=== PATIENT | female | born 1950 | race Caucasian/White ===

== ENCOUNTER → 2017-08-13 11:31 | Outpatient (CLI) | payer OTHER, SELFPAY ==
--- NOTE | 2017-08-13 11:31 | DT_ITS ---
This patient was seen during an EMR downtime August 06, 2017 - August 13, 2017. This patient may have a combination of paper and electronic documentation or all paper documentation. All documentation is viewable within the e-chart portion of [facility] for each patient visit.
[2017-08-13 14:02] LABS: Absolute Lymphocyte Count 1.55 X10^3/ul (0.83-4.51); Absolute Neutrophil Count 3.4 X10^3/uL (2.0-7.7); Basophil# 0.03 X10^3/uL; Basophil% 0.6 % (0-1); Eosinophil# 0.08 X10^3/uL; Eosinophils% 1.5 % (0-5); Hematocrit 36.9 % (37-47); Hemoglobin 11.7 g/dl (12.0-15.0); Lymphocyte # 1.55 X10^3/ul (4.0); Lymphocyte % 28.8 % (19-41); Mean Corp Hgb Conc 31.7 g/gl (32-36); Mean Corpuscular Hgb 28.8 pg (27.0-32.0); Mean Corpuscular Volume 90.9 fL (81-99); Mean Platelet Vol. 9.8 fl (6.2-12.0); Monocyte# 0.36 X10^3/uL; Monocyte% 6.7 % (0-10); Neutrophil # 3.37 X10^3/uL (2.7-7.7); Neutrophil % 62.4 % (47-70); Platelet Count 180 K/mm3 (150-450); RBC Distribution Width CV 14.1 % (11.6-14.6); RBC Distribution Width SD 46.6 fl (35.1-43.9); Red Blood Count 4.06 M/mm3 (4.2-5.4); White Blood Count 5.4 K/mm3 (4.4-11.0)
[2017-08-13 14:04] LABS: ALB/GLOB Ratio 1.2 RATIO (0.9-2.4); AST(SGOT) 18 U/L (15-37); Alanine Aminotransfer ALT/SGPT 28 U/L (13-56); Albumin, Serum 3.9 g/dL (3.2-5.0); Alkaline Phosphatase 100 U/L (45-117); Anion Gap 7 (5-15); BUN 17 mg/dL (7-18); BUN/Creat Ratio 22.7 RATIO (10-20); Calcium,Total 8.7 mg/dL (8.5-10.1); Chloride 107 mmol/L (98-107); Cholesterol 168 mg/dL (200); Creatinine, Serum 0.75 mg/dL (0.55-1.02); EST Glomerular Filtration Rate 83 mL/min (>60); Est Glom Filt Rate - Afr Amer 100 mL/min (>60); Globulin 3.2 g/dL (2.2-4.2); Glucose 83 mg/dL (74-106); Hemoglobin A1c 5.5 % (4.2-6.3); High Density Lipoprotein 57 mg/dL; Protein, Total 7.1 g/dL (6.4-8.2); Sodium Level 141 mmol/L (136-145); Thyroid Stim Hormone (TSH) 0.91 uIU/mL (0.358-3.74); Triglycerides 117 mg/dL; Very Low Density Lipoprotein 23 mg/dL (5-40)
[2017-08-13 14:05] LABS: POSITIVE COUNT NO; POSITIVE DIFFERENTIAL NO; POSITIVE MORPHOLOGY NO
== END ==
PROVIDERS: Visit Provider Family Medicine
DX: E16.2 Hypoglycemia, unspecified (principal); Z13.220 Encounter for screening for lipoid disorders; R11.0 Nausea
CPT/HCPCS: 36415; 80053; 80061; 83036; 84443; 85025

== ENCOUNTER → 2018-09-03 | Outpatient (CLI) | payer OTHER, SELFPAY ==
--- NOTE | 2018-09-03 11:57 | RAD_ITS ---
STUDY: X-RAY LEFT FOOT, THIRD TOE REASON FOR EXAM: Female, 67 years old. Injury. Pain. TECHNIQUE: 3 view(s) of the toe were obtained. COMPARISON: None. FINDINGS: No acute fracture, dislocation or osseous destruction. 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 Mild joint space narrowing at the distal interphalangeal joints. Soft tissue swelling predominating at the third digit. RAD/Toe(s) Min 2 Views IMPRESSION: Left foot/third toe intact Soft tissue swelling Mild degenerative changes Electronically Signed: Kapil Alfonso DO at 13:08 EDT Tel , Service support ,
== END | disposition home or self-care (01) ==
LOC: MTRAD 11:56
PROVIDERS: Family Provider Family Medicine; PCP Family Medicine; Referring Provider Family Medicine; Visit Provider Family Medicine
DX: S90.122A Contusion of left lesser toe(s) without damage to nail, initial encounter (principal)
CPT/HCPCS: 73660

== ENCOUNTER → 2019-09-19 12:06 | Outpatient (CLI) | payer MEDICARE, SELFPAY ==
--- NOTE | 2019-09-19 12:08 | BI_ITS ---
MAMMOGRAPHY - BILATERAL SCREENING REASON FOR EXAM: Female, 68 years old. Routine annual screening examination. PERTINENT HISTORY: Non-contributory. TECHNIQUE: Digital bilateral breast annita (3D mammographic acquisition) in the CC and MLO projections. 2-D mediolateral oblique (MLO) and craniocaudad (CC) views of both breasts were obtained. CAD: Full Field Digital Mammography with Computer Added Detection was performed. COMPARISON: Comparison is made with prior examination dated September 23, 2008. FINDINGS: Breast Composition: There are scattered areas of fibroglandular density. There are no dominant masses or suspicious calcifications. Small benign appearing left axillary lymph nodes. No other significant abnormalities are identified. There has been no significant change since the prior study. BI/SCREEN MAMM (CAD) W/ANNITA BILAT IMPRESSION: Stable bilateral screening mammogram. Yearly follow-up mammogram recommended. (A) ASSESSMENT CATEGORY: BIRADS Category 2: Benign. A letter regarding these results will be sent to the patient by the facility within 30 days. Approximately 10% of breast cancers are not detected by mammography. A normal mammogram should not delay biopsy of a clinically suspicious abnormality. [id number] Electronically Signed: Teofilo Glies, at 15:10 EDT , Service support ,
== END ==
PROVIDERS: PCP Family Medicine; Referring Provider Family Medicine; Visit Provider Family Medicine
DX: Z12.31 Encounter for screening mammogram for malignant neoplasm of breast (principal)
CPT/HCPCS: 77063; 77067

== ENCOUNTER → 2019-09-29 09:39 | Outpatient (CLI) | payer MEDICARE, SELFPAY ==
[2019-09-29 12:50] LABS: Anion Gap 4 (5-15); BUN 16 mg/dL (7-18); BUN/Creat Ratio 19.2 RATIO (10-20); Calcium,Total 8.8 mg/dL (8.5-10.1); Chloride 110 mmol/L (98-107); Cholesterol 184 mg/dL (200); Creatinine, Serum 0.83 mg/dL (0.55-1.02); EST Glomerular Filtration Rate 73 mL/min (>60); Est Glom Filt Rate - Afr Amer 88 mL/min (>60); Glucose 87 mg/dL (74-106); High Density Lipoprotein 63 mg/dL; Potassium 4.1 mmol/L (3.5-5.1); Sodium Level 142 mmol/L (136-145); Triglycerides 84 mg/dL; Very Low Density Lipoprotein 17 mg/dL (5-40)
== END ==
PROVIDERS: PCP Family Medicine; Referring Provider Family Medicine; Visit Provider Family Medicine
DX: Z13.1 Encounter for screening for diabetes mellitus (principal); Z13.220 Encounter for screening for lipoid disorders
CPT/HCPCS: 36415; 80048; 80061

== ENCOUNTER → 2019-12-29 16:53 | Outpatient (CLI) | payer MEDICARE, SELFPAY | PROVIDERS: PCP Family Medicine; Visit Provider Family Medicine | DX: Z20.828 Contact with and (suspected) exposure to other viral communicable diseases (principal) | CPT/HCPCS: 87635; U0003 ==

== ENCOUNTER → 2020-05-25 11:33 | Outpatient (CLI) | payer MEDICARE, SELFPAY ==
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
== END ==
PROVIDERS: PCP Family Medicine; Referring Provider Family Medicine; Visit Provider Family Medicine
DX: M25.462 Effusion, left knee (principal)
CPT/HCPCS: 73564

== ENCOUNTER 2020-06-25 13:30 | Outpatient (RCR) | payer MEDICARE, SELFPAY ==
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
--- NOTE | 2020-08-12 17:32 | HP.PTDCSUM ---
It has been my pleasure to treat PAUL VILLA referred by Dr. Broderick Wolfe MD, with the diagnosis of L knee pain for a total of 5 visit(s). Discharge Date: Please see the following information for a summary of their discharge status. Subjective: I am doing well today, last session I was little sore/achy but I am good today. Feeling as though she can do her exercises at home independently at this time. L knee Pain Intensity (Out of 10): 0 % Improvement: 100 Objective/Function: Progressed intensity and volume of abover ex's, pt is showing increase in strength of L hip and quad. Pt plans to complete her exercises independently and feels confident in her ability to do so. Goal 1:: Full aROM and quad contraction L knee without pain Goal 2:: walk and steps in community without pain Goal 3:: Ready to resume bike riding incommmunity Goal 4:: Pt feel 90% back to normal L knee Plan: Discharge to independent program per pt request. If there are questions or concerns regarding this patient's physical therapy, please feel free to call me at [phone]. Thank you for the referral of this patient. Sincerely, Kapil Leong, DPT, OCS, CSCS
== END 2020-06-25 19:00 | disposition home or self-care (01) ==
LOC: PT 13:30
PROVIDERS: PCP Family Medicine; Referring Provider Family Medicine; Visit Provider Family Medicine
DX: S89.92XD Unspecified injury of left lower leg, subsequent encounter (principal); X50.1XXD Overexertion from prolonged static or awkward postures, subsequent encounter; M70.52 Other bursitis of knee, left knee
CPT/HCPCS: 97110; 97161

== ENCOUNTER → 2020-09-14 08:22 | Outpatient (CLI) | payer MEDICARE, SELFPAY ==
[2020-09-14 11:03] LABS: ALB/GLOB Ratio 1.2 RATIO (0.9-2.4); AST(SGOT) 23 U/L (15-37); Alanine Aminotransfer ALT/SGPT 36 U/L (13-56); Alkaline Phosphatase 103 U/L (45-117); Anion Gap 5 (5-15); BUN 13 mg/dL (7-18); BUN/Creat Ratio 15.6 RATIO (10-20); Calcium,Total 9.5 mg/dL (8.5-10.1); Chloride 107 mmol/L (98-107); Cholesterol 195 mg/dL (200); Creatinine, Serum 0.83 mg/dL (0.55-1.02); EST Glomerular Filtration Rate 73 mL/min (>60); Est Glom Filt Rate - Afr Amer 88 mL/min (>60); Globulin 3.4 g/dL (2.2-4.2); Glucose 87 mg/dL (74-106); High Density Lipoprotein 63 mg/dL; Potassium 3.7 mmol/L (3.5-5.1); Protein, Total 7.4 g/dL (6.4-8.2); Sodium Level 139 mmol/L (136-145); Triglycerides 124 mg/dL; Very Low Density Lipoprotein 25 mg/dL (5-40)
== END ==
PROVIDERS: PCP Family Medicine; Referring Provider Family Medicine; Visit Provider Family Medicine
DX: I10 Essential (primary) hypertension (principal)
CPT/HCPCS: 36415; 80053; 80061

== ENCOUNTER → 2020-10-14 13:02 | Outpatient (CLI) | payer MEDICARE, SELFPAY ==
--- NOTE | 2020-10-14 13:23 | BI_ITS ---
MAMMOGRAPHY - BILATERAL SCREENING REASON FOR EXAM: Female, 69 years old. Routine annual screening examination. PERTINENT HISTORY: Non-contributory. TECHNIQUE: Digital bilateral breast annita (3D mammographic acquisition) in the CC and MLO projections. 2-D mediolateral oblique (MLO) and craniocaudad (CC) views of both breasts were obtained. CAD: Full Field Digital Mammography with Computer Added Detection was performed. COMPARISON: Comparison is made with prior study dated 09/19/2019. FINDINGS: Breast Composition: There are scattered areas of fibroglandular density. There are no dominant masses or suspicious calcifications. Stable benign-appearing bilateral axillary lymph nodes. No other significant abnormalities are identified. There has been no significant change since the prior study. BI/SCRN MAMM (CAD)W/ANNITA BILAT IMPRESSION: Stable bilateral screening mammogram. Yearly follow-up mammogram recommended. (A) ASSESSMENT CATEGORY: BIRADS Category 2: Benign. A letter regarding these results will be sent to the patient by the facility within 30 days. Approximately 10% of breast cancers are not detected by mammography. A normal mammogram should not delay biopsy of a clinically suspicious abnormality. [id number] Electronically Signed: Teofilo Giles MD at 8:48 EDT , Service support ,
--- NOTE | 2020-10-14 13:28 | BD_ITS ---
STUDY: DUAL ENERGY X-RAY ABSORPTIOMETRY / DXA REASON FOR EXAM: Female, 69 years old. 627.8Menopausal postmenopausalBONE DENSITY REASON FOR EXAM TECHNIQUE: Bone Mineral Density (BMD) measurements of lumbar spine and bilateral hips were obtained. COMPARISON: None. FINDINGS: Lumbar Spine (L1-L4): g/cm2 (0.644) / T-score (-3.7) / Z-score (-1.7) Findings are suggestive of osteoporosis with a high fracture risk. Left Femur Total: g/cm2 (0.739) / T-score (-1.7) / Z-score (-0.3) Left Femoral Neck: g/cm2 (0.592) / T-score (-2.3) / Z-score (-0.6) Right Femur Total: g/cm2 (0.732) / T-score (-1.7) / Z-score (-0.3) Right Femoral Neck: g/cm2 (0.604) / T-score (-2.2) / Z-score (-0.5) BD/Dexa Bone Density Study IMPRESSION: The patient is considered osteoporotic as outlined below according to World [employer] Organization (WHO) criteria with a high fracture risk. Reference Information: The T-score is the number of standard deviations above or below the standard which is normal for young adults at their peak bone mineral density. The World Health Organization (WHO) interprets the T-scores as follows: Above -1 Normal bone density Between -1 and -2.5 Osteopenia Equal to / or below -2.5 Osteoporosis As a practical clinical guideline, osteopenia may be graded as follows: Mild -1 through -1.5 Moderate -1.6 through -2.0 Severe -2.1 through -2.4 The Z-score is the number of standard deviations above or below age-matched controls. A Z-score of less than -1.5 would be considered abnormal. References: 1. NIH Osteoporosis and Related Bone Diseases www osteo.org 2. International Society for Clinical Densitometry www iscd.org 3. National Osteoporosis Foundation www nof.org Electronically Signed: Teofilo Giles MD at 20:17 EDT , Service support ,
== END ==
PROVIDERS: PCP Family Medicine; Referring Provider Family Medicine; Visit Provider Family Medicine
DX: Z12.31 Encounter for screening mammogram for malignant neoplasm of breast (principal); Z78.0 Asymptomatic menopausal state
CPT/HCPCS: 77063; 77067; 77080

== ENCOUNTER 2021-06-02 07:52 | Outpatient (CLI) | payer MEDICARE, SELFPAY ==
--- NOTE | 2021-06-02 08:02 | CT_ITS ---
STUDY: CT ABDOMEN WITH CONTRAST REASON FOR EXAM: Female, 70 years old. Hepatic abnormality visualized on prior MRI examination. RADIATION DOSAGE (If Supplied By Facility): CTDIvol = ( 14.10 ) mGy, DLP = ( 862.96 ) mGycm TECHNIQUE: Transaxial images were obtained post I.V. administration of IV 100mL Isovue-300, and oral contrast. Sagittal and coronal images were reconstructed. Individualized dose optimization techniques were used for this CT. COMPARISON: None. FINDINGS: The visualized lung bases are unremarkable. The visualized portions of the heart are within normal limits. There is decreased attenuation of the liver consistent with steatosis. Multiple heterogeneous enhancing nodules are seen in the liver. The largest measures 4.3 cm x 4.9 cm and is in the dome of the right lobe of the liver. There is a cotton-wool type of enhancement within these nodules. The findings are suggestive of multiple hepatic hemangiomas. Correlation with ultrasound is recommended for further evaluation. The gallbladder is contracted. Normal spleen. Normal pancreas. Normal bilateral adrenal glands. Normal right kidney. Normal left kidney. Normal visualized stomach. Normal small intestine. Normal colon. The appendix is visualized and appears normal. Normal abdominal aorta. Normal inferior vena cava. Normal retroperitoneum. Normal abdominal wall. Normal osseous structures. CT/Abdomen WITH IV Contrast IMPRESSION: There are multiple heterogeneous enhancing nodules with a cotton wool type of enhancement throughout the liver as described. This most likely corresponds to multiple hepatic hemangiomas. Correlation with ultrasound is recommended for further evaluation. Diffuse fatty infiltration of the liver. Electronically Signed: Teofilo Giles MD at 9:14 EDT ,
[2021-06-02 08:06] LABS: CREATININE FINGERSTICK 0.8 mg/dL (0.55-1.02); EGFR FINGERSTICK > 60.0000 mL/min (>60)
== END 2021-06-02 23:59 | disposition home or self-care (01) ==
LOC: CT 07:54
PROVIDERS: PCP Family Medicine; Referring Provider Family Medicine; Visit Provider Family Medicine
DX: K76.9 Liver disease, unspecified (principal)
CPT/HCPCS: 74160; Q9967

== ENCOUNTER 2021-06-09 09:45 | Outpatient (CLI) | payer MEDICARE, SELFPAY ==
--- NOTE | 2021-06-09 09:54 | US_ITS ---
STUDY: ABDOMINAL ULTRASOUND - RIGHT UPPER QUADRANT REASON FOR VISIT: Female, 70 years old HEPATOLEGALY -- ABNL CT TECHNIQUE: Ultrasound evaluation of the right upper quadrant was performed with real-time and static finney-scale imaging. TECHNICAL QUALITY: Adequate. COMPARISON: CT abdomen pelvis 06/02/2021. FINDINGS: LIVER: Length 15.7 cm. Heterogeneous predominantly increased echogenicity. There are 3 hypoechoic lesions in the right lobe corresponding to the CT lesions. These measure 4.6 x 4.4 x 4.5 cm, 4.3 x 2.3 x 2.6 cm, and 2.6 x 1 x 1.7 cm. Calcification in the left lobe 1.5 cm. GALLBLADDER: Surgically absent. EXTRAHEPATIC BILE DUCTS: Common bile duct 4 mm not dilated. PANCREAS: Visualized portions unremarkable. The tail was not visualized. Obscured by bowel gas. RIGHT KIDNEY: Length 19.7 cm. No hydronephrosis. ASCITES: None. US/Abdomen Limited IMPRESSION: Hepatic lesions x3 hypoechoic indeterminate by ultrasound. Correlation with MRI may be helpful. Fatty infiltration. Cholecystectomy. No biliary dilatation. Electronically Signed: Lexi Bojorquez MD at 5:36 EDT ,
== END 2021-06-09 23:59 | disposition home or self-care (01) ==
PROVIDERS: PCP Family Medicine; Visit Provider Family Medicine
DX: R16.0 Hepatomegaly, not elsewhere classified (principal)
CPT/HCPCS: 76705

== ENCOUNTER → 2021-09-12 | Outpatient (CLI) | payer MEDICARE, SELFPAY ==
[2021-09-12 09:29] LABS: Bacteria 0 SEEN /hpf (None Seen); Mucous, Urine 0 SEEN /hpf (<or=2+); Red Blood Cells-Urine 0 SEEN /hpf (0-5)
[2021-09-12 12:10] LABS: Color, Urine Yellow (Yellow); Glucose, Dipstick Normal (Normal); Ketone-Dipstick 5 mg/dl (Negative); Leukocyte Esterase-Dipstick 25 /ul (Negative); Nitrite-Dipstick Negative (Negative); Occult Blood-Urine Negative /ul (Negative); Protein-Dipstick Negative (Negative); Specific Gravity, Urine 1.015 (1.002-1.030); Urine Bilirubin Dipstick Negative (Negative); Urine Clarity Sl. Cloudy (Clear); Urine Urobilinogen Normal (Normal)
[2021-09-12 12:13] LABS: Absolute Lymphocyte Count 1.42 X10^3/uL (0.83-4.51); Basophil# 0.04 X10^3/uL; Basophil% 0.8 % (0-1); Eosinophil# 0.13 X10^3/uL; Eosinophils% 2.6 % (0-5); Hematocrit 39.2 % (37-47); Hemoglobin 12.3 g/dL (12.0-15.0); Lymphocyte # 1.42 X10^3/ul (0.83-4.51); Lymphocyte % 27.9 % (19-41); Mean Corp Hgb Conc 31.4 g/dL (32-36); Mean Corpuscular Hgb 28.7 pg (27.0-32.0); Mean Corpuscular Volume 91.4 fL (81-99); Mean Platelet Vol. 10.2 fl (6.2-12.0); Monocyte# 0.52 X10^3/uL; Monocyte% 10.2 % (0-10); NRBC Flagged by Analyzer 0 % (0-5); Neutrophil # 2.96 X10^3/uL (2.7-7.7); Neutrophil % 58.1 % (47-70); Platelet Count 180 K/mm3 (150-450); RBC Distribution Width CV 14.1 % (11.6-14.6); RBC Distribution Width SD 47.7 fl (35.1-43.9); Red Blood Count 4.29 M/mm3 (4.2-5.4); White Blood Count 5.1 K/mm3 (4.4-11.0)
[2021-09-12 12:18] LABS: Squamous Epithelial Cells - UA 0-5 SEEN /hpf (5-10); White Blood Cells 0-5 SEEN /hpf (0-5)
[2021-09-12 12:28] LABS: Vitamin B12 570 pg/mL (211-911)
[2021-09-12 12:48] LABS: ALB/GLOB Ratio 1.1 RATIO (0.9-2.4); AST(SGOT) 31 U/L (15-37); Alanine Aminotransfer ALT/SGPT 56 U/L (13-56); Albumin, Serum 3.8 g/dL (3.2-5.0); Alkaline Phosphatase 101 U/L (45-117); Anion Gap 9 (5-15); BUN 15 mg/dL (7-18); BUN/Creat Ratio 17.3 RATIO (10-20); CPK Total, Creatine Kinase 66 U/L (26-192); Chloride 107 mmol/L (98-107); Cholesterol 178 mg/dL (200); Creatinine, Serum 0.87 mg/dL (0.55-1.02); EST Glomerular Filtration Rate 69 mL/min (>60); Est Glom Filt Rate - Afr Amer 83 mL/min (>60); Ferritin 21 ng/mL (8-252); Globulin 3.4 g/dL (2.2-4.2); Glucose 92 mg/dL (74-106); High Density Lipoprotein 54 mg/dL; Magnesium 2.5 mg/dL (1.6-2.6); Protein, Total 7.2 g/dL (6.4-8.2); Sodium Level 142 mmol/L (136-145); Thyroid Stim Hormone (TSH) 2.16 uIU/mL (0.358-3.74); Triglycerides 116 mg/dL; Very Low Density Lipoprotein 23 mg/dL (5-40)
== END | disposition home or self-care (01) ==
LOC: MFPLAB 09:28
PROVIDERS: PCP Family Medicine; Visit Provider Family Medicine
DX: I10 Essential (primary) hypertension (principal); R25.2 Cramp and spasm; E53.8 Deficiency of other specified B group vitamins
CPT/HCPCS: 36415; 80053; 80061; 81001; 82550; 82607; 82728; 83735; 84443; 85025

== ENCOUNTER → 2022-03-24 | Outpatient (CLI) | payer MEDICARE, SELFPAY ==
[2022-03-24 10:13] LABS: Red Blood Cells-Urine 0 SEEN /hpf (0-5)
[2022-03-24 12:12] LABS: Color, Urine Yellow (Yellow); Glucose, Dipstick Normal (Normal); Ketone-Dipstick 15 mg/dl (Negative); Leukocyte Esterase-Dipstick 25 /ul (Negative); Nitrite-Dipstick Negative (Negative); Occult Blood-Urine 10 /ul (Negative); Protein-Dipstick 15 mg/dl (Negative); Urine Bilirubin Dipstick Negative (Negative); Urine Clarity Clear (Clear); Urine Urobilinogen 1 mg/dl (Normal)
[2022-03-24 12:20] LABS: Bacteria RARE /hpf (None Seen); Mucous, Urine RARE /hpf (<or=2+); Squamous Epithelial Cells - UA 0-5 SEEN /hpf (5-10); White Blood Cells 0-5 SEEN /hpf (0-5)
[2022-03-24 12:33] LABS: Vitamin B12 1571 pg/mL (211-911)
[2022-03-24 12:47] LABS: AST(SGOT) 18 U/L (15-37); Alanine Aminotransfer ALT/SGPT 37 U/L (13-56); Albumin, Serum 3.7 g/dL (3.2-5.0); Alkaline Phosphatase 107 U/L (45-117); Anion Gap 6 (5-15); BUN 18 mg/dL (7-18); Calcium,Total 8.9 mg/dL (8.5-10.1); Chloride 108 mmol/L (98-107); Cholesterol 172 mg/dL (200); EST Glomerular Filtration Rate 58 mL/min (>60); Est Glom Filt Rate - Afr Amer 71 mL/min (>60); Globulin 3.6 g/dL (2.2-4.2); Glucose 93 mg/dL (74-106); High Density Lipoprotein 86 mg/dL; Potassium 4.4 mmol/L (3.5-5.1); Protein, Total 7.3 g/dL (6.4-8.2); Sodium Level 141 mmol/L (136-145); Thyroid Stim Hormone (TSH) 1.47 uIU/mL (0.358-3.74); Triglycerides 100 mg/dL; Very Low Density Lipoprotein 20 mg/dL (5-40)
[2022-03-24 15:30] LABS: Absolute Lymphocyte Count 1.15 X10^3/uL (0.83-4.51); Basophil# 0.04 X10^3/uL; Basophil% 0.8 % (0-1); Eosinophil# 0.11 X10^3/uL; Eosinophils% 2.2 % (0-5); Hematocrit 37.8 % (37-47); Hemoglobin 11.7 g/dL (12.0-15.0); Lymphocyte # 1.15 X10^3/ul (0.83-4.51); Lymphocyte % 23.5 % (19-41); Mean Corpuscular Hgb 28.1 pg (27.0-32.0); Mean Corpuscular Volume 90.9 fL (81-99); Mean Platelet Vol. 10.5 fl (6.2-12.0); Monocyte# 0.52 X10^3/uL; Monocyte% 10.6 % (0-10); NRBC Flagged by Analyzer 0.4 % (0-5); Neutrophil # 3.04 X10^3/uL (2.7-7.7); Neutrophil % 62.3 % (47-70); Platelet Count 203 K/mm3 (150-450); RBC Distribution Width CV 14.7 % (11.6-14.6); RBC Distribution Width SD 49.1 fl (35.1-43.9); Red Blood Count 4.16 M/mm3 (4.2-5.4); White Blood Count 4.9 K/mm3 (4.4-11.0)
[2022-03-27 14:30] LABS: Ferritin 25 ng/mL (8-252); Iron 45 ug/dL (50-170); Iron Binding Capacity,Total 360 ug/dL (250-450); PERCENT IRON SATURATION 12.5 % (15.0-55.0)
== END | disposition home or self-care (01) ==
LOC: MTLAB 10:06
PROVIDERS: PCP Family Medicine; Referring Provider Family Medicine; Visit Provider Family Medicine
DX: I10 Essential (primary) hypertension (principal); E53.8 Deficiency of other specified B group vitamins; D64.9 Anemia, unspecified
CPT/HCPCS: 80053; 80061; 81001; 82607; 82728; 82746; 83540; 83550; 84443; 85025

== ENCOUNTER → 2022-05-09 | Outpatient (CLI) | payer MEDICARE, SELFPAY ==
[2022-05-09 15:20] LABS: Absolute Lymphocyte Count 1.54 X10^3/uL (0.83-4.51); Absolute Neutrophil Count 4.2 X10^3/uL (2.0-7.7); Basophil# 0.06 X10^3/uL; Basophil% 0.9 % (0-1); Eosinophil# 0.09 X10^3/uL; Eosinophils% 1.4 % (0-5); Hematocrit 38.5 % (37-47); Hemoglobin 12.3 g/dL (12.0-15.0); Lymphocyte # 1.54 X10^3/ul (0.83-4.51); Lymphocyte % 23.7 % (19-41); Mean Corp Hgb Conc 31.9 g/dL (32-36); Mean Corpuscular Hgb 28.9 pg (27.0-32.0); Mean Corpuscular Volume 90.4 fL (81-99); Mean Platelet Vol. 9.7 fl (6.2-12.0); Monocyte% 9.2 % (0-10); NRBC Flagged by Analyzer 0 % (0-5); Neutrophil # 4.19 X10^3/uL (2.7-7.7); Neutrophil % 64.3 % (47-70); Platelet Count 269 K/mm3 (150-450); RBC Distribution Width CV 14.6 % (11.6-14.6); RBC Distribution Width SD 48.5 fl (35.1-43.9); Red Blood Count 4.26 M/mm3 (4.2-5.4); White Blood Count 6.5 K/mm3 (4.4-11.0)
[2022-05-09 15:38] LABS: Vitamin D,25 Hydroxy 50.9 ng/mL
[2022-05-09 16:23] LABS: AST(SGOT) 25 U/L (15-37); Alanine Aminotransfer ALT/SGPT 39 U/L (13-56); Albumin, Serum 3.8 g/dL (3.2-5.0); Alkaline Phosphatase 108 U/L (45-117); Anion Gap 7 (5-15); BUN 14 mg/dL (7-18); BUN/Creat Ratio 16.1 RATIO (10-20); Calcium,Total 9.3 mg/dL (8.5-10.1); Chloride 107 mmol/L (98-107); Creatinine, Serum 0.87 mg/dL (0.55-1.02); EST Glomerular Filtration Rate 69 mL/min (>60); Est Glom Filt Rate - Afr Amer 83 mL/min (>60); Ferritin 26 ng/mL (8-252); Globulin 3.8 g/dL (2.2-4.2); Glucose 84 mg/dL (74-106); Iron 63 ug/dL (50-170); Iron Binding Capacity,Total 384 ug/dL (250-450); Potassium 4.1 mmol/L (3.5-5.1); Protein, Total 7.6 g/dL (6.4-8.2); Sodium Level 140 mmol/L (136-145); T4 Free Direct 0.98 ng/dL (0.76-1.46); Thyroid Stim Hormone (TSH) 1.66 uIU/mL (0.358-3.74)
== END | disposition home or self-care (01) ==
LOC: MTLAB 11:33
PROVIDERS: PCP Family Medicine; Referring Provider Family Medicine; Visit Provider Family Medicine
DX: D64.9 Anemia, unspecified (principal); R53.83 Other fatigue
CPT/HCPCS: 36415; 80053; 82306; 82728; 82746; 83540; 83550; 84439; 84443; 85025

== ENCOUNTER → 2022-10-17 | Outpatient (CLI) | payer MEDICARE, SELFPAY ==
--- NOTE | 2022-10-17 10:18 | BI_ITS ---
MAMMOGRAPHY - BILATERAL SCREENING REASON FOR EXAM: Female, 71 years old. Routine annual screening examination. PERTINENT HISTORY: Non-contributory. TECHNIQUE: Digital bilateral breast annita (3D mammographic acquisition) in the CC and MLO projections. 2-D mediolateral oblique (MLO) and craniocaudad (CC) views of both breasts were obtained. CAD: Full Field Digital Mammography with Computer Added Detection was performed. COMPARISON: Comparison is made with prior study October 14, 2020 and September 19, 2019. FINDINGS: Breast Composition: There are scattered areas of fibroglandular density. There are no dominant masses or suspicious calcifications. Stable small benign-appearing bilateral axillary lymph nodes. No other significant abnormalities are identified. There has been no significant change since the prior study. BI/SCRN MAMM (CAD)W/ANNITA BILAT IMPRESSION: Stable bilateral screening mammogram. Yearly follow-up mammogram recommended. (A) ASSESSMENT CATEGORY: BIRADS Category 2: Benign. A letter regarding these results will be sent to the patient by the facility within 30 days. Approximately 10% of breast cancers are not detected by mammography. A normal mammogram should not delay biopsy of a clinically suspicious abnormality. [id number] Electronically Signed: Teofilo Giles MD at 13:26 EDT ,
--- NOTE | 2022-10-17 10:24 | BD_ITS ---
STUDY: DUAL ENERGY X-RAY ABSORPTIOMETRY / DXA REASON FOR EXAM: Female, 71 years old. [id number] TECHNIQUE: Bone Mineral Density (BMD) measurements of lumbar spine and bilateral hips were obtained. COMPARISON: Comparison is made with prior study October 14, 2020. FINDINGS: Lumbar Spine (L1-L4): g/cm2 (0.670) / T-score (-3.4) / Z-score (-1.3) Findings are suggestive of osteoporosis with a high fracture risk. Left Femur Total: g/cm2 (0.758) / T-score (-1.5) / Z-score (0.0) Left Femoral Neck: g/cm2 (0.577) / T-score (-2.5) / Z-score (-0.7) Right Femur Total: g/cm2 (0.709) / T-score (-1.9) / Z-score (-0.4) Right Femoral Neck: g/cm2 (0.574) / T-score (-2.5) / Z-score (-0.7) The T-Scores on the most recent prior examination were: Lumbar Spine (L1-L4): There has been worsening of bone density since the previous examination. Left Femur Total: which represents an improvement of 2.5%. Right Femur Total: which represents a worsening of 3.2%. BD/Dexa Bone Density Study IMPRESSION: The patient is considered osteoporotic as outlined below according to [employer] [place] Organization (WHO) criteria with a high fracture risk. There has been worsening of bone density since the previous examination. Reference Information: The T-score is the number of standard deviations above or below the standard which is normal for young adults at their peak bone mineral density. The World Health Organization (WHO) interprets the T-scores as follows: Above -1 Normal bone density Between -1 and -2.5 Osteopenia Equal to / or below -2.5 Osteoporosis As a practical clinical guideline, osteopenia may be graded as follows: Mild -1 through -1.5 Moderate -1.6 through -2.0 Severe -2.1 through -2.4 The Z-score is the number of standard deviations above or below age-matched controls. A Z-score of less than -1.5 would be considered abnormal. References: 1. NIH Osteoporosis and Related Bone Diseases www osteo.org 2. International Society for Clinical Densitometry www iscd.org 3. National Osteoporosis Foundation www nof.org Electronically Signed: Teofilo Giles MD at 10:46 EDT ,
== END | disposition home or self-care (01) ==
LOC: OPBD 10:17
PROVIDERS: PCP Family Medicine; Referring Provider Family Medicine; Visit Provider Family Medicine
DX: Z12.31 Encounter for screening mammogram for malignant neoplasm of breast (principal); Z78.0 Asymptomatic menopausal state
CPT/HCPCS: 77063; 77067; 77080

== ENCOUNTER → 2023-02-06 | Outpatient (CLI) | payer MEDICARE, SELFPAY ==
[2023-02-06 12:22] LABS: Absolute Lymphocyte Count 0.43 X10^3/uL (0.83-4.51); Absolute Neutrophil Count 7.2 X10^3/uL (2.0-7.7); Basophil# 0.05 X10^3/uL; Basophil% 0.6 % (0-1); Eosinophil# 0.04 X10^3/uL; Eosinophils% 0.5 % (0-5); Hematocrit 38.3 % (37-47); Hemoglobin 11.9 g/dL (12.0-15.0); Lymphocyte # 0.43 X10^3/ul (0.83-4.51); Lymphocyte % 5.1 % (19-41); Mean Corp Hgb Conc 31.1 g/dL (32-36); Mean Corpuscular Hgb 27.8 pg (27.0-32.0); Mean Corpuscular Volume 89.5 fL (81-99); Mean Platelet Vol. 9.5 fl (6.2-12.0); Monocyte# 0.54 X10^3/uL; Monocyte% 6.5 % (0-10); NRBC Flagged by Analyzer 0 % (0-5); Neutrophil # 7.24 X10^3/uL (2.7-7.7); Neutrophil % 86.7 % (47-70); POSITIVE DIFFERENTIAL YES; Platelet Count 236 K/mm3 (150-450); RBC Distribution Width CV 15.6 % (11.6-14.6); RBC Distribution Width SD 50.4 fl (35.1-43.9); Red Blood Count 4.28 M/mm3 (4.2-5.4); White Blood Count 8.4 K/mm3 (4.4-11.0)
[2023-02-06 12:27] LABS: Differential Indicated SCAN CRITERIA MET
[2023-02-06 12:53] LABS: Vitamin B12 736 pg/mL (211-911); Vitamin D,25 Hydroxy 55.4 ng/mL
[2023-02-06 13:32] LABS: ALB/GLOB Ratio 0.9 RATIO (0.9-2.4); AST(SGOT) 22 U/L (15-37); Alanine Aminotransfer ALT/SGPT 41 U/L (13-56); Albumin, Serum 3.6 g/dL (3.2-5.0); Alkaline Phosphatase 98 U/L (45-117); Anion Gap 5 (5-15); BUN 12 mg/dL (7-18); BUN/Creat Ratio 12.6 RATIO (10-20); Calcium,Total 9.1 mg/dL (8.5-10.1); Chloride 107 mmol/L (98-107); Cholesterol 136 mg/dL (200); Creatinine, Serum 0.96 mg/dL (0.55-1.02); EST Glomerular Filtration Rate 61 mL/min (>60); Est Glom Filt Rate - Afr Amer 74 mL/min (>60); Ferritin 55 ng/mL (8-252); Globulin 4.2 g/dL (2.2-4.2); Glucose 140 mg/dL (74-106); High Density Lipoprotein 44 mg/dL; Iron 20 ug/dL (50-170); Iron Binding Capacity,Total 352 ug/dL (250-450); Magnesium 2.2 mg/dL (1.6-2.6); Potassium 4.1 mmol/L (3.5-5.1); Protein, Total 7.8 g/dL (6.4-8.2); Sodium Level 137 mmol/L (136-145); Thyroid Stim Hormone (TSH) 1.03 uIU/mL (0.358-3.74); Triglycerides 117 mg/dL; Very Low Density Lipoprotein 23 mg/dL (5-40)
== END | disposition home or self-care (01) ==
LOC: MTLAB 09:58
PROVIDERS: PCP Family Medicine; Referring Provider Family Medicine; Visit Provider Family Medicine
DX: I10 Essential (primary) hypertension (principal); D64.9 Anemia, unspecified; M81.0 Age-related osteoporosis without current pathological fracture; E53.8 Deficiency of other specified B group vitamins; R25.2 Cramp and spasm
CPT/HCPCS: 36415; 80053; 80061; 82306; 82607; 82728; 82746; 83540; 83550; 83735; 84443; 85025

== ENCOUNTER → 2023-12-05 | Outpatient (CLI) | payer MEDICARE, SELFPAY ==
[2023-12-05 15:42] LABS: ALB/GLOB Ratio 0.9 RATIO (0.9-2.4); AST(SGOT) 26 U/L (15-37); Alanine Aminotransfer ALT/SGPT 39 U/L (13-56); Albumin, Serum 3.8 g/dL (3.2-5.0); Alkaline Phosphatase 105 U/L (45-117); Anion Gap 6 (5-15); BUN 15 mg/dL (7-18); CPK Total, Creatine Kinase 65 U/L (26-192); Calcium,Total 9.2 mg/dL (8.5-10.1); Chloride 108 mmol/L (98-107); Creatinine, Serum 0.94 mg/dL (0.55-1.02); EST Glomerular Filtration Rate 63 mL/min (>60); Est Glom Filt Rate - Afr Amer 76 mL/min (>60); Ferritin 21 ng/mL (8-252); Globulin 4.4 g/dL (2.2-4.2); Glucose 130 mg/dL (74-106); Magnesium 2.2 mg/dL (1.6-2.6); Protein, Total 8.2 g/dL (6.4-8.2); Sodium Level 140 mmol/L (136-145)
== END | disposition home or self-care (01) ==
LOC: MTLAB 12:35
PROVIDERS: PCP Family Medicine; Referring Provider Family Medicine; Visit Provider Family Medicine
DX: R25.2 Cramp and spasm (principal)
CPT/HCPCS: 36415; 80053; 82550; 82728; 83735; 84443

== ENCOUNTER → 2024-01-04 | Outpatient (CLI) | payer MEDICARE, SELFPAY ==
--- NOTE | 2024-01-04 14:36 | BI_ITS ---
MAMMOGRAPHY - BILATERAL SCREENING REASON FOR EXAM: Female, 73 years old. Routine annual screening examination. PERTINENT HISTORY: Non-contributory. TECHNIQUE: Digital bilateral breast annita (3D mammographic acquisition) in the CC and MLO projections. 2-D mediolateral oblique (MLO) and craniocaudad (CC) views of both breasts were obtained. CAD: Full Field Digital Mammography with Computer Added Detection was performed. COMPARISON: Comparison is made with prior study dated October 17, 2022 and October 14, 2020. FINDINGS: Breast Composition: There are scattered areas of fibroglandular density. There are no dominant masses or suspicious calcifications. No other significant abnormalities are identified. There has been no significant change since the prior study. BI/SCRN MAMM (CAD)W/ANNITA BILAT IMPRESSION: Stable bilateral screening mammogram. Yearly follow-up mammogram recommended. (A) ASSESSMENT CATEGORY: BIRADS Category 1: Negative. A letter regarding these results will be sent to the patient by the facility within 30 days. Approximately 10% of breast cancers are not detected by mammography. A normal mammogram should not delay biopsy of a clinically suspicious abnormality. [id number] Electronically Signed: Teofilo Giles MD at 15:24 EDT ,
== END | disposition home or self-care (01) ==
LOC: OPBI 14:34
PROVIDERS: PCP Family Medicine; Referring Provider Family Medicine; Visit Provider Family Medicine
DX: Z12.31 Encounter for screening mammogram for malignant neoplasm of breast (principal)
CPT/HCPCS: 77063; 77067

== ENCOUNTER → 2024-10-31 | Outpatient (CLI) | payer MEDICARE, SELFPAY ==
[2024-10-31 12:53] LABS: Hematocrit 36.0 % (37-47); Hemoglobin 11.6 g/dL (12.0-15.0); Immature Granulocytes Count 0.010 X10^3/uL (0.0-0.0); Mean Corp Hgb Conc 32.2 g/dL (32-36); Mean Corpuscular Volume 88.2 fL (81-99); Mean Platelet Vol. 10.4 fl (6.2-12.0); NRBC Flagged by Analyzer 0 % (0-5); Platelet Count 206 K/mm3 (150-450); RBC Distribution Width CV 14.9 % (11.6-14.6); RBC Distribution Width SD 47.8 fl (35.1-43.9); Red Blood Count 4.08 M/mm3 (4.2-5.4); White Blood Count 5.6 K/mm3 (4.4-11.0)
[2024-10-31 13:53] LABS: AST(SGOT) 25 U/L (<=31); Alanine Aminotransfer ALT/SGPT 27 U/L (<=34); Albumin, Serum 4.3 g/dL (3.4-4.8); Alkaline Phosphatase 103 U/L (35-104); Anion Gap 10 (5-15); BUN 21 mg/dL (4-19); BUN/Creat Ratio 22.5 RATIO (10-20); Calcium,Total 9.5 mg/dL (7.6-11.0); Carbon Dioxide 24.2 mmol/L (21.0-32.0); Chloride 106 mmol/L (98-108); Cholesterol 176 mg/dL (<=200); Ferritin 26 ng/mL (22-378); Globulin 3.6 g/dL (2.2-4.2); Glucose 80 mg/dL (70-99); Low Density Lipoprotein Calc. 95 mg/dL; Magnesium 2.3 mg/dL (1.5-2.2); Potassium 4.4 mmol/L (3.3-5.1); Triglycerides 117 mg/dL; Very Low Density Lipoprotein 23 mg/dL (5-40); cholesterol:hdl ratio screen 3.07
== END | disposition home or self-care (01) ==
LOC: MTLAB 10:35
PROVIDERS: PCP Family Medicine; Referring Provider Family Medicine; Visit Provider Family Medicine
DX: I10 Essential (primary) hypertension (principal); G25.81 Restless legs syndrome
CPT/HCPCS: 36415; 80053; 80061; 82728; 83735; 85025

== ENCOUNTER → 2024-11-06 | Outpatient (CLI) | payer MEDICARE, SELFPAY ==
[2024-11-06 18:46] LABS: Iron 24 ug/dL (50-170); Iron Binding Capacity,Total 318 ug/dL (250-450); Iron Binding Capacity,Unsat 294 ug/dL (228-428); Vitamin B12 1236 pg/mL (180-914); Vitamin D,25 Hydroxy 51.8 ng/mL (30-100)
== END | disposition home or self-care (01) ==
LOC: MTLAB 13:44
PROVIDERS: PCP Family Medicine
DX: D64.9 Anemia, unspecified (principal); R53.83 Other fatigue
CPT/HCPCS: 36415; 82306; 82607; 83540; 83550; 84443

== ENCOUNTER → 2025-01-16 | Outpatient (CLI) | payer MEDICARE, SELFPAY ==
--- NOTE | 2025-01-16 15:07 | RAD_ITS ---
PROCEDURE: KNEE 4 OR MORE VIEWS 01/16/2025 REASON FOR EXAM: INJURY TECHNIQUE: Procedure Code: RADKN Modality: DX Procedure: KNEE 4 OR MORE VIEWS Laterality: Right COMPARISON: None FINDINGS: Bones: There are no fractures or dislocations. Joints: Joint spaces are well preserved. Effusion: There does appear to be a small suprapatellar bursa effusion. Soft tissues: Soft tissue swelling of the knee is noted RAD/Knee 4 or More Views IMPRESSION: There does appear to be a small suprapatellar bursa effusion and soft tissue sw elling of the knee. Osseous structures appear grossly unremarkable. Reading Location: [id number]
--- NOTE | 2025-01-16 15:07 | RAD_ITS ---
PROCEDURE: HAND MIN 3 VIEWS 01/16/2025 REASON FOR EXAM: INJURY TECHNIQUE: Procedure Code: EMMA Modality: DX Procedure: HAND MIN 3 VIEWS Laterality: Right COMPARISON: None FINDINGS: Oblique fracture through the midshaft of the 4th metacarpal, displaced. Nondisplaced fracture through the 5th metacarpal. No additional fracture seen throughout the remainder of the hand. Narrowing of the distal interphalangeal joints of the 2nd through 5th digits are present. Soft tissue edema present. RAD/Hand Min 3 Views IMPRESSION: Acute displaced oblique fracture through the midshaft of the 4th metacarpal. Nondisplaced fracture through the 5th metacarpal. Reading Location: [id number]
--- OUTSIDE RECORDS SUMMARY | 2025-01-16 17:29 | XMS RPT_ITS | CCD ---
Author Organization [facility] CliniSywv Care Team Providers Care Style Advisor Name Role Phone Cullen Reina Primary Care Provider CULLEN REINA Primary Care UnavailSri Chan Referring Unavailable TRUDY SIMON Attending Unavailable IVETH ERAZO Referring Unavailable Sri Redding Attending Unavailable CULLEN REINA Primary Care UnavailCULLEN Obrien DO Primary Care Physician [phone] Cullen Reina MD Primary Care Provider CULLEN REINA MD Primary Care Physician CASSI UNGER MD Attending Unavailable CULLEN REINA MD Primary Care Unavailable AVIS GARCIA MD Attending Unavailable CURT CHRISTIANSON, CULLEN Primary Care Unavailable CULLEN ELIAS DO Primary Care Unavailable CASSI UNGER MD Attending Unavailable Dr. Cullen Reina MD Primary Care Provider Dr. Israel Ruvalcaba MD Attending Provider [phone] AVIS GARCIA MD Attending Freddy REINA MD, CULLEN Primary Care Unavailable PRERNA VARGAS MD Attending Unavailable CULLEN REINA MD Primary Care Unavailable ARACELI JAY, CULLEN Primary Care Unavailable PRERNA VARGAS MD Attending Unavailable Cullen Reina Referring Unavailable Cullen Reina Primary Care Unavailable Cullen Reina Attending Unavailable Cullen Reina Primary Care Unavailable Rubensorrow CANT HOOKERTimothy Attending Unavailable Rubensorrow CANT HOOKERTimothy Referring Unavailable Cullen Reina Primary Care Unavailable Cullen Reina Attending Unavailable Cullen Reina Referring Unavailable Cullen Reina Primary Care Unavailable Israel Ruvalcaba Attending Unavailable Cullen Reina Primary Care Unavailable Cullen Reina Attending Unavailable Cullen Reina Referring Unavailable Araceli JAY Dr. Cullen E Primary Care Physician Dr. Israel Ruvalcaba MD Attending Physician Dr. Cullen Reina MD Attending Physician [phone] Dr. Cullen Reina MD Referring Provider [phone] [place] CANT HOOKER-CTimothy Attending Physician [place] CANT HOOKER-CTimothy Referring Provider Allergies Allergy Classification Reported Allergen(s) Allergy Type Date of Onset Reaction(s) Facility (4 sources) Betamethasone; Translations: [BETAMETHASONE DIPROPIONATE] Drug Allergy 01-15-[address] [facility] (4 sources) Diclofenac; Translations: [DICLOFENAC] Drug Allergy 04-04-2022 Other: See Comments [facility] (4 sources) Etodolac; Translations: [ETODOLAC] Drug Allergy 04-04-[address] [facility] (4 sources) Methylphenidate; Translations: [METHYLPHENIDATE ] Drug Allergy 04-04-[address] [facility] (4 sources) venlafaxine; Translations: [VENLAFAXINE] Drug Allergy 04-04-2022 Other: See Comments [facility] (2 sources) amLODIPine Drug Allergy 05-02-2022 Contraindicatio n-Medical Surgical [facility] Medications Current Medications Medication Drug Class(es) Dates Sig (Normalized) Sig (Original) acetaminophen 325 mg / HYDROcodone bitartrate 5 mg oral tablet (2 sources) Opioid Agonist Start: 12-24-2022 End: 12-29-2022 take 1 tablet by mouth every six hours as needed for pain [place] 325- 5 mg oral tablet Dose = 1 tab(s), Oral, q6h, PRN for pain, X 5 day(s), # 12 tab(s), 0 Refill(s), Acute back pain less than 4 weeks duration, 59.1 Start Date: 12/24/22 Stop Date: 12/29/22 Status: Ordered cyclobenzaprine hydrochloride 7.5 mg oral tablet (5 sources) Muscle Relaxant Start: 12-24-2022 End: 12-29-2022 cyclobenzaprine 7.5 mg oral tablet Dose : 7.5 mg = 1 tab(s), Oral, TID, PRN for muscle spasm, X 5 day(s), # 15 tab(s), 0 Refill(s), 12/29/22 5:22:00 PM EDT Start Date: 12/24/22 Stop Date: 12/29/22 Status: Ordered take 1 tablet by franky th every eight hours as needed cyclobenzaprine 5 mg ORAL tablet Take 5 mg by mouth three times daily as needed. 0 Active Comment on above: Take 5 mg by mouth t hree times daily as needed. diazePAM 5 mg oral tablet (6 sources) Benzodiazepine Start: 04-29-2019 Valium 5 mg oral tablet Dose : 5 mg = 1 tab(s), Oral, TID, PRN as needed for pain, 58 Start Date: 04/29/19 Status: Ordered Repeat number: 1 lidocaine 0.05 mg/mg medicated patch (1 source) Antiarrhythmic, Amide Local Anesthetic Start: 04-22-2023 End: 05-02-2023 Lidoderm 5% topical film Apply 1 patch(es), Topical, qDay, Apply to area of back pain/spasm remove patches after 12 hours, # 30 patch(es), 0 Refill(s), 56.8 Start Date: 04/22/23 Stop Date: 05/02/23 Status: Ordered metoprolol tartrate 25 mg oral tablet (10 sources) beta-Adrenergic Hernandez Start: 06-02-2016 End: 04-04-2022 metoprolol tartrate 25 mg oral tablet Dose : 25 mg = 1 tab(s), Oral, BIDM, 0 Refill(s) Start Date: 06/02/16 Status: Ordered Repeat number: 1 Start: 05-09-2005 take 1 tablet by franky th every twenty-four hours TOPROL XL 25 MG 24 HR TAB Take by mouth. 0 05/09/2005 Active Start: 05-09-2005 TOPROL XL 25 M G 24 HR TAB twice daily 0 05/09/2005 Active Comment on above: twice daily Take 25 mg by mouth twice daily. Take by mouth. naproxen 375 mg oral tablet (1 source) Nonsteroidal Anti-inflammatory Drug Start: 04-22-2023 End: 05-02-2023 naproxen 375 mg oral tablet Dose : 375 mg = 1 tab(s), Oral, BID, PRN as needed for pain, As needed pain with food, # 20 tab(s), 0 Refill(s), 05/02/23 2:13:00 PM EST Start Date: 04/22/23 Stop Date: 05/02/23 Status: Ordered 12 hr orphenadrine citrate 100 mg extended release oral tablet (2 sources) Muscle Relaxant Start: 08-17-2024 End: 08-24-2024 orphenadrine 100 mg oral tablet, extended release Dose : 100 mg = 1 tab(s), Oral, BID, X 7 day(s), # 14 tab(s), 0 Refill(s), 08/24/24 2:13:00 PM EDT Start Date: 08/17/24 Stop Date: 08/24/24 Status: Ordered Quantity: 14.0 Unit: tab(s) Repeat number: 1 polyethylene glycol 3350 546550 mg / potassium chloride 2970 mg / sodium bicarbonate 6740 mg / sodium chloride 5860 mg / sodium sulfate 95118 mg powder for oral solution (1 source) Osmotic Laxative Start: 04-04-2022 End: 04-04-2022 peg 3350-Electrolytes (GOLYTELY) 236-22.74-6.74 -5.86 gram suspension Take 4,000 mL by mouth one time only for 1 dose. 1 Each 0 04/04/2022 04/04/2022 Active Comment on above: Take 4,000 mL by franky th one time only for 1 dose. Completed/Discontinued Medications Medication Drug Class(es) Dates Sig (Normalized) Sig (Original) acetaminophen 325 mg oral tablet (3 sources) Start: 05-09-2005 TYLENOL 325 MG TAB takes 650 mg bid 0 05/09/2005 Active Comment on above: takes 650 mg bid amLODIPine 5 mg oral tablet (3 sources) Dihydropyridine Calcium Channel Hernandez Start: 03-24-2022 take 1 tablet by mouth once daily amLODIPine (NORVASC) 5 mg tablet Take 5 mg by mouth once daily. 0 03/24/2022 Active Comment on above: Take 5 mg by mouth o nce daily. CALCIUM CARB/MAGNESIUM CMB #10 (FREEMAN-MAG ORAL) (3 sources) take 2000 mg by mouth twice daily CALCIUM CARB/MAGNESIUM CMB #10 (FREEMAN-MAG ORAL) Take 2,000 mg by mouth twice daily. 0 Active Comment on above: Take 2,000 mg by franky th twice daily. fluticasone propionate 0.05 mg/actuat metered dose nasal spray (3 sources) Corticosteroid Start: 02-15-2022 fluticasone (FLONASE) 50 mcg/actuation nasal spray 2 Sprays once daily. 0 02/15/2022 Active Comment on above: 2 Sprays once daily. gabapentin 100 mg oral capsule (3 sources) Anti-epileptic Agent Start: 03-10-2022 take 1 capsule by mouth three times daily gabapentin (NEURONTIN) 100 mg capsule Take 100 mg by mouth three times daily. 0 03/10/2022 Active Comment on above: Take 100 mg by mouth three times daily. multivitamin ORAL Tab (3 sources) Start: 12-24-2006 take 1 tablet by mouth once daily multivitamin ORAL Tab Take one(1) tablet daily. 0 0 12/24/2006 Active Comment on above: Take one(1) tablet d aily. rOPINIRole 0.25 mg oral tablet (3 sources) Nonergot Dopamine Agonist Start: 10-18-2020 rOPINIRole (REQUIP) 0.25 mg tablet take 1/2 tablet by mouth with dinner and 3 and 1/2 tablets at bedtime 0 10/18/2020 Active Comment on above: take 1/2 tablet by m outh with dinner and 3 and 1/2 tablets at bedtime sulfamethoxazole 800 mg / trimethoprim 160 mg oral tablet (3 sources) Dihydrofolate Reductase Inhibitor Antibacterial, Sulfonamide Antimicrobial Start: 04-03-2022 take 1 tablet by mouth twice daily sulfamethoxazole-t rimethoprim (BACTRIM DS,SEPTRA DS) 800-160 mg per tablet Take 1 tablet by mouth twice daily. 0 04/03/2022 Active Comment on above: Take 1 tablet by franky twice daily. traZODone hydrochloride 50 mg oral tablet (3 sources) Serotonin Reuptake Inhibitor Start: 02-08-2022 take 1 tablet by mouth once daily at bedtime traZODone (DESYREL) 50 mg tablet Take 50 mg by mouth daily at bedtime. 0 02/08/2022 Active Comment on above: Take 50 mg by mouth daily at bedtime. vitamin b12 0.5 mg oral tablet (3 sources) Vitamin B12 cyanocobalamin (VITAMIN B-12) 500 mcg tablet Take by mouth once daily. 0 Active Comment on above: Take by mouth once d aily. zolpidem tartrate 12.5 mg extended release oral tablet (3 sources) gamma-Aminobutyric Acid-ergic Agonist Start: 09-10-2008 zolpidem tartrate(AMBIEN CR 12.5 MG TAB) 1/2 at bedtime as needed for sleep 0 09/10/2008 Active Comment on above: 12 at bedtime as ne eded for sleep Problems Active Problems Problem Classification Problem Date Documented Da te Episodic/Chronic Deficiency and other anemia (1 source) Anemia, unspecified; Translations: [Anemia, unspecified] Onset: 11-21-2024 Episodic Essential hypertension (3 sources) Essential hypertension; Translations: [Essential (primary) hypertension] Onset: 12-24-2022 Chronic Other connective tissue disease (1 source) Spasm; Translations: [Cramp and spasm] Onset: 12-24-2022 Episodic Residual codes; unclassified (6 sources) Family history of cancer of colon; Translations: [Family history of malignant neoplasm of digestive organs] Onset: 05-13-2016 Episodic Residual codes; unclassified (2 sources) Family history of malignant neoplasm of digestive organs; Translations: [Family history of colon cancer requiring screening colonoscopy] Onset: 05-13-2016 Episodic Spondylosis; intervertebral disc disorders; other back problems (6 sources) Backache; Translations: [Dorsalgia, unspecified] Onset: 12-24-2022 Episodic Past or Other Problems Problem Classification Problem Date Documented Da te Episodic/Chronic Other connective tissue disease (1 source) Cramp and spasm; Translations: [Cramp and spasm] Onset: 12-27-2023 Episodic Other screening for suspected conditions (not mental disorders or infectious disease) (4 sources) Patient encounter status; Translations: [Encounter for screening for malignant neoplasm of colon] Onset: 05-02-2022 Episodic Results Test Name Value Interpretation Reference Range Facility Iron measurement (mass/mass) Ordered By: Timothy Clifton on 11-06-2024 Iron (Unsp spec) [Mass/Mass] 24 ug/dL Low 50-170 [facility] Iron+Iron Binding Capacityon 11-06-2024 Iron [Mass/Vol] 24 ug/dL Low 50-170 [facility] Comment on above: Order Comment: Order Date: 10/30/24 Order Info: [id number] - CMP Order Info: [id number] - LIPID Order Info: [id number] - MG Order Info: [id number] - HUY Performed By: #### L 100.0100, L501.5200, L500.4050, L500.4100 #### [facility] [address] [place], [place], [address] IRON SATURATION 8.0 Low 13-59 [facility] Comment on above: Order Comment: Order Date: 10/30/24 Order Info: [id number] - CMP Order Info: [id number] - LIPID Order Info: [id number] - MG Order Info: [id number] - HUY Performed By: #### L 100.0100, L501.5200, L500.4050, L500.4100 #### [facility] [address] [place], [place], [id number] TIBC 318 ug/dL Normal 250-450 [facility] Comment on above: Order Comment: Order Date: 10/30/24 Order Info: [id number] - CMP Order Info: [id number] - LIPID Order Info: [id number] - MG Order Info: [id number] - HUY Performed By: #### L 100.0100, L501.5200, L500.4050, L500.4100 #### [facility] [address] [place], [address] UIBC 294 ug/dL Normal 228-428 [facility] Comment on above: Order Comment: Order Date: 10/30/24 Order Info: [id number] - CMP Order Info: [id number] - LIPID Order Info: [id number] - MG Order Info: [id number] - HUY Performed By: #### L 100.0100, L501.5200, L500.4050, L500.4100 #### [facility] [address] [place], [address] No Panel InformationOrdered By: Timothy Clifton on 11-06-2024 Unsaturated Iron Binding Capacity 294 ug/dL 228-428 [facility] Serum or plasma iron saturat ion measurement (mass fraction)Ordered By: Timothy Clifton on 11-06-2024 Iron saturation [Mass fraction] 8.0 % Low 13-59 [facility] TSH DL <= 0.005 mIU/L QnOrde red By: Timothy Clifton on 11-06-2024 TSH Qn 1.590 uIU/mL 0.300-4.200 [facility] Thyroid Stim Hormone (TSH)on 11-06-2024 TSH 1.590 uIU/mL Normal 0.300-4.200 [facility] Comment on above: Order Comment: Order Date: 10/30/24 Order Info: [id number] - CMP Order Info: [id number] - LIPID Order Info: [id number] - MG Order Info: [id number] - HUY Performed By: #### L 100.0100, L501.5200, L500.4050, L500.4100 #### [facility] [address] [place], [address] Vitamin B12on 11-06-2024 Cobalamin (Vitamin B12) [Mass/Vol] 1236 pg/mL High 180-914 [facility] Comment on above: Order Comment: CRISTI Campbell ADD IBC AND B12 TO LABS DRAWN TODAY 11/06/24 PER ARACELI Performed By: #### L 503.6030, L506.1001, L503.0106 #### [facility] [address] [place], [address] Vitamin B12 ser/plasOrdered By: Timothy Traviskike on 11-06-2024 Cobalamin (Vitamin B12) [Mass/Vol] 1236 pg/mL High 180-914 [facility] Vitamin D,25 Hydroxyon 11-06 Vitamin D 25-OH 51.8 ng/mL Normal 30-100 [facility] Comment on above: Order Comment: Order Date: 10/30/24 Order Info: [id number] - CMP Order Info: [id number] - LIPID Order Info: [id number] - MG Order Info: [id number] - HUY Result Comment: Suzan min D Status Deficiency: <20 ng/mL (50nmol/L) Insufficiency: 20-30 ng/mL (50-75 nmol/L) Sufficiency: 30-100 ng/mL (75-250 nmol/L) Toxicity: >100 ng/mL (>250 nmol/L) Performed By: #### L 100.0100, L501.5200, L500.4050, L500.4100 #### [facility] [place], [address] Absolute lymphocyte countOrd ered By: Cullen Reina on 10-31-2024 Lymphocytes Auto (Unsp spec) [#/Vol] 1.31 10*3/uL 0.83-4.51 [facility] Absolute neutrophil countOrd ered By: Cullen Reina on 10-31-2024 Neutrophils (Bld) [#/Vol] 3.6 10*3/uL 2.0-7.7 [facility] Anion gap in Serum or Plasma Ordered By: Cullen Reina on 10-31-2024 Anion gap [Moles/Vol] 10 mmol/L 5-15 [facility] Automated lymphocyte count a s percentage of total leukocytesOrdered By: Cullen Reina on 10-31-2024 Lymphocytes/100 WBC Auto (Unsp spec) 23.6 % 19-41 [facility] BUN/creatinine ratioOrdered By: Cullen Reina on 10-31-2024 Urea nitrogen/Creatinine [Mass ratio] 22.5 mg/mg High 10-20 [facility] Basophil percentageOrdered B y: Cullen Reina on 10-31-2024 Basophils/100 WBC (Bld) 0.9 % 0-1 [facility] Bilirubin, totalOrdered By: Cullen Reina on 10-31-2024 Bilirubin [Mass/Vol] 0.49 mg/dL 0.00-1.30 [facility] CBC W/Diff, Automatedon 10-04 Absolute Lymph 1.31 X10 3/uL Normal 0.83-4.51 [facility] Comment on above: Order Comment: Order Date: 10/30/24 Order Info: [id number] - CBCD Performed By: #### L 100.0100, L501.5200, L500.4050, L500.4100 #### [facility] [address] [place], [address] Absolute Neut 3.6 X10 3/uL Normal 2.0-7.7 [facility] Comment on above: Order Comment: Order Date: 10/30/24 Order Info: 018- - CBCD Performed By: #### L 100.0100, L501.5200, L500.4050, L500.4100 #### [facility] [address] [place], [address] Basophils/100 WBC (Bld) 0.9 % Normal 0-1 [facility] Comment on above: Order Comment: Order Date: 10/30/24 Order Info: [id number]- - CBCD Performed By: #### L 100.0100, L501.5200, L500.4050, L500.4100 #### [facility] [address] [place], [address] Eosinophils/100 WBC (Bld) 2.0 % Normal 0-5 [facility] Comment on above: Order Comment: Order Date: 10/30/24 Order Info: 018- - CBCD Performed By: #### L 100.0100, L501.5200, L500.4050, L500.4100 #### [facility] [address] [place], [address] Erythrocyte distribution width (RBC) [Ratio] 14.9 % High 11.6-14.6 [facility] Comment on above: Order Comment: Order Date: 10/30/24 Order Info: 018- - CBCD Performed By: #### L 100.0100, L501.5200, L500.4050, L500.4100 #### [facility] [address] [place], [address] Hematocrit (Bld) [Volume fraction] 36.0 % Low 37-47 [facility] Comment on above: Order Comment: Order Date: 10/30/24 Order Info: [id number]- - CBCD Performed By: #### L 100.0100, L501.5200, L500.4050, L500.4100 #### [facility] [address] [place], [address] Hemoglobin (Bld) [Mass/Vol] 11.6 g/dL Low 12.0-15.0 [facility] Comment on above: Order Comment: Order Date: 10/30/24 Order Info: [id number] - CBCD Performed By: #### L 100.0100, L501.5200, L500.4050, L500.4100 #### [facility] [address] [place], [address] IG% 0.200 Normal 0.0-0.9 [facility] Comment on above: Order Comment: Order Date: 10/30/24 Order Info: [id number] - CBCD Result Comment: IG% - Immature Granulocytes (promyelocytes, myelocytes and metamyelocytes) > 1% indicates that a LEFT SHIFT is Present. Performed By: #### L 100.0100, L501.5200, L500.4050, L500.4100 #### [facility] [address] [place], [address] Lymphocytes/100 WBC (Bld) 23.6 % Normal 19-41 [facility] Comment on above: Order Comment: Order Date: 10/30/24 Order Info: [id number]- - CBCD Performed By: #### L 100.0100, L501.5200, L500.4050, L500.4100 #### [facility] [address] [place], [address] MCH (RBC) [Entitic mass] 28.4 pg Normal 27.0-32.0 [facility] Comment on above: Order Comment: Order Date: 10/30/24 Order Info: [id number]- - CBCD Performed By: #### L 100.0100, L501.5200, L500.4050, L500.4100 #### [facility] [address] [place], [address] MCHC (RBC) [Mass/Vol] 32.2 g/dL Normal 32-36 [facility] Comment on above: Order Comment: Order Date: 10/30/24 Order Info: [id number] - CBCD Performed By: #### L 100.0100, L501.5200, L500.4050, L500.4100 #### [facility] [address] [place], [address] MCV (RBC) [Entitic vol] 88.2 fL Normal 81-99 [facility] Comment on above: Order Comment: Order Date: 10/30/24 Order Info: [id number]- - CBCD Performed By: #### L 100.0100, L501.5200, L500.4050, L500.4100 #### [facility] [address] [place], [address] Monocytes/100 WBC (Bld) 9.2 % Normal 0-10 [facility] Comment on above: Order Comment: Order Date: 10/30/24 Order Info: [id number]- - CBCD Performed By: #### L 100.0100, L501.5200, L500.4050, L500.4100 #### [facility] [address] [place], [address] Neutrophils/100 WBC (Bld) 64.1 % Normal 47-70 [facility] Comment on above: Order Comment: Order Date: 10/30/24 Order Info: [id number] - CBCD Performed By: #### L 100.0100, L501.5200, L500.4050, L500.4100 #### [facility] [address] [place], [address] Nucleated RBC (Bld) [#/Vol] 0 10*3/uL Normal 0-5 [facility] Comment on above: Order Comment: Order Date: 10/30/24 Order Info: [id number] - CBCD Performed By: #### L 100.0100, L501.5200, L500.4050, L500.4100 #### [facility] [address] [place], [address] Platelet mean volume (Bld) [Entitic vol] 10.4 fL Normal 6.2-12.0 [facility] Comment on above: Order Comment: Order Date: 10/30/24 Order Info: 018- - CBCD Performed By: #### L 100.0100, L501.5200, L500.4050, L500.4100 #### [facility] [address] [place], [address] Platelets (Bld) [#/Vol] 206 10*3/uL Normal 150-450 [facility] Comment on above: Order Comment: Order Date: 10/30/24 Order Info: [id number]- - CBCD Performed By: #### L 100.0100, L501.5200, L500.4050, L500.4100 #### [facility] [address] [place], [address] RBC (Bld) [#/Vol] 4.08 10*6/uL Low 4.2-5.4 [facility] Comment on above: Order Comment: Order Date: 10/30/24 Order Info: [id number]- - CBCD Performed By: #### L 100.0100, L501.5200, L500.4050, L500.4100 #### [facility] [address] [place], [address] RDW SD 47.8 fl High 35.1-43.9 [facility] Comment on above: Order Comment: Order Date: 10/30/24 Order Info: [id number] - CBCD Performed By: #### L 100.0100, L501.5200, L500.4050, L500.4100 #### [facility] [address] [place], [address] WBC (Bld) [#/Vol] 5.6 10*3/uL Normal 4.4-11.0 [facility] Comment on above: Order Comment: Order Date: 10/30/24 Order Info: [id number] - CBCD Performed By: #### L 100.0100, L501.5200, L500.4050, L500.4100 #### [facility] [address] [place], [place], [address] Calculated very low density lipoprotein (VLDL) cholesterol measurementOrdered By: Cullen Reina on 10-31-2024 Calculated very low density lipoprotein (VLDL) cholesterol measurement 23 mg/dL 5-40 [facility] Carbon dioxide, total [Moles /volume] in Central venous bloodOrdered By: Cullen Reina on 10-31-2024 CO2 [Moles/Vol] 24.2 mmol/L 21.0-32.0 [facility] Chloride assayOrdered By: Analisa Reina on 10-31-2024 Chloride [Moles/Vol] 106 mmol/L 98-108 [facility] Comprehensive Metabolic Prof ilon 10-31-2024 Albumin [Mass/Vol] 4.3 g/dL Normal 3.4-4.8 [facility] Comment on above: Order Comment: Order Date: 10/30/24 Order Info: [id number] - CMP Order Info: [id number] - LIPID Order Info: [id number] - MG Order Info: [id number] - HUY Performed By: #### L 100.0100, L501.5200, L500.4050, L500.4100 #### [facility] [address] [place], [address] Albumin/Globulin [Mass ratio] 1.2 {ratio} Normal 0.9-2.4 [facility] Comment on above: Order Comment: Order Date: 10/30/24 Order Info: [id number] - CMP Order Info: - LIPID Order Info: [id number] - MG Order Info: [id number] - HUY Performed By: #### L 100.0100, L501.5200, L500.4050, L500.4100 #### [facility] [address] [place], [address] ALK PHOS 103 U/L Normal 35-104 [facility] Comment on above: Order Comment: Order Date: 10/30/24 Order Info: [id number]- - CMP Order Info: - LIPID Order Info: [id number] - MG Order Info: [id number] - HUY Performed By: #### L 100.0100, L501.5200, L500.4050, L500.4100 #### [facility] [address] [place], [address] ALT [Catalytic activity/Vol] 27 U/L Normal <=34 [facility] Comment on above: Order Comment: Order Date: 10/30/24 Order Info: [id number] - CMP Order Info: - LIPID Order Info: [id number] - MG Order Info: [id number] - HUY Performed By: #### L 100.0100, L501.5200, L500.4050, L500.4100 #### [facility] [address] [place], [address] AST [Catalytic activity/Vol] 25 U/L Normal <=31 [facility] Comment on above: Order Comment: Order Date: 10/30/24 Order Info: [id number] - CMP Order Info: - LIPID Order Info: [id number] - MG Order Info: [id number] - HUY Performed By: #### L 100.0100, L501.5200, L500.4050, L500.4100 #### [facility] [address] [place], [address] Bilirubin [Mass/Vol] 0.49 mg/dL Normal 0.00-1.30 [facility] Comment on above: Order Comment: Order Date: 10/30/24 Order Info: [id number]- - CMP Order Info: - LIPID Order Info: [id number] - MG Order Info: 4 - HUY Performed By: #### L 100.0100, L501.5200, L500.4050, L500.4100 #### [facility] [address] [place], [address] BUN/CRE 22.5 RATIO High 10-20 [facility] Comment on above: Order Comment: Order Date: 10/30/24 Order Info: 07- - CMP Order Info: - LIPID Order Info: [id number] - MG Order Info: [id number] - HUY Performed By: #### L 100.0100, L501.5200, L500.4050, L500.4100 #### [facility] [address] [place], [place], [address] Calcium [Mass/Vol] 9.5 mg/dL Normal 7.6-11.0 [facility] Comment on above: Order Comment: Order Date: 10/30/24 Order Info: 785-03 - CMP Order Info: - LIPID Order Info: [id number] - MG Order Info: 2275-06 - HUY Performed By: #### L 100.0100, L501.5200, L500.4050, L500.4100 #### [facility] [address] [place], [address] Chloride [Moles/Vol] 106 mmol/L Normal 98-108 [facility] Comment on above: Order Comment: Order Date: 10/30/24 Order Info: 0786-1 - CMP Order Info: [id number] - LIPID Order Info: [id number] - MG Order Info: 2275-4 - HUY Performed By: #### L 100.0100, L501.5200, L500.4050, L500.4100 #### [facility] [address] [place], [address] CO2 [Moles/Vol] 24.2 mmol/L Normal 21.0-32.0 [facility] Comment on above: Order Comment: Order Date: 10/30/24 Order Info: 785-1 - CMP Order Info: [id number] - LIPID Order Info: [id number] - MG Order Info: 6-4 - HUY Performed By: #### L 100.0100, L501.5200, L500.4050, L500.4100 #### [facility] [address] [place], [place], [address] Creatinine [Mass/Vol] 0.94 mg/dL Normal 0.70-1.20 [facility] Comment on above: Order Comment: Order Date: 10/30/24 Order Info: 785-03 - CMP Order Info: [id number] - LIPID Order Info: [id number] - MG Order Info: 2275-4 - HUY Performed By: #### L 100.0100, L501.5200, L500.4050, L500.4100 #### [facility] [address] [place], [place], [address] GAP 10 Normal 5-15 [facility] Comment on above: Order Comment: Order Date: 10/30/24 Order Info: 785-03 - CMP Order Info: [id number] - LIPID Order Info: [id number] - MG Order Info: 2275-4 - HUY Performed By: #### L 100.0100, L501.5200, L500.4050, L500.4100 #### [facility] [address] [place], [place], [address] GFR/1.73 sq M.predicted among non-blacks MDRD (S/P/Bld) [Vol rate/Area] 65 mL/min/{1.73_m2} Normal >60 [facility] Comment on above: Order Comment: Order Date: 10/30/24 Order Info: 07-1 - CMP Order Info: [id number] - LIPID Order Info: [id number] - MG Order Info: 2276-4 - HUY Result Comment: mL/m in/1.73m2 CKD-EPI Creatinine Equation (2020) Performed By: #### L 100.0100, L501.5200, L500.4050, L500.4100 #### [facility] [address] [place], [address] Globulin (S) [Mass/Vol] 3.6 g/dL Normal 2.2-4.2 [facility] Comment on above: Order Comment: Order Date: 10/30/24 Order Info: 0786-1 - CMP Order Info: [id number] - LIPID Order Info: [id number] - MG Order Info: 2275-06 - HUY Performed By: #### L 100.0100, L501.5200, L500.4050, L500.4100 #### [facility] [address] [place], [address] Glucose [Mass/Vol] 80 mg/dL Normal 70-99 [facility] Comment on above: Order Comment: Order Date: 10/30/24 Order Info: 785-1 - CMP Order Info: [id number] - LIPID Order Info: [id number] - MG Order Info: 2275-06 - HUY Performed By: #### L 100.0100, L501.5200, L500.4050, L500.4100 #### [facility] [address] [place], [address] Potassium [Moles/Vol] 4.4 mmol/L Normal 3.3-5.1 [facility] Comment on above: Order Comment: Order Date: 10/30/24 Order Info: 0786-1 - CMP Order Info: [id number] - LIPID Order Info: [id number] - MG Order Info: 2275-06 - HUY Performed By: #### L 100.0100, L501.5200, L500.4050, L500.4100 #### [facility] [address] [place], [address] Sodium [Moles/Vol] 140 mmol/L Normal 133-145 [facility] Comment on above: Order Comment: Order Date: 10/30/24 Order Info: 0786-1 - CMP Order Info: [id number] - LIPID Order Info: [id number] - MG Order Info: 2275-06 - HUY Performed By: #### L 100.0100, L501.5200, L500.4050, L500.4100 #### [facility] [address] [place], [place], [address] T PROT 7.8 g/dL Normal 5.9-8.4 [facility] Comment on above: Order Comment: Order Date: 10/30/24 Order Info: 785- - CMP Order Info: [id number] - LIPID Order Info: [id number] - MG Order Info: 2275-06 - HUY Performed By: #### L 100.0100, L501.5200, L500.4050, L500.4100 #### [facility] [address] [place], [place], [address] Urea nitrogen [Mass/Vol] 21 mg/dL High 4-19 [facility] Comment on above: Order Comment: Order Date: 10/30/24 Order Info: 0786 - CMP Order Info: [id number] - LIPID Order Info: [id number] - MG Order Info: 2275-06 - HUY Performed By: #### L 100.0100, L501.5200, L500.4050, L500.4100 #### [facility] [address] [place], [place], [address] Eosinophil percentageOrdered By: Cullen Reina on 10-31-2024 Eosinophils/100 WBC (Bld) 2.0 % 0-5 [facility] Erythrocyte distribution wid th ratioOrdered By: Cullen Reina on 10-31-2024 Erythrocyte distribution width (RBC) [Ratio] 14.9 % High 11.6-14.6 [facility] Erythrocyte distribution wid th standard deviationOrdered By: Cullen Reina on 10-31-2024 Erythrocyte distribution width (RBC) [Ratio] 47.8 fl High 35.1-43.9 [facility] Ferritinon 10-31-2024 Ferritin [Mass/Vol] 26 ng/mL Normal 22-378 [facility] Comment on above: Order Comment: Order Date: 10/30/24 Order Info: 0786-1 - CMP Order Info: [id number] - LIPID Order Info: [id number] - MG Order Info: 2276-4 - HUY Performed By: #### L 100.0100, L501.5200, L500.4050, L500.4100 #### [facility] [address] [place], [address] Glomerular filtration rate ( GFR) estimation/1.73 sq m using serum, plasma, or whole bOrdered By: Cullen Reina on 10-31-2024 GFR/1.73 sq M.predicted among non-blacks MDRD (S/P/Bld) [Vol rate/Area] 65 mL/min/{1.73_m2} >60 [facility] Comment on above: mL/min/1.73m2 CKD-EP I Creatinine Equation (2020) Hematocrit Auto (Bld) [Volum e fraction]Ordered By: Cullen Reina on 10-31-2024 Hematocrit (Bld) [Volume fraction] 36.0 % Low 37-47 [facility] Hemoglobin measurementOrdere d By: Cullen Reina on 10-31-2024 Hemoglobin (Bld) [Mass/Vol] 11.6 g/dL Low 12.0-15.0 [facility] Immature granulocytes/100 WB C Auto (Bld)Ordered By: Cullen Reina on 10-31-2024 Immature granulocytes/100 WBC (Bld) 0.200 % 0.0-0.9 [facility] Comment on above: IG% - Immature Granu locytes (promyelocytes, myelocytes and metamyelocytes) > 1% indicates that a LEFT SHIFT is Present. LDL calc ser/plasOrdered By: Cullen Reina on 10-31-2024 Cholesterol in LDL [Mass/Vol] 95 mg/dL [facility] Comment on above: Ztmicqomoi=571-077 m g/dL & Higher Mabh=529 mg/dL or greaterFriedwald Equation for LDL-C Laboratory - Chemistry and C hemistry - challengeOrdered By: Cullen Reina on 10-31-2024 AST [Catalytic activity/Vol] 25 U/L <32 [facility] Lipid Profileon 10-31-2024 CHOL:HDL 3.07 Normal [facility] Comment on above: Order Comment: Order Date: 10/30/24 Order Info: 0786-1 - CMP Order Info: [id number] - LIPID Order Info: [id number] - MG Order Info: 2275-06 - HUY Performed By: #### L 100.0100, L501.5200, L500.4050, L500.4100 #### [facility] [address] [place], [place], [phone] (814) Cholesterol [Mass/Vol] 176 mg/dL Normal <=200 [facility] Comment on above: Order Comment: Order Date: 10/30/24 Order Info: 0786-1 - CMP Order Info: - LIPID Order Info: [id number] - MG Order Info: 2275-06 - HUY Result Comment: Chol esterol level, Desirable <200 mg/dL Borderline high cholesterol 200-239 mg/dL High cholesterol >=240 mg/dL Recommendations of the NCEP Adult Treatment Panel for the following risk-cutoff thresholds for the [place] Citizen population. Performed By: #### L 100.0100, L501.5200, L500.4050, L500.4100 #### [facility] [address] [place], [place], [address] Cholesterol in HDL [Mass/Vol] 57 mg/dL Normal [facility] Comment on above: Order Comment: Order Date: 10/30/24 Order Info: 0786-1 - CMP Order Info: [id number] - LIPID Order Info: [id number] - MG Order Info: 2275-06 - HUY Result Comment: Domi onal Cholesterol Education Program (NCEP) guidelines: <40 mg/dL: Low HDL-cholesterol (major risk factor for CHD) >= 60 mg/dL: High HDL-cholesterol (negative risk factor for CHD) HDL-cholesterol is affected by a number of factors, e.g. smoking, exercise, hormones, sex and age. Performed By: #### L 100.0100, L501.5200, L500.4050, L500.4100 #### [facility] [address] [place], [address] Cholesterol in LDL [Mass/Vol] 95 mg/dL Normal [facility] Comment on above: Order Comment: Order Date: 10/30/24 Order Info: 0786-1 - CMP Order Info: [id number] - LIPID Order Info: [id number] - MG Order Info: 2275- - HUY Result Comment: Bord uiunql=817-902 mg/dL Higher Oxmw=035 mg/dL or greater Friedwald Equation for LDL-C Performed By: #### L 100.0100, L501.5200, L500.4050, L500.4100 #### [facility] [address] [place], [address] Cholesterol in VLDL [Mass/Vol] 23 mg/dL Normal 5-40 [facility] Comment on above: Order Comment: Order Date: 10/30/24 Order Info: 0786-1 - CMP Order Info: [id number] - LIPID Order Info: [id number] - MG Order Info: 2275-06 - HUY Performed By: #### L 100.0100, L501.5200, L500.4050, L500.4100 #### [facility] [address] [place], [address] Triglyceride [Mass/Vol] 117 mg/dL Normal [facility] Comment on above: Order Comment: Order Date: 10/30/24 Order Info: 0786-1 - CMP Order Info: [id number] - LIPID Order Info: [id number] - MG Order Info: 2275-06 - HUY Result Comment: The drugs N-Acetylcysteine and Metamizole may falsely depress this assay. Normal range: <150 mg/dL Borderline High: 150-199 mg/dL High: 200-499 mg/dL Very High: >500 mg/dL Performed By: #### L 100.0100, L501.5200, L500.4050, L500.4100 #### [facility] [address] [place], [place], [address] MCV (mean corpuscular volume ) determinationOrdered By: Cullen Reina on 10-31-2024 MCV (RBC) [Entitic vol] 88.2 fL 81-99 [facility] Magnesiumon 10-31-2024 Magnesium [Mass/Vol] 2.3 mg/dL High 1.5-2.2 [facility] Comment on above: Order Comment: Order Date: 10/30/24 Order Info: 0786-1 - CMP Order Info: [id number] - LIPID Order Info: [id number] - MG Order Info: 2276-4 - HUY Performed By: #### L 100.0100, L501.5200, L500.4050, L500.4100 #### [facility] [address] [place], [place], [address] Magnesium measurement (mass/ volume)Ordered By: Cullen Reina on 10-31-2024 Magnesium (Unsp spec) [Mass/Vol] 2.3 mg/dL High 1.5-2.2 [facility] Mean corpuscular hemoglobin (MCH) determinationOrdered By: Cullen Reina on 10-31-2024 MCH (RBC) [Entitic mass] 28.4 pg 27.0-32.0 [facility] Mean corpuscular hemoglobin concentration (MCHC) determinationOrdered By: Cullen Reina on 10-31-2024 MCHC (RBC) [Mass/Vol] 32.2 g/dL 32-36 [facility] Mean platelet volume determi nationOrdered By: Cullen Reina on 10-31-2024 Platelet mean volume (Bld) [Entitic vol] 10.4 fL 6.2-12.0 [facility] Monocyte percentageOrdered B y: Cullen Reina on 10-31-2024 Monocytes/100 WBC (Bld) 9.2 % 0-10 [facility] Neutrophil percentageOrdered By: Cullen Reina on 10-31-2024 Neutrophils/100 WBC (Bld) 64.1 % 47-70 [facility] Nucleated red blood cell per centageOrdered By: Cullen Reina on 10-31-2024 Nucleated RBC/100 WBC (Bld) [Ratio] 0 % 0-5 [facility] Platelet countOrdered By: Analisa Reina on 10-31-2024 Platelets (Bld) [#/Vol] 206 10*3/uL 150-450 [facility] Potassium measurement (mass/ volume)Ordered By: Cullen Reina on 10-31-2024 Potassium (Unsp spec) [Mass/Vol] 4.4 mmol/L 3.3-5.1 [facility] RBC Auto (Bld) [#/Vol]Ordere d By: Cullen Reina on 10-31-2024 RBC (Bld) [#/Vol] 4.08 10*6/uL Low 4.2-5.4 [facility] Screening total cholesterol/ high density lipoprotein (HDL) cholesterol ratioOrdered By: Cullen Reina on 10-31-2024 Cholesterol.total/Rosy sterol in HDL [Mass ratio] 3.07 {ratio} [facility] Serum creatinine measurement (mass/volume)Ordered By: Cullen Reina on 10-31-2024 Creatinine [Mass/Vol] 0.94 mg/dL 0.70-1.20 [facility] Serum globulin measurementOr dered By: Cullen Reina on 10-31-2024 Globulin (S) [Mass/Vol] 3.6 g/dL 2.2-4.2 [facility] Serum glucose measurement (m ass/volume)Ordered By: Cullen Reina on 10-31-2024 Glucose [Mass/Vol] 80 mg/dL 70-99 [facility] Serum or plasma alanine cobb otransferase (ALT) measurementOrdered By: Cullen Reina on 10-31-2024 ALT [Catalytic activity/Vol] 27 U/L <35 [facility] Serum or plasma albumin odette urement (mass/volume)Ordered By: Cullen Reina on 10-31-2024 Albumin [Mass/Vol] 4.3 g/dL 3.4-4.8 [facility] Serum or plasma albumin/glob ulin mass ratioOrdered By: Cullen Reina on 10-31-2024 Albumin/Globulin [Mass ratio] 1.2 {ratio} 0.9-2.4 [facility] Serum or plasma alkaline lesly sphatase measurementOrdered By: Cullen Reina on 10-31-2024 ALP [Catalytic activity/Vol] 103 U/L 35-104 [facility] Serum or plasma calcium odette urement (mass/volume)Ordered By: Cullen Reina on 10-31-2024 Calcium [Mass/Vol] 9.5 mg/dL 7.6-11.0 [facility] Serum or plasma cholesterol in HDL measurement (mass/volume)Ordered By: Cullen Reina on 10-31-2024 Cholesterol in HDL [Mass/Vol] 57 mg/dL >40 [facility] Comment on above: National Cholesterol Education Program (NCEP) guidelines:<40 mg/dL: Low HDL-cholesterol (major risk factor for CHD)>= 60 mg/dL: High HDL-cholesterol (negative risk factor for CHD)HDL-cholesterol is affected by a number of factors, e.g. smoking, exercise, hormones, sex and age. Serum or plasma cholesterol measurement (mass/volume)Ordered By: Cullen Reina on 10-31-2024 Cholesterol [Mass/Vol] 176 mg/dL <201 [facility] Comment on above: Cholesterol level, D esirable <200 mg/dLBorderline high cholesterol 200-239 mg/dLHigh cholesterol >=240 mg/dLRecommendations of the NCEP Adult Treatment Panel for the following risk-cutoff thresholds for the [place] Citizen population. Serum or plasma ferritin bebe surement (mass/volume)Ordered By: Cullen Reina on 10-31-2024 Ferritin [Mass/Vol] 26 ng/mL 22-378 [facility] Serum or plasma urea nitroge n measurement (mass/volume)Ordered By: Cullen Reina on 10-31-2024 Urea nitrogen [Mass/Vol] 21 mg/dL High 4-19 [facility] Sodium levelOrdered By: Cullen Reina on 10-31-2024 Sodium [Moles/Vol] 140 mmol/L 133-145 [facility] Total proteinOrdered By: Jonas Reina on 10-31-2024 Protein [Mass/Vol] 7.8 g/dL 5.9-8.4 [facility] Triglycerides measurementOrd ered By: Cullen Reina on 10-31-2024 Triglyceride [Mass/Vol] 117 mg/dL <199 [facility] Comment on above: The drugs N-Acetylcy steine and Metamizole may falsely depress this assay. Normal range: <150 mg/dLBorderline High: 150-199 mg/dLHigh: 200-499 mg/dLVery High: >500 mg/dL White blood cell (WBC) count Ordered By: Cullen Reina on 10-31-2024 WBC (Bld) [#/Vol] 5.6 10*3/uL 4.4-11.0 [facility] L/S Spine Comp/w Bending Vie wson 08-28-2024 L/S Spine Comp/w Bending Views [facility] [address] [place], [place] [address] L/S Spine Comp/w Bending Views MR#: [id number] Acct: [id number] Name: TANYA VILLA Rep #: [id number] : 1950 F 73 From: Joey Cabrera MD PCP: Dr. Cullen Reina MD Status: DEP AMB Study: L/S Spine Comp/w Bending Views Date of Exam: 0 08/28/24 Exam# [id number] Ordering Dr: Mp Keating MD EXAM: XR Lumbosacral Spine Flexion/Extension Only, 2 or 3 Views CLINICAL INDICATION: CHRONIC BACK PAIN TECHNIQUE: Lateral flexion/extension views of the lumbar spine and sacrum. COMPARISON: No relevant prior studies available. FINDINGS: VERTEBRAE: Mild endplate degenerative changes and disc disease of L3-S1. Moderate facet arthropathy of L4-S1. Grade 1 anterior spondylolisthesis of L4 over L5 without significant change during flexion or extension. No acute fracture. SACRUM/COCCYX: Unremarkable as visualized. No acute fracture. DISC SPACES: No acute findings. No significant narrowing. SOFT TISSUES: Unremarkable. RAD/L/S Spine Comp/w Bending Views IMPRESSION: 1. Degenerative changes as above. 2. Grade 1 anterior spondylolisthesis of L4 over L5 without significant change during flexion or extension. Reading Location: [facility] CC: Dr. Mp Keating MD; Dr. Cullen Reina MD Tow Truck Dispatcher: Signed Normal [facility] Thoracic Spine Min 4 Viewson 08-28-2024 Thoracic Spine Min 4 Views [facility] [address] [place], [place] [phone] ([phone] Thoracic Spine Min 4 Views MR#: [id number] Acct: [id number] Name: TANYA VILLA Rep #: [id number] : 1950 73 From: Joey Cabrera MD PCP: Dr. Cullen Reina MD Status: DEP AMB Study: Thoracic Spine Min 4 Views Date of Exam: 08/28 Exam# [id number] Ordering Dr: Mp Keating MD EXAM: XR Thoracic Spine, 3 Views CLINICAL INDICATION: CHRONIC BACK PAIN TECHNIQUE: Frontal, lateral and swimmer's views of the thoracic spine. COMPARISON: No relevant prior studies available. FINDINGS: VERTEBRAE: Degenerative disc disease and facet arthropathy throughout the thoracic spine. Normal alignment. No acute fracture. DISC SPACES: See above. SOFT TISSUES: Unremarkable. RAD/Thoracic Spine Min 4 Views IMPRESSION: 1. No acute fracture. 2. Degenerative changes thoracic spine as described. 3. If symptoms persist, further evaluation with MRI is recommended. Reading Location: [facility] CC: Dr. Mp Keating MD; Dr. Cullen Reina MD Tow Truck Dispatcher: Signed Normal [facility] SCRN MAMM (CAD)W/ANNITA BILATo n 01-04-2024 SCRN MAMM (CAD)W/ANNITA BILAT [facility] [address], [place] [id number] SCRN MAMM (CAD)W/ANNITA BILAT MR#: [id number] Acct: [id number] Name: TANYA VILLA Rep #: [id number] : 1950 F 73 From: Teofilo rios MD PCP: Dr. Cullen Reina MD Status: REG CLI Study: SCRN MAMM (CAD)W/ANNITA BILAT Date of Exam: 03/28 Exam# [id number] Ordering Dr: Cullen Reina MD [id number] MAMMOGRAPHY - BILATERAL SCREENING REASON FOR EXAM: Female, 73 years old. Routine annual screening examination. PERTINENT HISTORY: Non-contributory. TECHNIQUE: Digital bilateral breast annita (3D mammographic acquisition) in the CC and MLO projections. 2-D mediolateral oblique (MLO) and craniocaudad (CC) views of both breasts were obtained. CAD: Full Field Digital Mammography with Computer Added Detection was performed. COMPARISON: Comparison is made with prior study dated October 17, 2022 and October 14, 2020. FINDINGS: Breast Composition: There are scattered areas of fibroglandular density. There are no dominant masses or suspicious calcifications. No other significant abnormalities are identified. There has been no significant change since the prior study. BI/SCRN MAMM (CAD)W/ANNITA BILAT IMPRESSION: Stable bilateral screening mammogram. Yearly follow-up mammogram recommended. (A) ASSESSMENT CATEGORY: BIRADS Category 1: Negative. A letter regarding these results will be sent to the patient by the facility within 30 days. Approximately 10% of breast cancers are not detected by mammography. A normal mammogram should not delay biopsy of a clinically suspicious abnormality. [id number] Electronically Signed: Teofilo Giles MD at 15:24 EDT , CC: Dr. Cullen Reina MD Tow Truck Dispatcher: Signed Normal [facility] CPK Total, Creatine Kinaseon 12-05-2023 CPK TOTAL 65 U/L Normal 26-192 [facility] Comment on above: Order Comment: Order Date: 12/05/23 Order Info: 0786-1 - CMP Order Info: 2157-6 - CPK Order Info: [id number] - MG Order Info: 3016-3 - TSH Order Info: 2275-4 - HUY Performed By: #### L 500.4050, L501.3620, L501.5200, L503.6550, L501.9520 #### [facility] [address] [place], [address] Comprehensive Metabolic Prof ilon 12-05-2023 Albumin [Mass/Vol] 3.8 g/dL Normal 3.2-5.0 [facility] Comment on above: Order Comment: Order Date: 12/05/23 Order Info: 785-1 - CMP Order Info: 2157-6 - CPK Order Info: [id number] - MG Order Info: 3016-3 - TSH Order Info: 4 - HUY Performed By: #### L 500.4050, L501.3620, L501.5200, L503.6550, L501.9520 #### [facility] [address] [place], [address] Albumin/Globulin [Mass ratio] 0.9 {ratio} Normal 0.9-2.4 [facility] Comment on above: Order Comment: Order Date: 12/05/23 Order Info: 0786-1 - CMP Order Info: 2157-6 - CPK Order Info: [id number] - MG Order Info: 3016-3 - TSH Order Info: 2276-4 - HUY Performed By: #### L 500.4050, L501.3620, L501.5200, L503.6550, L501.9520 #### [facility] [address] [place], [address] ALK P 105 U/L Normal 45-117 [facility] Comment on above: Order Comment: Order Date: 12/05/23 Order Info: 86-1 - CMP Order Info: 2157-6 - CPK Order Info: [id number] - MG Order Info: 3 - TSH Order Info: 4 - HUY Performed By: #### L 500.4050, L501.3620, L501.5200, L503.6550, L501.9520 #### [facility] [address] [place], [address] ALT [Catalytic activity/Vol] 39 U/L Normal 13-56 [facility] Comment on above: Order Comment: Order Date: 12/05/23 Order Info: 86-1 - CMP Order Info: 2157-6 - CPK Order Info: 82577-0 - MG Order Info: 3 - TSH Order Info: 4 - HUY Performed By: #### L 500.4050, L501.3620, L501.5200, L503.6550, L501.9520 #### [facility] [address] [place], [address] AST [Catalytic activity/Vol] 26 U/L Normal 15-37 [facility] Comment on above: Order Comment: Order Date: 12/05/23 Order Info: 86-1 - CMP Order Info: 2157-6 - CPK Order Info: [id number] - MG Order Info: 3 - TSH Order Info: 2275-06 - HUY Performed By: #### L 500.4050, L501.3620, L501.5200, L503.6550, L501.9520 #### [facility] [address] [place], [address] Bilirubin [Mass/Vol] 0.30 mg/dL Normal 0.20-1.00 [facility] Comment on above: Order Comment: Order Date: 12/05/23 Order Info: 86-1 - CMP Order Info: 2157-6 - CPK Order Info: [id number] - MG Order Info: 3 - TSH Order Info: 4 - HUY Result Comment: For patients on eltrombopag therapy, use of Dimension [place] TBIL is not recommended. Performed By: #### L 500.4050, L501.3620, L501.5200, L503.6550, L501.9520 #### [facility] [address] [place], [address] BUN/CRE 16.0 RATIO Normal 10-20 [facility] Comment on above: Order Comment: Order Date: 12/05/23 Order Info: 0786-1 - CMP Order Info: 2157-6 - CPK Order Info: [id number] - MG Order Info: 3016-3 - TSH Order Info: 227-4 - HUY Performed By: #### L 500.4050, L501.3620, L501.5200, L503.6550, L501.9520 #### [facility] [address] [place], [place], [id number] CA,Total 9.2 mg/dL Normal 8.5-10.1 [facility] Comment on above: Order Comment: Order Date: 12/05/23 Order Info: 86-1 - CMP Order Info: 2157-6 - CPK Order Info: 17265-9 - MG Order Info: 3016-3 - TSH Order Info: 2275-4 - HUY Performed By: #### L 500.4050, L501.3620, L501.5200, L503.6550, L501.9520 #### [facility] [address] [place], [address] Chloride [Moles/Vol] 108 mmol/L High 98-107 [facility] Comment on above: Order Comment: Order Date: 12/05/23 Order Info: 0786-1 - CMP Order Info: 2157-6 - CPK Order Info: 72809-2 - MG Order Info: 3016-3 - TSH Order Info: 2276-4 - HUY Performed By: #### L 500.4050, L501.3620, L501.5200, L503.6550, L501.9520 #### [facility] [address] [place], [address] CO2 [Moles/Vol] 26.0 mmol/L Normal 21.0-32.0 [facility] Comment on above: Order Comment: Order Date: 12/05/23 Order Info: 86-1 - CMP Order Info: 2157-6 - CPK Order Info: 96887-8 - MG Order Info: 3016-3 - TSH Order Info: 2275-06 - HUY Performed By: #### L 500.4050, L501.3620, L501.5200, L503.6550, L501.9520 #### [facility] [address] [place], [address] Creatinine [Mass/Vol] 0.94 mg/dL Normal 0.55-1.02 [facility] Comment on above: Order Comment: Order Date: 12/05/23 Order Info: 785-03 - CMP Order Info: 2157-6 - CPK Order Info: 38826-2 - MG Order Info: 3 - TSH Order Info: 2275-06 - HUY Result Comment: The validity of the calculated GFR GFRAA in patients over 70 years has not been determined. Clinical correlation is essential. Performed By: #### L 500.4050, L501.3620, L501.5200, L503.6550, L501.9520 #### [facility] [address] [place], [address] EST GFR - AA 76 mL/min Normal >60 [facility] Comment on above: Order Comment: Order Date: 12/05/23 Order Info: 785-1 - CMP Order Info: 2157-6 - CPK Order Info: [id number] - MG Order Info: 3 - TSH Order Info: 4 - HUY Result Comment: Afri can [place] Citizen GFR Calc Performed By: #### L 500.4050, L501.3620, L501.5200, L503.6550, L501.9520 #### [facility] [address] [place], [address] GAP 6 Normal 5-15 [facility] Comment on above: Order Comment: Order Date: 12/05/23 Order Info: 86-1 - CMP Order Info: 2157-6 - CPK Order Info: [id number] - MG Order Info: 301-3 - TSH Order Info: 2275-4 - HUY Performed By: #### L 500.4050, L501.3620, L501.5200, L503.6550, L501.9520 #### [facility] [address] [place], [address] GFR/1.73 sq M.predicted among non-blacks MDRD (S/P/Bld) [Vol rate/Area] 63 mL/min/{1.73_m2} Normal >60 [facility] Comment on above: Order Comment: Order Date: 12/05/23 Order Info: 785-1 - CMP Order Info: 2157-6 - CPK Order Info: [id number] - MG Order Info: 3 - TSH Order Info: 2275-4 - HUY Result Comment: Non- GFR Calc Performed By: #### L 500.4050, L501.3620, L501.5200, L503.6550, L501.9520 #### [facility] [address] [place], [address] Globulin (S) [Mass/Vol] 4.4 g/dL High 2.2-4.2 [facility] Comment on above: Order Comment: Order Date: 12/05/23 Order Info: 785-1 - CMP Order Info: 2157-6 - CPK Order Info: [id number] - MG Order Info: 3016-3 - TSH Order Info: 227-4 - HUY Performed By: #### L 500.4050, L501.3620, L501.5200, L503.6550, L501.9520 #### [facility] [address] [place], [address] Glucose [Mass/Vol] 130 mg/dL High 74-106 [facility] Comment on above: Order Comment: Order Date: 12/05/23 Order Info: 785-1 - CMP Order Info: 7-6 - CPK Order Info: [id number] - MG Order Info: 3015-3 - TSH Order Info: 4 - HUY Result Comment: Fast ing Glucose result greater than or equal to 126 mg/dL suggests DIABETES MELLITUS per A.D.A. criteria. Performed By: #### L 500.4050, L501.3620, L501.5200, L503.6550, L501.9520 #### [facility] [address] [place], [address] Potassium [Moles/Vol] 4.0 mmol/L Normal 3.5-5.1 [facility] Comment on above: Order Comment: Order Date: 12/05/23 Order Info: 785-03 - CMP Order Info: 7-6 - CPK Order Info: [id number] - MG Order Info: 3 - TSH Order Info: 2275-06 - HUY Performed By: #### L 500.4050, L501.3620, L501.5200, L503.6550, L501.9520 #### [facility] [address] [place], [address] Sodium [Moles/Vol] 140 mmol/L Normal 136-145 [facility] Comment on above: Order Comment: Order Date: 12/05/23 Order Info: 07-1 - CMP Order Info: 7-6 - CPK Order Info: [id number] - MG Order Info: 3 - TSH Order Info: 4 - HUY Performed By: #### L 500.4050, L501.3620, L501.5200, L503.6550, L501.9520 #### [facility] [address] [place], [address] T PROT 8.2 g/dL Normal 6.4-8.2 [facility] Comment on above: Order Comment: Order Date: 12/05/23 Order Info: 785-1 - CMP Order Info: 7-6 - CPK Order Info: [id number] - MG Order Info: 3015-05 - TSH Order Info: 2275-06 - HUY Performed By: #### L 500.4050, L501.3620, L501.5200, L503.6550, L501.9520 #### [facility] [address] [place], [address] Urea nitrogen [Mass/Vol] 15 mg/dL Normal 7-18 [facility] Comment on above: Order Comment: Order Date: 12/05/23 Order Info: 785-1 - CMP Order Info: 7-6 - CPK Order Info: [id number] - MG Order Info: 3015-05 - TSH Order Info: 2275-06 - HUY Performed By: #### L 500.4050, L501.3620, L501.5200, L503.6550, L501.9520 #### [facility] [address] [place], [address] Ferritinon 12-05-2023 Ferritin [Mass/Vol] 21 ng/mL Normal 8-252 [facility] Comment on above: Order Comment: Order Date: 12/05/23 Order Info: 785-1 - CMP Order Info: 7-6 - CPK Order Info: [id number] - MG Order Info: 3015-05 - TSH Order Info: 2275-06 - HUY Performed By: #### L 500.4050, L501.3620, L501.5200, L503.6550, L501.9520 #### [facility] [address] [place], [address] Magnesiumon 12-05-2023 Magnesium [Mass/Vol] 2.2 mg/dL Normal 1.6-2.6 [facility] Comment on above: Order Comment: Order Date: 12/05/23 Order Info: 785-1 - CMP Order Info: 2157-6 - CPK Order Info: [id number] - MG Order Info: 3016-3 - TSH Order Info: 2275-06 - HUY Performed By: #### L 500.4050, L501.3620, L501.5200, L503.6550, L501.9520 #### [facility] [address] [place], [place], [address] Thyroid Stim Hormone (TSH)on 12-05-2023 TSH 1.990 uIU/mL Normal 0.358-3.740 [facility] Comment on above: Order Comment: Order Date: 12/05/23 Order Info: 0786-1 - CMP Order Info: 2157-6 - CPK Order Info: [id number] - MG Order Info: 3016-3 - TSH Order Info: 2275-06 - HUY Performed By: #### L 500.4050, L501.3620, L501.5200, L503.6550, L501.9520 #### [facility] [address] [facility] [place], [place], [address] Absolute lymphocyte countOrd ered By: Cullen Reina on 02-06-2023 Lymphocytes Auto (Unsp spec) [#/Vol] 0.43 10*3/uL 0.83-4.51 [facility] Basophil percentageOrdered B y: Cullen Reina on 02-06-2023 Basophils/100 WBC (Bld) 0.6 % 0-1 [facility] Bilirubin [Mass/Vol] 0.50 mg/dL 0.20-1.00 [facility] Comment on above: For patients on eltr ombopag therapy, use of Dimension [place] TBIL is not recommended. Chloride [Moles/Vol] 107 mmol/L 98-107 [facility] Cholesterol [Mass/Vol] 136 mg/dL <200 [facility] Comment on above: <200 mg/dL Desirable 200-240 mg/dL Borderline >240 mg/dL High Risk Eosinophils/100 WBC (Bld) 0.5 % 0-5 [facility] Glucose [Mass/Vol] 140 mg/dL 74-106 [facility] Comment on above: Fasting Glucose resu lt greater than or equal to 126 mg/dL suggests DIABETES MELLITUS per A.D.A. criteria. Neutrophils (Bld) [#/Vol] 7.2 10*3/uL 2.0-7.7 [facility] Neutrophils/100 WBC (Bld) 86.7 % 47-70 [facility] Potassium [Moles/Vol] 4.1 mmol/L 3.5-5.1 [facility] Protein [Mass/Vol] 7.8 g/dL 6.4-8.2 [facility] Sodium [Moles/Vol] 137 mmol/L 136-145 [facility] Triglyceride [Mass/Vol] 117 mg/dL <199 [facility] Comment on above: The drugs N-Acetylcy steine and Metamizole may falsely depress this assay.Serum Triglycerides Reference Interval Normal <150 mg/dL Borderline high 150 - 199 mg/dL High 200 - 499 mg/dL Very High > or = 500 mg/dL WBC (Bld) [#/Vol] 8.4 10*3/uL 4.4-11.0 [facility] Blood erythrocytes count (nu mber/volume)Ordered By: Cullen Reina on 02-06-2023 RBC (Bld) [#/Vol] 4.28 10*6/uL 4.2-5.4 [facility] Blood hemoglobin measurement (mass/volume)Ordered By: Cullen Reina on 02-06-2023 Hemoglobin (Bld) [Mass/Vol] 11.9 g/dL 12.0-15.0 [facility] Blood lymphocytes/100 leukoc ytesOrdered By: Cullen Reina on 02-06-2023 Lymphocytes/100 WBC (Bld) 5.1 % 19-41 [facility] Blood monocytes/100 leukocyt esOrdered By: Cullen Reina on 02-06-2023 Monocytes/100 WBC (Bld) 6.5 % 0-10 [facility] Blood platelet mean volumeOr dered By: Cullen Reina on 02-06-2023 Platelet mean volume (Bld) [Entitic vol] 9.5 fL 6.2-12.0 [facility] Determination of erythrocyte mean corpuscular volume (MCV)Ordered By: Cullen Reina on 02-06-2023 MCV (RBC) [Entitic vol] 89.5 fL 81-99 [facility] Hematocrit Auto (Bld) [Volum e fraction]Ordered By: Cullen Reina on 02-06-2023 Hematocrit (Bld) [Volume fraction] 38.3 % 37-47 [facility] Iron measurement (mass/mass) Ordered By: Cullen Reina on 02-06-2023 Iron (Unsp spec) [Mass/Mass] 20 ug/dL 50-170 [facility] - Chemistry and C hemistry - challengeOrdered By: Cullen Reina on 02-06-2023 ALP [Catalytic activity/Vol] 98 U/L 45-117 [facility] ALT [Catalytic activity/Vol] 41 U/L 13-56 [facility] CO2 [Moles/Vol] 25.0 mmol/L 21.0-32.0 [facility] Cobalamin (Vitamin B12) [Mass/Vol] 736 pg/mL 211-911 [facility] Globulin (S) [Mass/Vol] 4.2 g/dL 2.2-4.2 [facility] Magnesium [Mass/Vol] 2.2 mg/dL 1.6-2.6 [facility] Urea nitrogen/Creatinine [Mass ratio] 12.6 mg/mg 10-20 [facility] - Hematology and Cell countsOrdered By: Cullen Reina on 02-06-2023 Erythrocyte distribution width (RBC) [Entitic vol] 50.4 fL 35.1-43.9 [facility] Erythrocyte distribution width (RBC) [Ratio] 15.6 % 11.6-14.6 [facility] Immature granulocytes/100 WBC (Bld) 0.600 % 0.0-0.9 [facility] Comment on above: IG% - Immature Granu locytes (promyelocytes, myelocytes and metamyelocytes) > 1% indicates that a LEFT SHIFT is Present. MCH (RBC) [Entitic mass] 27.8 pg 27.0-32.0 [facility] Nucleated RBC/100 WBC (Bld) [Ratio] 0 % 0-5 [facility] MCHC Auto (RBC) [Mass/Vol]Or dered By: Cullen Reina on 02-06-2023 MCHC (RBC) [Mass/Vol] 31.1 g/dL 32-36 [facility] No Panel InformationOrdered By: Cullen Reina on 02-06-2023 Estimated GFR (MDRD) Amer 74 mL/min >60 [facility] Comment on above: GFR Calc Estimated GFR (MDRD) Non-Af Amer 61 mL/min >60 [facility] Comment on above: Non- GFR Calc Thyroid Stimulating Hormone (TSH) 1.03 uIU/mL 0.358-3.74 [facility] Total Iron Binding Capacity 352 ug/dL 250-450 [facility] Vitamin D 25-Hydroxy 55.4 ng/mL [facility] Comment on above: Vitamin D 25(OH) Sta tus Range Deficiency <20 ng/mL (50nmol/L) Insufficiency 20 - 30 ng/mL (50 - 75 nmol/L) Sufficiency 30 - 100 ng/mL (75 - 250 nmol/L) Toxicity >100 ng/mL (>250 nmol/L) Platelets bldOrdered By: Jonas Reina on 02-06-2023 Platelets (Bld) [#/Vol] 236 10*3/uL 150-450 [facility] Serum or plasma albumin odette urement (mass/volume)Ordered By: Cullen Reina on 02-06-2023 Albumin [Mass/Vol] 3.6 g/dL 3.2-5.0 [facility] Serum or plasma albumin/glob ulin mass ratioOrdered By: Cullen Reina on 02-06-2023 Albumin/Globulin [Mass ratio] 0.9 {ratio} 0.9-2.4 [facility] Serum or plasma calcium odette urement (mass/volume)Ordered By: Cullen Reina on 02-06-2023 Calcium [Mass/Vol] 9.1 mg/dL 8.5-10.1 [facility] Serum or plasma cholesterol in HDL measurement (mass/volume)Ordered By: Cullen Reina on 02-06-2023 Cholesterol in HDL [Mass/Vol] 44 mg/dL >40 [facility] Comment on above: The drugs N-Acetylcy steine and Metamizole may falsely depress this assay. Reference Range HDL <40 mg/dL Low HDL Cholesterol HDL >or= 60 mg/dL High HDL Cholesterol Serum or plasma cholesterol in VLDL measurement (mass/volume)Ordered By: Cullen Reina on 02-06-2023 Cholesterol in VLDL [Mass/Vol] 23 mg/dL 5-40 [facility] Serum or plasma creatinine m easurement (mass/volume)Ordered By: Cullen Reina on 02-06-2023 Creatinine [Mass/Vol] 0.96 mg/dL 0.55-1.02 [facility] Comment on above: The validity of the calculated GFR & GFRAA in patients over 70 years has not been determined. Clinical correlation is essential. Serum or plasma ferritin bebe surement (mass/volume)Ordered By: Cullen Reina on 02-06-2023 Ferritin [Mass/Vol] 55 ng/mL 8-252 [facility] Serum or plasma folate measu rement (mass/volume)Ordered By: Cullen Reina on 02-06-2023 Folate [Mass/Vol] 17.50 ng/mL 3.1-55.4 [facility] Comment on above: Slight Hemolysis, Re sult may be falsely increased. Serum or plasma low density lipoprotein (LDL) cholesterol measurement (mass/volume)Ordered By: Cullen Reina on 02-06-2023 Cholesterol in LDL [Mass/Vol] 69 mg/dL 0-130 [facility] Serum or plasma urea nitroge n measurement (mass/volume)Ordered By: Cullen Reina on 02-06-2023 Urea nitrogen [Mass/Vol] 12 mg/dL 7-18 [facility] Thin prep Papanicolaou smear with manual screeningOrdered By: Cullen Reina on 02-06-2023 Thin prep Papanicolaou smear with manual screening 22 U/L 15-37 [facility] Thin prep Papanicolaou smear with manual screening 5 5-15 [facility] .Auto Diffon 12-24-2022 Basophil, Absolute 0.0 10 3/mcL Normal 0.0-0.2 [facility] ([place]) Comment on above: Performed By: #### T JENNIFER BLEVINS, CBC, GFR, ANEU, ADIFF, BMP #### [address] [place], [place] [address] Basophils/100 WBC (Bld) 0.8 % Normal 0.0-2.5 A [facility] ([place]) Comment on above: Performed By: #### T JENNIFER BLEVINS, CBC, GFR, ANEU, ADIFF, BMP #### [address] [address] Eosinophil, Absolute 0.1 10 3/mcL Normal 0.0-0.4 [facility] ([place]) Comment on above: Performed By: #### T JENNIFER BLEVINS, CBC, GFR, ANEU, ADIFF, BMP #### [address] [address] Eosinophils/100 WBC (Bld) 2.2 % Normal 0.0-7.0 [facility] ([place]) Comment on above: Performed By: #### T JENNIFER BLEVINS, CBC, GFR, ANEU, ADIFF, BMP #### [address] [address] Lymphocyte, Absolute 1.3 10 3/mcL Normal 0.8-3.9 [facility] ([place]) Comment on above: Performed By: #### JENNIFER MONACO, CBC, GFR, ANEU, ADIFF, BMP #### [address] [address] Lymphocytes/100 WBC (Bld) 27.4 % Normal 10.0-50.0 [facility] ([place]) Comment on above: Performed By: #### JENNIFER MONACO, CBC, GFR, ANEU, ADIFF, BMP #### [address] [address] Monocyte, Absolute 0.4 10 3/mcL Normal 0.2-1.0 [facility] ([place]) Comment on above: Performed By: #### JENNIFER MONACO, CBC, GFR, ANEU, ADIFF, BMP #### [address] [address] Monocytes/100 WBC (Bld) 9.4 % Normal 1.7-13.0 [facility] ([place]) Comment on above: Performed By: #### JENNIFER MONACO, CBC, GFR, ANEU, ADIFF, BMP #### [address] [address] Neutrophils/100 WBC (Bld) 60.2 % Normal 37.0-80.0 [facility] ([place]) Comment on above: Performed By: #### T JENNIFER BLEVINS, CBC, GFR, ANEU, ADIFF, BMP #### L[address] [address] .GFRon 12-24-2022 GFR Non- 57 ml/min/1.73sqm Normal [facility] ([place]) Comment on above: Result Comment: GFR Population mean for , Non- Americans Ages 20-29 = 116 mL/min/1.73 sq.m. Ages 30-39 = 107 mL/min/1.73 sq.m. Ages 40-49 = 99 mL/min/1.73 sq.m. Ages 50-59 = 93 mL/min/1.73 sq.m. Ages 60-69 = 85 mL/min/1.73 sq.m. Ages 70+ = 75 mL/min/1.73 sq.m. Chronic Kidney Disease: Less than 60 mL/min/1.73 square meters End Stage Renal Disease: Less than 15 mL/min/1.73 square meters Performed By: #### T JENNIFER BLEVINS, LIDYA, GFR, ANEU, ADIFF, BMP #### [address] [address] GFR 69 ml/min/1.73sqm Normal [facility] ([place]) Comment on above: Result Comment: GFR Population mean for , Non- Americans Ages 20-29 = 116 mL/min/1.73 sq.m. Ages 30-39 = 107 mL/min/1.73 sq.m. Ages 40-49 = 99 mL/min/1.73 sq.m. Ages 50-59 = 93 mL/min/1.73 sq.m. Ages 60-69 = 85 mL/min/1.73 sq.m. Ages 70+ = 75 mL/min/1.73 sq.m. Chronic Kidney Disease: Less than 60 mL/min/1.73 square meters End Stage Renal Disease: Less than 15 mL/min/1.73 square meters Performed By: #### T JENNIFER BLEVINS, CBC, GFR, ANEU, ADIFF, BMP #### [address] [address] .MDWon 12-24-2022 Monocyte Distribution Width 18.04 Normal 0.00-20.00 [facility] ([place]) Comment on above: Result Comment: For ED adult patients suspected of sepsis, MDW<=20.0 does not rule out sepsis or risk of sepsis Performed By: #### T JENNIFER BLEVINS, CBC, GFR, ANEU, ADIFF, BMP #### [address] [place], [place] [address] .NEUABSon 12-24-2022 Neutrophil, Absolute 2.9 10 3/mcL Normal 2.9-6.2 [facility] ([place]) Comment on above: Performed By: #### T JENNIFER BLEVINS, CBC, GFR, ANEU, ADIFF, BMP #### [address] [place], [place] [address] .Urinalysis Microscopic (AO) on 12-24-2022 UA RBC 0-5 Abnormal None Seen [facility] ([place]) Comment on above: Performed By: #### Sergio AMICAO, UA ####[id number] [place], [place] [address] UA Squam Epithelial 0-5 Abnormal None Seen [facility] ([place]) Comment on above: Performed By: #### U AMICAO, UA ####[id number] [place], [place] [address] UA WBC 0-5 Abnormal None Seen [facility] ([place]) Comment on above: Performed By: #### U AMICAO, UA ####[id number] [place], [place] [address] BMPon 12-24-2022 BUN/Creatinine Ratio 18 ratio Normal 7-27 [facility] ([place]) Comment on above: Performed By: #### T JENNIFER BLEVINS, CBC, GFR, ANEU, ADIFF, BMP #### [address] [place], [place] [address] Calcium [Mass/Vol] 8.8 mg/dL Normal 8.4-10.2 [facility] ([place]) Comment on above: Performed By: #### T JENNIFER BLEVINS, CBC, GFR, ANEU, ADIFF, BMP #### [address] [address] Chloride [Moles/Vol] 106 mmol/L Normal 98-107 [facility] ([place]) Comment on above: Performed By: #### T JENNIFER BLEVINS, CBC, GFR, ANEU, ADIFF, BMP #### [address] [address] CO2 [Moles/Vol] 26 mmol/L Normal 23-31 [facility] ([place]) Comment on above: Performed By: #### T JENNIFER BLEVINS, CBC, GFR, ANEU, ADIFF, BMP #### [address] [address] Creatinine [Mass/Vol] 0.97 mg/dL Normal 0.55-1.02 [facility] ([place]) Comment on above: Performed By: #### JENNIFER MONACO, CBC, GFR, ANEU, ADIFF, BMP #### [address] [address] Electrolyte Balance 10.0 mEq/L Normal 4.0-15.0 [facility] ([place]) Comment on above: Performed By: #### JENNIFER MONACO, CBC, GFR, ANEU, ADIFF, BMP #### [address] [address] Glucose [Mass/Vol] 117 mg/dL High 83-110 [facility] ([place]) Comment on above: Performed By: #### JENNIFER MONACO, CBC, GFR, ANEU, ADIFF, BMP #### [address] [address] Potassium [Moles/Vol] 4.0 mmol/L Normal 3.5-5.1 [facility] ([place]) Comment on above: Performed By: #### JENNIFER MONACO, CBC, GFR, ANEU, ADIFF, BMP #### [address] [address] Sodium [Moles/Vol] 142 mmol/L Normal 136-145 [facility] ([place]) Comment on above: Performed By: #### T JENNIFER BLEVINS, CBC, GFR, ANEU, ADIFF, BMP #### [place] [address] Urea nitrogen [Mass/Vol] 17 mg/dL Normal 7-18 [facility] ([place]) Comment on above: Performed By: #### T JENNIFER BLEVINS, CBC, GFR, ANEU, ADIFF, BMP #### [place] [address] CBCon 12-24-2022 Erythrocyte distribution width (RBC) [Ratio] 14.9 % High 11.5-14.5 [facility] ([place]) Comment on above: Performed By: #### T JENNIFER BLEVINS, CBC, GFR, ANEU, ADIFF, BMP #### [place] [address] Hematocrit (Bld) [Volume fraction] 35.6 % Low 37.0-47.0 [facility] ([place]) Comment on above: Performed By: #### JENNIFER MONACO, CBC, GFR, ANEU, ADIFF, BMP #### [place] [address] Hgb 11.8 G/dL Low 12.0-16.0 [facility] ([place]) Comment on above: Performed By: #### JENNIFER MONACO, CBC, GFR, ANEU, ADIFF, BMP #### [place] [address] MCH (RBC) [Entitic mass] 28.4 pg Normal 27.0-31.2 [facility] ([place]) Comment on above: Performed By: #### JENNIFER MONACO, CBC, GFR, ANEU, ADIFF, BMP #### [place] [id number] MCHC 33.2 G/dL Normal 33.0-37.0 [facility] ([place]) Comment on above: Performed By: #### T JENNIFER BLEVINS, CBC, GFR, ANEU, ADIFF, BMP #### [address] [address] MCV (RBC) [Entitic vol] 85.5 fL Normal 80.0-94.0 A [facility] ([place]) Comment on above: Performed By: #### T JENNIFER BLEVINS, CBC, GFR, ANEU, ADIFF, BMP #### [address] [address] Platelet 196 10 3/mcL Normal 130-400 [facility] ([place]) Comment on above: Performed By: #### T JENNIFER BLEVINS, CBC, GFR, ANEU, ADIFF, BMP #### [address] [address] Platelet mean volume (Bld) [Entitic vol] 7.7 fL Normal 7.4-10.4 [facility] ([place] Comment on above: Performed By: #### T JENNIFER BLEVINS, CBC, GFR, ANEU, ADIFF, BMP #### [address] [address] RBC 4.16 10 6/mcL Low 4.20-5.40 [facility] ([place]) Comment on above: Performed By: #### T JENNIFER BLEVINS, CBC, GFR, ANEU, ADIFF, BMP #### [address] [address] WBC 4.8 10 3/mcL Normal 4.6-10.8 [facility] ([place]) Comment on above: Performed By: #### T JENNIFER BLEVINS, CBC, GFR, ANEU, ADIFF, BMP #### [address] [address] LABORATORYOrdered By: Avis Whitley on 12-24-2022 Appearance (U) Clear (12/24/22 4:11 PM) Invalid Interpretation Code Clear AO Auto Urine SS Bilirubin Ql (U) Negative (12/24/22 4:11 PM) Invalid Interpretation Code Negative AO Auto Urine SS Color (U) Yellow (12/24/22 4:11 PM) Invalid Interpretation Code AO Auto Urine SS Glucose Test strip (U) [Mass/Vol] Negative Invalid Interpretation Code Negative AO Auto Urine SS Hemoglobin Auto test strip (U) [Mass/Vol] Trace *ABN* (12/24/22 4:11 PM) Invalid Interpretation Code Negative AO Auto Urine SS Ketones Ql (U) Negative Invalid Interpretation Code Negative AO Auto Urine SS UA Leuk Est Trace *ABN* (12/24/22 4:11 PM) Invalid Interpretation Code Negative AO Auto Urine SS UA Nitrite Negative (12/24/22 4:11 PM) Invalid Interpretation Code Negative AO Auto Urine SS UA pH 6.0 (12/24/22 4:11 PM) Invalid Interpretation Code 5.0 - 8.0 AO Auto Urine SS UA Protein Negative Invalid Interpretation Code Negative AO Auto Urine SS UA RBC 0-5 /HPF Invalid Interpretation Code None Seen AO Auto Urine SS UA Spec Grav 1.025 (12/24/22 4:11 PM) Invalid Interpretation Code 1.015-1.025 AO Auto Urine SS UA Specimen Type Clean Catch (12/24/22 4:11 PM) Invalid Interpretation Code AO Auto Urine SS UA Squam Epithelial 0-5 /HPF Invalid Interpretation Code None Seen AO Auto Urine SS UA Urobilinogen 0.2 E.U./dL Invalid Interpretation Code 0.2-1.0 AO Auto Urine SS WBC LM.HPF (Urine sed) [#/Area] 0-5 /HPF Invalid Interpretation Code None Seen AO Auto Urine SS LABORATORYOrdered By: SYSTEM SYSTEM on 12-24-2022 Basophil, Absolute 0.0 103/mcL Invalid Interpretation Code 0.0 - 0.2 10^3/mcL AO Workflow SS Basophils/100 WBC (Bld) 0.8 % Invalid Interpretation Code 0.0 - 2.5 % AO Workflow SS Calcium [Mass/Vol] 8.8 mg/dL Invalid Interpretation Code 8.4 - 10.2 mg/dL AO ADM SS Chloride [Moles/Vol] 106 mmol/L Invalid Interpretation Code 98 - 107 mmol/L AO ADM SS CO2 [Moles/Vol] 26 mmol/L Invalid Interpretation Code 23 - 31 mmol/L AO ADM SS Creatinine [Mass/Vol] 0.97 mg/dL Invalid Interpretation Code 0.55 - 1.02 mg/dL AO ADM SS Electrolyte Balance 10.0 mEq/L Invalid Interpretation Code 4.0 - 15.0 mEq/L AO ADM SS Eosinophil, Absolute 0.1 103/mcL Invalid Interpretation Code 0.0 - 0.4 10^3/mcL AO Workflow SS Eosinophils/100 WBC (Bld) 2.2 % Invalid Interpretation Code 0.0 - 7.0 % AO Workflow SS Erythrocyte distribution width (RBC) [Ratio] 14.9 % Invalid Interpretation Code 11.5 - 14.5 % AO Workflow SS GFR/1.73 sq M.predicted among blacks MDRD (S/P/Bld) [Vol rate/Area] 69 ml/min/1.73sqm Invalid Interpretation Code AO Chemistry S Comment on above: Interpretive Data: GFR Population mean for , Non- Americans Ages 20-29 = 116 mL/min/1.73 sq.m. Ages 30-39 = 107 mL/min/1.73 sq.m. Ages 40-49 = 99 mL/min/1.73 sq.m. Ages 50-59 = 93 mL/min/1.73 sq.m. Ages 60-69 = 85 mL/min/1.73 sq.m. Ages 70+ = 75 mL/min/1.73 sq.m. Chronic Kidney Disease: Less than 60 mL/min/1.73 square meters End Stage Renal Disease: Less than 15 mL/min/1.73 square meters GFR/1.73 sq M.predicted among non-blacks MDRD (S/P/Bld) [Vol rate/Area] 57 ml/min/1.73sqm Invalid Interpretation Code AO Chemistry S Comment on above: Interpretive Data: GFR Population mean for , Non- Americans Ages 20-29 = 116 mL/min/1.73 sq.m. Ages 30-39 = 107 mL/min/1.73 sq.m. Ages 40-49 = 99 mL/min/1.73 sq.m. Ages 50-59 = 93 mL/min/1.73 sq.m. Ages 60-69 = 85 mL/min/1.73 sq.m. Ages 70+ = 75 mL/min/1.73 sq.m. Chronic Kidney Disease: Less than 60 mL/min/1.73 square meters End Stage Renal Disease: Less than 15 mL/min/1.73 square meters Glucose [Mass/Vol] 117 mg/dL Invalid Interpretation Code 83 - 110 mg/dL AO ADM SS Hematocrit (Bld) [Volume fraction] 35.6 % Invalid Interpretation Code 37.0 - 47.0 % AO Workflow SS Hemoglobin (Bld) [Mass/Vol] 11.8 G/dL Invalid Interpretation Code 12.0 - 16.0 G/dL AO Workflow SS Lymphocyte, Absolute 1.3 103/mcL Invalid Interpretation Code 0.8 - 3.9 10^3/mcL AO Workflow SS Lymphocytes/100 WBC (Bld) 27.4 % Invalid Interpretation Code 10.0 - 50.0 % AO Workflow SS MCH (RBC) [Entitic mass] 28.4 pg Invalid Interpretation Code 27.0 - 31.2 pg AO Workflow SS MCHC 33.2 G/dL Invalid Interpretation Code 33.0 - 37.0 G/dL AO Workflow SS MCV (RBC) [Entitic vol] 85.5 fL Invalid Interpretation Code 80.0 - 94.0 fL AO Workflow SS Monocyte distribution width Auto (Bld) [Entitic vol] 18.04 1 Invalid Interpretation Code 0.00 - 20.00 AO Workflow SS Comment on above: Result Comment: For ED adult patients suspected of sepsis, MDW<=20.0 does not rule out sepsis or risk of sepsis Monocyte, Absolute 0.4 103/mcL Invalid Interpretation Code 0.2 - 1.0 10^3/mcL AO Workflow SS Monocytes/100 WBC (Bld) 9.4 % Invalid Interpretation Code 1.7 - 13.0 % AO Workflow SS Neutrophil, Absolute 2.9 103/mcL Invalid Interpretation Code 2.9 - 6.2 10^3/mcL AO Workflow SS Neutrophils/100 WBC (Bld) 60.2 % Invalid Interpretation Code 37.0 - 80.0 % AO Workflow SS Platelet mean volume (Bld) [Entitic vol] 7.7 fL Invalid Interpretation Code 7.4 - 10.4 fL AO Workflow SS Platelets (Bld) [#/Vol] 196 103/mcL Invalid Interpretation Code 130 - 400 10^3/mcL AO Workflow SS Potassium [Moles/Vol] 4.0 mmol/L Invalid Interpretation Code 3.5 - 5.1 mmol/L AO ADM SS RBC (Bld) [#/Vol] 4.16 106/mcL Invalid Interpretation Code 4.20 - 5.40 10^6/mcL AO Workflow SS Sodium [Moles/Vol] 142 mmol/L Invalid Interpretation Code 136 - 145 mmol/L AO ADM SS Troponin I.cardiac DL <= 0.01 ng/mL [Mass/Vol] 4.7 ng/L Invalid Interpretation Code 0.0 - 51.4 ng/L AO ADM SS Urea nitrogen [Mass/Vol] 17 mg/dL Invalid Interpretation Code 7 - 18 mg/dL AO ADM SS Urea nitrogen/Creatinine [Mass ratio] 18 ratio Invalid Interpretation Code 7 - 27 ratio AO ADM SS WBC (Bld) [#/Vol] 4.8 103/mcL Invalid Interpretation Code 4.6 - 10.8 10^3/mcL AO Workflow SS TROPHSon 12-24-2022 Troponin I High Sensitivity 4.7 ng/L Normal 0.0-51.4 [facility] ([place]) Comment on above: Performed By: #### T JENNIFER BLEVINS, CBC, GFR, ANEU, ADIFF, BMP #### [address] [address] UAon 12-24-2022 Color (U) Yellow Normal [facility] ([place] Comment on above: Performed By: #### U AMICAO, UA #### [address] [address] Glucose (U) [Mass/Vol] Negative Normal Negative [facility] ([place]) Comment on above: Performed By: #### U AMICAO, UA #### [address] [address] Ketones Ql (U) Negative Normal Negative [facility] ([place] Comment on above: Performed By: #### U AMICAO, UA #### [address] [address] UA Appear Clear Normal Clear [facility] ([place] Comment on above: Performed By: #### U AMICAO, UA #### [address] [address] UA Blood Trace Abnormal Negative [facility] ([place] Comment on above: Performed By: #### U AMICAO, UA #### [address] [address] UA Leuk Est Trace Abnormal Negative [facility] ([place] Comment on above: Performed By: #### U AMICAO, UA #### [address] [address] UA Nitrite Negative Normal Negative [facility] [place] Comment on above: Performed By: #### U AMICAO, UA #### [address] [address] UA pH 6.0 Normal 5.0 - 8.0 [facility] ([place] Comment on above: Performed By: #### U AMICAO, UA #### [address] [address] UA Protein Negative Normal Negative [facility] ([place] Comment on above: Performed By: #### U AMICAO, UA #### [place] [id number] UA Spec Grav 1.025 Normal 1.015-1.025 [facility] ([place] Comment on above: Performed By: #### U AMICAO, UA #### [place] [id number] UA Specimen Type Clean Catch Normal [facility] ([place] Comment on above: Performed By: #### U AMICAO, UA #### [address] [address] UA Urobilinogen 0.2 E.U./dL Normal 0.2-1.0 [facility] ([place] Comment on above: Performed By: #### U AMICAO, UA #### [place] [id number] Urobilinogen (U) [Mass/Vol] Negative Normal Negative [facility] ([place] Comment on above: Performed By: #### U AMICAO, UA #### [address] [address] XR CHEST 1 VIEWon 12-24-2022 XR CHEST 1 VIEW ORIGINAL EXAMINATION: ONE XRAY VIEW OF THE CHEST 12/24/2022 4:18 pm COMPARISON: None. HISTORY: ORDERING SYSTEM PROVIDED HISTORY: Reason for Exam: chest pain FINDINGS: Cardiomediastinal silhouette is probably normal in size for portable technique and patient body habitus. Costophrenic angles are sharp. No radiographic pneumothorax. No focal consolidation. Degenerative changes of the spine. Please see radiograph of the thoracic spine performed same day. Cholecystectomy clips. IMPRESSION: No acute radiographic findings. Interpreted by: Kaveh Mayfield Preliminary Report By: Kaveh Mayfield Electronically signed By Kaveh Mayfield Dictated Date: 12/24/2022 4:34:49 PM Prelim Date: 12/24/2022 4:35:29 PM Sign Date: 12/24/2022 4:35:29 PM Ordering Provider: FABI MARIN [facility]) XR SPINE THORACIC 2 VIEWSon 12-24-2022 XR SPINE THORACIC 2 VIEWS ORIGINAL EXAMINATION: TWO XRAY VIEWS OF THE THORACIC SPINE 12/24/2022 4:18 pm COMPARISON: Chest radiograph earlier in the day HISTORY: ORDERING SYSTEM PROVIDED HISTORY: Reason for Exam: pain FINDINGS: Vertebral body heights and alignment is maintained. Multilevel degenerative changes. Cholecystectomy clips in right upper abdominal quadrant. IMPRESSION: No acute osseous abnormality by radiograph. I have personally reviewed the images of this examination and agree with the resident's findings and interpretation. Interpreted by: Kaveh Mayfield Preliminary Report By: Komal Carlos Electronically signed By Kaveh Mayfield Dictated Date: 12/24/2022 4:36:56 PM Prelim Date: 12/24/2022 4:39:52 PM Sign Date: 12/24/2022 4:52:47 PM Ordering Provider: FABI MARIN [facility] ([place]) Nicole 05-09-2022 [facility] Telephone ([facility] TANYA VILLA ([id number]) 1950 F Date Time Provider Department 05/09/22 TRUDY SIMON During your visit today, we recorded the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 Estimated GFR (MDRD) Non-Af Amer 58 mL/min >60 [facility] Comment on above: Non- GFR Calc Thyroid Stimulating Hormone (TSH) 1.47 uIU/mL 0.358-3.74 [facility] Total Iron Binding Capacity 360 ug/dL 250-450 [facility] Platelets bldOrdered By: Dr. Reina on 03-24-2022 Platelets (Bld) [#/Vol] 203 10*3/uL 150-450 [facility] Protein Test strip Ql (U)Ord ered By: Dr. Reina on 03-24-2022 Protein Ql (U) 15 mg/dl Negative [facility] Serum or plasma albumin odette urement (mass/volume)Ordered By: Dr. Reina on 03-24-2022 Albumin [Mass/Vol] 3.7 g/dL 3.2-5.0 [facility] Serum or plasma albumin/glob ulin mass ratioOrdered By: Dr. Reina on 03-24-2022 Albumin/Globulin [Mass ratio] 1.0 {ratio} 0.9-2.4 [facility] Serum or plasma calcium odette urement (mass/volume)Ordered By: Dr. Reina on 03-24-2022 Calcium [Mass/Vol] 8.9 mg/dL 8.5-10.1 [facility] Serum or plasma cholesterol in HDL measurement (mass/volume)Ordered By: Dr. Reina on 03-24-2022 Cholesterol in HDL [Mass/Vol] 86 mg/dL >40 [facility] Comment on above: The drugs N-Acetylcy steine and Metamizole may falsely depress this assay. Reference Range HDL <40 mg/dL Low HDL Cholesterol HDL >or= 60 mg/dL High HDL Cholesterol Serum or plasma cholesterol in VLDL measurement (mass/volume)Ordered By: Dr. Reina on 03-24-2022 Cholesterol in VLDL [Mass/Vol] 20 mg/dL 5-40 [facility] Serum or plasma creatinine m easurement (mass/volume)Ordered By: Dr. Reina on 03-24-2022 Creatinine [Mass/Vol] 1.00 mg/dL 0.55-1.02 [facility] Comment on above: The validity of the calculated GFR & GFRAA in patients over 70 years has not been determined. Clinical correlation is essential. Serum or plasma ferritin bebe surement (mass/volume)Ordered By: Dr. Reina on 03-24-2022 Ferritin [Mass/Vol] 25 ng/mL 8-252 [facility] Serum or plasma folate measu rement (mass/volume)Ordered By: Dr. Reina on 03-24-2022 Folate [Mass/Vol] 19.90 ng/mL 3.1-55.4 [facility] Serum or plasma iron saturat ion measurement (mass fraction)Ordered By: Dr. Reina on 03-24-2022 Iron saturation [Mass fraction] 12.5 % 15.0-55.0 [facility] Serum or plasma low density lipoprotein (LDL) cholesterol measurement (mass/volume)Ordered By: Dr. Reina on 03-24-2022 Cholesterol in LDL [Mass/Vol] 66 mg/dL 0-130 [facility] Serum or plasma urea nitroge n measurement (mass/volume)Ordered By: Dr. Reina on 03-24-2022 Urea nitrogen [Mass/Vol] 18 mg/dL 7-18 [facility] Squamous epithelial cells de tection in urine sediment by light microscopyOrdered By: Dr. Reina on 03-24-2022 Epithelial cells.squamous LM Ql (Urine sed) 0-5 SEEN /hpf 5-10 [facility] Thin prep Papanicolaou smear with manual screeningOrdered By: Dr. Reina on 03-24-2022 Thin prep Papanicolaou smear with manual screening 18 U/L 15-37 [facility] Thin prep Papanicolaou smear with manual screening 6 5-15 [facility] Urine blood detectionOrdered By: Dr. Reina on 03-24-2022 RBC Ql (U) 10 /ul Negative [facility] RBC Ql (U) 0 SEEN /hpf 0-5 [facility] Urine clarityOrdered By: Dr. Reina on 03-24-2022 Clarity (U) Clear Clear [facility] Urine color determinationOrd ered By: Dr. Reina on 03-24-2022 Color (U) Yellow Yellow [facility] Urine glucose detectionOrder ed By: Dr. Reina on 03-24-2022 Glucose Ql (U) Normal mg/dl Normal [facility] Urine leukocyte esterase det ection by dipstickOrdered By: Dr. Reina on 03-24-2022 Leukocyte esterase Test strip Ql (U) 25 /ul Negative [facility] Urine pHOrdered By: Dr. Ilda perez on 03-24-2022 pH (U) 7.0 [pH] 5.0 - 8.0 [facility] Urine sediment bacteria coun t by microscopy (number/high power field)Ordered By: Dr. Reina on 03-24-2022 Bacteria LM.HPF (Urine sed) [#/Area] RARE /hpf None Seen [facility] Urine specific gravity measu rementOrdered By: Dr. Reina on 03-24-2022 Specific gravity (U) [Rel density] 1.010 1.002-1.030 [facility] Urobilinogen Auto test strip Ql (U)Ordered By: Dr. Reina on 03-24-2022 Urobilinogen Ql (U) 1 mg/dl Normal [facility] Absolute lymphocyte counton 09-12-2021 Lymphocytes Auto (Unsp spec) [#/Vol] 1.42 10*3/uL 0.83-4.51 [facility] Work Phone: [phone] Basophil percentageon 2021 Basophil percentage 0-5 SEEN /hpf 0-5 [facility] Work Phone: [phone] Basophils/100 WBC (Bld) 0.8 % 0-1 [facility] Work Phone: [phone] Bilirubin [Mass/Vol] 0.40 mg/dL 0.20-1.00 [facility] Work Phone: [phone] Comment on above: For patients on eltr ombopag therapy, use of Dimension [place] TBIL is not recommended. Chloride [Moles/Vol] 107 mmol/L 98-107 [facility] Work Phone: Cholesterol [Mass/Vol] 178 mg/dL <200 [facility] Work Phone: [phone] Comment on above: <200 mg/dL Desirable 200-240 mg/dL Borderline >240 mg/dL High Risk Eosinophils/100 WBC (Bld) 2.6 % 0-5 [facility] Work Phone: Glucose [Mass/Vol] 92 mg/dL 74-106 [facility] Work Phone: Neutrophils (Bld) [#/Vol] 3.0 10*3/uL 2.0-7.7 [facility] Work Phone: Neutrophils/100 WBC (Bld) 58.1 % 47-70 [facility] Work Phone: [phone] Potassium [Moles/Vol] 4.0 mmol/L 3.5-5.1 [facility] Work Phone: [phone] Protein [Mass/Vol] 7.2 g/dL 6.4-8.2 [facility] Work Phone: Sodium [Moles/Vol] 142 mmol/L 136-145 [facility] Work Phone: Triglyceride [Mass/Vol] 116 mg/dL <199 [facility] Work Phone: Comment on above: The drugs N-Acetylcy steine and Metamizole may falsely depress this assay.Serum Triglycerides Reference Interval Normal <150 mg/dL Borderline high 150 - 199 mg/dL High 200 - 499 mg/dL Very High > or = 500 mg/dL WBC (Bld) [#/Vol] 5.1 10*3/uL 4.4-11.0 [facility] Work Phone: Bilirubin Test strip Ql (U)o n 09-12-2021 Bilirubin Ql (U) Negative Negative [facility] Work Phone: Blood erythrocytes count (nu mber/volume)on 09-12-2021 RBC (Bld) [#/Vol] 4.29 10*6/uL 4.2-5.4 [facility] Work Phone: Blood hemoglobin measurement (mass/volume)on 09-12-2021 Hemoglobin (Bld) [Mass/Vol] 12.3 g/dL 12.0-15.0 [facility] Work Phone: Blood lymphocytes/100 leukoc yteson 09-12-2021 Lymphocytes/100 WBC (Bld) 27.9 % 19-41 [facility] Work Phone: Blood monocytes/100 leukocyt eson 09-12-2021 Monocytes/100 WBC (Bld) 10.2 % 0-10 [facility] Work Phone: Blood platelet mean volumeon 09-12-2021 Platelet mean volume (Bld) [Entitic vol] 10.2 fL 6.2-12.0 [facility] Work Phone: Determination of erythrocyte mean corpuscular volume (MCV)on 09-12-2021 MCV (RBC) [Entitic vol] 91.4 fL 81-99 [facility] Work Phone: Hematocrit Auto (Bld) [Volum e fraction]on 09-12-2021 Hematocrit (Bld) [Volume fraction] 39.2 % 37-47 [facility] Work Phone: Ketones Test strip Ql (U)on 09-12-2021 Ketones Ql (U) 5 mg/dl Negative [facility] Work Phone: Laboratory - Chemistry and C hemistry - challengeon 09-12-2021 ALP [Catalytic activity/Vol] 101 U/L 45-117 [facility] Work Phone: ALT [Catalytic activity/Vol] 56 U/L 13-56 [facility] Work Phone: [phone] CK [Catalytic activity/Vol] 66 U/L 26-192 [facility] Work Phone: [phone] CO2 [Moles/Vol] 26.0 mmol/L 21.0-32.0 [facility] Work Phone: [phone] Cobalamin (Vitamin B12) [Mass/Vol] 570 pg/mL 211-911 [facility] Work Phone: [phone] Globulin (S) [Mass/Vol] 3.4 g/dL 2.2-4.2 [facility] Work Phone: [phone] Magnesium [Mass/Vol] 2.5 mg/dL 1.6-2.6 [facility] Work Phone: Urea nitrogen/Creatinine [Mass ratio] 17.3 mg/mg 10-20 [facility] Work Phone: [phone] Laboratory - Hematology and Cell countson 09-12-2021 Erythrocyte distribution width (RBC) [Entitic vol] 47.7 fL 35.1-43.9 [facility] Work Phone: [phone] Erythrocyte distribution width (RBC) [Ratio] 14.1 % 11.6-14.6 [facility] Work Phone: [phone] Immature granulocytes/100 WBC (Bld) 0.400 % 0.0-0.9 [facility] Work Phone: [phone] Comment on above: IG% - Immature Granu locytes (promyelocytes, myelocytes and metamyelocytes) > 1% indicates that a LEFT SHIFT is Present. MCH (RBC) [Entitic mass] 28.7 pg 27.0-32.0 [facility] Work Phone: Nucleated RBC/100 WBC (Bld) [Ratio] 0 % 0-5 [facility] Work Phone: MCHC Auto (RBC) [Mass/Vol]on 09-12-2021 MCHC (RBC) [Mass/Vol] 31.4 g/dL 32-36 [facility] Work Phone: Mucus LM Ql (Urine sed)on Mucus Ql (Urine sed) 0 SEEN /hpf [facility] Work Phone: Nitrite Test strip Ql (U)on 09-12-2021 Nitrite Ql (U) Negative Negative [facility] Work Phone: No Panel Informationon 09-12 Estimated GFR (MDRD) Amer 83 mL/min >60 [facility] Work Phone: Comment on above: GFR Calc Estimated GFR (MDRD) Non-Af Amer 69 mL/min >60 [facility] Work Phone: Comment on above: Non- GFR Calc Thyroid Stimulating Hormone (TSH) 2.16 uIU/mL 0.358-3.74 [facility] Work Phone: Platelets bldon 09-12-2021 Platelets (Bld) [#/Vol] 180 10*3/uL 150-450 [facility] Work Phone: Protein Test strip Ql (U)on 09-12-2021 Protein Ql (U) Negative Negative [facility] Work Phone: Serum or plasma albumin odette urement (mass/volume)on 09-12-2021 Albumin [Mass/Vol] 3.8 g/dL 3.2-5.0 [facility] Work Phone: Serum or plasma albumin/glob ulin mass ratioon 09-12-2021 Albumin/Globulin [Mass ratio] 1.1 {ratio} 0.9-2.4 [facility] Work Phone: Serum or plasma calcium odette urement (mass/volume)on 09-12-2021 Calcium [Mass/Vol] 9.0 mg/dL 8.5-10.1 [facility] Work Phone: Serum or plasma cholesterol in HDL measurement (mass/volume)on 09-12-2021 Cholesterol in HDL [Mass/Vol] 54 mg/dL >40 [facility] Work Phone: Comment on above: The drugs N-Acetylcy steine and Metamizole may falsely depress this assay. Reference Range HDL <40 mg/dL Low HDL Cholesterol HDL >or= 60 mg/dL High HDL Cholesterol Serum or plasma cholesterol in VLDL measurement (mass/volume)on 09-12-2021 Cholesterol in VLDL [Mass/Vol] 23 mg/dL 5-40 [facility] Work Phone: Serum or plasma creatinine m easurement (mass/volume)on 09-12-2021 Creatinine [Mass/Vol] 0.87 mg/dL 0.55-1.02 [facility] Work Phone: Comment on above: The validity of the calculated GFR & GFRAA in patients over 70 years has not been determined. Clinical correlation is essential. Serum or plasma ferritin bebe surement (mass/volume)on 09-12-2021 Ferritin [Mass/Vol] 21 ng/mL 8-252 [facility] Work Phone: Serum or plasma low density lipoprotein (LDL) cholesterol measurement (mass/volume)on 09-12-2021 Cholesterol in LDL [Mass/Vol] 101 mg/dL 0-130 [facility] Work Phone: Serum or plasma urea nitroge n measurement (mass/volume)on 09-12-2021 Urea nitrogen [Mass/Vol] 15 mg/dL 7-18 [facility] Work Phone: Squamous epithelial cells de tection in urine sediment by light microscopyon 09-12-2021 Epithelial cells.squamous LM Ql (Urine sed) 0-5 SEEN /hpf 5-10 [facility] Work Phone: Thin prep Papanicolaou smear with manual screeningon 09-12-2021 Thin prep Papanicolaou smear with manual screening 31 U/L 15-37 [facility] Work Phone: Thin prep Papanicolaou smear with manual screening 9 5-15 [facility] Work Phone: Urine blood detectionon 09-02 RBC Ql (U) Negative Negative [facility] Work Phone: RBC Ql (U) 0 SEEN /hpf 0-5 [facility] Work Phone: Urine clarityon 09-12-2021 Clarity (U) Sl. Cloudy Clear [facility] Work Phone: Urine color determinationon 09-12-2021 Color (U) Yellow Yellow [facility] Work Phone: Urine glucose detectionon Glucose Ql (U) Normal mg/dl Normal [facility] Work Phone: Urine leukocyte esterase det ection by dipstickon 09-12-2021 Leukocyte esterase Test strip Ql (U) 25 /ul Negative [facility] Work Phone: Urine pHon 09-12-2021 pH (U) 8.0 [pH] 5.0 - 8.0 [facility] Work Phone: Urine sediment bacteria coun t by microscopy (number/high power field)on 09-12-2021 Bacteria LM.HPF (Urine sed) [#/Area] 0 /[HPF] None Seen [facility] Work Phone: Urine specific gravity measu rementon 09-12-2021 Specific gravity (U) [Rel density] 1.015 1.002-1.030 [facility] Work Phone: Urobilinogen Auto test strip Ql (U)on 09-12-2021 Urobilinogen Ql (U) Normal mg/dl Normal [facility] Work Phone: Basophil percentageon 2021 Creatinine [Mass/Vol] 0.8 mg/dL 0.55-1.02 [facility] Work Phone: No Panel Informationon 06-02 Bedside Estimated GFR (eGFR) > 60.0000 mL/min >60 [facility] Work Phone: Vital Signs Date Time Vital Sign Value Performing Clinician Facility 02-07-2024 04:44-0500 Diastolic Blood Pressure Non-Invasive 71 mm[Hg] PRERNA VARGAS MD [facility] 02-07-2024 04:44-0500 Heart rate 71 /min PRERNA VARGAS MD [facility] 02-07-2024 04:44-0500 Systolic Blood Pressure Non-Invasive 134 mm[Hg] PRERNA VARGAS MD [facility] 02-07-2024 03:13-0500 Body height 155 cm PRERNA VARGAS MD [facility] 02-07-2024 03:13-0500 Body temperature 97.7 [degF] PRERNA VARGAS MD [facility] 02-07-2024 03:13-0500 Body weight 59.1 kg PRERNA VARGAS MD [facility] 02-07-2024 03:13-0500 Diastolic Blood Pressure Non-Invasive 79 mm[Hg] PRERNA VARGAS MD [facility] 02-07-2024 03:13-0500 Heart rate 77 /min PRERNA VARGAS MD [facility] 02-07-2024 03:13-0500 Reason For Taking VItal Signs PRERNA VARGAS MD [facility] 02-07-2024 03:13-0500 Respiratory rate 22 /min PRERNA VARGAS MD [facility] 02-07-2024 03:13-0500 Systolic Blood Pressure Non-Invasive 131 mm[Hg] PRERNA VARGAS MD [facility] 04-22-2023 15:19-0500 Diastolic blood pressure 77 mm[Hg] CASSI UNGER MD [facility] 04-22-2023 15:19-0500 Heart rate 68 /min CASSI UNGER MD [facility] 04-22-2023 15:19-0500 Respiratory rate 16 /min CASSI UNGER MD [facility] 04-22-2023 15:19-0500 Systolic blood pressure 124 mm[Hg] CASSI UNGER MD [facility] 04-22-2023 13:31-0500 Body height 155 cm CASSI UNGER MD [facility] 04-22-2023 13:31-0500 Body temperature 96.26 [degF] CASSI UNGER MD [facility] 04-22-2023 13:31-0500 Body weight 56.8 kg CASSI UNGER MD [facility] 04-22-2023 13:31-0500 Diastolic Blood Pressure Non-Invasive 87 mm[Hg] CASSI UNGER MD [facility] 04-22-2023 13:31-0500 Heart rate 78 /min CASSI UNGER MD [facility] 04-22-2023 13:31-0500 Respiratory rate 16 /min CASSI UNGER MD [facility] 04-22-2023 13:31-0500 Systolic Blood Pressure Non-Invasive 145 mm[Hg] CASSI UNGER MD [facility] 12-24-2022 17:28-0400 Diastolic Blood Pressure Non-Invasive 82 1 AVIS GARCIA MD [facility] 12-24-2022 17:28-0400 Heart rate 67 /min AVIS GARCIA MD [facility] 12-24-2022 17:28-0400 Reason For Taking VItal Signs AVIS GARCIA MD [facility] 12-24-2022 17:28-0400 Respiratory rate 16 /min AVIS GARCIA MD [facility] 12-24-2022 17:28-0400 Systolic Blood Pressure Non-Invasive 161 1 AVIS GARCIA MD [facility] 12-24-2022 14:56-0400 Blood Pressure Cuff Size AVIS GARCIA MD [facility] 12-24-2022 14:56-0400 Blood Pressure Location AVIS GARCIA MD [facility] 12-24-2022 14:56-0400 Blood Pressure Method AVIS GARCIA MD [facility] 12-24-2022 14:56-0400 Body temperature 98.24 [degF] AVIS GARCIA MD [facility] 12-24-2022 14:56-0400 Diastolic Blood Pressure Non-Invasive 80 1 AVIS GARCIA MD [facility] 12-24-2022 14:56-0400 Heart rate 77 /min AVIS GARCIA MD [facility] 12-24-2022 14:56-0400 Respiratory rate 18 /min AVIS GRACIA MD [facility] 12-24-2022 14:56-0400 Systolic Blood Pressure Non-Invasive 137 1 AVIS GARCIA MD [facility] 12-24-2022 06:13-0400 Blood Pressure Cuff Size CASSI UNGER MD [facility] 12-24-2022 06:13-0400 Blood Pressure Location CASSI UNGER MD [facility] 12-24-2022 06:13-0400 Blood Pressure Method CASSI UNGER MD [facility] 12-24-2022 06:13-0400 Body height 155 cm CASSI UNGER MD [facility] 12-24-2022 06:13-0400 Body temperature 97.16 [degF] CASSI UNGER MD [facility] 12-24-2022 06:13-0400 Body weight 59.1 kg CASSI UNGER MD [facility] 12-24-2022 06:13-0400 Diastolic Blood Pressure Non-Invasive 88 1 CASSI UNGER MD [facility] 12-24-2022 06:13-0400 Heart rate 84 /min CASSI UNGER MD [facility] 12-24-2022 06:13-0400 Reason For Taking VItal Signs CASSI UNGER MD [facility] 12-24-2022 06:13-0400 Respiratory rate 18 /min CASSI UNGER MD [facility] 12-24-2022 06:13-0400 Systolic Blood Pressure Non-Invasive 170 1 CASSI UNGER MD [facility] 05-02-2022 12:05-0500 Heart rate 64 /min Trudy Simon MD Work Phone: [facility] 05-02-2022 12:05-0500 SaO2% (BldA) [Mass fraction] 99 % Trudy Simon MD Work Phone: [facility] 05-02-2022 11:55-0500 Diastolic blood pressure 72 mm[Hg] Trudy Simon MD Work Phone: [facility] 05-02-2022 11:55-0500 Respiratory rate 16 /min Trudy Simon MD Work Phone: [facility] 05-02-2022 11:55-0500 Systolic blood pressure 134 mm[Hg] Trudy Simon MD Work Phone: [facility] 05-02-2022 09:33-0500 Body temperature 97.39 [degF] Trudy Simon MD Work Phone: [facility] 04-04-2022 09:27-0500 Body height 154.9 cm Sri Tuscola PA-C Work Phone: [facility] 04-04-2022 09:27-0500 Body temperature 97.11 [degF] Sri Tuscola PA-C Work Phone: [facility] 04-04-2022 09:27-0500 Body weight 58.97 kg Sri Tuscola PA-C Work Phone: [facility] 04-04-2022 09:27-0500 Diastolic blood pressure 92 mm[Hg] Sri Vahid PA-C Work Phone: [facility] 04-04-2022 09:27-0500 Heart rate 144 /min Sri Vahid PA-C Work Phone: [facility] 04-04-2022 09:27-0500 SaO2% (BldA) [Mass fraction] 95 % Sri Redding PA-C Work Phone: [facility] 04-04-2022 09:27-0500 Systolic blood pressure 138 mm[Hg] Sri Redding PA-C Work Phone: [facility] Encounters Encounter Date Encounter Type Care Provider Facility Start: 11-06-2024 End: 11-06-[address] Cullen Reina MD Work Phone: [facility] Start: 11-06-2024 End: 11-06-2024 Patient encounter procedure Timothy Clifton CANT HOOKER-C -[facility] Work Phone: Start: 11-06-2024 End: 11-06-2024 ambulatory Cullen Reina Facility:[facility] Start: 10-31-2024 End: 10-31-[address] Cullen Reina MD Work Phone: -[facility] Start: 10-31-2024 End: 10-31-[address] Cullen Reina MD -[facility] Work Phone: Start: 10-31-2024 End: 10-31-2024 ambulatory Cullen Reina Facility:[facility] Start: 08-28-2024 End: 08-28-[address] Israel Ruvalcaba MD -[facility] Start: 08-28-2024 End: 08-28-[address] Cullen Reina MD Work Phone: [facility] Work Phone: Start: 08-22-2024 End: 08-22-2024 Emergency department patient visit VAIS GARCIA MD [facility] Start: 08-17-2024 End: 08-17-2024 Emergency department patient visit PRERNA VARGAS MD [facility] Start: 02-07-2024 End: 02-07-2024 Emergency department patient visit PRERNA VARGAS MD [facility] Start: 01-04-2024 End: 01-04-2024 [facility] Start: 12-05-2023 End: 12-05-2023 [facility] Start: 04-22-2023 End: 04-22-2023 Emergency department patient visit CASSI UNGER MD Facility:[facility] Start: 04-22-2023 End: 04-22-2023 Emergency department patient visit CASSI UNGER MD [facility] Start: 02-06-2023 End: 02-06-2023 ambulatory [facility] Work Phone: Start: 02-06-2023 End: 02-06-2023 Patient encounter procedure [facility] Work Phone: Start: 12-24-2022 End: 12-24-2022 Emergency department patient visit AVIS GARCIA MD Facility:[facility] Start: 12-24-2022 End: 12-24-2022 Emergency department patient visit AVIS GARCIA MD [facility] Start: 12-24-2022 End: 12-24-2022 Emergency department patient visit CULLEN ELIAS DO Facility:[facility] Start: 12-24-2022 End: 12-24-2022 Emergency department patient visit CASSI UNGER MD [facility] Start: 10-17-2022 End: 10-17-2022 ambulatory [facility] Work Phone: Start: 10-17-2022 End: 10-17-2022 Patient encounter procedure [facility]patient [facility]ensit[facility] Work Phone: Start: 05-09-2022 Telephone encounter Trudy Simon MD Work Phone: General Surgery Comment on above: Results (colonoscopy ) Start: 05-02-2022 End: 05-02-2022 ambulatory CULLEN REINA Facility:[facility] Start: 05-02-2022 End: 05-02-2022 Subsequent hospital visit by physician Trudy Simon MD Work Phone: Ambulatory Surgery Comment on above: Family history of co aspen cancer [Z80.0] Start: 04-04-2022 End: 04-04-2022 ambulatory IVETH ERAZO Facility:[facility] Start: 04-04-2022 End: 04-04-2022 Patient encounter procedure Sri Graf GRAY Work Phone: General Surgery Comment on above: Encounter for screen ing for malignant neoplasm of colon (Primary Dx); Family history of colon cancer Start: 03-24-2022 End: 03-24-2022 ambulatory [facility] Work Phone: Start: 03-24-2022 End: 03-24-2022 Patient encounter procedure [facility] Start: 09-12-2021 End: 09-12-2021 Patient encounter procedure [facility] Start: 06-09-2021 End: 06-09-2021 Patient encounter procedure [facility]ound, [facility] Start: 06-02-2021 End: 06-02-2021 Patient encounter procedure [facility]-Cat Scan, [facility] Procedures Date Procedure Procedure Detail Performing Clinician Start: 11-06-2024 Total iron binding c apacity measurement Dr. Cullen Reina MD Work Phone: Start: 11-06-2024 Vitamin D, 25-hydrox y measurement Dr. Cullen Reina MD Work Phone: Comment on above: Vitamin D StatusDefi ciency: <20 ng/mL (50nmol/L)Insufficiency: 20-30 ng/mL (50-75 nmol/L)Sufficiency: 30-100 ng/mL (75-250 nmol/L)Toxicity: >100 ng/mL (>250 nmol/L) Start: 08-28-2024 End: 08-28-2024 Radex spine lumbscrl compl w/bending views min 6 Dr. Cullen Reina MD Work Phone: Start: 10-17-2022 Dual energy X-ray absorptiometry Start: 10-17-2022 Screening mammography Start: 05-02-2022 Level iv surg pathol ogy gross&microscopic exam Trudy Simon MD Work Phone: Start: 05-02-2022 Colonoscopy flx dx w /collj spec when pfrmd Srigarima Redding PA-C Work Phone: Start: 05-02-2022 Colonoscopy Trudy whittaker MD Work Phone: Start: 06-09-2021 Ultrasonography of abdomen Start: 06-02-2021 CT of abdomen with contrast Start: 10-14-2020 Mammography Srigarima abdullahi PA-C Work Phone: Start: 05-23-2016 Colonoscopy Sri Gra f PA-C Work Phone: Start: 09-02-2005 Lipid 1996 panel - S felecia or Plasma Trudy Simon MD Work Phone: Plan of Treatment Date Care Activity Detail Author Start: 05-02-[address] [facility] Start: 05-02-2027 COLORECTAL CANCER SCREENING COLORECTAL CANCER SCREENING [facility] Start: 08-28-2024 X-ray of thoracic spine, four or more views Thoracic Spine Min 4 Views [facility] Start: 08-28-2024 Complete x-ray series of lumbosacral spine including bending views L/S Spine Comp/w Bending Views [facility] Start: 11-03-2022 Covid-19 Vaccine () Covid-19 Vaccine () [facility] Start: 11-03-2022 Influenza vaccination Influenza Vaccine (#1) [facility] Start: 03-05-2022 ADVANCE DIRECTIVE DISCUSSION ADVANCE DIRECTIVE DISCUSSION [facility] Start: 03-05-2022 DEPRESSION ASSESSMENT DEPRESSION ASSESSMENT [facility] Start: 11-03-2021 Influenza vaccination INFLUENZA (#1) [facility] Start: 10-14-[address] [facility] Start: 05-23-[address] [facility] Start: 05-23-2021 COLORECTAL CANCER SCREENING COLORECTAL CANCER SCREENING [facility] Start: 03-15-2021 COVID-19 VACCINE (4 - Booster for Moderna series) COVID-19 VACCINE (4 - Booster for Moderna series) [facility] Start: 2017 BONE DENSITY BONE DENSITY [facility] Start: 2017 Bone Density Screening Bone Density Screening [facility] Start: 2017 Pneumococcal Vaccine: 65+ (1 - PCV) Pneumococcal Vaccine: 65+ (1 - PCV) [facility] Start: 2017 PNEUMOCOCCAL: 65+ (1 - PCV) PNEUMOCOCCAL: 65+ (1 - PCV) [facility] Start: 2012 RSV Vaccine (1 - 1-dose 60+ series) RSV Vaccine (1 - 1-dose 60+ series) [facility] Start: 09-02-2010 Lipid 1996 panel - Serum or Plasma Lipid Screening [facility] Start: 09-02-2010 LIPID SCREEN LIPID SCREEN [facility] Start: 09-02-2008 DIABETES SCREEN DIABETES SCREEN [facility] Start: 09-02-2008 Diabetes Screening Diabetes Screening [facility] Start: 2002 SHINGRIX VACCINE (1 of 2) SHINGRIX VACCINE (1 of 2) [facility] Start: 1997 COLOGUARD (FIT-DNA) COLOGUARD (FIT-DNA) [facility] Start: [address]APHY [facility] Start: 1997 FECAL OCCULT BLOOD FECAL OCCULT BLOOD [facility] Start: [address] [facility] Start: 12-23-[address] [facility] Start: 1970 HEPATITIS C SCREENING HEPATITIS C SCREENING [facility] Immunizations Immunization Date Immunization Notes Care Provider Lazaro rader 06-01-2020 COVID-19 original vaccine, full dose, monovalent (MODERNA) Sri Redding PA-C Work Phone: [facility] Work Phone: 05-04-2020 COVID-19 original vaccine, full dose, monovalent (MODERNA) Sri Redding PA-C Work Phone: [facility] Work Phone: 12-11-2019 influenza virus vaccine, unspecified formulation Trudy Simon MD Work Phone: [facility] Payers Date Payer Category Payer Self-pay [id number] 2020 Private Health Insurance [id number] 2020 Unknown [id number] 2020 Unknown PRIMETIME [employer]IM[employer]INCENT HMO POS [id number] 2020-Present [phone] [address] [place] [address] HMO [id number] 1952 Unknown [id number] 27 1952 Unknown [id number] 27 1952 Unknown [id number] 27 1952 Unknown [id number] 27 1952 Unknown [id number] 27 1952 Unknown [id number] 27 Unknown [id number] Unknown [id number] 62 Unknown [id number] 62 Unknown [id number] 62 Unknown [id number] 62 Unknown [id number] 62 Social History Date Type Detail Facility Tobacco smoking status NHIS Unknown if ever smoked [facility] Work Phone: Start: 1950 Sex Assigned At Female W [facility] Start: 03-28-2011 End: 08-17-2024 Tobacco smoking status NHIS Never smoked tobacco [facility] Work Phone: Start: 03-28-2011 Tobacco use and exposure Smokeless tobacco non-user 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 Start: 1950 Sex Assigned At Not on file C [facility] Start: 05-02-2022 End: 05-09-2022 Alcohol intake Current drinker of alcohol (finding) [facility] Start: 05-02-2022 Alcohol Comment rarely [facility] Sex Assigned At [facility] Start: 04-04-2022 End: 05-02-2022 History of [address] function [facility] Start: 04-04-2022 End: 05-02-2022 Tobacco use panel [facility] National Score (1-100), lower number is lower risk 66 [facility] Start: 06-02-2016 Sex Female (finding) [facility] Tobacco smoking status NHIS Unknown if ever smoked [facility] Work Phone: Functional Status Date Assessment Result Facility 02-07-2024 Functional Status Assistive Device Wheelc hair [facility] 02-07-2024 Functional Status Repositions self [facility] 04-22-2023 Functional Status Independent [facility] 02-18-2024 Functional Status Standard Safet y ID band on, Call device within reach, Bed in low position, Wheels locked, Visitor at bedside [facility] 12-24-2022 Functional Status Visitor at bedside [facility] 12-24-2022 Functional Status Ambulation in Tello [facility] 12-24-2022 Functional Status Awake, Resting [facility] Mental Status Date Assessment Result Facility 02-07-2024 Mental Status Orientation Oriented x 4 [facility] 02-07-2024 Mental Status [facility] 04-22-2023 Mental Status Orientation Oriented x 4 [facility] 04-22-2023 Mental Status [facility] 12-24-2022 Mental Status Orientation Oriented x 4 [facility] 12-24-2022 Mental Status [facility] 12-24-2022 Mental Status Oriented x 4 [facility] Clinical Notes 04-04-2022 to 08-22-2024 Telephone Encounter - Lissett Orellana LPN - 05/15/2022 1:35 PM EDTTelephone Encounter - Sri Redding PA-C - 05/15/2022 10:47 AM EDTTelephone Encounter - Erma Gonzalez LPN - 05/09/2022 4:28 PM EST Note Date & Type Note Facility 08-22-2024 Hospital Discharg e instructions Patient Education 08/22/2024 19:47:47 Back Spasm, No Trauma Back Spasm (No Trauma) Spasm of the back muscles can occur after a sudden forceful twisting or bending such as in a car accident. A spasm can also happen after a simple awkward movement, or after lifting something heavy with poor body positioning. In any case, muscle spasm adds to the pain. Sleeping in an awkward position or on a poor quality mattress can also cause this. Some people respond to emotional stress by tensing the muscles of their back. Pain that continues may need further assessment or other types of treatment such as physical therapy. You don't always need X-rays for the first assessment of back pain, unless you had a physical injury such as from a car accident or fall. If your pain continues and doesn't respond to medical treatment, X-rays and other tests may then be done. Home care As soon as possible, start sitting or walking again. This will help prevent problems from a long bed rest. These problems include muscle weakness, worsening back stiffness and pain, and blood clots in the legs. When in bed, try to find a position of comfort. A firm mattress is best. Try lying flat on your back with pillows under your knees. You can also try lying on your side with your knees bent up toward your chest and a pillow between your knees. Don't sit for long periods. Also limit car rides and travel. This puts more stress on the lower back than standing or walking. During the first 24 to 72 hours after an injury or flare-up, put an ice pack on the painful area for 20 minutes, then remove it for 20 minutes. Do this over a period of 60 to 90 minutes, or several times a day. This will reduce swelling and pain. Always wrap ice packs in a thin towel. You can start with ice, then switch to heat. Heat from a hot shower, hot bath, or heating pad reduces pain and works well for muscle spasms. Put heat on the painful area for 20 minutes, then remove it for 20 minutes. Do this over a period of 60 to 90 minutes, or several times a day. Don't sleep on a heating pad. It can burn or damage skin. Alternate using ice and heat. Be aware of safe lifting methods. don't lift anything over 15 pounds until all the pain is gone. Gentle stretching will help your back heal faster. Do this simple routine 2 to 3 times a day until your back is feeling better. Lie on your back with your knees bent and both feet on the ground. Slowly raise your left knee to your chest as you flatten your lower back against the floor. Hold for 20 to 30 seconds. Relax and repeat the exercise with your right knee. Do 2 to 3 of these exercises for each leg. Repeat, hugging both knees to your chest at the same time. Don't bounce, but use a gentle pull. Medicines Talk with your doctor before using medicine, especially if you have other medical problems or are taking other medicines. You may use ivnr-tqd-nwpspkg medicines such as acetaminophen, ibuprofen, or naprosyn to control pain, unless your healthcare provider prescribed another pain medicine. Talk with your healthcare provider if you have a chronic condition such as diabetes, liver or kidney disease, stomach ulcer, or digestive bleeding, or are taking blood thinners. Be careful if you are given prescription pain medicine, opioids, or medicine for muscle spasm. They can cause drowsiness, and affect your coordination, reflexes, and judgment. Don't drive or operate heavy machinery when taking these medicines. Take pain medicine only as prescribed by your healthcare provider. Follow-up care Follow up with your doctor, or as advised. You may need physical therapy or more tests. If X-rays were taken, they may be reviewed by a radiologist. You will be told of any new findings that may affect your care. Call Call if any of these occur: Trouble breathing Confusion Drowsiness or trouble awakening Fainting or loss of consciousness Rapid or very slow heart rate Loss of bowel or bladder control When to seek medical advice Call your healthcare provider right away if any of these occur: Pain becomes worse or spreads to your legs Weakness or numbness in one or both legs Numbness in the groin or genital area Fever of 100.4 F (38 C) or higher , or as directed by your healthcare provider Chills Burning or pain when passing urine [id number] [employer]. [address] [place] [address]. All rights reserved. This information is not intended as a substitute for professional medical care. Always follow your healthcare professional's instructions. Follow Up Care 08/22/2024 18:28:58 With:CULLEN REINA Address: [address] [address] [phone] [facility] (1) When:2-4 days Comments:Schedule appointment for close follow-up if symptoms are not improving.Position of comfort, limit activity as tolerated.Use warm, moist heat to the painful area.Use Tylenol or Advil for pain as needed.Continue muscle relaxer as previously prescribed as needed.Start prednisone as prescribed by your doctor tomorrow.Return to the ED if symptoms worsen. [facility] 08-22-2024 Emergency department Discharge summary Discharge Instructions Thank you for allowing [facility] to assist you with your healthcare needs. The following is important discharge information regarding your hospital visit. Diagnosis from Today's Visit Spasm of thoracic back muscle What to Do Next Instructions from Your Care Team No qualifying data available. Post Acute Orders No qualifying data available. You Need to Schedule the Following Appointments Follow Up with CULLEN REINA When:Within 2-4 days Where:[address] [facility] [address] [place] [phone] [facility] (1) Additional Information: Schedule appointment for close follow-up if symptoms are not improving. Position of comfort, limit activity as tolerated. Use warm, moist heat to the painful area. Use Tylenol or Advil for pain as needed. Continue muscle relaxer as previously prescribed as needed. Start prednisone as prescribed by your doctor tomorrow. Return to the ED if symptoms worsen. Allergies NKA Medications Please ask your primary doctor or pharmacist before taking any other medication not listed, including over the counter drugs, herbal medications, vitamins and or supplements as they may interact with your home medications. What How Much When Instructions Last Dose Unchanged diazePAM (Valium 5 mg oral tablet) 1 tab(s) by mouth Three (3) times a day as needed for as needed for pain Unchanged metoprolol (metoprolol tartrate 25 mg oral tablet) 1 tab(s) by mouth Twice daily with meals Unchanged orphenadrine (orphenadrine 100 mg oral tablet, extended release) 1 tab(s) by mouth Two (2) times a day Duration: 7 Days Please take this list to your next doctor s visit. Bring all medications you take, including over the counter medications, herbals and other supplements with you to your doctor s visit. Patients and families are reminded to discard old lists and to update any records with all medication providers or retail pharmacies. Education Materials Back Spasm (No Trauma) Spasm of the back muscles can occur after a sudden forceful twisting or bending such as in a car accident. A spasm can also happen after a simple awkward movement, or after lifting something heavy with poor body positioning. In any case, muscle spasm adds to the pain. Sleeping in an awkward position or on a poor quality mattress can also cause this. Some people respond to emotional stress by tensing the muscles of their back. Pain that continues may need further assessment or other types of treatment such as physical therapy. You don't always need X-rays for the first assessment of back pain, unless you had a physical injury such as from a car accident or fall. If your pain continues and doesn't respond to medical treatment, X-rays and other tests may then be done. Home care As soon as possible, start sitting or walking again. This will help prevent problems from a long bed rest. These problems include muscle weakness, worsening back stiffness and pain, and blood clots in the legs. When in bed, try to find a position of comfort. A firm mattress is best. Try lying flat on your back with pillows under your knees. You can also try lying on your side with your knees bent up toward your chest and a pillow between your knees. Don't sit for long periods. Also limit car rides and travel. This puts more stress on the lower back than standing or walking. During the first 24 to 72 hours after an injury or flare-up, put an ice pack on the painful area for 20 minutes, then remove it for 20 minutes. Do this over a period of 60 to 90 minutes, or several times a day. This will reduce swelling and pain. Always wrap ice packs in a thin towel. You can start with ice, then switch to heat. Heat from a hot shower, hot bath, or heating pad reduces pain and works well for muscle spasms. Put heat on the painful area for 20 minutes, then remove it for 20 minutes. Do this over a period of 60 to 90 minutes, or several times a day. Don't sleep on a heating pad. It can burn or damage skin. Alternate using ice and heat. Be aware of safe lifting methods. don't lift anything over 15 pounds until all the pain is gone. Gentle stretching will help your back heal faster. Do this simple routine 2 to 3 times a day until your back is feeling better. Lie on your back with your knees bent and both feet on the ground. Slowly raise your left knee to your chest as you flatten your lower back against the floor. Hold for 20 to 30 seconds. Relax and repeat the exercise with your right knee. Do 2 to 3 of these exercises for each leg. Repeat, hugging both knees to your chest at the same time. Don't bounce, but use a gentle pull. Medicines Talk with your doctor before using medicine, especially if you have other medical problems or are taking other medicines. You may use vyac-bmx-derrvqm medicines such as acetaminophen, ibuprofen, or naprosyn to control pain, unless your healthcare provider prescribed another pain medicine. Talk with your healthcare provider if you have a chronic condition such as diabetes, liver or kidney disease, stomach ulcer, or digestive bleeding, or are taking blood thinners. Be careful if you are given prescription pain medicine, opioids, or medicine for muscle spasm. They can cause drowsiness, and affect your coordination, reflexes, and judgment. Don't drive or operate heavy machinery when taking these medicines. Take pain medicine only as prescribed by your healthcare provider. Follow-up care Follow up with your doctor, or as advised. You may need physical therapy or more tests. If X-rays were taken, they may be reviewed by a radiologist. You will be told of any new findings that may affect your care. Call Call if any of these occur: Trouble breathing Confusion Drowsiness or trouble awakening Fainting or loss of consciousness Rapid or very slow heart rate Loss of bowel or bladder control When to seek medical advice Call your healthcare provider right away if any of these occur: Pain becomes worse or spreads to your legs Weakness or numbness in one or both legs Numbness in the groin or genital area Fever of 100.4 F (38 C) or higher , or as directed by your healthcare provider Chills Burning or pain when passing urine 7696-2541 [employer]. [address] [place] [address]. All rights reserved. This information is not intended as a substitute for professional medical care. Always follow your healthcare professional's instructions. Additional Information VACCINATE! IT SAVES LIVES! Members of the community who have not yet received the COVID-19 vaccine and would like to receive it can visit one of [facility] vaccine clinics. There are many vaccine clinic locations within the [facility]. For locations and available times, please visit [email or web address] It is important to note that some COVID mobile vaccine clinics are held outdoors and may be canceled in rainy or stormy conditions. To learn more about pediatric vaccinations (ages 5-11), we invite you to visit the [facility] webpage. https://www.[email or web address].org/p ages/[email or web address]-Inkik-Cngvjjljxit-Freq fjeteh-Hbhfq-Rrukqiyro.html To learn more about the COVID-19 vaccine, we invite you to visit the CDC website for a list of frequently asked questions. https://www.cdc.gov/coronavirus/ 2019-ncov/vaccines/faq.html [facility] Patient Portal Access Instructions: Stay connected with your healthcare team and access your personal medical information anytime with the [facility] Patient Portal. If you would like a full copy of your medical records please contact the [facility] Medical Records Department Sunday through Sunday between 8a.m. and 4:30p.m. Please follow the directions below to access the portal: 1.Access the email account you provided upon registration to the [facility].2.Look for an invitation email from [facility].3.Open the email and access the invitation link: [facility].Fill in the required alonzo to create your account. Sign into [email or web address] with your username and password that you created in the above steps to stay up to date. You can then view a summary of results, a summary of your visits, and the ability to download your summaries to your computer or send the information securely to a physician. Remember that your healthcare information is confidential, so carefully consider who you will allow to register on the [facility] Patient Portal for access to your information. You can also access the [facility] Patient Portal on the Qonf. Simply click on Health Records under Health Data and then click on the [employer] logo. HOW TO SAFELY DISPOSE OF PRESCRIPTION MEDICATIONS Please use one of the following methods to safely dispose of your unused medications. 1.Use a drug disposal kit: the drug disposal pouch allows you to safely discard your old and unused drugs. Ask your nurse to give you one when you are discharged.2.Visit a local take-back location: Many local pharmacies and police departments have programs that collect old and unwanted prescription drugs. Call your local pharmacy or go to http://bit.ly/8V2Lj4w to find one close to you.3.Make use of household items: Use cat litter or old coffee grounds to dispose medications if other options are not available. Mix your drugs with these household products, seal them in an airtight container and throw it into the garbage. Call [facility]: [phone] to be sure your drugs can be disposed of in this way. Some medicines may require a different approach.4.Never flush your medications down the toilet. IF YOU HAVE BEEN PRESCRIBED AN OPIOIDS FOR PAIN If you have been prescribed an opioid (such as hydrocodone, oxycodone or morphine), it is critical to understand the possible side effects and risks of opioid pain medications. Even when taken as directed, opioids can have several side effects including: Tolerance, meaning you might need to take more of a medication for the same pain relief. Nausea, vomiting and/or constipation. Sleepiness, dizziness, dry mouth, confusion, depression or itching. Physical dependence, meaning you have withdrawal symptoms when a medication is stopped ? this can develop within a few days. KNOW YOUR RESPONSIBILITIES It is important to know exactly how much and how often to take the opioid pain medications you are prescribed. Never take opioids in higher amounts or more often than prescribed. Do not combine opioids with alcohol or other drugs that cause drowsiness, such as benzodiazepines, also known as benzos, including diazepam and alprazolam, muscle relaxants or sleep aids. Never sell or share prescription opioids. This is illegal. Store opioids in a secure place and out of reach of others (including children, family, friends and visitors). The last page(s) of this document has been signed and retained as a CHART COPY Signatures Patient Education Materials Back Spasm, No Trauma Medication Leaflets My discharge plan and instructions have been reviewed and explained to me and IALLEN JENNIFER H understand my current condition and have read and understand these discharge instructions. I have received a written copy of the plan/instructions. If I have questions, I am aware that I should contact my doctor. Patient/Tar Leveler Signature: Date/Time: Relationship to Patient: Witness Name/Signature: Date/Time: [facility] 08-17-2024 Hospital Discharg e instructions Patient Education 08/17/2024 14:13:34 Caring for Your Back Throughout the Day Caring for Your Back Throughout the Day Take care of your back throughout the day. You will likely have fewer back problems if you do. Try to warm up before you move. Shift positions often. Also do your best to form healthy habits. Warm up for the day Do a few slow, catlike stretches before starting your day. This simple warmup can soften your disks, stretch your back muscles, and help prevent injuries. Shift positions often At work and at home, change positions often. This helps keep your body from getting stiff. Stand up or lean back while you sit. If you can, get up and move every 1/2 hour. Form healthy habits Here are some suggestions: Keep a healthy weight. When you weigh too much, your back is under excess strain. But losing just a few extra pounds can help a lot. Try not to overeat. Learn about serving sizes. The size of a serving depends on the food and the food group. Many foods list serving sizes on the labels. Handle minor aches with cold and heat. Apply cold the first 24 to 48 hours. Use heat after that. Always place a thin cloth between your skin and the source of cold or heat. Take medicines as directed. This helps keep pain under control. Always read labels, and call your healthcare provider or pharmacist if you have any questions. Walk each day A daily walk keeps your back and thigh muscles stretched and strong. This gives your back better support. Be sure to walk with your spine s three curves aligned, by keeping your head, hips, and toes connected by a vertical line. 6054-4864 [employer]). [address] [place] [address]. All rights reserved. This information is not intended as a substitute for professional medical care. Always follow your healthcare professional's instructions. Follow Up Care 08/17/2024 13:09:37 With:CULLEN REINA MD Address: [address] [address] [phone] When:2-4 days [facility] 08-17-2024 Note Discharge Instructions Thank you for allowing [facility] to assist you with your healthcare needs. The following is important discharge information regarding your hospital visit. Diagnosis from Today's Visit Back spasm What to Do Next Instructions from Your Care Team No qualifying data available. Post Acute Orders No qualifying data available. You Need to Schedule the Following Appointments Follow Up with CULLEN REINA MD When:Within 2-4 days Where:[address] [place] [address] [phone] Allergies NKA Medications Please ask your primary doctor or pharmacist before taking any other medication not listed, including over the counter drugs, herbal medications, vitamins and or supplements as they may interact with your home medications. What How Much When Instructions Last Dose New orphenadrine (orphenadrine 100 mg oral tablet, extended release) 1 tab(s) by mouth Two (2) times a day Duration: 7 Days Printed Prescription Unchanged diazePAM (Valium 5 mg oral tablet) 1 tab(s) by mouth Three (3) times a day as needed for as needed for pain Unchanged metoprolol (metoprolol tartrate 25 mg oral tablet) 1 tab(s) by mouth Twice daily with meals Please take this list to your next doctor s visit. Bring all medications you take, including over the counter medications, herbals and other supplements with you to your doctor s visit. Patients and families are reminded to discard old lists and to update any records with all medication providers or retail pharmacies. Education Materials Caring for Your Back Throughout the Day Take care of your back throughout the day. You will likely have fewer back problems if you do. Try to warm up before you move. Shift positions often. Also do your best to form healthy habits. Warm up for the day Do a few slow, catlike stretches before starting your day. This simple warmup can soften your disks, stretch your back muscles, and help prevent injuries. Shift positions often At work and at home, change positions often. This helps keep your body from getting stiff. Stand up or lean back while you sit. If you can, get up and move every 1/2 hour. Form healthy habits Here are some suggestions: Keep a healthy weight. When you weigh too much, your back is under excess strain. But losing just a few extra pounds can help a lot. Try not to overeat. Learn about serving sizes. The size of a serving depends on the food and the food group. Many foods list serving sizes on the labels. Handle minor aches with cold and heat. Apply cold the first 24 to 48 hours. Use heat after that. Always place a thin cloth between your skin and the source of cold or heat. Take medicines as directed. This helps keep pain under control. Always read labels, and call your healthcare provider or pharmacist if you have any questions. Walk each day A daily walk keeps your back and thigh muscles stretched and strong. This gives your back better support. Be sure to walk with your spine s three curves aligned, by keeping your head, hips, and toes connected by a vertical line. 4718-4642 [employer]. [address] [place] [address], [place] [address]. All rights reserved. This information is not intended as a substitute for professional medical care. Always follow your healthcare professional's instructions. Additional Information VACCINATE! IT SAVES LIVES! Members of the community who have not yet received the COVID-19 vaccine and would like to receive it can visit one of [facility] vaccine clinics. There are many vaccine clinic locations within the [facility]. For locations and available times, please visit [email or web address] [email or web address] It is important to note that some COVID mobile vaccine clinics are held outdoors and may be canceled in rainy or stormy conditions. To learn more about pediatric vaccinations (ages 5-11), we invite you to visit the [facility] webpage. https://www.[email or web address].org/p ages/1033-Epfyf-Ikqqljqcxha-Freq vdjyxn-Huutb-Lnctlitcn.html To learn more about the COVID-19 vaccine, we invite you to visit the CDC website for a list of frequently asked questions. https://www.cdc.gov/coronavirus/ 2019-ncov/vaccines/faq.html [facility] Patient [facility] Access Instructions: Stay connected with your healthcare team and access your personal medical information anytime with the [facility] Patient Portal. If you would like a full copy of your medical records please contact the [facility] Medical Records Department Sunday through Sunday between 8a.m. and 4:30p.m. Please follow the directions below to access the portal: 1.Access the email account you provided upon registration to the [facility].2.Look for an invitation email from [facility].3.Open the email and access the invitation link: Accept [facility]itation to [facility]4.Fill in the required alonzo to create your account. Sign into [email or web address] with your username and password that you created in the above steps to stay up to date. You can then view a summary of results, a summary of your visits, and the ability to download your summaries to your computer or send the information securely to a physician. Remember that your healthcare information is confidential, so carefully consider who you will allow to register on the [facility] Patient Portal for access to your information. You can also access the [facility] Patient Portal on the Qonf. Simply click on Health Records under Health Data and then click on the [facility] logo. HOW TO SAFELY DISPOSE OF PRESCRIPTION MEDICATIONS Please use one of the following methods to safely dispose of your unused medications. 1.Use a drug disposal kit: the drug disposal pouch allows you to safely discard your old and unused drugs. Ask your nurse to give you one when you are discharged.2.Visit a local take-back location: Many local pharmacies and police departments have programs that collect old and unwanted prescription drugs. Call your local pharmacy or go to http://Ingeny.Tissuetech/6Z6Kk6q to find one close to you.3.Make use of household items: Use cat litter or old coffee grounds to dispose medications if other options are not available. Mix your drugs with these household products, seal them in an airtight container and throw it into the garbage. Call [facility]: [phone] to be sure your drugs can be disposed of in this way. Some medicines may require a different approach.4.Never flush your medications down the toilet. IF YOU HAVE BEEN PRESCRIBED AN OPIOIDS FOR PAIN If you have been prescribed an opioid (such as hydrocodone, oxycodone or morphine), it is critical to understand the possible side effects and risks of opioid pain medications. Even when taken as directed, opioids can have several side effects including: Tolerance, meaning you might need to take more of a medication for the same pain relief. Nausea, vomiting and/or constipation. Sleepiness, dizziness, dry mouth, confusion, depression or itching. Physical dependence, meaning you have withdrawal symptoms when a medication is stopped ? this can develop within a few days. KNOW YOUR RESPONSIBILITIES It is important to know exactly how much and how often to take the opioid pain medications you are prescribed. Never take opioids in higher amounts or more often than prescribed. Do not combine opioids with alcohol or other drugs that cause drowsiness, such as benzodiazepines, also known as benzos, including diazepam and alprazolam, muscle relaxants or sleep aids. Never sell or share prescription opioids. This is illegal. Store opioids in a secure place and out of reach of others (including children, family, friends and visitors). The last page(s) of this document has been signed and retained as a CHART COPY Signatures Patient Education Materials Caring for Your Back Throughout the Day Medication Leaflets My discharge plan and instructions have been reviewed and explained to me and I,TANYA VILLA understand my current condition and have read and understand these discharge instructions. I have received a written copy of the plan/instructions. If I have questions, I am aware that I should contact my doctor. Patient/Tar Leveler Signature: Date/Time: Relationship to Patient: Witness Name/Signature: Date/Time: [facility] 02-07-2024 Hospital Discharg e instructions Patient Education 02/07/2024 03:39:41 Back Spasm, No Trauma Back Spasm (No Trauma) Spasm of the back muscles can occur after a sudden forceful twisting or bending such as in a car accident. A spasm can also happen after a simple awkward movement, or after lifting something heavy with poor body positioning. In any case, muscle spasm adds to the pain. Sleeping in an awkward position or on a poor quality mattress can also cause this. Some people respond to emotional stress by tensing the muscles of their back. Pain that continues may need further assessment or other types of treatment such as physical therapy. You don't always need X-rays for the first assessment of back pain, unless you had a physical injury such as from a car accident or fall. If your pain continues and doesn't respond to medical treatment, X-rays and other tests may then be done. Home care As soon as possible, start sitting or walking again. This will help prevent problems from a long bed rest. These problems include muscle weakness, worsening back stiffness and pain, and blood clots in the legs. When in bed, try to find a position of comfort. A firm mattress is best. Try lying flat on your back with pillows under your knees. You can also try lying on your side with your knees bent up toward your chest and a pillow between your knees. Don't sit for long periods. Also limit car rides and travel. This puts more stress on the lower back than standing or walking. During the first 24 to 72 hours after an injury or flare-up, put an ice pack on the painful area for 20 minutes, then remove it for 20 minutes. Do this over a period of 60 to 90 minutes, or several times a day. This will reduce swelling and pain. Always wrap ice packs in a thin towel. You can start with ice, then switch to heat. Heat from a hot shower, hot bath, or heating pad reduces pain and works well for muscle spasms. Put heat on the painful area for 20 minutes, then remove it for 20 minutes. Do this over a period of 60 to 90 minutes, or several times a day. Don't sleep on a heating pad. It can burn or damage skin. Alternate using ice and heat. Be aware of safe lifting methods. don't lift anything over 15 pounds until all the pain is gone. Gentle stretching will help your back heal faster. Do this simple routine 2 to 3 times a day until your back is feeling better. Lie on your back with your knees bent and both feet on the ground. Slowly raise your left knee to your chest as you flatten your lower back against the floor. Hold for 20 to 30 seconds. Relax and repeat the exercise with your right knee. Do 2 to 3 of these exercises for each leg. Repeat, hugging both knees to your chest at the same time. Don't bounce, but use a gentle pull. Medicines Talk with your doctor before using medicine, especially if you have other medical problems or are taking other medicines. You may use renx-ayi-keuuhih medicines such as acetaminophen, ibuprofen, or naprosyn to control pain, unless your healthcare provider prescribed another pain medicine. Talk with your healthcare provider if you have a chronic condition such as diabetes, liver or kidney disease, stomach ulcer, or digestive bleeding, or are taking blood thinners. Be careful if you are given prescription pain medicine, opioids, or medicine for muscle spasm. They can cause drowsiness, and affect your coordination, reflexes, and judgment. Don't drive or operate heavy machinery when taking these medicines. Take pain medicine only as prescribed by your healthcare provider. Follow-up care Follow up with your doctor, or as advised. You may need physical therapy or more tests. If X-rays were taken, they may be reviewed by a radiologist. You will be told of any new findings that may affect your care. Call Call if any of these occur: Trouble breathing Confusion Drowsiness or trouble awakening Fainting or loss of consciousness Rapid or very slow heart rate Loss of bowel or bladder control When to seek medical advice Call your healthcare provider right away if any of these occur: Pain becomes worse or spreads to your legs Weakness or numbness in one or both legs Numbness in the groin or genital area Fever of 100.4 F (38 C) or higher , or as directed by your healthcare provider Chills Burning or pain when passing urine [id number] [employer]. [address] [place] [address]. All rights reserved. This information is not intended as a substitute for professional medical care. Always follow your healthcare professional's instructions. Follow Up Care 02/07/2024 03:06:50 With:CULLEN REINA MD Address: [facility] [address] . [address] [address] [phone] When:2-4 days [facility] 02-07-2024 Note Discharge Instructions Thank you for allowing [facility] to assist you with your healthcare needs. The following is important discharge information regarding your hospital visit. What to Do Next Instructions from Your Care Team No qualifying data available. Post Acute Orders No qualifying data available. You Need to Schedule the Following Appointments Follow Up with CULLEN REINA MD When:Within 2-4 days Where:[address] [place] [address] [phone] Allergies NKA Medications Please ask your primary doctor or pharmacist before taking any other medication not listed, including over the counter drugs, herbal medications, vitamins and or supplements as they may interact with your home medications. What How Much When Instructions Last Dose Unchanged diazePAM (Valium 5 mg oral tablet) 1 tab(s) by mouth Three (3) times a day as needed for as needed for pain Unchanged metoprolol (metoprolol tartrate 25 mg oral tablet) 1 tab(s) by mouth Twice daily with meals Please take this list to your next doctor s visit. Bring all medications you take, including over the counter medications, herbals and other supplements with you to your doctor s visit. Patients and families are reminded to discard old lists and to update any records with all medication providers or retail pharmacies. Education Materials Back Spasm (No Trauma) Spasm of the back muscles can occur after a sudden forceful twisting or bending such as in a car accident. A spasm can also happen after a simple awkward movement, or after lifting something heavy with poor body positioning. In any case, muscle spasm adds to the pain. Sleeping in an awkward position or on a poor quality mattress can also cause this. Some people respond to emotional stress by tensing the muscles of their back. Pain that continues may need further assessment or other types of treatment such as physical therapy. You don't always need X-rays for the first assessment of back pain, unless you had a physical injury such as from a car accident or fall. If your pain continues and doesn't respond to medical treatment, X-rays and other tests may then be done. Home care As soon as possible, start sitting or walking again. This will help prevent problems from a long bed rest. These problems include muscle weakness, worsening back stiffness and pain, and blood clots in the legs. When in bed, try to find a position of comfort. A firm mattress is best. Try lying flat on your back with pillows under your knees. You can also try lying on your side with your knees bent up toward your chest and a pillow between your knees. Don't sit for long periods. Also limit car rides and travel. This puts more stress on the lower back than standing or walking. During the first 24 to 72 hours after an injury or flare-up, put an ice pack on the painful area for 20 minutes, then remove it for 20 minutes. Do this over a period of 60 to 90 minutes, or several times a day. This will reduce swelling and pain. Always wrap ice packs in a thin towel. You can start with ice, then switch to heat. Heat from a hot shower, hot bath, or heating pad reduces pain and works well for muscle spasms. Put heat on the painful area for 20 minutes, then remove it for 20 minutes. Do this over a period of 60 to 90 minutes, or several times a day. Don't sleep on a heating pad. It can burn or damage skin. Alternate using ice and heat. Be aware of safe lifting methods. don't lift anything over 15 pounds until all the pain is gone. Gentle stretching will help your back heal faster. Do this simple routine 2 to 3 times a day until your back is feeling better. Lie on your back with your knees bent and both feet on the ground. Slowly raise your left knee to your chest as you flatten your lower back against the floor. Hold for 20 to 30 seconds. Relax and repeat the exercise with your right knee. Do 2 to 3 of these exercises for each leg. Repeat, hugging both knees to your chest at the same time. Don't bounce, but use a gentle pull. Medicines Talk with your doctor before using medicine, especially if you have other medical problems or are taking other medicines. You may use likn-seo-ndnkdta medicines such as acetaminophen, ibuprofen, or naprosyn to control pain, unless your healthcare provider prescribed another pain medicine. Talk with your healthcare provider if you have a chronic condition such as diabetes, liver or kidney disease, stomach ulcer, or digestive bleeding, or are taking blood thinners. Be careful if you are given prescription pain medicine, opioids, or medicine for muscle spasm. They can cause drowsiness, and affect your coordination, reflexes, and judgment. Don't drive or operate heavy machinery when taking these medicines. Take pain medicine only as prescribed by your healthcare provider. Follow-up care Follow up with your doctor, or as advised. You may need physical therapy or more tests. If X-rays were taken, they may be reviewed by a radiologist. You will be told of any new findings that may affect your care. Call Call if any of these occur: Trouble breathing Confusion Drowsiness or trouble awakening Fainting or loss of consciousness Rapid or very slow heart rate Loss of bowel or bladder control When to seek medical advice Call your healthcare provider right away if any of these occur: Pain becomes worse or spreads to your legs Weakness or numbness in one or both legs Numbness in the groin or genital area Fever of 100.4 F (38 C) or higher , or as directed by your healthcare provider Chills Burning or pain when passing urine [id number] [employer]. [address] [place] [address]. All rights reserved. This information is not intended as a substitute for professional medical care. Always follow your healthcare professional's instructions. Additional Information VACCINATE! IT SAVES LIVES! Members of the community who have not yet received the COVID-19 vaccine and would like to receive it can visit one of [facility] vaccine clinics. There are many vaccine clinic locations within the [facility]. For locations and available times, please visit [email or web address] [email or web address] It is important to note that some COVID mobile vaccine clinics are held outdoors and may be canceled in rainy or stormy conditions. To learn more about pediatric vaccinations (ages 5-11), we invite you to visit the [facility] webpage. [email or web address] To learn more about the COVID-19 vaccine, we invite you to visit the CDC website for a list of frequently asked questions. https://www.cdc.gov/coronavirus/ 2019-ncov/vaccines/faq.html [facility] Access Instructions: Stay connected with your healthcare team and access your personal medical information anytime with the [facility] Patient Portal. If you would like a full copy of your medical records please contact the [facility] Medical Records Department Sunday through Sunday between 8a.m. and 4:30p.m. Please follow the directions below to access the portal: 1.Access the email account you provided upon registration to the [facility].2.Look for an invitation email from [facility].3.Open the email and access the invitation link: Accept Invitation to [facility]4.Fill in the required alonzo to create your account. Sign into [email or web address] with your username and password that you created in the above steps to stay up to date. You can then view a summary of results, a summary of your visits, and the ability to download your summaries to your computer or send the information securely to a physician. Remember that your healthcare information is confidential, so carefully consider who you will allow to register on the [employer] Patient Portal for access to your information. You can also access the [employer] Patient Portal on the [employer]. Simply click on Health Records under Health Data and then click on the [employer] logo. HOW TO SAFELY DISPOSE OF PRESCRIPTION MEDICATIONS Please use one of the following methods to safely dispose of your unused medications. 1.Use a drug disposal kit: the drug disposal pouch allows you to safely discard your old and unused drugs. Ask your nurse to give you one when you are discharged.2.Visit a local take-back location: Many local pharmacies and police departments have programs that collect old and unwanted prescription drugs. Call your local pharmacy or go to http://Ingeny.Tissuetech/6K6Is8l to find one close to you.3.Make use of household items: Use cat litter or old coffee grounds to dispose medications if other options are not available. Mix your drugs with these household products, seal them in an airtight container and throw it into the garbage. Call [facility]: [phone] to be sure your drugs can be disposed of in this way. Some medicines may require a different approach.4.Never flush your medications down the toilet. IF YOU HAVE BEEN PRESCRIBED AN OPIOIDS FOR PAIN If you have been prescribed an opioid (such as hydrocodone, oxycodone or morphine), it is critical to understand the possible side effects and risks of opioid pain medications. Even when taken as directed, opioids can have several side effects including: Tolerance, meaning you might need to take more of a medication for the same pain relief. Nausea, vomiting and/or constipation. Sleepiness, dizziness, dry mouth, confusion, depression or itching. Physical dependence, meaning you have withdrawal symptoms when a medication is stopped ? this can develop within a few days. KNOW YOUR RESPONSIBILITIES It is important to know exactly how much and how often to take the opioid pain medications you are prescribed. Never take opioids in higher amounts or more often than prescribed. Do not combine opioids with alcohol or other drugs that cause drowsiness, such as benzodiazepines, also known as benzos, including diazepam and alprazolam, muscle relaxants or sleep aids. Never sell or share prescription opioids. This is illegal. Store opioids in a secure place and out of reach of others (including children, family, friends and visitors). The last page(s) of this document has been signed and retained as a CHART COPY Signatures Patient Education Materials Back Spasm, No Trauma Medication Leaflets My discharge plan and instructions have been reviewed and explained to me and I,TANYA VILLA understand my current condition and have read and understand these discharge instructions. I have received a written copy of the plan/instructions. If I have questions, I am aware that I should contact my doctor. Patient/Tar Leveler Signature: Date/Time: Relationship to Patient: Witness Name/Signature: Date/Time: [facility] 04-22-2023 Hospital Discharg e instructions Patient Education 04/22/2023 14:11:18 Back Pain (Acute or Chronic) Back Pain (Acute or Chronic) Back pain is one of the most common problems. The good news is that most people feel better in 1 to 2 weeks, and most of the rest in 1 to 2 months. Most people can remain active. People who have pain describe it differently not everyone is the same. The pain can be sharp, stabbing, shooting, aching, cramping or burning. Movement, standing, bending, lifting, sitting, or walking may worsen pain. It can be localized to one spot or area, or it can be more generalized. It can spread or radiate upwards, to the front, or go down your arms or legs (sciatica). It can cause muscle spasm. Most of the time, mechanical problems with the muscles or spine cause the pain. Mechanical problems are usually caused by an injury to the muscles or ligaments. While illness can cause back pain, it is usually not caused by a serious illness. Mechanical problems include: Physical activity such as sports, exercise, work, or normal activity Overexertion, lifting, pushing, pulling incorrectly or too aggressively Sudden twisting, bending, or stretching from an accident, or accidental movement Poor posture Stretching or moving wrong, without noticing pain at the time Poor coordination, lack of regular exercise (check with your doctor about this) Spinal disc disease or arthritis Stress Pain can also be related to , or illness like appendicitis, bladder or kidney infections, pelvic infections, and many other things. Acute back pain usually gets better in 1 to 2 weeks. Back pain related to disk disease, arthritis in the spinal joints or spinal stenosis (narrowing of the spinal canal) can become chronic and last for months or years. Unless you had a physical injury (for example, a car accident or fall) X-rays are usually not needed for the initial evaluation of back pain. If pain continues and does not respond to medical treatment, X-rays and other tests may be needed. Home care Try these home care recommendations: When in bed, try to find a position of comfort. A firm mattress is best. Try lying flat on your back with pillows under your knees. You can also try lying on your side with your knees bent up towards your chest and a pillow between your knees. At first, do not try to stretch out the sore spots. If there is a strain, it is not like the good soreness you get after exercising without an injury. In this case, stretching may make it worse. Don't sit for long periods, as in a long car ride or during other travel. This puts more stress on the lower back than standing or walking. During the first 24 to 72 hours after an acute injury or flare up of chronic back pain, apply an ice pack to the painful area for 20 minutes and then remove it for 20 minutes. Do this over a period of 60 to 90 minutes or several times a day. This will reduce swelling and pain. Wrap the ice pack in a thin towel or plastic to protect your skin. You can start with ice, then switch to heat. Heat (hot shower, hot bath, or heating pad) reduces pain and works well for muscle spasms. Heat can be applied to the painful area for 20 minutes then remove it for 20 minutes. Do this over a period of 60 to 90 minutes or several times a day. Do not sleep on a heating pad. It can lead to skin do or tissue damage. You can alternate ice and heat therapy. Talk with your doctor about the best treatment for your back pain. Therapeutic massage can help relax the back muscles without stretching them. Be aware of safe lifting methods and do not lift anything without stretching first. Medicines Talk to your doctor before using medicine, especially if you have other medical problems or are taking other medicines. You may use tayq-qdt-osetqzz medicine as directed on the bottle to control pain, unless another pain medicine was prescribed. If you have chronic conditions like diabetes, liver or kidney disease, stomach ulcers, or gastrointestinal bleeding, or are taking blood thinners, talk to your doctor before taking any medicine. Be careful if you are given a prescription medicines, narcotics, or medicine for muscle spasms. They can cause drowsiness, affect your coordination, reflexes, and judgement. Do not drive or operate heavy machinery. Follow-up care Follow up with your healthcare provider, or as advised. A radiologist will review any X-rays that were taken. Your provide will notify you of any new findings that may affect your care. Call 911 Call 911 if any of the following occur: Trouble breathing Confusion Very drowsy or trouble awakening Fainting or loss of consciousness Rapid or very slow heart rate Loss of bowel or bladder control When to seek medical advice Call your healthcare provider right away if any of these occur: Pain becomes worse or spreads to your legs Weakness or numbness in one or both legs Numbness in the groin or genital area [id number] [employer]. [address] [place] [address], [place] [address]. All rights reserved. This information is not intended as a substitute for professional medical care. Always follow your healthcare professional's instructions. 04/22/2023 14:11:07 Back Spasm, No Trauma Back Spasm (No Trauma) Spasm of the back muscles can occur after a sudden forceful twisting or bending such as in a car accident. A spasm can also happen after a simple awkward movement, or after lifting something heavy with poor body positioning. In any case, muscle spasm adds to the pain. Sleeping in an awkward position or on a poor quality mattress can also cause this. Some people respond to emotional stress by tensing the muscles of their back. Pain that continues may need further assessment or other types of treatment such as physical therapy. You don't always need X-rays for the first assessment of back pain, unless you had a physical injury such as from a car accident or fall. If your pain continues and doesn't respond to medical treatment, X-rays and other tests may then be done. Home care As soon as possible, start sitting or walking again. This will help prevent problems from a long bed rest. These problems include muscle weakness, worsening back stiffness and pain, and blood clots in the legs. When in bed, try to find a position of comfort. A firm mattress is best. Try lying flat on your back with pillows under your knees. You can also try lying on your side with your knees bent up toward your chest and a pillow between your knees. Don't sit for long periods. Also limit car rides and travel. This puts more stress on the lower back than standing or walking. During the first 24 to 72 hours after an injury or flare-up, put an ice pack on the painful area for 20 minutes, then remove it for 20 minutes. Do this over a period of 60 to 90 minutes, or several times a day. This will reduce swelling and pain. Always wrap ice packs in a thin towel. You can start with ice, then switch to heat. Heat from a hot shower, hot bath, or heating pad reduces pain and works well for muscle spasms. Put heat on the painful area for 20 minutes, then remove it for 20 minutes. Do this over a period of 60 to 90 minutes, or several times a day. Don't sleep on a heating pad. It can burn or damage skin. Alternate using ice and heat. Be aware of safe lifting methods. don't lift anything over 15 pounds until all the pain is gone. Gentle stretching will help your back heal faster. Do this simple routine 2 to 3 times a day until your back is feeling better. Lie on your back with your knees bent and both feet on the ground. Slowly raise your left knee to your chest as you flatten your lower back against the floor. Hold for 20 to 30 seconds. Relax and repeat the exercise with your right knee. Do 2 to 3 of these exercises for each leg. Repeat, hugging both knees to your chest at the same time. Don't bounce, but use a gentle pull. Medicines Talk with your doctor before using medicine, especially if you have other medical problems or are taking other medicines. You may use qfdy-glp-qstlksy medicines such as acetaminophen, ibuprofen, or naprosyn to control pain, unless your healthcare provider prescribed another pain medicine. Talk with your healthcare provider if you have a chronic condition such as diabetes, liver or kidney disease, stomach ulcer, or digestive bleeding, or are taking blood thinners. Be careful if you are given prescription pain medicine, opioids, or medicine for muscle spasm. They can cause drowsiness, and affect your coordination, reflexes, and judgment. Don't drive or operate heavy machinery when taking these medicines. Take pain medicine only as prescribed by your healthcare provider. Follow-up care Follow up with your doctor, or as advised. You may need physical therapy or more tests. If X-rays were taken, they may be reviewed by a radiologist. You will be told of any new findings that may affect your care. Call Call if any of these occur: Trouble breathing Confusion Drowsiness or trouble awakening Fainting or loss of consciousness Rapid or very slow heart rate Loss of bowel or bladder control When to seek medical advice Call your healthcare provider right away if any of these occur: Pain becomes worse or spreads to your legs Weakness or numbness in one or both legs Numbness in the groin or genital area Fever of 100.4 F (38 C) or higher , or as directed by your healthcare provider Chills Burning or pain when passing urine [id number] [employer]. [address] [place] [id number]. All rights reserved. This information is not intended as a substitute for professional medical care. Always follow your healthcare professional's instructions. 04/22/2023 14:11:03 Hypertension, Established Established High Blood Pressure High blood pressure (hypertension) is a chronic disease. Often, healthcare providers don t know what causes it. But it can be caused by certain health conditions and medicines. If you have high blood pressure, you may not have any symptoms. If you do have symptoms, they may include headache, dizziness, changes in your vision, chest pain, and shortness of breath. But even without symptoms, high blood pressure that s not treated raises your risk for heart attack, heart failure, and stroke. High blood pressure is a serious health risk and shouldn t be ignored. Blood pressure measurements are given as 2 numbers. Systolic blood pressure is the upper number. This is the pressure when the heart contracts. Diastolic blood pressure is the lower number. This is the pressure when the heart relaxes between beats. You will see your blood pressure readings written together. For example, a person with a systolic pressure of 118 and a diastolic pressure of 78 will have 118/78 written in the medical record. Blood pressure is categorized as normal, elevated, or stage 1 or stage 2 high blood pressure: Normal blood pressure is systolic of less than 120 and diastolic of less than 80 (120/80) Elevated blood pressure is systolic of 120 to 129 and diastolic less than 80 Stage 1 high blood pressure is systolic is 130 to 139 or diastolic between 80 to 89 Stage 2 high blood pressure is when systolic is 140 or higher or the diastolic is 90 or higher Home care If you have high blood pressure, follow these home care guidelines to help lower your blood pressure. If you are taking medicines for high blood pressure, these methods may reduce or end your need for medicines in the future. Start a weight-loss program if you are overweight. Cut back on how much salt you get in your diet. Here s how to do this: oDon t eat foods that have a lot of salt. These include olives, pickles, smoked meats, and salted potato chips. oDon t add salt to your food at the table. oUse only small amounts of salt when cooking. Start an exercise program. Talk with your healthcare provider about the type of exercise program that would be best for you. It doesn't have to be hard. Even brisk walking for 20 minutes 3 times a week is a good form of exercise. Don t take medicines that stimulate the heart. This includes many pbol-wrq-yzglyfz cold and sinus decongestant pills and sprays, as well as diet pills. Check the warnings about high blood pressure on the label. Before buying any xoms-cyr-xjmttwl medicines or supplements, always ask the pharmacist about the product's potential interaction with your high blood pressure and your high blood pressure medicines. Stimulants such as amphetamine or cocaine could be deadly for someone with high blood pressure. Never take these. Limit how much caffeine you get in your diet. Switch to caffeine-free products. Stop smoking. If you are a long-time smoker, this can be hard. Talk to your healthcare provider about medicines and nicotine replacement options to help you. Also, enroll in a stop-smoking program to make it more likely that you will quit for good. Learn how to handle stress. This is an important part of any program to lower blood pressure. Learn about relaxation methods like meditation, yoga, or biofeedback. If your provider prescribed medicines, take them exactly as directed. Missing doses may cause your blood pressure get out of control. If you miss a dose or doses, check with your healthcare provider or pharmacist about what to do. Consider buying an automatic blood pressure machine to check your blood pressure at home. Ask your provider for a recommendation. You can get one of these at most pharmacies. The [place] [employer] recommends the following guidelines for home blood pressure monitoring: Don't smoke or drink coffee for 30 minutes before taking your blood pressure. Go to the bathroom before the test. Relax for 5 minutes before taking the measurement. Sit with your back supported (don't sit on a couch or soft chair); keep your feet on the floor uncrossed. Place your arm on a solid flat surface (like a table) with the upper part of the arm at heart level. Place the middle of the cuff directly above the bend of the elbow. Check the monitor's instruction manual for an illustration. Take multiple readings. When you measure, take 2 to 3 readings one minute apart and record all of the results. Take your blood pressure at the same time every day, or as your healthcare provider recommends. Record the date, time, and blood pressure reading. Take the record with you to your next medical appointment. If your blood pressure monitor has a built-in memory, simply take the monitor with you to your next appointment. Call your provider if you have several high readings. Don't be frightened by a single high blood pressure reading, but if you get several high readings, check in with your healthcare provider. Note: When blood pressure reaches a systolic (top number) of 180 or higher OR diastolic (bottom number) of 110 or higher, seek emergency medical treatment. Follow-up care You will need to see your healthcare provider regularly. This is to check your blood pressure and to make changes to your medicines. Make a follow-up appointment as directed. Bring the record of your home blood pressure readings to the appointment. When to seek medical advice Call your healthcare provider right away if any of these occur: Blood pressure reaches a systolic (upper number) of 180 or higher OR a diastolic (bottom number) of 110 or higher Chest pain or shortness of breath Severe headache Throbbing or rushing sound in the ears Nosebleed Sudden severe pain in your belly (abdomen) Extreme drowsiness, confusion, or fainting Dizziness or spinning sensation (vertigo) Weakness of an arm or leg or one side of the face You have problems speaking or seeing [id number] [employer]). [address] [place] [id number]. All rights reserved. This information is not intended as a substitute for professional medical care. Always follow your healthcare professional's instructions. Follow Up Care 04/22/2023 13:19:00 With:CULLEN REINA Address: [address] [address] [phone] Business (1) When:2-4 days Comments:Schedule appointment as soon as possibleReturn to ED if symptoms worsenLimit activityMay use Naprosyn and Tylenol in addition to your muscle relaxantsCan use Lidoderm patchesFollow-up for blood pressure recheck [facility] 04-22-2023 Note Discharge Instructions Thank you for allowing [facility] to assist you with your healthcare needs. The following is important discharge information regarding your hospital visit. Diagnosis from Today's Visit Back pain Hypertension Spasm of back muscles What to Do Next Instructions from Your Care Team No qualifying data available. Post Acute Orders No qualifying data available. You Need to Schedule the Following Appointments Follow Up with CULLEN REINA When Within 2-4 days Why: Schedule appointment as soon as possible Return to ED if symptoms worsen Limit activity May use Naprosyn and Tylenol in addition to your muscle relaxants Can use Lidoderm patches Follow-up for blood pressure recheck Where: [address] [address] [phone] Business (1) Allergies NKA Medications Please ask your primary doctor or pharmacist before taking any other medication not listed, including over the counter drugs, herbal medications, vitamins and or supplements as they may interact with your home medications. What How Much When Instructions Last Dose New lidocaine topical (Lidoderm 5% topical film) 1 patch(es) Topical Once a day Apply to area of back pain/ spasm remove patches after 12 hours Printed Prescription New naproxen (naproxen 375 mg oral tablet) 1 tab(s) by mouth Two (2) times a day as needed for as needed for pain As needed pain with food Printed Prescription Unchanged diazePAM (Valium 5 mg oral tablet) 1 tab(s) by mouth Three (3) times a day as needed for as needed for pain Unchanged metoprolol (metoprolol tartrate 25 mg oral tablet) 1 tab(s) by mouth Twice daily with meals Please take this list to your next doctor s visit. Bring all medications you take, including over the counter medications, herbals and other supplements with you to your doctor s visit. Patients and families are reminded to discard old lists and to update any records with all medication providers or retail pharmacies. Medication Leaflets naproxen (na PROX en) Aleve, Aleve Back and Muscle Pain, Aleve Easy Open Arthritis, Aleve Liquid Gels, Anaprox-DS, EC-Naprosyn, Naprelan, Naprosyn What is the most important information I should know about naproxen? Naproxen can increase your risk of fatal heart attack or stroke. Do not use this medicine just before or after heart bypass surgery (coronary artery bypass graft, or CABG). Naproxen may also cause stomach or intestinal bleeding, which can be fatal. What is naproxen? Naproxen is a nonsteroidal anti-inflammatory drug (NSAID). Naproxen is used to treat pain or inflammation caused by conditions such as arthritis, ankylosing spondylitis, tendinitis, bursitis, gout, or menstrual cramps. The delayed-release or extended-release tablets are slower-acting forms of naproxen that are used only for treating chronic conditions such as arthritis or ankylosing spondylitis. These forms of naproxen will not work fast enough to treat acute pain. Naproxen may also be used for purposes not listed in this medication guide. What should I discuss with my healthcare provider before taking naproxen? Naproxen can increase your risk of fatal heart attack or stroke, even if you don't have any risk factors. Do not use this medicine just before or after heart bypass surgery (coronary artery bypass graft, or CABG). Naproxen may also cause stomach or intestinal bleeding, which can be fatal. These conditions can occur without warning while you are using naproxen, especially in older adults. You should not use naproxen if you are allergic to it, or if you have ever had an asthma attack or severe allergic reaction after taking aspirin or an NSAID. Ask a doctor before giving naproxen to a child younger than 12 years old. Ask a doctor or pharmacist if this medicine is safe to use if you have: heart disease, high blood pressure, high cholesterol, diabetes, or if you smoke; a heart attack, stroke, or blood clot; stomach ulcers or bleeding; asthma; liver or kidney disease; fluid retention; or if you take aspirin to prevent heart attack or stroke. If you are , you should not take naproxen unless your doctor tells you to. Taking an NSAID during the last 20 weeks of can cause serious heart or kidney problems in the unborn baby and possible complications with your . It may not be safe to breastfeed while using this medicine. Ask your doctor about any risk. How should I take naproxen? Use exactly as directed on the label, or as prescribed by your doctor. Use the lowest dose that is effective in treating your condition. Shake the oral suspension (liquid) before you measure a dose. Measure a dose with the supplied measuring device (not a kitchen spoon). Take this medicine with food or milk if it upsets your stomach. Always follow directions on the medicine label about giving this medicine to a child. Naproxen doses are based on weight in children. Your child's dose needs may change if the child gains or loses weight. If you use naproxen long-term, you may need frequent medical tests. This medicine can affect the results of certain medical tests. Tell any doctor who treats you that you are using naproxen. Store at room temperature away from moisture, heat, and light. Keep the bottle tightly closed when not in use. What happens if I miss a dose? Since naproxen is used when needed, you may not be on a dosing schedule. Skip any missed dose if it's almost time for your next dose. Do not use two doses at one time. What happens if I overdose? Seek emergency medical attention or call the Poison Help line at . What should I avoid while taking naproxen? Avoid drinking alcohol. It may increase your risk of stomach bleeding. Avoid taking aspirin or other NSAIDs unless your doctor tells you to. Ask a doctor or pharmacist before using other medicines for pain, fever, swelling, or cold/flu symptoms. They may contain ingredients similar to naproxen (such as aspirin, ibuprofen, or ketoprofen). Ask your doctor before using an antacid, and use only the type your doctor recommends. Some antacids can make it harder for your body to absorb naproxen. What are the possible side effects of naproxen? Get emergency medical help if you have signs of an allergic reaction (runny or stuffy nose, wheezing or trouble breathing, hives, swelling in your face or throat) or a severe skin reaction (fever, sore throat, burning eyes, skin pain, red or purple skin rash with blistering and peeling). Stop using naproxen and seek medical treatment if you have a serious drug reaction that can affect many parts of your body. Symptoms may include skin rash, fever, swollen glands, muscle aches, severe weakness, unusual bruising, or yellowing of your skin or eyes. Get emergency medical help if you have signs of a heart attack or stroke: chest pain spreading to your jaw or shoulder, sudden numbness or weakness on one side of the body, slurred speech, leg swelling, feeling short of breath. Stop using naproxen and call your doctor at once if you have: shortness of breath (even with mild exertion); swelling or rapid weight gain; the first sign of any skin rash or blister, no matter how mild; signs of stomach bleeding--bloody or tarry stools, coughing up blood or vomit that looks like coffee grounds; liver problems--nausea, upper stomach pain, loss of appetite, dark urine, clive-colored stools, jaundice (yellowing of the skin or eyes); kidney problems--little or no urination, painful urination, swelling in your feet or ankles; or low red blood cells (anemia)--pale skin, unusual tiredness, feeling light-headed or short of breath, cold hands and feet. Common side effects may include: headache; indigestion, heartburn, stomach pain; or flu symptoms; This is not a complete list of side effects and others may occur. Call your doctor for medical advice about side effects. You may report side effects to FDA at 3-218-IGM-0008. What other drugs will affect naproxen? Ask your doctor before using naproxen if you take an antidepressant. Taking certain antidepressants with an NSAID may cause you to bruise or bleed easily. Ask a doctor or pharmacist before using naproxen with any other medications, especially: other NSAIDs or salicylates (diflunisal, salsalate); antacids and sucralfate; cholestyramine; cyclosporine; digoxin; lithium; methotrexate; pemetrexed; probenecid; warfarin (Coumadin, Jantoven) or similar blood thinners; a diuretic or 'water pill'; or heart or blood pressure medication. This list is not complete. Other drugs may affect naproxen, including prescription and yuyq-jxo-btmzkoy medicines, vitamins, and herbal products. Not all possible drug interactions are listed here. Where can I get more information? Your pharmacist can provide more information about naproxen. Remember, keep this and all other medicines out of the reach of children, never share your medicines with others, and use this medication only for the indication prescribed. Every effort has been made to ensure that the information provided by [employer]. [employer]') is accurate, up-to-date, and complete, but no guarantee is made to that effect. Drug information contained herein may be time sensitive. [employer] information has been compiled for use by healthcare practitioners and consumers in the [place] and therefore [employer] does not warrant that uses outside of the [place] are appropriate, unless specifically indicated otherwise. [employer]'s drug information does not endorse drugs, diagnose patients or recommend therapy. [employer] drug information is an informational resource designed to assist licensed healthcare practitioners in caring for their patients and/or to serve consumers viewing this service as a supplement to, and not a substitute for, the expertise, skill, knowledge and judgment of healthcare practitioners. The absence of a warning for a given drug or drug combination in no way should be construed to indicate that the drug or drug combination is safe, effective or appropriate for any given patient. [employer] does not assume any responsibility for any aspect of healthcare administered with the aid of information [employer] provides. The information contained herein is not intended to cover all possible uses, directions, precautions, warnings, drug interactions, allergic reactions, or adverse effects. If you have questions about the drugs you are taking, check with your doctor, nurse or pharmacist. Copyright 5652-7622 [employer]. Version: 22.. Revision Date: 10/05/2022. lidocaine topical (LYE griffiths workman TOP i enoc) AneCream, Bactine, Glydo, Lidoderm, LidoRx, Medi-Quik [place], RadiaGuard, RectiCare, Regenecare SANCHEZ [place], Solarcaine Cool Aloe What is the most important information I should know about lidocaine topical? An overdose of numbing medicine can cause fatal side effects if too much of the medicine is absorbed through your skin. Do not use large amounts of lidocaine topical, or cover treated skin areas with a bandage or plastic wrap without medical advice. Keep both used and unused lidocaine skin patches out of the reach of children or pets. The amount of lidocaine in the skin patches could be harmful to a child or pet who accidentally sucks on or swallows the patch. What is lidocaine topical? Lidocaine is a local anesthetic (numbing medication). There are many brands and forms of lidocaine available. Not all brands are listed on this leaflet. Lidocaine topical (for use on the skin) is used to reduce pain or discomfort caused by skin irritations such as sunburn, insect bites, poison carmelo, poison oak, poison sumac, and minor cuts, scratches, or do. Lidocaine topical is also used to treat rectal discomfort caused by hemorrhoids. Lidocaine intradermal device can be used in minor medical procedures such as venipuncture or peripheral intravenous cannulation. Lidocaine topical may also be used for purposes not listed in this medication guide. What should I discuss with my healthcare provider before using lidocaine topical? You should not use lidocaine topical if you are allergic to any type of numbing medicine. Fatal overdoses have occurred when numbing medicines were used without the advice of a medical doctor (such as during a cosmetic procedure like laser hair removal). However, overdose has also occurred in women treated with a numbing medicine before having a mammography. Be aware that many cosmetic procedures are performed without a medical doctor present. Tell your doctor if you have ever had: a blood cell disorder called methemoglobinemia (in you or a family member); liver disease; or if you take a heart rhythm medicine. Tell your doctor if you are or . If you apply lidocaine topical to your chest, avoid areas that may come into contact with the baby's mouth. How should I use lidocaine topical? Use this medicine exactly as directed on the label, or as it has been prescribed by your doctor. Do not apply this medicine in larger amounts than recommended. Improper use of lidocaine topical may result in . Lidocaine topical comes in many different forms (gel, spray, cream, lotion, ointment, liquid, skin patch, and others). Do not take by mouth. Topical medicine is for use only on the skin. If this medicine gets in your eyes, nose, mouth, rectum, or vagina, rinse with water. Read and carefully follow any Instructions for Use provided with your medicine. Ask your doctor or pharmacist if you do not understand these instructions. Use the smallest amount of medicine needed to numb the skin or relieve pain. Your body may absorb too much of this medicine if you use too much, if you apply it over large skin areas, or if you apply heat, bandages, or plastic wrap to treated skin areas. Skin that is cut or irritated may also absorb more topical medication than healthy skin. Do not apply this medicine to swollen skin areas or deep puncture wounds. Avoid using the medicine on skin that is raw or blistered, such as a severe burn or abrasion. Do not cover treated skin unless your doctor has told you to. Lidocaine topical may be applied with your finger tips or a cotton swab. Lidocaine intradermal device is applied by a healthcare provider. Store at room temperature away from moisture and heat. Keep both used and unused lidocaine topical skin patches out of the reach of children or pets. The amount of lidocaine in the skin patches could be harmful to a child or pet who accidentally sucks on or swallows the patch. Seek emergency medical attention if this happens. What happens if I miss a dose? Since lidocaine topical is used when needed, you may not be on a dosing schedule. Skip any missed dose if it's almost time for your next dose. Do not use two doses at one time. What happens if I overdose? Seek emergency medical attention or call the Poison Help line at . An overdose of numbing medicine can cause fatal side effects if too much of the medicine is absorbed through your skin and into your blood. Overdose symptoms may include uneven heartbeats, seizure (convulsions), slowed breathing, coma, or respiratory failure (breathing stops). Lidocaine applied to the skin is not likely to cause an overdose unless you apply more than the recommended dose. What should I avoid while using lidocaine topical? Avoid touching the sticky side of a lidocaine skin patch while applying it. Avoid accidentally injuring treated skin areas while they are numb. Avoid coming into contact with very hot or very cold surfaces. What are the possible side effects of lidocaine topical? Get emergency medical help if you have signs of an allergic reaction: hives; difficulty breathing; swelling of your face, lips, tongue, or throat. Call your doctor at once if you have: severe headache or vomiting; severe burning, stinging, or irritation where the medicine was applied; swelling or redness; sudden dizziness or drowsiness after medicine is applied; confusion, problems with speech or vision, ringing in your ears; or unusual sensations of temperature. Common side effects include: mild irritation where the medication is applied; or numbness in places where the medicine is accidentally applied. This is not a complete list of side effects and others may occur. Call your doctor for medical advice about side effects. You may report side effects to FDA at 9-795-HAV-2733. What other drugs will affect lidocaine topical? Medicine used on the skin is not likely to be affected by other drugs you use. But many drugs can interact with each other. Tell each of your health care providers about all medicines you use, including prescription and erid-jey-ybyknhu medicines, vitamins, and herbal products. Where can I get more information? Your pharmacist can provide more information about lidocaine topical. Remember, keep this and all other medicines out of the reach of children, never share your medicines with others, and use this medication only for the indication prescribed. Every effort has been made to ensure that the information provided by [employer]') is accurate, up-to-date, and complete, but no guarantee is made to that effect. Drug information contained herein may be time sensitive. [employer] information has been compiled for use by healthcare practitioners and consumers in the [place] and therefore [employer] does not warrant that uses outside of the [place] are appropriate, unless specifically indicated otherwise. [employer]'s drug information does not endorse drugs, diagnose patients or recommend therapy. [employer] drug information is an informational resource designed to assist licensed healthcare practitioners in caring for their patients and/or to serve consumers viewing this service as a supplement to, and not a substitute for, the expertise, skill, knowledge and judgment of healthcare practitioners. The absence of a warning for a given drug or drug combination in no way should be construed to indicate that the drug or drug combination is safe, effective or appropriate for any given patient. [facility] does not assume any responsibility for any aspect of healthcare administered with the aid of information [facility] provides. The information contained herein is not intended to cover all possible uses, directions, precautions, warnings, drug interactions, allergic reactions, or adverse effects. If you have questions about the drugs you are taking, check with your doctor, nurse or pharmacist. Copyright 2949-5563 [facility] [employer] [facility]. Version: 01.03. Revision Date: 11/22/2022. Education Materials Back Pain (Acute or Chronic) Back pain is one of the most common problems. The good news is that most people feel better in 1 to 2 weeks, and most of the rest in 1 to 2 months. Most people can remain active. People who have pain describe it differently not everyone is the same. The pain can be sharp, stabbing, shooting, aching, cramping or burning. Movement, standing, bending, lifting, sitting, or walking may worsen pain. It can be localized to one spot or area, or it can be more generalized. It can spread or radiate upwards, to the front, or go down your arms or legs (sciatica). It can cause muscle spasm. Most of the time, mechanical problems with the muscles or spine cause the pain. Mechanical problems are usually caused by an injury to the muscles or ligaments. While illness can cause back pain, it is usually not caused by a serious illness. Mechanical problems include: Physical activity such as sports, exercise, work, or normal activity Overexertion, lifting, pushing, pulling incorrectly or too aggressively Sudden twisting, bending, or stretching from an accident, or accidental movement Poor posture Stretching or moving wrong, without noticing pain at the time Poor coordination, lack of regular exercise (check with your doctor about this) Spinal disc disease or arthritis Stress Pain can also be related to , or illness like appendicitis, bladder or kidney infections, pelvic infections, and many other things. Acute back pain usually gets better in 1 to 2 weeks. Back pain related to disk disease, arthritis in the spinal joints or spinal stenosis (narrowing of the spinal canal) can become chronic and last for months or years. Unless you had a physical injury (for example, a car accident or fall) X-rays are usually not needed for the initial evaluation of back pain. If pain continues and does not respond to medical treatment, X-rays and other tests may be needed. Home care Try these home care recommendations: When in bed, try to find a position of comfort. A firm mattress is best. Try lying flat on your back with pillows under your knees. You can also try lying on your side with your knees bent up towards your chest and a pillow between your knees. At first, do not try to stretch out the sore spots. If there is a strain, it is not like the good soreness you get after exercising without an injury. In this case, stretching may make it worse. Don't sit for long periods, as in a long car ride or during other travel. This puts more stress on the lower back than standing or walking. During the first 24 to 72 hours after an acute injury or flare up of chronic back pain, apply an ice pack to the painful area for 20 minutes and then remove it for 20 minutes. Do this over a period of 60 to 90 minutes or several times a day. This will reduce swelling and pain. Wrap the ice pack in a thin towel or plastic to protect your skin. You can start with ice, then switch to heat. Heat (hot shower, hot bath, or heating pad) reduces pain and works well for muscle spasms. Heat can be applied to the painful area for 20 minutes then remove it for 20 minutes. Do this over a period of 60 to 90 minutes or several times a day. Do not sleep on a heating pad. It can lead to skin do or tissue damage. You can alternate ice and heat therapy. Talk with your doctor about the best treatment for your back pain. Therapeutic massage can help relax the back muscles without stretching them. Be aware of safe lifting methods and do not lift anything without stretching first. Medicines Talk to your doctor before using medicine, especially if you have other medical problems or are taking other medicines. You may use qkgd-rvt-dcnphkz medicine as directed on the bottle to control pain, unless another pain medicine was prescribed. If you have chronic conditions like diabetes, liver or kidney disease, stomach ulcers, or gastrointestinal bleeding, or are taking blood thinners, talk to your doctor before taking any medicine. Be careful if you are given a prescription medicines, narcotics, or medicine for muscle spasms. They can cause drowsiness, affect your coordination, reflexes, and judgement. Do not drive or operate heavy machinery. Follow-up care Follow up with your healthcare provider, or as advised. A radiologist will review any X-rays that were taken. Your provide will notify you of any new findings that may affect your care. Call 911 Call 911 if any of the following occur: Trouble breathing Confusion Very drowsy or trouble awakening Fainting or loss of consciousness Rapid or very slow heart rate Loss of bowel or bladder control When to seek medical advice Call your healthcare provider right away if any of these occur: Pain becomes worse or spreads to your legs Weakness or numbness in one or both legs Numbness in the groin or genital area [id number] [employer]. [address] [place] [address]. All rights reserved. This information is not intended as a substitute for professional medical care. Always follow your healthcare professional's instructions. Back Spasm (No Trauma) Spasm of the back muscles can occur after a sudden forceful twisting or bending such as in a car accident. A spasm can also happen after a simple awkward movement, or after lifting something heavy with poor body positioning. In any case, muscle spasm adds to the pain. Sleeping in an awkward position or on a poor quality mattress can also cause this. Some people respond to emotional stress by tensing the muscles of their back. Pain that continues may need further assessment or other types of treatment such as physical therapy. You don't always need X-rays for the first assessment of back pain, unless you had a physical injury such as from a car accident or fall. If your pain continues and doesn't respond to medical treatment, X-rays and other tests may then be done. Home care As soon as possible, start sitting or walking again. This will help prevent problems from a long bed rest. These problems include muscle weakness, worsening back stiffness and pain, and blood clots in the legs. When in bed, try to find a position of comfort. A firm mattress is best. Try lying flat on your back with pillows under your knees. You can also try lying on your side with your knees bent up toward your chest and a pillow between your knees. Don't sit for long periods. Also limit car rides and travel. This puts more stress on the lower back than standing or walking. During the first 24 to 72 hours after an injury or flare-up, put an ice pack on the painful area for 20 minutes, then remove it for 20 minutes. Do this over a period of 60 to 90 minutes, or several times a day. This will reduce swelling and pain. Always wrap ice packs in a thin towel. You can start with ice, then switch to heat. Heat from a hot shower, hot bath, or heating pad reduces pain and works well for muscle spasms. Put heat on the painful area for 20 minutes, then remove it for 20 minutes. Do this over a period of 60 to 90 minutes, or several times a day. Don't sleep on a heating pad. It can burn or damage skin. Alternate using ice and heat. Be aware of safe lifting methods. don't lift anything over 15 pounds until all the pain is gone. Gentle stretching will help your back heal faster. Do this simple routine 2 to 3 times a day until your back is feeling better. Lie on your back with your knees bent and both feet on the ground. Slowly raise your left knee to your chest as you flatten your lower back against the floor. Hold for 20 to 30 seconds. Relax and repeat the exercise with your right knee. Do 2 to 3 of these exercises for each leg. Repeat, hugging both knees to your chest at the same time. Don't bounce, but use a gentle pull. Medicines Talk with your doctor before using medicine, especially if you have other medical problems or are taking other medicines. You may use rcgz-uks-cwfsgup medicines such as acetaminophen, ibuprofen, or naprosyn to control pain, unless your healthcare provider prescribed another pain medicine. Talk with your healthcare provider if you have a chronic condition such as diabetes, liver or kidney disease, stomach ulcer, or digestive bleeding, or are taking blood thinners. Be careful if you are given prescription pain medicine, opioids, or medicine for muscle spasm. They can cause drowsiness, and affect your coordination, reflexes, and judgment. Don't drive or operate heavy machinery when taking these medicines. Take pain medicine only as prescribed by your healthcare provider. Follow-up care Follow up with your doctor, or as advised. You may need physical therapy or more tests. If X-rays were taken, they may be reviewed by a radiologist. You will be told of any new findings that may affect your care. Call Call if any of these occur: Trouble breathing Confusion Drowsiness or trouble awakening Fainting or loss of consciousness Rapid or very slow heart rate Loss of bowel or bladder control When to seek medical advice Call your healthcare provider right away if any of these occur: Pain becomes worse or spreads to your legs Weakness or numbness in one or both legs Numbness in the groin or genital area Fever of 100.4 F (38 C) or higher , or as directed by your healthcare provider Chills Burning or pain when passing urine [id number] [employer]. [address] [place] [address], [place] [address]. All rights reserved. This information is not intended as a substitute for professional medical care. Always follow your healthcare professional's instructions. Established High Blood Pressure High blood pressure (hypertension) is a chronic disease. Often, healthcare providers don t know what causes it. But it can be caused by certain health conditions and medicines. If you have high blood pressure, you may not have any symptoms. If you do have symptoms, they may include headache, dizziness, changes in your vision, chest pain, and shortness of breath. But even without symptoms, high blood pressure that s not treated raises your risk for heart attack, heart failure, and stroke. High blood pressure is a serious health risk and shouldn t be ignored. Blood pressure measurements are given as 2 numbers. Systolic blood pressure is the upper number. This is the pressure when the heart contracts. Diastolic blood pressure is the lower number. This is the pressure when the heart relaxes between beats. You will see your blood pressure readings written together. For example, a person with a systolic pressure of 118 and a diastolic pressure of 78 will have 118/78 written in the medical record. Blood pressure is categorized as normal, elevated, or stage 1 or stage 2 high blood pressure: Normal blood pressure is systolic of less than 120 and diastolic of less than 80 (120/80) Elevated blood pressure is systolic of 120 to 129 and diastolic less than 80 Stage 1 high blood pressure is systolic is 130 to 139 or diastolic between 80 to 89 Stage 2 high blood pressure is when systolic is 140 or higher or the diastolic is 90 or higher Home care If you have high blood pressure, follow these home care guidelines to help lower your blood pressure. If you are taking medicines for high blood pressure, these methods may reduce or end your need for medicines in the future. Start a weight-loss program if you are overweight. Cut back on how much salt you get in your diet. Here s how to do this: oDon t eat foods that have a lot of salt. These include olives, pickles, smoked meats, and salted potato chips. oDon t add salt to your food at the table. oUse only small amounts of salt when cooking. Start an exercise program. Talk with your healthcare provider about the type of exercise program that would be best for you. It doesn't have to be hard. Even brisk walking for 20 minutes 3 times a week is a good form of exercise. Don t take medicines that stimulate the heart. This includes many cizj-jqi-gpuiubt cold and sinus decongestant pills and sprays, as well as diet pills. Check the warnings about high blood pressure on the label. Before buying any mnok-jgm-ulcajak medicines or supplements, always ask the pharmacist about the product's potential interaction with your high blood pressure and your high blood pressure medicines. Stimulants such as amphetamine or cocaine could be deadly for someone with high blood pressure. Never take these. Limit how much caffeine you get in your diet. Switch to caffeine-free products. Stop smoking. If you are a long-time smoker, this can be hard. Talk to your healthcare provider about medicines and nicotine replacement options to help you. Also, enroll in a stop-smoking program to make it more likely that you will quit for good. Learn how to handle stress. This is an important part of any program to lower blood pressure. Learn about relaxation methods like meditation, yoga, or biofeedback. If your provider prescribed medicines, take them exactly as directed. Missing doses may cause your blood pressure get out of control. If you miss a dose or doses, check with your healthcare provider or pharmacist about what to do. Consider buying an automatic blood pressure machine to check your blood pressure at home. Ask your provider for a recommendation. You can get one of these at most pharmacies. The [place] [employer] recommends the following guidelines for home blood pressure monitoring: Don't smoke or drink coffee for 30 minutes before taking your blood pressure. Go to the bathroom before the test. Relax for 5 minutes before taking the measurement. Sit with your back supported (don't sit on a couch or soft chair); keep your feet on the floor uncrossed. Place your arm on a solid flat surface (like a table) with the upper part of the arm at heart level. Place the middle of the cuff directly above the bend of the elbow. Check the monitor's instruction manual for an illustration. Take multiple readings. When you measure, take 2 to 3 readings one minute apart and record all of the results. Take your blood pressure at the same time every day, or as your healthcare provider recommends. Record the date, time, and blood pressure reading. Take the record with you to your next medical appointment. If your blood pressure monitor has a built-in memory, simply take the monitor with you to your next appointment. Call your provider if you have several high readings. Don't be frightened by a single high blood pressure reading, but if you get several high readings, check in with your healthcare provider. Note: When blood pressure reaches a systolic (top number) of 180 or higher OR diastolic (bottom number) of 110 or higher, seek emergency medical treatment. Follow-up care You will need to see your healthcare provider regularly. This is to check your blood pressure and to make changes to your medicines. Make a follow-up appointment as directed. Bring the record of your home blood pressure readings to the appointment. When to seek medical advice Call your healthcare provider right away if any of these occur: Blood pressure reaches a systolic (upper number) of 180 or higher OR a diastolic (bottom number) of 110 or higher Chest pain or shortness of breath Severe headache Throbbing or rushing sound in the ears Nosebleed Sudden severe pain in your belly (abdomen) Extreme drowsiness, confusion, or fainting Dizziness or spinning sensation (vertigo) Weakness of an arm or leg or one side of the face You have problems speaking or seeing [id number] [employer]. [address] [place] [address], [place] [address]. All rights reserved. This information is not intended as a substitute for professional medical care. Always follow your healthcare professional's instructions. Additional Information VACCINATE! IT SAVES LIVES! Members of the community who have not yet received the COVID-19 vaccine and would like to receive it can visit one of [facility] vaccine clinics. There are many vaccine clinic locations within the State. For locations and available times, please visit www.gettheshot.coronavirus.[place]. gov/. It is important to note that some COVID mobile vaccine clinics are held outdoors and may be canceled in rainy or stormy conditions. To learn more about pediatric vaccinations (ages 5-11), we invite you to visit the [facility] webpage. [email or web address] [email or web address]-Ephwq-Nqdqzwywqui-Freq [email or web address]-Lehxwcyij.[email or web address] To learn more about the COVID-19 vaccine, we invite you to visit the CDC website for a list of frequently asked questions. https://www.cdc.gov/coronavirus/ 2019-ncov/vaccines/faq.html [facility] Patient Portal Access Instructions: Stay connected with your healthcare team and access your personal medical information anytime with the [facility] Patient Portal. If you would like a full copy of your medical records please contact the [facility] Medical Records Department Sunday through Sunday between 8a.m. and 4:30p.m. Please follow the directions below to access the portal: 1.Access the email account you provided upon registration to the hospital.2.Look for an invitation email from [facility].3.Open the email and access the invitation link: Accept Invitation to [facility]4.Fill in the required alonzo to create your account. Sign into [email or web address] with your username and password that you created in the above steps to stay up to date. You can then view a summary of results, a summary of your visits, and the ability to download your summaries to your computer or send the information securely to a physician. Remember that your healthcare information is confidential, so carefully consider who you will allow to register on the [facility] Patient Portal for access to your information. You can also access the [facility] Patient Portal on the [employer]. Simply click on Health Records under Health Data and then click on the [facility] logo. HOW TO SAFELY DISPOSE OF PRESCRIPTION MEDICATIONS Please use one of the following methods to safely dispose of your unused medications. 1.Use a drug disposal kit: the drug disposal pouch allows you to safely discard your old and unused drugs. Ask your nurse to give you one when you are discharged.2.Visit a local take-back location: Many local pharmacies and police departments have programs that collect old and unwanted prescription drugs. Call your local pharmacy or go to http://Ingeny.Tissuetech/7L1Rq7k to find one close to you.3.Make use of household items: Use cat litter or old coffee grounds to dispose medications if other options are not available. Mix your drugs with these household products, seal them in an airtight container and throw it into the garbage. Call [facility]: [phone] to be sure your drugs can be disposed of in this way. Some medicines may require a different approach.4.Never flush your medications down the toilet. IF YOU HAVE BEEN PRESCRIBED AN OPIOIDS FOR PAIN If you have been prescribed an opioid (such as hydrocodone, oxycodone or morphine), it is critical to understand the possible side effects and risks of opioid pain medications. Even when taken as directed, opioids can have several side effects including: Tolerance, meaning you might need to take more of a medication for the same pain relief. Nausea, vomiting and/or constipation. Sleepiness, dizziness, dry mouth, confusion, depression or itching. Physical dependence, meaning you have withdrawal symptoms when a medication is stopped ? this can develop within a few days. KNOW YOUR RESPONSIBILITIES It is important to know exactly how much and how often to take the opioid pain medications you are prescribed. Never take opioids in higher amounts or more often than prescribed. Do not combine opioids with alcohol or other drugs that cause drowsiness, such as benzodiazepines, also known as benzos, including diazepam and alprazolam, muscle relaxants or sleep aids. Never sell or share prescription opioids. This is illegal. Store opioids in a secure place and out of reach of others (including children, family, friends and visitors). The last page(s) of this document has been signed and retained as a CHART COPY Signatures Patient Education Materials Back Pain (Acute or Chronic) Back Spasm, No Trauma Hypertension, Established Medication Leaflets naproxen, lidocaine topical My discharge plan and instructions have been reviewed and explained to me and IALLEN JENNIFER H understand my current condition and have read and understand these discharge instructions. I have received a written copy of the plan/instructions. If I have questions, I am aware that I should contact my doctor. Patient/Tar Leveler Signature: Date/Time: Relationship to Patient: Witness Name/Signature: Date/Time: [facility] 12-24-2022 Hospital Discharg e instructions Patient Education 12/24/2022 17:04:47 Back Safety: Standing Back Safety: Standing Good posture decreases back pain by reducing strain on your muscles. Remember to check your posture, using the self-help tips below, every time you move or adjust position. Standing To help keep your spine straight, line up your ears, shoulders, and hips. Stand with your feet shoulder-width apart. Or, place one foot slightly in front of the other. Keep your knees relaxed and stomach muscles slightly flattened. Bending over Bend at your hips and knees. Don t bend at your waist or round your back. Rest your weight on your arms if possible. Working When standing for a long time, put one foot on a footrest. This may help ease strain on your back. The footrest should be about 5 to 8 inches high. When reaching for objects over your head, use a stepladder. When you can t, be sure to tighten your stomach muscles to keep your back from arching. [id number] [employer] [address] [place] [address]. All rights reserved. This information is not intended as a substitute for professional medical care. Always follow your healthcare professional's instructions. 12/24/2022 17:04:32 Back Spasm, No Trauma Back Spasm (No Trauma) Spasm of the back muscles can occur after a sudden forceful twisting or bending such as in a car accident. A spasm can also happen after a simple awkward movement, or after lifting something heavy with poor body positioning. In any case, muscle spasm adds to the pain. Sleeping in an awkward position or on a poor quality mattress can also cause this. Some people respond to emotional stress by tensing the muscles of their back. Pain that continues may need further assessment or other types of treatment such as physical therapy. You don't always need X-rays for the first assessment of back pain, unless you had a physical injury such as from a car accident or fall. If your pain continues and doesn't respond to medical treatment, X-rays and other tests may then be done. Home care As soon as possible, start sitting or walking again. This will help prevent problems from a long bed rest. These problems include muscle weakness, worsening back stiffness and pain, and blood clots in the legs. When in bed, try to find a position of comfort. A firm mattress is best. Try lying flat on your back with pillows under your knees. You can also try lying on your side with your knees bent up toward your chest and a pillow between your knees. Don't sit for long periods. Also limit car rides and travel. This puts more stress on the lower back than standing or walking. During the first 24 to 72 hours after an injury or flare-up, put an ice pack on the painful area for 20 minutes, then remove it for 20 minutes. Do this over a period of 60 to 90 minutes, or several times a day. This will reduce swelling and pain. Always wrap ice packs in a thin towel. You can start with ice, then switch to heat. Heat from a hot shower, hot bath, or heating pad reduces pain and works well for muscle spasms. Put heat on the painful area for 20 minutes, then remove it for 20 minutes. Do this over a period of 60 to 90 minutes, or several times a day. Don't sleep on a heating pad. It can burn or damage skin. Alternate using ice and heat. Be aware of safe lifting methods. don't lift anything over 15 pounds until all the pain is gone. Gentle stretching will help your back heal faster. Do this simple routine 2 to 3 times a day until your back is feeling better. Lie on your back with your knees bent and both feet on the ground. Slowly raise your left knee to your chest as you flatten your lower back against the floor. Hold for 20 to 30 seconds. Relax and repeat the exercise with your right knee. Do 2 to 3 of these exercises for each leg. Repeat, hugging both knees to your chest at the same time. Don't bounce, but use a gentle pull. Medicines Talk with your doctor before using medicine, especially if you have other medical problems or are taking other medicines. You may use jlyc-crx-ceyejxx medicines such as acetaminophen, ibuprofen, or naprosyn to control pain, unless your healthcare provider prescribed another pain medicine. Talk with your healthcare provider if you have a chronic condition such as diabetes, liver or kidney disease, stomach ulcer, or digestive bleeding, or are taking blood thinners. Be careful if you are given prescription pain medicine, opioids, or medicine for muscle spasm. They can cause drowsiness, and affect your coordination, reflexes, and judgment. Don't drive or operate heavy machinery when taking these medicines. Take pain medicine only as prescribed by your healthcare provider. Follow-up care Follow up with your doctor, or as advised. You may need physical therapy or more tests. If X-rays were taken, they may be reviewed by a radiologist. You will be told of any new findings that may affect your care. Call Call if any of these occur: Trouble breathing Confusion Drowsiness or trouble awakening Fainting or loss of consciousness Rapid or very slow heart rate Loss of bowel or bladder control When to seek medical advice Call your healthcare provider right away if any of these occur: Pain becomes worse or spreads to your legs Weakness or numbness in one or both legs Numbness in the groin or genital area Fever of 100.4 F (38 C) or higher , or as directed by your healthcare provider Chills Burning or pain when passing urine [id number] [employer]. [address] [place] [address]. All rights reserved. This information is not intended as a substitute for professional medical care. Always follow your healthcare professional's instructions. Follow Up Care 12/24/2022 14:48:47 With:Go to emergency room if symptoms worsen Address:Unknown When:2-4 days With:Follow up with primary care provider Address:Unknown When:2-4 days [facility] 12-24-2022 Note Discharge Instructions Thank you for allowing [facility] to assist you with your healthcare needs. The following is important discharge information regarding your hospital visit. Diagnosis from Today's Visit Back pain What to Do Next Instructions from Your Care Team No qualifying data available. Post Acute Orders No qualifying data available. You Need to Schedule the Following Appointments Follow Up with Go to emergency room if symptoms worsen When Within 2-4 days Follow Up with Follow up with primary care provider When Within 2-4 days Allergies NK[facility] Medications Please ask your primary doctor or pharmacist before taking any other medication not listed, including over the counter drugs, herbal medications, vitamins and or supplements as they may interact with your home medications. What How Much When Why Instructions Last Dose Unchanged acetaminophen-hydrocodone ([place] 325- 5 mg oral tablet) 1 tab(s) by mouth Every 4 hours as needed for as needed for pain Unchanged acetaminophen-hydrocodone ([place] 325- 5 mg oral tablet) 1 tab(s) by mouth Every 6 hours as needed for for pain Spasm of back muscles Duration: 3 Days Unchanged cyclobenzaprine (cyclobenzaprine 5 mg oral tablet) 1 tab(s) by mouth Three (3) times a day as needed for as needed for muscle spasm Duration: 7 Days Unchanged cyclobenzaprine (cyclobenzaprine 5 mg oral tablet) 1 tab(s) by mouth Three (3) times a day as needed for as needed for muscle spasm Unchanged diazePAM (Valium 5 mg oral tablet) 1 tab(s) by mouth Three (3) times a day as needed for as needed for pain Unchanged metoprolol (metoprolol tartrate 25 mg oral tablet) 1 tab(s) by mouth Twice daily with meals Please take this list to your next doctor s visit. Bring all medications you take, including over the counter medications, herbals and other supplements with you to your doctor s visit. Patients and families are reminded to discard old lists and to update any records with all medication providers or retail pharmacies. Education Materials Back Safety: Standing Good posture decreases back pain by reducing strain on your muscles. Remember to check your posture, using the self-help tips below, every time you move or adjust position. Standing To help keep your spine straight, line up your ears, shoulders, and hips. Stand with your feet shoulder-width apart. Or, place one foot slightly in front of the other. Keep your knees relaxed and stomach muscles slightly flattened. Bending over Bend at your hips and knees. Don t bend at your waist or round your back. Rest your weight on your arms if possible. Working When standing for a long time, put one foot on a footrest. This may help ease strain on your back. The footrest should be about 5 to 8 inches high. When reaching for objects over your head, use a stepladder. When you can t, be sure to tighten your stomach muscles to keep your back from arching. [id number] [employer]. [address] [place] [address]. All rights reserved. This information is not intended as a substitute for professional medical care. Always follow your healthcare professional's instructions. Back Spasm (No Trauma) Spasm of the back muscles can occur after a sudden forceful twisting or bending such as in a car accident. A spasm can also happen after a simple awkward movement, or after lifting something heavy with poor body positioning. In any case, muscle spasm adds to the pain. Sleeping in an awkward position or on a poor quality mattress can also cause this. Some people respond to emotional stress by tensing the muscles of their back. Pain that continues may need further assessment or other types of treatment such as physical therapy. You don't always need X-rays for the first assessment of back pain, unless you had a physical injury such as from a car accident or fall. If your pain continues and doesn't respond to medical treatment, X-rays and other tests may then be done. Home care As soon as possible, start sitting or walking again. This will help prevent problems from a long bed rest. These problems include muscle weakness, worsening back stiffness and pain, and blood clots in the legs. When in bed, try to find a position of comfort. A firm mattress is best. Try lying flat on your back with pillows under your knees. You can also try lying on your side with your knees bent up toward your chest and a pillow between your knees. Don't sit for long periods. Also limit car rides and travel. This puts more stress on the lower back than standing or walking. During the first 24 to 72 hours after an injury or flare-up, put an ice pack on the painful area for 20 minutes, then remove it for 20 minutes. Do this over a period of 60 to 90 minutes, or several times a day. This will reduce swelling and pain. Always wrap ice packs in a thin towel. You can start with ice, then switch to heat. Heat from a hot shower, hot bath, or heating pad reduces pain and works well for muscle spasms. Put heat on the painful area for 20 minutes, then remove it for 20 minutes. Do this over a period of 60 to 90 minutes, or several times a day. Don't sleep on a heating pad. It can burn or damage skin. Alternate using ice and heat. Be aware of safe lifting methods. don't lift anything over 15 pounds until all the pain is gone. Gentle stretching will help your back heal faster. Do this simple routine 2 to 3 times a day until your back is feeling better. Lie on your back with your knees bent and both feet on the ground. Slowly raise your left knee to your chest as you flatten your lower back against the floor. Hold for 20 to 30 seconds. Relax and repeat the exercise with your right knee. Do 2 to 3 of these exercises for each leg. Repeat, hugging both knees to your chest at the same time. Don't bounce, but use a gentle pull. Medicines Talk with your doctor before using medicine, especially if you have other medical problems or are taking other medicines. You may use unax-ikh-ewlfcsg medicines such as acetaminophen, ibuprofen, or naprosyn to control pain, unless your healthcare provider prescribed another pain medicine. Talk with your healthcare provider if you have a chronic condition such as diabetes, liver or kidney disease, stomach ulcer, or digestive bleeding, or are taking blood thinners. Be careful if you are given prescription pain medicine, opioids, or medicine for muscle spasm. They can cause drowsiness, and affect your coordination, reflexes, and judgment. Don't drive or operate heavy machinery when taking these medicines. Take pain medicine only as prescribed by your healthcare provider. Follow-up care Follow up with your doctor, or as advised. You may need physical therapy or more tests. If X-rays were taken, they may be reviewed by a radiologist. You will be told of any new findings that may affect your care. Call Call if any of these occur: Trouble breathing Confusion Drowsiness or trouble awakening Fainting or loss of consciousness Rapid or very slow heart rate Loss of bowel or bladder control When to seek medical advice Call your healthcare provider right away if any of these occur: Pain becomes worse or spreads to your legs Weakness or numbness in one or both legs Numbness in the groin or genital area Fever of 100.4 F (38 C) or higher , or as directed by your healthcare provider Chills Burning or pain when passing urine [id number] [employer]. [address] [place] [address], [place] [address]. All rights reserved. This information is not intended as a substitute for professional medical care. Always follow your healthcare professional's instructions. Additional Information VACCINATE! IT SAVES LIVES! Members of the community who have not yet received the COVID-19 vaccine and would like to receive it can visit one of [facility] vaccine clinics. There are many vaccine clinic locations within the [facility]. For locations and available times, please visit [email or web address] [email or web address] It is important to note that some COVID mobile vaccine clinics are held outdoors and may be canceled in rainy or stormy conditions. To learn more about pediatric vaccinations (ages 5-11), we invite you to visit the [facility] webpage. [email or web address] [email or web address] [email or web address] To learn more about the COVID-19 vaccine, we invite you to visit the CDC website for a list of frequently asked questions. https://www.cdc.gov/coronavirus/ 2019-ncov/vaccines/faq.html [facility] Patient Portal Access Instructions: Stay connected with your healthcare team and access your personal medical information anytime with the [facility] Patient Portal. If you would like a full copy of your medical records please contact the [facility] Medical Records Department Sunday through Sunday between 8a.m. and 4:30p.m. Please follow the directions below to access the portal: 1.Access the email account you provided upon registration to the hospital.2.Look for an invitation email from [facility].3.Open the email and access the invitation link: Accept Invitation to [facility]4.Fill in the required alonzo to create your account. Sign into www.[email or web address] with your username and password that you created in the above steps to stay up to date. You can then view a summary of results, a summary of your visits, and the ability to download your summaries to your computer or send the information securely to a physician. Remember that your healthcare information is confidential, so carefully consider who you will allow to register on the [employer] Patient Portal for access to your information. You can also access the [employer] Patient Portal on the [employer] tosin. Simply click on Health Records under Health Data and then click on the [employer] logo. HOW TO SAFELY DISPOSE OF PRESCRIPTION MEDICATIONS Please use one of the following methods to safely dispose of your unused medications. 1.Use a drug disposal kit: the drug disposal pouch allows you to safely discard your old and unused drugs. Ask your nurse to give you one when you are discharged.2.Visit a local take-back location: Many local pharmacies and police departments have programs that collect old and unwanted prescription drugs. Call your local pharmacy or go to http://Ingeny.Tissuetech/8X0Qc9g to find one close to you.3.Make use of household items: Use cat litter or old coffee grounds to dispose medications if other options are not available. Mix your drugs with these household products, seal them in an airtight container and throw it into the garbage. Call [facility]: [phone] to be sure your drugs can be disposed of in this way. Some medicines may require a different approach.4.Never flush your medications down the toilet. IF YOU HAVE BEEN PRESCRIBED AN OPIOIDS FOR PAIN If you have been prescribed an opioid (such as hydrocodone, oxycodone or morphine), it is critical to understand the possible side effects and risks of opioid pain medications. Even when taken as directed, opioids can have several side effects including: Tolerance, meaning you might need to take more of a medication for the same pain relief. Nausea, vomiting and/or constipation. Sleepiness, dizziness, dry mouth, confusion, depression or itching. Physical dependence, meaning you have withdrawal symptoms when a medication is stopped ? this can develop within a few days. KNOW YOUR RESPONSIBILITIES It is important to know exactly how much and how often to take the opioid pain medications you are prescribed. Never take opioids in higher amounts or more often than prescribed. Do not combine opioids with alcohol or other drugs that cause drowsiness, such as benzodiazepines, also known as benzos, including diazepam and alprazolam, muscle relaxants or sleep aids. Never sell or share prescription opioids. This is illegal. Store opioids in a secure place and out of reach of others (including children, family, friends and visitors). The last page(s) of this document has been signed and retained as a CHART COPY Signatures Patient Education Materials Back Safety: Standing Back Spasm, No Trauma Medication Leaflets My discharge plan and instructions have been reviewed and explained to me and I,CRYSTAL VILLAVASILE Hennessy understand my current condition and have read and understand these discharge instructions. I have received a written copy of the plan/instructions. If I have questions, I am aware that I should contact my doctor. Patient/Tar Leveler Signature: Date/Time: Relationship to Patient: Witness Name/Signature: Date/Time: [facility] 12-24-2022 Note ORIGINAL EXAMINATION: TWO XRAY VIEWS OF THE THORACIC SPINE 12/24/2022 4:18 pm COMPARISON: Chest radiograph earlier in the day HISTORY: ORDERING SYSTEM PROVIDED HISTORY: Reason for Exam: pain FINDINGS: Vertebral body heights and alignment is maintained. Multilevel degenerative changes. Cholecystectomy clips in right upper abdominal quadrant. IMPRESSION: No acute osseous abnormality by radiograph. I have personally reviewed the images of this examination and agree with the resident's findings and interpretation. Interpreted by: Kaveh Mayfield Preliminary Report By: Komal Carlos Electronically signed By Kaveh Mayfield Dictated Date: 12/24/2022 4:36:56 PM Prelim Date: 12/24/2022 4:39:52 PM Sign Date: 12/24/2022 4:52:47 PM Ordering Provider: FABI MARIN [facility] 12-24-2022 Note ORIGINAL EXAMINATION: ONE XRAY VIEW OF THE CHEST 12/24/2022 4:18 pm COMPARISON: None. HISTORY: ORDERING SYSTEM PROVIDED HISTORY: Reason for Exam: chest pain FINDINGS: Cardiomediastinal silhouette is probably normal in size for portable technique and patient body habitus. Costophrenic angles are sharp. No radiographic pneumothorax. No focal consolidation. Degenerative changes of the spine. Please see radiograph of the thoracic spine performed same day. Cholecystectomy clips. IMPRESSION: No acute radiographic findings. Interpreted by: Kaveh Mayfield Preliminary Report By: Kaveh Mayfield Electronically signed By Kaveh Mayfield Dictated Date: 12/24/2022 4:34:49 PM Prelim Date: 12/24/2022 4:35:29 PM Sign Date: 12/24/2022 4:35:29 PM Ordering Provider: FABI MARIN [facility] 12-24-2022 Note Sinus rhythm Borderline T wave abnormalities Electronic Signature: AVIS GARCIA MD 12/24/2022 16:13:44 [facility] 12-24-2022 Hospital Discharg e instructions Patient Education 12/24/2022 06:26:20 Back Spasm, No Trauma Back Spasm (No Trauma) Spasm of the back muscles can occur after a sudden forceful twisting or bending such as in a car accident. A spasm can also happen after a simple awkward movement, or after lifting something heavy with poor body positioning. In any case, muscle spasm adds to the pain. Sleeping in an awkward position or on a poor quality mattress can also cause this. Some people respond to emotional stress by tensing the muscles of their back. Pain that continues may need further assessment or other types of treatment such as physical therapy. You don't always need X-rays for the first assessment of back pain, unless you had a physical injury such as from a car accident or fall. If your pain continues and doesn't respond to medical treatment, X-rays and other tests may then be done. Home care As soon as possible, start sitting or walking again. This will help prevent problems from a long bed rest. These problems include muscle weakness, worsening back stiffness and pain, and blood clots in the legs. When in bed, try to find a position of comfort. A firm mattress is best. Try lying flat on your back with pillows under your knees. You can also try lying on your side with your knees bent up toward your chest and a pillow between your knees. Don't sit for long periods. Also limit car rides and travel. This puts more stress on the lower back than standing or walking. During the first 24 to 72 hours after an injury or flare-up, put an ice pack on the painful area for 20 minutes, then remove it for 20 minutes. Do this over a period of 60 to 90 minutes, or several times a day. This will reduce swelling and pain. Always wrap ice packs in a thin towel. You can start with ice, then switch to heat. Heat from a hot shower, hot bath, or heating pad reduces pain and works well for muscle spasms. Put heat on the painful area for 20 minutes, then remove it for 20 minutes. Do this over a period of 60 to 90 minutes, or several times a day. Don't sleep on a heating pad. It can burn or damage skin. Alternate using ice and heat. Be aware of safe lifting methods. don't lift anything over 15 pounds until all the pain is gone. Gentle stretching will help your back heal faster. Do this simple routine 2 to 3 times a day until your back is feeling better. Lie on your back with your knees bent and both feet on the ground. Slowly raise your left knee to your chest as you flatten your lower back against the floor. Hold for 20 to 30 seconds. Relax and repeat the exercise with your right knee. Do 2 to 3 of these exercises for each leg. Repeat, hugging both knees to your chest at the same time. Don't bounce, but use a gentle pull. Medicines Talk with your doctor before using medicine, especially if you have other medical problems or are taking other medicines. You may use ddkz-dnx-uftpwew medicines such as acetaminophen, ibuprofen, or naprosyn to control pain, unless your healthcare provider prescribed another pain medicine. Talk with your healthcare provider if you have a chronic condition such as diabetes, liver or kidney disease, stomach ulcer, or digestive bleeding, or are taking blood thinners. Be careful if you are given prescription pain medicine, opioids, or medicine for muscle spasm. They can cause drowsiness, and affect your coordination, reflexes, and judgment. Don't drive or operate heavy machinery when taking these medicines. Take pain medicine only as prescribed by your healthcare provider. Follow-up care Follow up with your doctor, or as advised. You may need physical therapy or more tests. If X-rays were taken, they may be reviewed by a radiologist. You will be told of any new findings that may affect your care. Call Call if any of these occur: Trouble breathing Confusion Drowsiness or trouble awakening Fainting or loss of consciousness Rapid or very slow heart rate Loss of bowel or bladder control When to seek medical advice Call your healthcare provider right away if any of these occur: Pain becomes worse or spreads to your legs Weakness or numbness in one or both legs Numbness in the groin or genital area Fever of 100.4 F (38 C) or higher , or as directed by your healthcare provider Chills Burning or pain when passing urine [id number] [employer]. [address] [place] [address], [place] [address]. All rights reserved. This information is not intended as a substitute for professional medical care. Always follow your healthcare professional's instructions. 12/24/2022 06:26:15 Hypertension, Established Established High Blood Pressure High blood pressure (hypertension) is a chronic disease. Often, healthcare providers don t know what causes it. But it can be caused by certain health conditions and medicines. If you have high blood pressure, you may not have any symptoms. If you do have symptoms, they may include headache, dizziness, changes in your vision, chest pain, and shortness of breath. But even without symptoms, high blood pressure that s not treated raises your risk for heart attack, heart failure, and stroke. High blood pressure is a serious health risk and shouldn t be ignored. Blood pressure measurements are given as 2 numbers. Systolic blood pressure is the upper number. This is the pressure when the heart contracts. Diastolic blood pressure is the lower number. This is the pressure when the heart relaxes between beats. You will see your blood pressure readings written together. For example, a person with a systolic pressure of 118 and a diastolic pressure of 78 will have 118/78 written in the medical record. Blood pressure is categorized as normal, elevated, or stage 1 or stage 2 high blood pressure: Normal blood pressure is systolic of less than 120 and diastolic of less than 80 (120/80) Elevated blood pressure is systolic of 120 to 129 and diastolic less than 80 Stage 1 high blood pressure is systolic is 130 to 139 or diastolic between 80 to 89 Stage 2 high blood pressure is when systolic is 140 or higher or the diastolic is 90 or higher Home care If you have high blood pressure, follow these home care guidelines to help lower your blood pressure. If you are taking medicines for high blood pressure, these methods may reduce or end your need for medicines in the future. Start a weight-loss program if you are overweight. Cut back on how much salt you get in your diet. Here s how to do this: oDon t eat foods that have a lot of salt. These include olives, pickles, smoked meats, and salted potato chips. oDon t add salt to your food at the table. oUse only small amounts of salt when cooking. Start an exercise program. Talk with your healthcare provider about the type of exercise program that would be best for you. It doesn't have to be hard. Even brisk walking for 20 minutes 3 times a week is a good form of exercise. Don t take medicines that stimulate the heart. This includes many rdao-nyg-pphegit cold and sinus decongestant pills and sprays, as well as diet pills. Check the warnings about high blood pressure on the label. Before buying any mwny-mmd-qseness medicines or supplements, always ask the pharmacist about the product's potential interaction with your high blood pressure and your high blood pressure medicines. Stimulants such as amphetamine or cocaine could be deadly for someone with high blood pressure. Never take these. Limit how much caffeine you get in your diet. Switch to caffeine-free products. Stop smoking. If you are a long-time smoker, this can be hard. Talk to your healthcare provider about medicines and nicotine replacement options to help you. Also, enroll in a stop-smoking program to make it more likely that you will quit for good. Learn how to handle stress. This is an important part of any program to lower blood pressure. Learn about relaxation methods like meditation, yoga, or biofeedback. If your provider prescribed medicines, take them exactly as directed. Missing doses may cause your blood pressure get out of control. If you miss a dose or doses, check with your healthcare provider or pharmacist about what to do. Consider buying an automatic blood pressure machine to check your blood pressure at home. Ask your provider for a recommendation. You can get one of these at most pharmacies. The [place] [employer] recommends the following guidelines for home blood pressure monitoring: Don't smoke or drink coffee for 30 minutes before taking your blood pressure. Go to the bathroom before the test. Relax for 5 minutes before taking the measurement. Sit with your back supported (don't sit on a couch or soft chair); keep your feet on the floor uncrossed. Place your arm on a solid flat surface (like a table) with the upper part of the arm at heart level. Place the middle of the cuff directly above the bend of the elbow. Check the monitor's instruction manual for an illustration. Take multiple readings. When you measure, take 2 to 3 readings one minute apart and record all of the results. Take your blood pressure at the same time every day, or as your healthcare provider recommends. Record the date, time, and blood pressure reading. Take the record with you to your next medical appointment. If your blood pressure monitor has a built-in memory, simply take the monitor with you to your next appointment. Call your provider if you have several high readings. Don't be frightened by a single high blood pressure reading, but if you get several high readings, check in with your healthcare provider. Note: When blood pressure reaches a systolic (top number) of 180 or higher OR diastolic (bottom number) of 110 or higher, seek emergency medical treatment. Follow-up care You will need to see your healthcare provider regularly. This is to check your blood pressure and to make changes to your medicines. Make a follow-up appointment as directed. Bring the record of your home blood pressure readings to the appointment. When to seek medical advice Call your healthcare provider right away if any of these occur: Blood pressure reaches a systolic (upper number) of 180 or higher OR a diastolic (bottom number) of 110 or higher Chest pain or shortness of breath Severe headache Throbbing or rushing sound in the ears Nosebleed Sudden severe pain in your belly (abdomen) Extreme drowsiness, confusion, or fainting Dizziness or spinning sensation (vertigo) Weakness of an arm or leg or one side of the face You have problems speaking or seeing [id number] [employer]. [address] [place] [address], [place] [address]. All rights reserved. This information is not intended as a substitute for professional medical care. Always follow your healthcare professional's instructions. Follow Up Care 12/24/2022 06:09:38 With:CULLEN ELIAS Address: [address] [place] [phone] Business (1) When:2-4 days Comments:Schedule appointment as soon as possibleReturn to ED if symptoms worsenCall your doctor in the a.m. for follow-up and for blood pressure recheck [facility] Harrison 12-24-2022 Note Discharge Instructions Thank you for allowing [facility] to assist you with your healthcare needs. The following is important discharge information regarding your hospital visit. Diagnosis from Today's Visit Back pain Hypertension Muscle spasm What to Do Next Instructions from Your Care Team No qualifying data available. Post Acute Orders No qualifying data available. You Need to Schedule the Following Appointments Follow Up with CULLEN ELIAS When Within 2-4 days Why: Schedule appointment as soon as possible Return to ED if symptoms worsen Call your doctor in the a.m. for follow-up and for blood pressure recheck Where: [address] [place] [address]- [phone] Business (1) Allergies NKA Medications Please ask your primary doctor or pharmacist before taking any other medication not listed, including over the counter drugs, herbal medications, vitamins and or supplements as they may interact with your home medications. What How Much When Why Instructions Last Dose Unchanged acetaminophen-hydrocodone ([place] 325- 5 mg oral tablet) 1 tab(s) by mouth Every 4 hours as needed for as needed for pain Unchanged acetaminophen-hydrocodone ([place] 325- 5 mg oral tablet) 1 tab(s) by mouth Every 6 hours as needed for for pain Spasm of back muscles Duration: 3 Days Unchanged cyclobenzaprine (cyclobenzaprine 5 mg oral tablet) 1 tab(s) by mouth Three (3) times a day as needed for as needed for muscle spasm Duration: 7 Days Unchanged cyclobenzaprine (cyclobenzaprine 5 mg oral tablet) 1 tab(s) by mouth Three (3) times a day as needed for as needed for muscle spasm Unchanged diazePAM (Valium 5 mg oral tablet) 1 tab(s) by mouth Three (3) times a day as needed for as needed for pain Unchanged metoprolol (metoprolol tartrate 25 mg oral tablet) 1 tab(s) by mouth Twice daily with meals Please take this list to your next doctor s visit. Bring all medications you take, including over the counter medications, herbals and other supplements with you to your doctor s visit. Patients and families are reminded to discard old lists and to update any records with all medication providers or retail pharmacies. Education Materials Back Spasm (No Trauma) Spasm of the back muscles can occur after a sudden forceful twisting or bending such as in a car accident. A spasm can also happen after a simple awkward movement, or after lifting something heavy with poor body positioning. In any case, muscle spasm adds to the pain. Sleeping in an awkward position or on a poor quality mattress can also cause this. Some people respond to emotional stress by tensing the muscles of their back. Pain that continues may need further assessment or other types of treatment such as physical therapy. You don't always need X-rays for the first assessment of back pain, unless you had a physical injury such as from a car accident or fall. If your pain continues and doesn't respond to medical treatment, X-rays and other tests may then be done. Home care As soon as possible, start sitting or walking again. This will help prevent problems from a long bed rest. These problems include muscle weakness, worsening back stiffness and pain, and blood clots in the legs. When in bed, try to find a position of comfort. A firm mattress is best. Try lying flat on your back with pillows under your knees. You can also try lying on your side with your knees bent up toward your chest and a pillow between your knees. Don't sit for long periods. Also limit car rides and travel. This puts more stress on the lower back than standing or walking. During the first 24 to 72 hours after an injury or flare-up, put an ice pack on the painful area for 20 minutes, then remove it for 20 minutes. Do this over a period of 60 to 90 minutes, or several times a day. This will reduce swelling and pain. Always wrap ice packs in a thin towel. You can start with ice, then switch to heat. Heat from a hot shower, hot bath, or heating pad reduces pain and works well for muscle spasms. Put heat on the painful area for 20 minutes, then remove it for 20 minutes. Do this over a period of 60 to 90 minutes, or several times a day. Don't sleep on a heating pad. It can burn or damage skin. Alternate using ice and heat. Be aware of safe lifting methods. don't lift anything over 15 pounds until all the pain is gone. Gentle stretching will help your back heal faster. Do this simple routine 2 to 3 times a day until your back is feeling better. Lie on your back with your knees bent and both feet on the ground. Slowly raise your left knee to your chest as you flatten your lower back against the floor. Hold for 20 to 30 seconds. Relax and repeat the exercise with your right knee. Do 2 to 3 of these exercises for each leg. Repeat, hugging both knees to your chest at the same time. Don't bounce, but use a gentle pull. Medicines Talk with your doctor before using medicine, especially if you have other medical problems or are taking other medicines. You may use jcup-ksx-waxcdmd medicines such as acetaminophen, ibuprofen, or naprosyn to control pain, unless your healthcare provider prescribed another pain medicine. Talk with your healthcare provider if you have a chronic condition such as diabetes, liver or kidney disease, stomach ulcer, or digestive bleeding, or are taking blood thinners. Be careful if you are given prescription pain medicine, opioids, or medicine for muscle spasm. They can cause drowsiness, and affect your coordination, reflexes, and judgment. Don't drive or operate heavy machinery when taking these medicines. Take pain medicine only as prescribed by your healthcare provider. Follow-up care Follow up with your doctor, or as advised. You may need physical therapy or more tests. If X-rays were taken, they may be reviewed by a radiologist. You will be told of any new findings that may affect your care. Call Call if any of these occur: Trouble breathing Confusion Drowsiness or trouble awakening Fainting or loss of consciousness Rapid or very slow heart rate Loss of bowel or bladder control When to seek medical advice Call your healthcare provider right away if any of these occur: Pain becomes worse or spreads to your legs Weakness or numbness in one or both legs Numbness in the groin or genital area Fever of 100.4 F (38 C) or higher , or as directed by your healthcare provider Chills Burning or pain when passing urine [id number] [employer]. [address] [place] [address], [place] [address]. All rights reserved. This information is not intended as a substitute for professional medical care. Always follow your healthcare professional's instructions. Established High Blood Pressure High blood pressure (hypertension) is a chronic disease. Often, healthcare providers don t know what causes it. But it can be caused by certain health conditions and medicines. If you have high blood pressure, you may not have any symptoms. If you do have symptoms, they may include headache, dizziness, changes in your vision, chest pain, and shortness of breath. But even without symptoms, high blood pressure that s not treated raises your risk for heart attack, heart failure, and stroke. High blood pressure is a serious health risk and shouldn t be ignored. Blood pressure measurements are given as 2 numbers. Systolic blood pressure is the upper number. This is the pressure when the heart contracts. Diastolic blood pressure is the lower number. This is the pressure when the heart relaxes between beats. You will see your blood pressure readings written together. For example, a person with a systolic pressure of 118 and a diastolic pressure of 78 will have 118/78 written in the medical record. Blood pressure is categorized as normal, elevated, or stage 1 or stage 2 high blood pressure: Normal blood pressure is systolic of less than 120 and diastolic of less than 80 (120/80) Elevated blood pressure is systolic of 120 to 129 and diastolic less than 80 Stage 1 high blood pressure is systolic is 130 to 139 or diastolic between 80 to 89 Stage 2 high blood pressure is when systolic is 140 or higher or the diastolic is 90 or higher Home care If you have high blood pressure, follow these home care guidelines to help lower your blood pressure. If you are taking medicines for high blood pressure, these methods may reduce or end your need for medicines in the future. Start a weight-loss program if you are overweight. Cut back on how much salt you get in your diet. Here s how to do this: oDon t eat foods that have a lot of salt. These include olives, pickles, smoked meats, and salted potato chips. oDon t add salt to your food at the table. oUse only small amounts of salt when cooking. Start an exercise program. Talk with your healthcare provider about the type of exercise program that would be best for you. It doesn't have to be hard. Even brisk walking for 20 minutes 3 times a week is a good form of exercise. Don t take medicines that stimulate the heart. This includes many nzmt-oyi-qnzvqmx cold and sinus decongestant pills and sprays, as well as diet pills. Check the warnings about high blood pressure on the label. Before buying any xnti-yfc-mhezasv medicines or supplements, always ask the pharmacist about the product's potential interaction with your high blood pressure and your high blood pressure medicines. Stimulants such as amphetamine or cocaine could be deadly for someone with high blood pressure. Never take these. Limit how much caffeine you get in your diet. Switch to caffeine-free products. Stop smoking. If you are a long-time smoker, this can be hard. Talk to your healthcare provider about medicines and nicotine replacement options to help you. Also, enroll in a stop-smoking program to make it more likely that you will quit for good. Learn how to handle stress. This is an important part of any program to lower blood pressure. Learn about relaxation methods like meditation, yoga, or biofeedback. If your provider prescribed medicines, take them exactly as directed. Missing doses may cause your blood pressure get out of control. If you miss a dose or doses, check with your healthcare provider or pharmacist about what to do. Consider buying an automatic blood pressure machine to check your blood pressure at home. Ask your provider for a recommendation. You can get one of these at most pharmacies. The [place] [employer] recommends the following guidelines for home blood pressure monitoring: Don't smoke or drink coffee for 30 minutes before taking your blood pressure. Go to the bathroom before the test. Relax for 5 minutes before taking the measurement. Sit with your back supported (don't sit on a couch or soft chair); keep your feet on the floor uncrossed. Place your arm on a solid flat surface (like a table) with the upper part of the arm at heart level. Place the middle of the cuff directly above the bend of the elbow. Check the monitor's instruction manual for an illustration. Take multiple readings. When you measure, take 2 to 3 readings one minute apart and record all of the results. Take your blood pressure at the same time every day, or as your healthcare provider recommends. Record the date, time, and blood pressure reading. Take the record with you to your next medical appointment. If your blood pressure monitor has a built-in memory, simply take the monitor with you to your next appointment. Call your provider if you have several high readings. Don't be frightened by a single high blood pressure reading, but if you get several high readings, check in with your healthcare provider. Note: When blood pressure reaches a systolic (top number) of 180 or higher OR diastolic (bottom number) of 110 or higher, seek emergency medical treatment. Follow-up care You will need to see your healthcare provider regularly. This is to check your blood pressure and to make changes to your medicines. Make a follow-up appointment as directed. Bring the record of your home blood pressure readings to the appointment. When to seek medical advice Call your healthcare provider right away if any of these occur: Blood pressure reaches a systolic (upper number) of 180 or higher OR a diastolic (bottom number) of 110 or higher Chest pain or shortness of breath Severe headache Throbbing or rushing sound in the ears Nosebleed Sudden severe pain in your belly (abdomen) Extreme drowsiness, confusion, or fainting Dizziness or spinning sensation (vertigo) Weakness of an arm or leg or one side of the face You have problems speaking or seeing [id number] [employer]. [address] [place] [address]. All rights reserved. This information is not intended as a substitute for professional medical care. Always follow your healthcare professional's instructions. Additional Information VACCINATE! IT SAVES LIVES! Members of the community who have not yet received the COVID-19 vaccine and would like to receive it can visit one of [facility] vaccine clinics. There are many vaccine clinic locations within the [facility]. For locations and available times, please visit [email or web address] [email or web address] It is important to note that some COVID mobile vaccine clinics are held outdoors and may be canceled in rainy or stormy conditions. To learn more about pediatric vaccinations (ages 5-11), we invite you to visit the [facility] webpage. https://www.[email or web address]/p ages/1980-Runzo-Nuhkftvkczg-Freq fubtkx-Yocbc-Ogwifkutw.html To learn more about the COVID-19 vaccine, we invite you to visit the CDC website for a list of frequently asked questions. https://www.cdc.gov/coronavirus/ 2019-ncov/vaccines/faq.html [employer] Patient Portal Access Instructions: Stay connected with your healthcare team and access your personal medical information anytime with the [employer] Patient Portal. If you would like a full copy of your medical records please contact the [facility] Medical Records Department Sunday through Sunday between 8a.m. and 4:30p.m. Please follow the directions below to access the portal: 1.Access the email account you provided upon registration to the [facility].2.Look for an invitation email from [facility].3.Open the email and access the invitation link: Accept Invitation to [facility]4.Fill in the required alonzo to create your account. Sign into [email or web address] with your username and password that you created in the above steps to stay up to date. You can then view a summary of results, a summary of your visits, and the ability to download your summaries to your computer or send the information securely to a physician. Remember that your healthcare information is confidential, so carefully consider who you will allow to register on the [facility] Patient Portal for access to your information. You can also access the [facility] Patient Portal on the [employer]. Simply click on Health Records under Health Data and then click on the [employer] logo. HOW TO SAFELY DISPOSE OF PRESCRIPTION MEDICATIONS Please use one of the following methods to safely dispose of your unused medications. 1.Use a drug disposal kit: the drug disposal pouch allows you to safely discard your old and unused drugs. Ask your nurse to give you one when you are discharged.2.Visit a local take-back location: Many local pharmacies and police departments have programs that collect old and unwanted prescription drugs. Call your local pharmacy or go to http://Ingeny.Tissuetech/8Z6Zv8z to find one close to you.3.Make use of household items: Use cat litter or old coffee grounds to dispose medications if other options are not available. Mix your drugs with these household products, seal them in an airtight container and throw it into the garbage. Call [facility]: [phone] to be sure your drugs can be disposed of in this way. Some medicines may require a different approach.4.Never flush your medications down the toilet. IF YOU HAVE BEEN PRESCRIBED AN OPIOIDS FOR PAIN If you have been prescribed an opioid (such as hydrocodone, oxycodone or morphine), it is critical to understand the possible side effects and risks of opioid pain medications. Even when taken as directed, opioids can have several side effects including: Tolerance, meaning you might need to take more of a medication for the same pain relief. Nausea, vomiting and/or constipation. Sleepiness, dizziness, dry mouth, confusion, depression or itching. Physical dependence, meaning you have withdrawal symptoms when a medication is stopped ? this can develop within a few days. KNOW YOUR RESPONSIBILITIES It is important to know exactly how much and how often to take the opioid pain medications you are prescribed. Never take opioids in higher amounts or more often than prescribed. Do not combine opioids with alcohol or other drugs that cause drowsiness, such as benzodiazepines, also known as benzos, including diazepam and alprazolam, muscle relaxants or sleep aids. Never sell or share prescription opioids. This is illegal. Store opioids in a secure place and out of reach of others (including children, family, friends and visitors). The last page(s) of this document has been signed and retained as a CHART COPY Signatures Patient Education Materials Back Spasm, No Trauma Hypertension, Established Medication Leaflets My discharge plan and instructions have been reviewed and explained to me and I,TANYA VILLA understand my current condition and have read and understand these discharge instructions. I have received a written copy of the plan/instructions. If I have questions, I am aware that I should contact my doctor. Patient/Tar Leveler Signature: Date/Time: Relationship to Patient: Witness Name/Signature: Date/Time: [facility] 05-15-2022 Miscellaneous Notes Spoke to patient, verified name and date of . Read Sri Redding message to patient. Patient stated well that is good news. Patient verbalized understanding & had no other questions or concerns. H&M up dated, recall letter done Lissett Orellana LPN Please let patient know pathology showed completely benign tissue, was not a precancerous type of polyp. Will still plan for 5 year repeat colonoscopy based on family history of colon cancer. Please ensure HM and surg history updated and recall letter generated. Patient called for colonoscopy results, done by Dr Simon on 05/02/2022, please review and advise. Thank you. documented in this encounter [facility] 05-02-2022 Note HNO ID: [id number] Author: Nohemi Rivera RN Service: ? Author Type: Registered Nurse Type: Nursing Progress Note Filed: 05/02/2022 11:56 AM Note Text: Abdomen soft non-distended. Will continue to monitor. [facility] 05-02-2022 Nurse Note Abdomen soft non-distended. Will continue to monitor. documented in this encounter [facility] 05-02-2022 History and physical note UPDATED PROCEDURAL SEDATION HISTORY AND PHYSICAL EXAMINATION SERVICE DATE: 05/02/2022 SERVICE TIME: 10:46 AM PHYSICAL EXAM MUST BE COMPLETED ON ADMISSION PROCEDURE: Procedure Indications: The History and Physical (completed in the past 30 days) has been reviewed and the patient has been examined. The contents accurately reflect the patient's condition with the following additions or revisions since the H&P was completed. ASA Class: ASA Class:: Patient with mild systemic disease Examination indicates no changes. AIRWAY: Airway Visualization of Uvula: Yes Mouth opening greater than 2 fingerbreadths: Yes Neck Full Range of Motion: Yes LUNGS: Lungs clear to auscultation CARDIAC: Regular rhythm,Regular rate Provisional Diagnosis/Treatment Plan: family history - high risk colonoscopy SEDATION GOAL: Moderate This H&P can be found in the attached. SIGNATURE: Trudy Simon MD PATIENT NAME: Tanya Villa DATE: May 02, 2022 TIME: 10:46 AM Source Note - Trudy Simon MD - 05/02/2022 9:30 AM EST Images from the original note were not included. HISTORY AND PHYSICAL Tanya Villa 1950 REFERRING PHYSICIAN: Iveth Erazo MD CHIEF COMPLAINT: Consult (Colonoscopy/) HPI: The patient is a 71 year old female referred for endoscopy. Tanya notes no colon complaints. Patient denies any change in bowel habits, weight changes, blood in stools, black tarry stools or abdominal pain. NOTES family history of colon cancer in multiple first-degree relatives. The patient notes no upper GI complaints. Tanya has undergone prior endoscopy. Most recent colonoscopy 05/23/[address] Simon under conscious sedation, no concerning findings at that time. Patient's past medical history of significant for back pain, fatigue, hypertension, insomnia. Notes just had BP meds changed yesterday and not liking how this new one is making her feel-elevated heart rate in office today. She plans to go directly over to PCP office following this visit to discuss changing her meds back. Denies chest pain or shortness of breath. Patient takes trazodone for sleep. States at time of last colonoscopy was taking Ambien for sleep. Denies any recall or discomfort with prior procedure under conscious sedation. PAST MEDICAL HISTORY PAST MEDICAL HISTORY Diagnosis Date Chronic back pain Chronic fatigue syndrome Hypertension Insomnia Myalgia and myositis, unspecified Raynaud's syndrome Restless leg syndrome Vitamin B 12 deficiency PAST SURGICAL HISTORY PAST SURGICAL HISTORY Procedure Laterality Date CHOLECYSTECTOMY Cholecystectomy COLONOSCOPY FLX DX W/COLLJ SPEC WHEN PFRMD 01/24/13 Colonoscopy COLONOSCOPY FLX DX W/COLLJ SPEC WHEN PFRMD 05/23/2016 normal colon - 5 year follow up TONSILLECTOMY PRIMARY/SECONDARY <AGE 14 1977 Tonsillectomy XCAPSL CTRC RMVL INSJ IO LENS PROSTH W/O ECP Cataract Removal BOTH EYES CURRENT MEDICATIONS Current Outpatient Medications Medication Sig fluticasone (FLONASE) 50 mcg/actuation nasal spray 2 Sprays once daily. traZODone (DESYREL) 50 mg tablet Take 50 mg by mouth daily at bedtime. gabapentin (NEURONTIN) 100 mg capsule Take 100 mg by mouth three times daily. cyanocobalamin (VITAMIN B-12) 500 mcg tablet Take by mouth once daily. amLODIPine (NORVASC) 5 mg tablet Take 5 mg by mouth once daily. sulfamethoxazole-trimethoprim (BACTRIM DS,SEPTRA DS) 800-160 mg per tablet Take 1 tablet by mouth twice daily. rOPINIRole (REQUIP) 0.25 mg tablet take 1/2 tablet by mouth with dinner and 3 and 1/2 tablets at bedtime CALCIUM CARB/MAGNESIUM CMB #10 (FREEMAN-MAG ORAL) Take 2,000 mg by mouth twice daily. cyclobenzaprine 5 mg ORAL tablet Take 5 mg by mouth three times daily as needed. multivitamin ORAL Tab Take one(1) tablet daily. TYLENOL 325 MG TAB takes 650 mg bid zolpidem tartrate(AMBIEN CR 12.5 MG TAB) 1/2 at bedtime as needed for sleep (Patient not taking: No sig reported) TOPROL XL 25 MG 24 HR TAB twice daily (Patient not taking: Reported on 04/04/2022) No current facility-administered medications for this visit. ALLERGIES: Effexor [Venlafaxine], Lodine [Etodolac], Ritalin [Methylphenidate], Steroids [Betamethasone Dipropionate], and Voltaren [Diclofenac] PERSONAL HISTORY: SOCIAL HISTORY Social History Tobacco Use Smoking status: Never Smokeless tobacco: Never Vaping Use Vaping Use: Never used Substance Use Topics Alcohol use: No Drug use: No FAMILY HISTORY: FAMILY HISTORY FAMILY HISTORY Problem Relation Age of Onset Diabetes Mother Hypertension Mother Thyroid Mother Stroke Mother Cancer Father prostate, rectum and colon passed from this Cancer Sister colon REVIEW OF SYMPTOMS: The review of systems data was entered by the nurse and reviewed by mi Nursing Notes: Kita Ross RN 04/04/2022 9:27 AM Signed REVIEW OF SYSTEMS: General: The patient NOTES fatigue, denies weight loss, denies weight gain, denies feeling hot, and denies feelings of cold. Eyes: The patient denies glaucoma, NOTES eye injury/surgery, wears glasses or contacts. Ear/Nose/Throat: The patient denies allergies, NOTES hayfever, denies ear infections, and denies bloody noses. Cardiovascular: The patient denies chest pain, denies heart disease, NOTES high blood pressure,denies cardiac stent, denies prior heart attack, denies irregular heart beat, denies high cholesterol, denies poor circulation, denies heart failure, other cardiac issues, NOTES claudication, denies cold feet, denies peripheral arterial stent. Respiratory: The patient denies tuberculosis, denies pneumonia, denies frequent cough, denies pulmonary embolism, denies shortness of breath, and denies coughing up blood. Gastrointestinal: The patient denies difficulty swallowing, denies acid reflux, denies ulcers, denies vomiting, denies jaundice/hepatitis, NOTES gallbladder problems, denies black or tarry stools, denies hemorrhoids, denies bleeding from rectum, denies diverticulitis, denies constipation, denies diarrhea, denies loss of stool control, and denies hernias. Kidney/Bladder: The patient denies kidney stones, NOTES urine infections, and denies bloody urine. Skin: The patient denies a history of skin cancer, denies bleeding/changing moles, and denies a history of skin rash. Neurologic: The patient denies a history of epilepsy/convulsions, denies headaches, denies head/spinal injuries, and denies stroke/TIA. Psychiatric: The patient denies psychiatric medications, denies depression, and denies voices, denies substance abuse. Endocrine: The patient denies thyroid disorders, denies diabetes, and denies hormonal problems. Hematologic: The patient denies a history of bruising, denies bleeding, and NOTES anemia, denies blood clots. Infections: The patient NOTES a history of measles and mumps, denies rheumatic fever, and denies sexually transmitted diseases. Musculoskeletal: The patient denies back pain/injury, denies back problems, NOTES sciatica, denies knee/foot trouble, denies arthritis, or denies gout. When was patient's last Mammogram screening? 2020 Last Colonoscopy: 2016 Kita Ross RN I have confirmed and edited as necessary, the PFSH and ROS obtained by others. Sri Redding PA-C PHYSICAL EXAMINATION: General: The patient is 71 year old female, well nourished, well hydrated in no acute distress. The patient is oriented to time, place, and person. VITALS: Blood pressure 138/92, pulse (!) 144, temperature 36.2 C (97.1 F), height 154.9 cm (5' 1), weight 59 kg (130 lb), SpO2 95 %. There is no height or weight on file to calculate BMI. HEENT: Normal cephalic, ataumatic, pupils are equally round, sclera are anicteric, mucous membranes are moist, oropharynx is clear. Neck has no masses, asymmetry or lymphadenopathy. Respiratory: Clear to auscultation and percussion. Normal respiratory excursion and pattern. Cardiac: Examination is regular rate and rhythm. Normal S1/S2 Abdominal exam: Soft, nontender, with no palpable masses. No hepatosplenomegaly. No palpable hernias. Extremities: no clubbing, cyanosis or edema. No adenopathy. LABORATORY VALUES: As Noted RADIOLOGIC STUDIES: As Noted Assessment IMPRESSION: encounter for high-risk screening colonoscopy due to family history of colon cancer PLAN: I have reviewed my findings with the surgeon. Will plan for lower endoscopy. We discussed the risks and benefits of the planned endoscopy. I have informed the patient that complications can occur including failure to complete the endoscopy and perforation. The patient had the opportunity to ask questions concerning the planned endoscopy. My staff has also explained the procedure to the patient in understandable terms and has given the patient printed material concerning the procedure. The patient freely consents to surgery. The patient was offered a surgery/procedure at a [facility] facility. I have counseled the patient regarding the risk of exposure to and/or potential harm posed by the COVID-19 virus with having a surgery/procedure at this time versus the risk of delaying the surgery/procedure. It is not possible to know either the risk of delaying the surgery or procedure or chance of getting an infection with perfect accuracy, but a joint decision was made between the patient and myself to proceed at this time with endoscopy. I plan to use Golytely bowel preparation I have explained to the patient the difference between IV conscious sedation and MAC anesthesia - and I have offered either, according to the patient's wishes. I have explained that with IV conscious sedation there is no anesthesia provider available and therefore there is a limitation of the amount of IV medications that can be given and that the patient may wake up in the middle of the procedure and/or experience pain/discomfort during the procedure. Further discussion was done and the patient was given the opportunity to ask questions and all questions were answered. The patient chooses IV conscious sedation Diagnoses: (Z12.11) Encounter for screening for malignant neoplasm of colon (primary encounter diagnosis) (Z80.0) Family history of colon cancer Consultation requested by Dr. Erazo for an opinion regarding screening colonoscopy. My final recommendations will be communicated back to the requesting physician by way of shared Medical record or letter to requesting physician via US mail. Sri Redding PA-C Images from the original note were not included. HISTORY AND PHYSICAL Tanya Dalallivan 1950 REFERRING PHYSICIAN: Iveth Erazo MD CHIEF COMPLAINT: Consult (Colonoscopy/) HPI: The patient is a 71 year old female referred for endoscopy. Tanya notes no colon complaints. Patient denies any change in bowel habits, weight changes, blood in stools, black tarry stools or abdominal pain. NOTES family history of colon cancer in multiple first-degree relatives. The patient notes no upper GI complaints. Tanya has undergone prior endoscopy. Most recent colonoscopy 05/23/[address] Simon under conscious sedation, no concerning findings at that time. Patient's past medical history of significant for back pain, fatigue, hypertension, insomnia. Notes just had BP meds changed yesterday and not liking how this new one is making her feel-elevated heart rate in office today. She plans to go directly over to PCP office following this visit to discuss changing her meds back. Denies chest pain or shortness of breath. Patient takes trazodone for sleep. States at time of last colonoscopy was taking Ambien for sleep. Denies any recall or discomfort with prior procedure under conscious sedation. PAST MEDICAL HISTORY PAST MEDICAL HISTORY Diagnosis Date Chronic back pain Chronic fatigue syndrome Hypertension Insomnia Myalgia and myositis, unspecified Raynaud's syndrome Restless leg syndrome Vitamin B 12 deficiency PAST SURGICAL HISTORY PAST SURGICAL HISTORY Procedure Laterality Date CHOLECYSTECTOMY Cholecystectomy COLONOSCOPY FLX DX W/COLLJ SPEC WHEN PFRMD 01/24/13 Colonoscopy COLONOSCOPY FLX DX W/COLLJ SPEC WHEN PFRMD 05/23/2016 normal colon - 5 year follow up TONSILLECTOMY PRIMARY/SECONDARY <AGE 14 1976 Tonsillectomy XCAPSL CTRC RMVL INSJ IO LENS PROSTH W/O ECP Cataract Removal BOTH EYES CURRENT MEDICATIONS Current Outpatient Medications Medication Sig fluticasone (FLONASE) 50 mcg/actuation nasal spray 2 Sprays once daily. traZODone (DESYREL) 50 mg tablet Take 50 mg by mouth daily at bedtime. gabapentin (NEURONTIN) 100 mg capsule Take 100 mg by mouth three times daily. cyanocobalamin (VITAMIN B-12) 500 mcg tablet Take by mouth once daily. amLODIPine (NORVASC) 5 mg tablet Take 5 mg by mouth once daily. sulfamethoxazole-trimethoprim (BACTRIM DS,SEPTRA DS) 800-160 mg per tablet Take 1 tablet by mouth twice daily. rOPINIRole (REQUIP) 0.25 mg tablet take 1/2 tablet by mouth with dinner and 3 and 1/2 tablets at bedtime CALCIUM CARB/MAGNESIUM CMB #10 (FREEMAN-MAG ORAL) Take 2,000 mg by mouth twice daily. cyclobenzaprine 5 mg ORAL tablet Take 5 mg by mouth three times daily as needed. multivitamin ORAL Tab Take one(1) tablet daily. TYLENOL 325 MG TAB takes 650 mg bid zolpidem tartrate(AMBIEN CR 12.5 MG TAB) 1/2 at bedtime as needed for sleep (Patient not taking: No sig reported) TOPROL XL 25 MG 24 HR TAB twice daily (Patient not taking: Reported on 04/04/2022) No current facility-administered medications for this visit. ALLERGIES: Effexor [Venlafaxine], Lodine [Etodolac], Ritalin [Methylphenidate], Steroids [Betamethasone Dipropionate], and Voltaren [Diclofenac] PERSONAL HISTORY: SOCIAL HISTORY Social History Tobacco Use Smoking status: Never Smokeless tobacco: Never Vaping Use Vaping Use: Never used Substance Use Topics Alcohol use: No Drug use: No FAMILY HISTORY: FAMILY HISTORY FAMILY HISTORY Problem Relation Age of Onset Diabetes Mother Hypertension Mother Thyroid Mother Stroke Mother Cancer Father prostate, rectum and colon passed from this Cancer Sister colon REVIEW OF SYMPTOMS: The review of systems data was entered by the nurse and reviewed by mi Nursing Notes: Kita Ross RN 04/04/2022 9:27 AM Signed REVIEW OF SYSTEMS: General: The patient NOTES fatigue, denies weight loss, denies weight gain, denies feeling hot, and denies feelings of cold. Eyes: The patient denies glaucoma, NOTES eye injury/surgery, wears glasses or contacts. Ear/Nose/Throat: The patient denies allergies, NOTES hayfever, denies ear infections, and denies bloody noses. Cardiovascular: The patient denies chest pain, denies heart disease, NOTES high blood pressure,denies cardiac stent, denies prior heart attack, denies irregular heart beat, denies high cholesterol, denies poor circulation, denies heart failure, other cardiac issues, NOTES claudication, denies cold feet, denies peripheral arterial stent. Respiratory: The patient denies tuberculosis, denies pneumonia, denies frequent cough, denies pulmonary embolism, denies shortness of breath, and denies coughing up blood. Gastrointestinal: The patient denies difficulty swallowing, denies acid reflux, denies ulcers, denies vomiting, denies jaundice/hepatitis, NOTES gallbladder problems, denies black or tarry stools, denies hemorrhoids, denies bleeding from rectum, denies diverticulitis, denies constipation, denies diarrhea, denies loss of stool control, and denies hernias. Kidney/Bladder: The patient denies kidney stones, NOTES urine infections, and denies bloody urine. Skin: The patient denies a history of skin cancer, denies bleeding/changing moles, and denies a history of skin rash. Neurologic: The patient denies a history of epilepsy/convulsions, denies headaches, denies head/spinal injuries, and denies stroke/TIA. Psychiatric: The patient denies psychiatric medications, denies depression, and denies voices, denies substance abuse. Endocrine: The patient denies thyroid disorders, denies diabetes, and denies hormonal problems. Hematologic: The patient denies a history of bruising, denies bleeding, and NOTES anemia, denies blood clots. Infections: The patient NOTES a history of measles and mumps, denies rheumatic fever, and denies sexually transmitted diseases. Musculoskeletal: The patient denies back pain/injury, denies back problems, NOTES sciatica, denies knee/foot trouble, denies arthritis, or denies gout. When was patient's last Mammogram screening? 2020 Last Colonoscopy: 2016 Kita Ross RN I have confirmed and edited as necessary, the PFSH and ROS obtained by others. Sri Redding PA-C PHYSICAL EXAMINATION: General: The patient is 71 year old female, well nourished, well hydrated in no acute distress. The patient is oriented to time, place, and person. VITALS: Blood pressure 138/92, pulse (!) 144, temperature 36.2 C (97.1 F), height 154.9 cm (5' 1), weight 59 kg (130 lb), SpO2 95 %. There is no height or weight on file to calculate BMI. HEENT: Normal cephalic, ataumatic, pupils are equally round, sclera are anicteric, mucous membranes are moist, oropharynx is clear. Neck has no masses, asymmetry or lymphadenopathy. Respiratory: Clear to auscultation and percussion. Normal respiratory excursion and pattern. Cardiac: Examination is regular rate and rhythm. Normal S1/S2 Abdominal exam: Soft, nontender, with no palpable masses. No hepatosplenomegaly. No palpable hernias. Extremities: no clubbing, cyanosis or edema. No adenopathy. LABORATORY VALUES: As Noted RADIOLOGIC STUDIES: As Noted Assessment IMPRESSION: encounter for high-risk screening colonoscopy due to family history of colon cancer PLAN: I have reviewed my findings with the surgeon. Will plan for lower endoscopy. We discussed the risks and benefits of the planned endoscopy. I have informed the patient that complications can occur including failure to complete the endoscopy and perforation. The patient had the opportunity to ask questions concerning the planned endoscopy. My staff has also explained the procedure to the patient in understandable terms and has given the patient printed material concerning the procedure. The patient freely consents to surgery. The patient was offered a surgery/procedure at a [facility] facility. I have counseled the patient regarding the risk of exposure to and/or potential harm posed by the COVID-19 virus with having a surgery/procedure at this time versus the risk of delaying the surgery/procedure. It is not possible to know either the risk of delaying the surgery or procedure or chance of getting an infection with perfect accuracy, but a joint decision was made between the patient and myself to proceed at this time with endoscopy. I plan to use Golytely bowel preparation I have explained to the patient the difference between IV conscious sedation and MAC anesthesia - and I have offered either, according to the patient's wishes. I have explained that with IV conscious sedation there is no anesthesia provider available and therefore there is a limitation of the amount of IV medications that can be given and that the patient may wake up in the middle of the procedure and/or experience pain/discomfort during the procedure. Further discussion was done and the patient was given the opportunity to ask questions and all questions were answered. The patient chooses IV conscious sedation Diagnoses: (Z12.11) Encounter for screening for malignant neoplasm of colon (primary encounter diagnosis) (Z80.0) Family history of colon cancer Consultation requested by Dr. Erazo for an opinion regarding screening colonoscopy. My final recommendations will be communicated back to the requesting physician by way of shared Medical record or letter to requesting physician via [place] mail. Sri Redding PA-C documented in this encounter [facility] 04-04-2022 Note HNO ID: [id number] Author: Sri Redding PA-C Service: ? Author Type: Physician Patent Paralegal Type: Progress Notes Filed: 04/04/2022 9:49 AM Note Text: HISTORY AND PHYSICAL Tanya Villa 1950 REFERRING PHYSICIAN: Iveth Erazo MD CHIEF COMPLAINT: Consult (Colonoscopy/) HPI: The patient is a 71 year old female referred for endoscopy. Tanya notes no colon complaints. Patient denies any change in bowel habits, weight changes, blood in stools, black tarry stools or abdominal pain. NOTES family history of colon cancer in multiple first-degree relatives. The patient notes no upper GI complaints. Tanya has undergone prior endoscopy. Most recent colonoscopy 05/23/[address] Simon under conscious sedation, no concerning findings at that time. Patient's past medical history of significant for back pain, fatigue, hypertension, insomnia. Notes just had BP meds changed yesterday and not liking how this new one is making her feel-elevated heart rate in office today. She plans to go directly over to PCP office following this visit to discuss changing her meds back. Denies chest pain or shortness of breath. Patient takes trazodone for sleep. States at time of last colonoscopy was taking Ambien for sleep. Denies any recall or discomfort with prior procedure under conscious sedation. PAST MEDICAL HISTORY Diagnosis Date Chronic back pain Chronic fatigue syndrome Hypertension Insomnia Myalgia and myositis, unspecified Raynaud's syndrome Restless leg syndrome Vitamin B 12 deficiency PAST SURGICAL HISTORY Procedure Laterality Date CHOLECYSTECTOMY Cholecystectomy COLONOSCOPY FLX DX W/COLLJ SPEC WHEN PFRMD 01/24/13 Colonoscopy COLONOSCOPY FLX DX W/COLLJ SPEC WHEN PFRMD 05/23/2016 normal colon - 5 year follow up TONSILLECTOMY PRIMARY/SECONDARY Tonsillectomy XCAPSL CTRC RMVL INSJ IO LENS PROSTH W/O ECP Cataract Removal BOTH EYES Current Outpatient Medications Medication Sig fluticasone (FLONASE) 50 mcg/actuation nasal spray 2 Sprays once daily. traZODone (DESYREL) 50 mg tablet Take 50 mg by mouth daily at bedtime. gabapentin (NEURONTIN) 100 mg capsule Take 100 mg by mouth three times daily. cyanocobalamin (VITAMIN B-12) 500 mcg tablet Take by mouth once daily. amLODIPine (NORVASC) 5 mg tablet Take 5 mg by mouth once daily. sulfamethoxazole-trimethoprim (BACTRIM DS,SEPTRA DS) 800-160 mg per tablet Take 1 tablet by mouth twice daily. rOPINIRole (REQUIP) 0.25 mg tablet take 1/2 tablet by mouth with dinner and 3 and 1/2 tablets at bedtime CALCIUM CARB/MAGNESIUM CMB #10 (FREEMAN-MAG ORAL) Take 2,000 mg by mouth twice daily. cyclobenzaprine 5 mg ORAL tablet Take 5 mg by mouth three times daily as needed. multivitamin ORAL Tab Take one(1) tablet daily. TYLENOL 325 MG TAB takes 650 mg bid zolpidem tartrate(AMBIEN CR 12.5 MG TAB) 1/2 at bedtime as needed for sleep (Patient not taking: No sig reported) TOPROL XL 25 MG 24 HR TAB twice daily (Patient not taking: Reported on 04/04/2022) No current facility-administered medications for this visit. ALLERGIES: Effexor [Venlafaxine], Lodine [Etodolac], Ritalin [Methylphenidate], Steroids [Betamethasone Dipropionate], and Voltaren [Diclofenac] PERSONAL HISTORY: Social History Tobacco Use Smoking status: Never Smokeless tobacco: Never Vaping Use Vaping Use: Never used Substance Use Topics Alcohol use: No Drug use: No FAMILY HISTORY: FAMILY HISTORY Problem Relation Age of Onset Diabetes Mother Hypertension Mother Thyroid Mother Stroke Mother Cancer Father prostate, rectum and colon passed from this Cancer Sister colon REVIEW OF SYMPTOMS: The review of systems data was entered by the nurse and reviewed by mi Nursing Notes: Kita Ross RN 04/04/2022 9:27 AM Signed REVIEW OF SYSTEMS: General: The patient NOTES fatigue, denies weight loss, denies weight gain, denies feeling hot, and denies feelings of cold. Eyes: The patient denies glaucoma, NOTES eye injury/surgery, wears glasses or contacts. Ear/Nose/Throat: The patient denies allergies, NOTES hayfever, denies ear infections, and denies bloody noses. Cardiovascular: The patient denies chest pain, denies heart disease, NOTES high blood pressure,denies cardiac stent, denies prior heart attack, denies irregular heart beat, denies high cholesterol, denies poor circulation, denies heart failure, other cardiac issues, NOTES claudication, denies cold feet, denies peripheral arterial stent. Respiratory: The patient denies tuberculosis, denies pneumonia, denies frequent cough, denies pulmonary embolism, denies shortness of breath, and denies coughing up blood. Gastrointestinal: The patient denies difficulty swallowing, denies acid reflux, denies ulcers, denies vomiting, denies jaundice/hepatitis, NOTES gallbladder problems, denies black or tarry stools, denies hemorrhoids, denies bleeding from rectum, rasheeda (more content not included)... [facility] 04-04-2022 History of Presen t illness Narrative HISTORY AND PHYSICAL Tanya Villa 1950 REFERRING PHYSICIAN: Iveth Erazo MD CHIEF COMPLAINT: Consult (Colonoscopy/) HPI: The patient is a 71 year old female referred for endoscopy. Tanya notes no colon complaints. Patient denies any change in bowel habits, weight changes, blood in stools, black tarry stools or abdominal pain. NOTES family history of colon cancer in multiple first-degree relatives. The patient notes no upper GI complaints. Tanya has undergone prior endoscopy. Most recent colonoscopy 05/23/[address] Simon under conscious sedation, no concerning findings at that time. Patient's past medical history of significant for back pain, fatigue, hypertension, insomnia. Notes just had BP meds changed yesterday and not liking how this new one is making her feel-elevated heart rate in office today. She plans to go directly over to PCP office following this visit to discuss changing her meds back. Denies chest pain or shortness of breath. Patient takes trazodone for sleep. States at time of last colonoscopy was taking Ambien for sleep. Denies any recall or discomfort with prior procedure under conscious sedation. PAST MEDICAL HISTORY Diagnosis Date Chronic back pain Chronic fatigue syndrome Hypertension Insomnia Myalgia and myositis, unspecified Raynaud's syndrome Restless leg syndrome Vitamin B 12 deficiency PAST SURGICAL HISTORY Procedure Laterality Date CHOLECYSTECTOMY Cholecystectomy COLONOSCOPY FLX DX W/COLLJ SPEC WHEN PFRMD 01/24/13 Colonoscopy COLONOSCOPY FLX DX W/COLLJ SPEC WHEN PFRMD 05/23/2016 normal colon - 5 year follow up TONSILLECTOMY PRIMARY/SECONDARY <AGE 14 1976 Tonsillectomy XCAPSL CTRC RMVL INSJ IO LENS PROSTH W/O ECP Cataract Removal BOTH EYES Current Outpatient Medications Medication Sig fluticasone (FLONASE) 50 mcg/actuation nasal spray 2 Sprays once daily. traZODone (DESYREL) 50 mg tablet Take 50 mg by mouth daily at bedtime. gabapentin (NEURONTIN) 100 mg capsule Take 100 mg by mouth three times daily. cyanocobalamin (VITAMIN B-12) 500 mcg tablet Take by mouth once daily. amLODIPine (NORVASC) 5 mg tablet Take 5 mg by mouth once daily. sulfamethoxazole-trimethoprim (BACTRIM DS,SEPTRA DS) 800-160 mg per tablet Take 1 tablet by mouth twice daily. rOPINIRole (REQUIP) 0.25 mg tablet take 1/2 tablet by mouth with dinner and 3 and 1/2 tablets at bedtime CALCIUM CARB/MAGNESIUM CMB #10 (FREEMAN-MAG ORAL) Take 2,000 mg by mouth twice daily. cyclobenzaprine 5 mg ORAL tablet Take 5 mg by mouth three times daily as needed. multivitamin ORAL Tab Take one(1) tablet daily. TYLENOL 325 MG TAB takes 650 mg bid zolpidem tartrate(AMBIEN CR 12.5 MG TAB) 1/2 at bedtime as needed for sleep (Patient not taking: No sig reported) TOPROL XL 25 MG 24 HR TAB twice daily (Patient not taking: Reported on 04/04/2022) No current facility-administered medications for this visit. ALLERGIES: Effexor [Venlafaxine], Lodine [Etodolac], Ritalin [Methylphenidate], Steroids [Betamethasone Dipropionate], and Voltaren [Diclofenac] PERSONAL HISTORY: Social History Tobacco Use Smoking status: Never Smokeless tobacco: Never Vaping Use Vaping Use: Never used Substance Use Topics Alcohol use: No Drug use: No FAMILY HISTORY: FAMILY HISTORY Problem Relation Age of Onset Diabetes Mother Hypertension Mother Thyroid Mother Stroke Mother Cancer Father prostate, rectum and colon passed from this Cancer Sister colon REVIEW OF SYMPTOMS: The review of systems data was entered by the nurse and reviewed by mi Nursing Notes: Kita Ross RN 04/04/2022 9:27 AM Signed REVIEW OF SYSTEMS: General: The patient NOTES fatigue, denies weight loss, denies weight gain, denies feeling hot, and denies feelings of cold. Eyes: The patient denies glaucoma, NOTES eye injury/surgery, wears glasses or contacts. Ear/Nose/Throat: The patient denies allergies, NOTES hayfever, denies ear infections, and denies bloody noses. Cardiovascular: The patient denies chest pain, denies heart disease, NOTES high blood pressure,denies cardiac stent, denies prior heart attack, denies irregular heart beat, denies high cholesterol, denies poor circulation, denies heart failure, other cardiac issues, NOTES claudication, denies cold feet, denies peripheral arterial stent. Respiratory: The patient denies tuberculosis, denies pneumonia, denies frequent cough, denies pulmonary embolism, denies shortness of breath, and denies coughing up blood. Gastrointestinal: The patient denies difficulty swallowing, denies acid reflux, denies ulcers, denies vomiting, denies jaundice/hepatitis, NOTES gallbladder problems, denies black or tarry stools, denies hemorrhoids, denies bleeding from rectum, denies diverticulitis, denies constipation, denies diarrhea, denies loss of stool control, and denies hernias. Kidney/Bladder: The patient denies kidney stones, NOTES urine infections, and denies bloody urine. Skin: The patient denies a history of skin cancer, denies bleeding/changing moles, and denies a history of skin rash. Neurologic: The patient denies a history of epilepsy/convulsions, denies headaches, denies head/spinal injuries, and denies stroke/TIA. Psychiatric: The patient denies psychiatric medications, denies depression, and denies voices, denies substance abuse. Endocrine: The patient denies thyroid disorders, denies diabetes, and denies hormonal problems. Hematologic: The patient denies a history of bruising, denies bleeding, and NOTES anemia, denies blood clots. Infections: The patient NOTES a history of measles and mumps, denies rheumatic fever, and denies sexually transmitted diseases. Musculoskeletal: The patient denies back pain/injury, denies back problems, NOTES sciatica, denies knee/foot trouble, denies arthritis, or denies gout. When was patient's last Mammogram screening? 2020 Last Colonoscopy: 2016 Kita Ross RN I have confirmed and edited as necessary, the PFSH and ROS obtained by others. Sri Redding PA-C PHYSICAL EXAMINATION: General: The patient is 71 year old female, well nourished, well hydrated in no acute distress. The patient is oriented to time, place, and person. VITALS: Blood pressure 138/92, pulse (!) 144, temperature 36.2 C (97.1 F), height 154.9 cm (5' 1), weight 59 kg (130 lb), SpO2 95 %. There is no height or weight on file to calculate BMI. HEENT: Normal cephalic, ataumatic, pupils are equally round, sclera are anicteric, mucous membranes are moist, oropharynx is clear. Neck has no masses, asymmetry or lymphadenopathy. Respiratory: Clear to auscultation and percussion. Normal respiratory excursion and pattern. Cardiac: Examination is regular rate and rhythm. Normal S1/S2 Abdominal exam: Soft, nontender, with no palpable masses. No hepatosplenomegaly. No palpable hernias. Extremities: no clubbing, cyanosis or edema. No adenopathy. LABORATORY VALUES: As Noted RADIOLOGIC STUDIES: As Noted Assessment IMPRESSION: encounter for high-risk screening colonoscopy due to family history of colon cancer PLAN: I have reviewed my findings with the surgeon. Will plan for lower endoscopy. We discussed the risks and benefits of the planned endoscopy. I have informed the patient that complications can occur including failure to complete the endoscopy and perforation. The patient had the opportunity to ask questions concerning the planned endoscopy. My staff has also explained the procedure to the patient in understandable terms and has given the patient printed material concerning the procedure. The patient freely consents to surgery. The patient was offered a surgery/procedure at a [facility] facility. I have counseled the patient regarding the risk of exposure to and/or potential harm posed by the COVID-19 virus with having a surgery/procedure at this time versus the risk of delaying the surgery/procedure. It is not possible to know either the risk of delaying the surgery or procedure or chance of getting an infection with perfect accuracy, but a joint decision was made between the patient and myself to proceed at this time with endoscopy. I plan to use Golytely bowel preparation I have explained to the patient the difference between IV conscious sedation and MAC anesthesia - and I have offered either, according to the patient's wishes. I have explained that with IV conscious sedation there is no anesthesia provider available and therefore there is a limitation of the amount of IV medications that can be given and that the patient may wake up in the middle of the procedure and/or experience pain/discomfort during the procedure. Further discussion was done and the patient was given the opportunity to ask questions and all questions were answered. The patient chooses IV conscious sedation Diagnoses: (Z12.11) Encounter for screening for malignant neoplasm of colon (primary encounter diagnosis) (Z80.0) Family history of colon cancer Consultation requested by Dr. Erazo for an opinion regarding screening colonoscopy. My final recommendations will be communicated back to the requesting physician by way of shared Medical record or letter to requesting physician via US mail. Sri Redding PA-C documented in this encounter [facility] 04-04-2022 Nurse Note REVIEW OF SYSTEMS: General: The patient NOTES fatigue, denies weight loss, denies weight gain, denies feeling hot, and denies feelings of cold. Eyes: The patient denies glaucoma, NOTES eye injury/surgery, wears glasses or contacts. Ear/Nose/Throat: The patient denies allergies, NOTES hayfever, denies ear infections, and denies bloody noses. Cardiovascular: The patient denies chest pain, denies heart disease, NOTES high blood pressure,denies cardiac stent, denies prior heart attack, denies irregular heart beat, denies high cholesterol, denies poor circulation, denies heart failure, other cardiac issues, NOTES claudication, denies cold feet, denies peripheral arterial stent. Respiratory: The patient denies tuberculosis, denies pneumonia, denies frequent cough, denies pulmonary embolism, denies shortness of breath, and denies coughing up blood. Gastrointestinal: The patient denies difficulty swallowing, denies acid reflux, denies ulcers, denies vomiting, denies jaundice/hepatitis, NOTES gallbladder problems, denies black or tarry stools, denies hemorrhoids, denies bleeding from rectum, denies diverticulitis, denies constipation, denies diarrhea, denies loss of stool control, and denies hernias. Kidney/Bladder: The patient denies kidney stones, NOTES urine infections, and denies bloody urine. Skin: The patient denies a history of skin cancer, denies bleeding/changing moles, and denies a history of skin rash. Neurologic: The patient denies a history of epilepsy/convulsions, denies headaches, denies head/spinal injuries, and denies stroke/TIA. Psychiatric: The patient denies psychiatric medications, denies depression, and denies voices, denies substance abuse. Endocrine: The patient denies thyroid disorders, denies diabetes, and denies hormonal problems. Hematologic: The patient denies a history of bruising, denies bleeding, and NOTES anemia, denies blood clots. Infections: The patient NOTES a history of measles and mumps, denies rheumatic fever, and denies sexually transmitted diseases. Musculoskeletal: The patient denies back pain/injury, denies back problems, NOTES sciatica, denies knee/foot trouble, denies arthritis, or denies gout. When was patient's last Mammogram screening? 2020 Last Colonoscopy: 2016 Kita Ross RN documented in this encounter [facility] Evaluation + Plan note No data available for this section [facility] Evaluation note No assessment inform ation available [facility] Work Phone: Evaluation note Diagnosis Encounter for screening for malignant neoplasm of colon- Primary Special screening for malignant neoplasms, colon Family history of colon cancer Family history of malignant neoplasm of gastrointestinal tract [facility] Family history of colon cancer requiring screening colonoscopy- Primary Family history of malignant neoplasm of gastrointestinal tract Family history of colon cancer Family history of malignant neoplasm of gastrointestinal tract Special screening for malignant neoplasms, colon [facility] Outpatient Procedure (Routine) - Closed Specialty Diagnoses / Procedures Referred By James jeff Referred To Contact [facility] Diagnoses Family history of colon cancer Special screening for malignant neoplasms, colon Procedures COLONOSCOPY SCREENING COLONOSCOPY FLX DX W/COLLJ SPEC WHEN Sri Bryant PA-C [address] [place] [address] [facility] [place] [address] [place] [id number] Referral ID Status Reason Start Date Expiration Date V isits Requested Visits Authorized [id number] Closed Auto-Generate d Referral 04/04/2022 04/04/[address] [facility]No reason for [facility] Reason for visit Narrative* Outpatient Procedure (Routine) - Closed Specialty Diagnoses / Procedures Referred By James jeff Referred To Contact [facility] Diagnoses Family history of colon cancer Special screening for malignant neoplasms, colon Procedures COLONOSCOPY SCREENING COLONOSCOPY FLX DX W/COLLJ SPEC WHEN Sri Bryant PA-C [address] [place] [address] [facility] [address] [place] [address] Referral ID Status Reason Start Date Expiration Date V isits Requested Visits Authorized [id number] Closed Auto-Generate d Referral 04/04/2022 04/04/[address] [facility] Chief Complaint and Reason for Visit Chief Complaint LIVER LESION SEEN ON MRI HEPATOMEGALY Chief Complaint SCREENING/POST PERFECTO Chief Complaint SCREENING/POST PERFECTO EORDER Chief Complaint Admit Date XRAY August 28, 2024 2:57 pm Chief Complaint Admit Date XRAY August 28, 2024 2:57 pm EORDER October 31, 2024 10 :33am Summary Purpose Family History No Family History Records Found No data available for this section No data available for this section No data available for this section No Family History Records Found No data available for this section No data available for this section No data available for this section No Family History Records FoundNo Family History Records Found Advance Directives No Advanced Directives Records FoundNo Advanced Directives Records FoundNo Advanced Directives Records FoundNo Advanced Directives Records Found Medications Administered Section Inactive Administered Medications - up to 3 most recent administrations Medication Order MAR Action Action Date Dose Rate Site fentaNYL 50 mcg/mL 25-100 mcg injection (SUBLIMAZE) 25-100 mcg, INTRAVENOUS, DIRECTED, Starting on Sun05/02/22 at 1100, Until Sun05/02/22 at 1459, DOSING DIRECTED BY PHYSICIAN FOR PROCEDURAL SEDATION ONLY, Intraprocedure Given by L[facility] 05/02/2022 11:01 AM EST 25 mcg Given by [facility] 05/02/2022 10:59 AM EST 50 mcg lactated ringers iv infusion 30 mL/hr, INTRAVENOUS, CONTINUOUS, Starting on Sun05/02/22 at 1000, Until Sun05/02/22 at 1132, Preprocedure New Bag/Syringe/Bottle 05/02/2022 9:35 AM EST 30 mL/hr 30 mL/hr midazolam 1-5 mg injection (VERSED) 1-5 mg, INTRAVENOUS, DIRECTED, Starting on Sun05/02/22 at 1100, Until Sun05/02/22 at 1459, DOSING DIRECTED BY PHYSICIAN FOR PROCEDURAL SEDATION ONLY, Intraprocedure Given by LIP 05/02/2022 11:01 AM EST 1 mg Given by LIP 05/02/2022 10:59 AM EST 3 mg Additional Source Comments Goals (unrecognized section and content) Goals may be documented in a n alternate sectionGoals may be documented in an alternate sectionGoals may be documented in an alternate sectionGoals may be documented in an alternate section No data available for this section No data available for this sectionGoals may be documented in an alternate section No data available for this section No data available for this section No data available for this section No data available for this sectionGoals may be documented in an alternate sectionGoals may be documented in an alternate sectionGoals may be documented in an alternate section Care Teams (unrecognized sec tion and content) Team Status: Active Member Role Status Dates Dr. Cullen Veloz MD Family Provider Active Dr. Cullen Reina MD Primary Care Provider Active Team Status: Inactive Member Role Status Dates Dr. Cullen Reina MD Primary Care Pr ovider, Attending Provider, Referring Provider Active Style Advisor Relationship Specialty Start Date End Date Cullen Reina [address] [facility] [address] [place] [address] PCP - General Family Medicine 03/24/22 Style Advisor Relationship Specialty Start Date End Date Cullen Reina [address] [facility] [address] [place] [address] PCP - General Family Medicine 03/24/22 Style Advisor Relationship Specialty Start Date End Date Cullen Reina MD [address] [facility] [address] [place] [address] PCP - General Family Medicine 03/24/22 Team Status: Inactive Member Role Status Dates Dr. Cullen Reina MD Primary Care Provider Active Start: August 28, 2024 End: August 28, 2024 Dr. Israel Ruvalcaba MD Attending Provider Active S tart: August 28, 2024 End: August 28, 2024 Team Status: Active Member Role/Relationship Status Dates Dr. Cullen Veloz MD Primary care physician Active Dr. Cullen Reina MD Primary care physician Active Team Status: Inactive Member Role/Relationship Status Dates Dr. Cullen Reina MD Primary care physician Active Start: August 28, 2024 End: August 28, 2024 Dr. Israel Ruvalcaba MD Attending physician Active Start: August 28, 2024 End: August 28, 2024 Team Status: Inactive Member Role/Relationship Status Dates Dr. Cullen Reina MD Primary care physician Active Start: October 31, 2024 End: October 31, 2024 Dr. Cullen Reina MD Attending physician Active Start: October 31, 2024 End: October 31, 2024 Dr. Cullen Reina MD Referring Provider Active Start: October 31, 2024 End: October 31, 2024 Team Status: Inactive Member Role/Relationship Status Dates Dr. Cullen Reina MD Primary care physician Active Start: November 06, 2024 End: November 06, 2024 Timothy Clifton CANT HOOKER, CANT HOOKER-C Attending physician Active Start: November 06, 2024 End: November 06, 2024 Timothy Clifton CANT HOOKER, CANT HOOKER-C Referring Provider Active Start: November 06, 2024 End: November 06, 2024 Source Comments (unrecognize d section and content) In the event this informatio n is protected by the Federal Confidentiality of Alcohol and Drug Abuse Patient Records regulations: The Federal rules restrict any use of the information to criminally investigate or prosecute any alcohol or drug abuse patient.[facility] the event this information is protected by the Federal Confidentiality of Alcohol and Drug Abuse Patient Records regulations: The Federal rules restrict any use of the information to criminally investigate or prosecute any alcohol or drug abuse patient.[facility] the event this information is protected by the Federal Confidentiality of Alcohol and Drug Abuse Patient Records regulations: The Federal rules restrict any use of the information to criminally investigate or prosecute any alcohol or drug abuse patient.[facility] Reason for Visit (unrecogniz ed section and content) Reason Comments Consult Colonoscopy Reason Comments Results colonoscopy INFORMATION SOURCE (unrecogn ized section and content) DATE CREATED AUTHOR 05/16/2022 [facility] DATE CREATED AUTHOR AUTHOR'S ORGANIZ ATION 05/02/2023 [facility] DATE CREATED AUTHOR AUTHOR'S ORGANIZ ATION 08/29/2024 [facility] DATE CREATED AUTHOR AUTHOR'S ORGANIZ ATION 11/22/2024 [facility] FOR RECORDS PERTAINING TO PATIENTS WHO ARE OR HAVE BEEN ENROLLED IN A CHEMICAL DEPENDENCY/SUBSTANCEABUSE PROGRAM, SOME INFORMATION MAY BE OMITTED. This clinical summary was aggregated from multiple sources. Caution should be exercised in using it in the provision of clinical care. This summary normalizes information from multiple sources, and as a consequence, information in this document may materially change the coding, format and clinical context of patient data. In addition, data may be omitted in some cases. CLINICAL DECISIONS SHOULD BE BASED ON THE PRIMARY CLINICAL RECORDS. [facility]. provides no warranty or guarantee of the accuracy or completeness of information in this document.
== END | disposition home or self-care (01) ==
LOC: MTRAD 15:05
PROVIDERS: PCP Family Medicine
DX: S69.91XA Unspecified injury of right wrist, hand and finger(s), initial encounter (principal); X58.XXXA Exposure to other specified factors, initial encounter; M25.561 Pain in right knee
CPT/HCPCS: 73130; 73564

== ENCOUNTER → 2025-01-19 | Outpatient (CLI) | payer MEDICARE, SELFPAY ==
--- NOTE | 2025-01-19 12:15 | BI_ITS ---
EXAM: SCRN MAMM (CAD)W/ANNITA BILAT DATE: 01/19/2025 CLINICAL HISTORY: F, Age 74 y/o , SCREEN TECHNIQUE: Procedure Code: [id number] Modality: MG Procedure: SCRN MAMM (CAD)W/ANNITA BILAT COMPARISON: Prior exam(s) were compared FINDINGS: TISSUE DENSITY: The breasts are heterogeneously dense, which may obscure small masses. Bilateral Breast Mammographic Findings: No significant masses, calcifications or other abnormalities are identified. BI/SCRN MAMM (CAD)W/ANNITA BILAT IMPRESSION: No mammographic evidence of malignancy in either breast. OVERALL FINAL ASSESSMENT BI-RADS 1: NEGATIVE. RECOMMENDATION: Routine annual follow-up in 1 Year Additional Recommendation none A letter with findings and recommendations will be mailed to the patient. Reading Location: [id number]
== END | disposition home or self-care (01) ==
PROVIDERS: PCP Family Medicine; Referring Provider Nurse Practitioner Family; Visit Provider Nurse Practitioner Family
DX: Z12.31 Encounter for screening mammogram for malignant neoplasm of breast (principal)
CPT/HCPCS: 77063; 77067

== ENCOUNTER 2025-01-28 06:58 | Day surgery (SDC) | payer MEDICARE, SELFPAY ==
[2025-01-28] VITALS (23 sets, daily range): BP systolic 121–175; BP diastolic 59–92; PULSE 63–89; RESP 12–18; TEMP 36.1–36.4; O2SAT 89–100; BMI 24.1
--- OUTSIDE RECORDS SUMMARY | 2025-01-28 07:02 | XMS RPT_ITS | CCD ---
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 Name Role Phone Cullen Reina Primary Care Provider CULLEN REINA Primary Care UnavailSri Chan Referring Unavailable TRUDY SIMON Attending Unavailable IVETH ERAZO Referring Unavailable Sri Redding Attending Unavailable CULLEN REINA Primary Care UnavailCULLEN Obrien DO Primary Care Physician Cullen Reina MD Primary Care Provider CULLEN REINA MD Primary Care Physician CASSI UNGER MD Attending Unavailable CULLEN REINA MD Primary Care Unavailable AVIS GARCIA MD Attending Unavailable CURT CHRISTIANSON, CULLEN Primary Care Unavailable CULLEN ELIAS DO Primary Care Unavailable CASSI UNGER MD Attending Unavailable Dr. Cullen Reina MD Primary Care Provider Dr. Israel Ruvalcaba MD Attending Provider [phone] AVIS GARCIA MD Attending Freddy REINA MD, CULLEN Primary Care Unavailable PRERNA VARGAS MD Attending Unavailable CULLEN REINA MD Primary Care Unavailable ARACELI JAY, CULLEN Primary Care Unavailable PRERNA VARGAS MD Attending Unavailable Cullen Reina Referring Unavailable Cullen Reina Primary Care Unavailable Cullen Reina Attending Unavailable Cullen Reina Primary Care Unavailable Rubensorrow FLIGHT ATTENDANT/INFLIGHT SUPERVISORTimothy Attending Unavailable Rubensorrow FLIGHT ATTENDANT/INFLIGHT SUPERVISORTimothy Referring Unavailable Cullen Reina Primary Care Unavailable Cullen Reina Attending Unavailable Cullen Reina Referring Unavailable Cullen Reina Primary Care Unavailable Israel Ruvalcaba Attending Unavailable Cullen Reina Primary Care Unavailable Cullen Reina Attending Unavailable Cullen Reina Referring Unavailable Araceli JAY Dr. Cullen E Primary Care Physician Dr. Israel Ruvalcaba MD Attending Physician Dr. Cullen Reina MD Attending Physician Dr. Cullen Reina MD Referring Provider [phone] [place] FLIGHT ATTENDANT/INFLIGHT SUPERVISOR-CTimothy Attending Physician [place] FLIGHT ATTENDANT/INFLIGHT SUPERVISOR-CTimothy Referring Provider [phone] Allergies Allergy Classification Reported Allergen(s) Allergy Type Date of Onset Reaction(s) Facility (4 sources) Betamethasone; Translations: [BETAMETHASONE DIPROPIONATE] Drug Allergy 01-15-2007 Intolerance [facility] (4 sources) Diclofenac; Translations: [DICLOFENAC] Drug Allergy 04-04-2022 Other: See Comments [facility] (4 sources) Etodolac; Translations: [ETODOLAC] Drug Allergy 04-04-2022 GI Upset [facility] (4 sources) Methylphenidate; Translations: [METHYLPHENIDATE ] Drug Allergy 04-04-2022 Mental Status Change [facility] (4 sources) venlafaxine; Translations: [VENLAFAXINE] Drug Allergy 04-04-2022 Other: See Comments [facility] (2 sources) amLODIPine Drug Allergy 05-02-2022 Contraindicatio n-Medical Surgical [facility] Medications Current Medications Medication Drug Class(es) Dates Sig (Normalized) Sig (Original) acetaminophen 325 mg / HYDROcodone bitartrate 5 mg oral tablet (2 sources) Opioid Agonist Start: 12-24-2022 End: 12-29-2022 take 1 tablet by mouth every six hours as needed for pain [place] 325- 5 mg oral tablet Dose = [...] tab(s) Repeat number: 1 polyethylene glycol 3350 726285 mg / potassium chloride 2970 mg / sodium bicarbonate 6740 mg / sodium chloride 5860 mg / sodium sulfate 66094 mg powder for oral solution (1 source) [...] (Unsp spec) [Mass/Mass] 24 ug/dL Low 50-170 [facility] Iron+Iron Binding Capacityon 11-06-2024 Iron [Mass/Vol] 24 ug/dL Low 50-170 [facility] Comment on above: Order Comment: Order Date: 10/30/24 Order Info: [id number] - CMP Order Info: [id number] - LIPID Order Info: [id number] - MG Order Info: [id number] - HUY Performed By: #### L 100.0100, L501.5200, L500.4050, L500.4100 #### [facility] [address] [place], [place], [address] IRON SATURATION 8.0 Low 13-59 [facility] Comment on above: Order Comment: Order Date: 10/30/24 Order Info: [id number] - CMP Order Info: [id number] - LIPID Order Info: [id number] - MG Order Info: [id number] - HUY Performed By: #### L 100.0100, L501.5200, L500.4050, L500.4100 #### [facility] [address] [place], [place], [id number] TIBC 318 ug/dL Normal 250-450 [facility] Comment on above: Order Comment: Order Date: 10/30/24 Order Info: [id number] - CMP Order Info: [id number] - LIPID Order Info: [id number] - MG Order Info: [id number] - HUY Performed By: #### L 100.0100, L501.5200, L500.4050, L500.4100 #### [facility] [address] [place], [address] UIBC 294 ug/dL Normal 228-428 [facility] Comment on above: Order Comment: Order Date: 10/30/24 Order Info: [id number] - CMP Order Info: [id number] - LIPID Order Info: [id number] - MG Order Info: [id number] - HUY Performed By: #### L 100.0100, L501.5200, L500.4050, L500.4100 #### [facility] [address] [place], [address] No Panel InformationOrdered By: Timothy Clifton on 11-06-2024 Unsaturated Iron Binding Capacity 294 ug/dL 228-428 [facility] Serum or plasma iron saturat ion measurement (mass fraction)Ordered By: Timothy Clifton on 11-06-2024 Iron saturation [Mass fraction] 8.0 % Low 13-59 [facility] TSH DL <= 0.005 mIU/L QnOrde red By: Timothy Clifton on 11-06-2024 TSH Qn 1.590 uIU/mL 0.300-4.200 [facility] Thyroid Stim Hormone (TSH)on 11-06-2024 TSH 1.590 uIU/mL Normal 0.300-4.200 [facility] Comment on above: Order Comment: Order Date: 10/30/24 Order Info: [id number] - CMP Order Info: [id number] - LIPID Order Info: [id number] - MG Order Info: [id number] - HUY Performed By: #### L 100.0100, L501.5200, L500.4050, L500.4100 #### [facility] [address] [place], [address] Vitamin B12on 11-06-2024 Cobalamin (Vitamin B12) [Mass/Vol] 1236 pg/mL High 180-914 [facility] Comment on above: Order Comment: CRISTI Campbell ADD IBC AND B12 TO LABS DRAWN TODAY 11/06/24 PER ARACELI Performed By: #### L 503.6030, L506.1001, L503.0106 #### [facility] [address] [place], [address] Vitamin B12 ser/plasOrdered By: Timothy Traviskike on 11-06-2024 Cobalamin (Vitamin B12) [Mass/Vol] 1236 pg/mL High 180-914 [facility] Vitamin D,25 Hydroxyon 11-06 Vitamin D 25-OH 51.8 ng/mL Normal 30-100 [facility] Comment on above: Order Comment: Order Date: 10/30/24 Order Info: [id number] - CMP Order Info: [id number] - LIPID Order Info: [id number] - MG Order Info: [id number] - HUY Result Comment: Suzan min D Status Deficiency: <20 ng/mL (50nmol/L) Insufficiency: 20-30 ng/mL (50-75 nmol/L) Sufficiency: 30-100 ng/mL (75-250 nmol/L) Toxicity: >100 ng/mL (>250 nmol/L) Performed By: #### L 100.0100, L501.5200, L500.4050, L500.4100 #### [facility] [place], [address] Absolute lymphocyte countOrd ered By: Cullen Reina on 10-31-2024 Lymphocytes Auto (Unsp spec) [#/Vol] 1.31 10*3/uL 0.83-4.51 [facility] Absolute neutrophil countOrd ered By: Cullen Reina on 10-31-2024 Neutrophils (Bld) [#/Vol] 3.6 10*3/uL 2.0-7.7 [facility] Anion gap in Serum or Plasma Ordered By: Cullen Reina on 10-31-2024 Anion gap [Moles/Vol] 10 mmol/L 5-[address] [facility] Automated lymphocyte count a s percentage of total leukocytesOrdered By: Cullen Reina on 10-31-2024 Lymphocytes/100 WBC Auto (Unsp spec) 23.6 % 19-41 [facility] BUN/creatinine ratioOrdered By: Cullen Reina on 10-31-2024 Urea nitrogen/Creatinine [Mass ratio] 22.5 mg/mg High 10-20 [facility] Basophil percentageOrdered B y: Cullen Reina on 10-31-2024 Basophils/100 WBC (Bld) 0.9 % 0-1 [facility] Bilirubin, totalOrdered By: Cullen Reina on 10-31-2024 Bilirubin [Mass/Vol] 0.49 mg/dL 0.00-1.30 [facility] CBC W/Diff, Automatedon 10-04 Absolute Lymph 1.31 X10 3/uL Normal 0.83-4.51 [facility] Comment on above: Order Comment: Order Date: 10/30/24 Order Info: [id number] - CBCD Performed By: #### L 100.0100, L501.5200, L500.4050, L500.4100 #### [facility] [address] [place], [address] Absolute Neut 3.6 X10 3/uL Normal 2.0-7.7 [facility] Comment on above: Order Comment: Order Date: 10/30/24 Order Info: 018- - CBCD Performed By: #### L 100.0100, L501.5200, L500.4050, L500.4100 #### [facility] [address] [place], [address] Basophils/100 WBC (Bld) 0.9 % Normal 0-1 [facility] Comment on above: Order Comment: Order Date: 10/30/24 Order Info: 018- - CBCD Performed By: #### L 100.0100, L501.5200, L500.4050, L500.4100 #### [facility] [address] [place], [address] Eosinophils/100 WBC (Bld) 2.0 % Normal 0-5 [facility] Comment on above: Order Comment: Order Date: 10/30/24 Order Info: 018- - CBCD Performed By: #### L 100.0100, L501.5200, L500.4050, L500.4100 #### [facility] [address] [place], [address] Erythrocyte distribution width (RBC) [Ratio] 14.9 % High 11.6-14.6 [facility] Comment on above: Order Comment: Order Date: 10/30/24 Order Info: 018- - CBCD Performed By: #### L 100.0100, L501.5200, L500.4050, L500.4100 #### [facility] [address] [place], [address] Hematocrit (Bld) [Volume fraction] 36.0 % Low 37-47 [facility] Comment on above: Order Comment: Order Date: 10/30/24 Order Info: [id number]- - CBCD Performed By: #### L 100.0100, L501.5200, L500.4050, L500.4100 #### [facility] [address] [place], [address] Hemoglobin (Bld) [Mass/Vol] 11.6 g/dL Low 12.0-15.0 [facility] Comment on above: Order Comment: Order Date: 10/30/24 Order Info: [id number] - CBCD Performed By: #### L 100.0100, L501.5200, L500.4050, L500.4100 #### [facility] [address] [place], [address] IG% 0.200 Normal 0.0-0.9 [facility] Comment on above: Order Comment: Order Date: 10/30/24 Order Info: [id number] - CBCD Result Comment: IG% - Immature Granulocytes (promyelocytes, myelocytes and metamyelocytes) > 1% indicates that a LEFT SHIFT is Present. Performed By: #### L 100.0100, L501.5200, L500.4050, L500.4100 #### [facility] [address] [place], [address] Lymphocytes/100 WBC (Bld) 23.6 % Normal 19-41 [facility] Comment on above: Order Comment: Order Date: 10/30/24 Order Info: 018- - CBCD Performed By: #### L 100.0100, L501.5200, L500.4050, L500.4100 #### [facility] [address] [place], [address] MCH (RBC) [Entitic mass] 28.4 pg Normal 27.0-32.0 [facility] Comment on above: Order Comment: Order Date: 10/30/24 Order Info: [id number]- - CBCD Performed By: #### L 100.0100, L501.5200, L500.4050, L500.4100 #### [facility] [address] [place], [address] MCHC (RBC) [Mass/Vol] 32.2 g/dL Normal 32-[address] [facility] Comment on above: Order Comment: Order Date: 10/30/24 Order Info: 0184-1 - CBCD Performed By: #### L 100.0100, L501.5200, L500.4050, L500.4100 #### [facility] [address] [place], [address] MCV (RBC) [Entitic vol] 88.2 fL Normal 81-99 [facility] Comment on above: Order Comment: Order Date: 10/30/24 Order Info: [id number]- - CBCD Performed By: #### L 100.0100, L501.5200, L500.4050, L500.4100 #### [facility] [address] [place], [address] Monocytes/100 WBC (Bld) 9.2 % Normal 0-10 [facility] Comment on above: Order Comment: Order Date: 10/30/24 Order Info: 0184- - CBCD Performed By: #### L 100.0100, L501.5200, L500.4050, L500.4100 #### [facility] [address] [place], [address] Neutrophils/100 WBC (Bld) 64.1 % Normal 47-70 [facility] Comment on above: Order Comment: Order Date: 10/30/24 Order Info: 0184-1 - CBCD Performed By: #### L 100.0100, L501.5200, L500.4050, L500.4100 #### [facility] [address] [place], [address] Nucleated RBC (Bld) [#/Vol] 0 10*3/uL Normal 0-5 [facility] Comment on above: Order Comment: Order Date: 10/30/24 Order Info: 0184-1 - CBCD Performed By: #### L 100.0100, L501.5200, L500.4050, L500.4100 #### [facility] [address] [place], [address] Platelet mean volume (Bld) [Entitic vol] 10.4 fL Normal 6.2-12.0 [facility] Comment on above: Order Comment: Order Date: 10/30/24 Order Info: 018- - CBCD Performed By: #### L 100.0100, L501.5200, L500.4050, L500.4100 #### [facility] [address] [place], [address] Platelets (Bld) [#/Vol] 206 10*3/uL Normal 150-450 [facility] Comment on above: Order Comment: Order Date: 10/30/24 Order Info: 0184- - CBCD Performed By: #### L 100.0100, L501.5200, L500.4050, L500.4100 #### [facility] [address] [place], [address] RBC (Bld) [#/Vol] 4.08 10*6/uL Low 4.2-5.4 [facility] Comment on above: Order Comment: Order Date: 10/30/24 Order Info: 0184- - CBCD Performed By: #### L 100.0100, L501.5200, L500.4050, L500.4100 #### [facility] [address] [place], [address] RDW SD 47.8 fl High 35.1-43.9 [facility] Comment on above: Order Comment: Order Date: 10/30/24 Order Info: 0184-1 - CBCD Performed By: #### L 100.0100, L501.5200, L500.4050, L500.4100 #### [facility] [address] [place], [address] WBC (Bld) [#/Vol] 5.6 10*3/uL Normal 4.4-11.0 [facility] Comment on above: Order Comment: Order Date: 10/30/24 Order Info: 0184-1 - CBCD Performed By: #### L 100.0100, L501.5200, L500.4050, L500.4100 #### [facility] [address] [place], [place], [address] Calculated very low density lipoprotein (VLDL) cholesterol measurementOrdered By: Cullen Reina on 10-31-2024 Calculated very low density lipoprotein (VLDL) cholesterol measurement 23 mg/dL 5-40 [facility] Carbon dioxide, total [Moles /volume] in Central venous bloodOrdered By: Cullen Reina on 10-31-2024 CO2 [Moles/Vol] 24.2 mmol/L 21.0-32.0 [facility] Chloride assayOrdered By: Analisa Reina on 10-31-2024 Chloride [Moles/Vol] 106 mmol/L 98-108 [facility] Comprehensive Metabolic Prof ilon 10-31-2024 Albumin [Mass/Vol] 4.3 g/dL Normal 3.4-4.8 [facility] Comment on above: Order Comment: Order Date: 10/30/24 Order Info: [id number] - CMP Order Info: [id number] - LIPID Order Info: [id number] - MG Order Info: 2276-4 - HUY Performed By: #### L 100.0100, L501.5200, L500.4050, L500.4100 #### [facility] [address] [place], [address] Albumin/Globulin [Mass ratio] 1.2 {ratio} Normal 0.9-2.4 [facility] Comment on above: Order Comment: Order Date: 10/30/24 Order Info: [id number] - CMP Order Info: - LIPID Order Info: [id number] - MG Order Info: [id number] - HUY Performed By: #### L 100.0100, L501.5200, L500.4050, L500.4100 #### [facility] [address] [place], [address] ALK PHOS 103 U/L Normal 35-104 [facility] Comment on above: Order Comment: Order Date: 10/30/24 Order Info: 785- - CMP Order Info: - LIPID Order Info: [id number] - MG Order Info: [id number] - HYU Performed By: #### L 100.0100, L501.5200, L500.4050, L500.4100 #### [facility] [address] [place], [address] ALT [Catalytic activity/Vol] 27 U/L Normal <=34 [facility] Comment on above: Order Comment: Order Date: 10/30/24 Order Info: [id number] - CMP Order Info: - LIPID Order Info: [id number] - MG Order Info: [id number] - HUY Performed By: #### L 100.0100, L501.5200, L500.4050, L500.4100 #### [facility] [address] [place], [address] AST [Catalytic activity/Vol] 25 U/L Normal <=31 [facility] Comment on above: Order Comment: Order Date: 10/30/24 Order Info: 0786 - CMP Order Info: - LIPID Order Info: [id number] - MG Order Info: [id number] - HUY Performed By: #### L 100.0100, L501.5200, L500.4050, L500.4100 #### [facility] [address] [place], [address] Bilirubin [Mass/Vol] 0.49 mg/dL Normal 0.00-1.30 [facility] Comment on above: Order Comment: Order Date: 10/30/24 Order Info: 785- - CMP Order Info: - LIPID Order Info: [id number] - MG Order Info: 4 - HUY Performed By: #### L 100.0100, L501.5200, L500.4050, L500.4100 #### [facility] [address] [place], [address] BUN/CRE 22.5 RATIO High 10-20 [facility] Comment on above: Order Comment: Order Date: 10/30/24 Order Info: 07- - CMP Order Info: - LIPID Order Info: [id number] - MG Order Info: [id number] - HUY Performed By: #### L 100.0100, L501.5200, L500.4050, L500.4100 #### [facility] [address] [place], [place], [address] Calcium [Mass/Vol] 9.5 mg/dL Normal 7.6-11.0 [facility] Comment on above: Order Comment: Order Date: 10/30/24 Order Info: [id number] - CMP Order Info: - LIPID Order Info: [id number] - MG Order Info: [id number] - HUY Performed By: #### L 100.0100, L501.5200, L500.4050, L500.4100 #### [facility] [address] [place], [address] Chloride [Moles/Vol] 106 mmol/L Normal 98-108 [facility] Comment on above: Order Comment: Order Date: 10/30/24 Order Info: [id number] - CMP Order Info: [id number] - LIPID Order Info: [id number] - MG Order Info: 2275-4 - HUY Performed By: #### L 100.0100, L501.5200, L500.4050, L500.4100 #### [facility] [address] [place], [address] CO2 [Moles/Vol] 24.2 mmol/L Normal 21.0-32.0 [facility] Comment on above: Order Comment: Order Date: 10/30/24 Order Info: 785-1 - CMP Order Info: [id number] - LIPID Order Info: [id number] - MG Order Info: 6-4 - HUY Performed By: #### L 100.0100, L501.5200, L500.4050, L500.4100 #### [facility] [address] [place], [place], [address] Creatinine [Mass/Vol] 0.94 mg/dL Normal 0.70-1.[address] [facility] Comment on above: Order Comment: Order Date: 10/30/24 Order Info: [id number] - CMP Order Info: [id number] - LIPID Order Info: [id number] - MG Order Info: 2275-4 - HUY Performed By: #### L 100.0100, L501.5200, L500.4050, L500.4100 #### [facility] [address] [place], [place], [address] GAP 10 Normal 5-15 [facility] Comment on above: Order Comment: Order Date: 10/30/24 Order Info: [id number] - CMP Order Info: [id number] - LIPID Order Info: [id number] - MG Order Info: 2275-4 - HUY Performed By: #### L 100.0100, L501.5200, L500.4050, L500.4100 #### [facility] [address] [place], [place], [address] GFR/1.73 sq M.predicted among non-blacks MDRD (S/P/Bld) [Vol rate/Area] 65 mL/min/{1.73_m2} Normal >60 [facility] Comment on above: Order Comment: Order Date: 10/30/24 Order Info: 07-1 - CMP Order Info: [id number] - LIPID Order Info: [id number] - MG Order Info: [id number] - HUY Result Comment: mL/m in/1.73m2 CKD-EPI Creatinine Equation (2020) Performed By: #### L 100.0100, L501.5200, L500.4050, L500.4100 #### [facility] [address] [place], [address] Globulin (S) [Mass/Vol] 3.6 g/dL Normal 2.2-4.2 [facility] Comment on above: Order Comment: Order Date: 10/30/24 Order Info: [id number] - CMP Order Info: [id number] - LIPID Order Info: [id number] - MG Order Info: [id number] - HUY Performed By: #### L 100.0100, L501.5200, L500.4050, L500.4100 #### [facility] [address] [place], [address] Glucose [Mass/Vol] 80 mg/dL Normal 70-99 [facility] Comment on above: Order Comment: Order Date: 10/30/24 Order Info: 785-1 - CMP Order Info: [id number] - LIPID Order Info: [id number] - MG Order Info: [id number] - HUY Performed By: #### L 100.0100, L501.5200, L500.4050, L500.4100 #### [facility] [address] [place], [address] Potassium [Moles/Vol] 4.4 mmol/L Normal 3.3-5.[address] [facility] Comment on above: Order Comment: Order Date: 10/30/24 Order Info: [id number] - CMP Order Info: [id number] - LIPID Order Info: [id number] - MG Order Info: [id number] - HUY Performed By: #### L 100.0100, L501.5200, L500.4050, L500.4100 #### [facility] [address] [place], [address] Sodium [Moles/Vol] 140 mmol/L Normal 133-145 [facility] Comment on above: Order Comment: Order Date: 10/30/24 Order Info: 0786-1 - CMP Order Info: [id number] - LIPID Order Info: [id number] - MG Order Info: 2275-06 - HUY Performed By: #### L 100.0100, L501.5200, L500.4050, L500.4100 #### [facility] [address] [place], [place], [address] T PROT 7.8 g/dL Normal 5.9-8.4 [facility] Comment on above: Order Comment: Order Date: 10/30/24 Order Info: 785- - CMP Order Info: [id number] - LIPID Order Info: [id number] - MG Order Info: [id number] - HUY Performed By: #### L 100.0100, L501.5200, L500.4050, L500.4100 #### [facility] [address] [place], [place], [address] Urea nitrogen [Mass/Vol] 21 mg/dL High 4-19 [facility] Comment on above: Order Comment: Order Date: 10/30/24 Order Info: 0786 - CMP Order Info: [id number] - LIPID Order Info: [id number] - MG Order Info: [id number] - HUY Performed By: #### L 100.0100, L501.5200, L500.4050, L500.4100 #### [facility] [address] [place], [place], [address] Eosinophil percentageOrdered By: Cullen Reina on 10-31-2024 Eosinophils/100 WBC (Bld) 2.0 % 0-5 [facility] Erythrocyte distribution wid th ratioOrdered By: Cullen Reina on 10-31-2024 Erythrocyte distribution width (RBC) [Ratio] 14.9 % High 11.6-14.6 [facility] Erythrocyte distribution wid th standard deviationOrdered By: Cullen Reina on 10-31-2024 Erythrocyte distribution width (RBC) [Ratio] 47.8 fl High 35.1-43.9 [facility] Ferritinon 10-31-2024 Ferritin [Mass/Vol] 26 ng/mL Normal 22-378 [facility] Comment on above: Order Comment: Order Date: 10/30/24 Order Info: [id number] - CMP Order Info: [id number] - LIPID Order Info: [id number] - MG Order Info: 2276-4 - HUY Performed By: #### L 100.0100, L501.5200, L500.4050, L500.4100 #### [facility] [address] [place], [address] Glomerular filtration rate ( GFR) estimation/1.73 sq m using serum, plasma, or whole bOrdered By: Cullen Reina on 10-31-2024 GFR/1.73 sq M.predicted among non-blacks MDRD (S/P/Bld) [Vol rate/Area] 65 mL/min/{1.73_m2} >60 [facility] Comment on above: mL/min/1.73m2 CKD-EP I Creatinine Equation (2020) Hematocrit Auto (Bld) [Volum e fraction]Ordered By: Cullen Reina on 10-31-2024 Hematocrit (Bld) [Volume fraction] 36.0 % Low 37-47 [facility] Hemoglobin measurementOrdere d By: Cullen Reina on 10-31-2024 Hemoglobin (Bld) [Mass/Vol] 11.6 g/dL Low 12.0-15.0 [facility] Immature granulocytes/100 WB C Auto (Bld)Ordered By: Cullen Reina on 10-31-2024 Immature granulocytes/100 WBC (Bld) 0.200 % 0.0-0.9 [facility] Comment on above: IG% - Immature Granu locytes (promyelocytes, myelocytes and metamyelocytes) > 1% indicates that a LEFT SHIFT is Present. LDL calc ser/plasOrdered By: Cullen Reina on 10-31-2024 Cholesterol in LDL [Mass/Vol] 95 mg/dL [facility] Comment on above: Blffalcohw=064-317 m g/dL & Higher Cgfa=920 mg/dL or greaterFriedwald Equation for LDL-C Laboratory - Chemistry and C hemistry - challengeOrdered By: Cullen Reina on 10-31-2024 AST [Catalytic activity/Vol] 25 U/L <32 [facility] Lipid Profileon 10-31-2024 CHOL:HDL 3.07 Normal [facility] Comment on above: Order Comment: Order Date: 10/30/24 Order Info: 0786-1 - CMP Order Info: [id number] - LIPID Order Info: [id number] - MG Order Info: 2275-06 - HUY Performed By: #### L 100.0100, L501.5200, L500.4050, L500.4100 #### [facility] [address] [place], [place], [phone] (676) Cholesterol [Mass/Vol] 176 mg/dL Normal <=200 [facility] Comment on above: Order Comment: Order Date: 10/30/24 Order Info: 0786-1 - CMP Order Info: - LIPID Order Info: [id number] - MG Order Info: 2275-06 - HUY Result Comment: Chol esterol level, Desirable <200 mg/dL Borderline high cholesterol 200-239 mg/dL High cholesterol >=240 mg/dL Recommendations of the NCEP Adult Treatment Panel for the following risk-cutoff thresholds for the [place] population. Performed By: #### L 100.0100, L501.5200, L500.4050, L500.4100 #### [facility] [address] [place], [place], [id number] Cholesterol in HDL [Mass/Vol] 57 mg/dL Normal [facility] Comment on above: Order Comment: Order Date: 10/30/24 Order Info: 0786-1 - CMP Order Info: [id number] - LIPID Order Info: [id number] - MG Order Info: 2275-06 - HUY Result Comment: Domi onal Cholesterol Education Program (NCEP) guidelines: <40 mg/dL: Low HDL-cholesterol (major risk factor for CHD) >= 60 mg/dL: High HDL-cholesterol (negative risk factor for CHD) HDL-cholesterol is affected by a number of factors, e.g. smoking, exercise, hormones, sex and age. Performed By: #### L 100.0100, L501.5200, L500.4050, L500.4100 #### [facility] [address] [place], [address] Cholesterol in LDL [Mass/Vol] 95 mg/dL Normal [facility] Comment on above: Order Comment: Order Date: 10/30/24 Order Info: 0786-1 - CMP Order Info: [id number] - LIPID Order Info: [id number] - MG Order Info: 2275- - HUY Result Comment: Bord ktzegd=988-062 mg/dL Higher Dxui=044 mg/dL or greater Friedwald Equation for LDL-C Performed By: #### L 100.0100, L501.5200, L500.4050, L500.4100 #### [facility] [address] [place], [address] Cholesterol in VLDL [Mass/Vol] 23 mg/dL Normal 5-40 [facility] Comment on above: Order Comment: Order Date: 10/30/24 Order Info: 0786-1 - CMP Order Info: [id number] - LIPID Order Info: [id number] - MG Order Info: 2275-06 - HUY Performed By: #### L 100.0100, L501.5200, L500.4050, L500.4100 #### [facility] [address] [place], [address] Triglyceride [Mass/Vol] 117 mg/dL Normal [facility] Comment on above: Order Comment: Order Date: 10/30/24 Order Info: 0786-1 - CMP Order Info: [id number] - LIPID Order Info: [id number] - MG Order Info: 2275-06 - HUY Result Comment: The drugs N-Acetylcysteine and Metamizole may falsely depress this assay. Normal range: <150 mg/dL Borderline High: 150-199 mg/dL High: 200-499 mg/dL Very High: >500 mg/dL Performed By: #### L 100.0100, L501.5200, L500.4050, L500.4100 #### [facility] [address] [place], [place], [address] MCV (mean corpuscular volume ) determinationOrdered By: Cullen Reina on 10-31-2024 MCV (RBC) [Entitic vol] 88.2 fL 81-99 [facility] Magnesiumon 10-31-2024 Magnesium [Mass/Vol] 2.3 mg/dL High 1.5-2.2 [facility] Comment on above: Order Comment: Order Date: 10/30/24 Order Info: 0786-1 - CMP Order Info: [id number] - LIPID Order Info: [id number] - MG Order Info: 2276-4 - HUY Performed By: #### L 100.0100, L501.5200, L500.4050, L500.4100 #### [facility] [address] [place], [place], [id number] Magnesium measurement (mass/ volume)Ordered By: Cullen Reina on 10-31-2024 Magnesium (Unsp spec) [Mass/Vol] 2.3 mg/dL High 1.5-2.2 [facility] Mean corpuscular hemoglobin (MCH) determinationOrdered By: Cullen Reina on 10-31-2024 MCH (RBC) [Entitic mass] 28.4 pg 27.0-32.0 [facility] Mean corpuscular hemoglobin concentration (MCHC) determinationOrdered By: Cullen Reina on 10-31-2024 MCHC (RBC) [Mass/Vol] 32.2 g/dL 32-[address] [facility] Mean platelet volume determi nationOrdered By: Cullen Reina on 10-31-2024 Platelet mean volume (Bld) [Entitic vol] 10.4 fL 6.2-12.0 [facility] Monocyte percentageOrdered B y: Cullen Reina on 10-31-2024 Monocytes/100 WBC (Bld) 9.2 % 0-10 [facility] Neutrophil percentageOrdered By: Cullen Reina on 10-31-2024 Neutrophils/100 WBC (Bld) 64.1 % 47-70 [facility] Nucleated red blood cell per centageOrdered By: Cullen Reina on 10-31-2024 Nucleated RBC/100 WBC (Bld) [Ratio] 0 % 0-5 [facility] Platelet countOrdered By: Analisa Reina on 10-31-2024 Platelets (Bld) [#/Vol] 206 10*3/uL 150-450 [facility] Potassium measurement (mass/ volume)Ordered By: Cullen Reina on 10-31-2024 Potassium (Unsp spec) [Mass/Vol] 4.4 mmol/L 3.3-5.1 [facility] RBC Auto (Bld) [#/Vol]Ordere d By: Cullen Reina on 10-31-2024 RBC (Bld) [#/Vol] 4.08 10*6/uL Low 4.2-5.4 [facility] Screening total cholesterol/ high density lipoprotein (HDL) cholesterol ratioOrdered By: Cullen Reina on 10-31-2024 Cholesterol.total/Rosy sterol in HDL [Mass ratio] 3.07 {ratio} [facility] Serum creatinine measurement (mass/volume)Ordered By: Cullen Reina on 10-31-2024 Creatinine [Mass/Vol] 0.94 mg/dL 0.70-1.[address] [facility] Serum globulin measurementOr dered By: Cullen Reina on 10-31-2024 Globulin (S) [Mass/Vol] 3.6 g/dL 2.2-4.2 [facility] Serum glucose measurement (m ass/volume)Ordered By: Cullen Reina on 10-31-2024 Glucose [Mass/Vol] 80 mg/dL 70-99 [facility] Serum or plasma alanine cobb otransferase (ALT) measurementOrdered By: Cullen Reina on 10-31-2024 ALT [Catalytic activity/Vol] 27 U/L <35 [facility] Serum or plasma albumin odette urement (mass/volume)Ordered By: Cullen Reina on 10-31-2024 Albumin [Mass/Vol] 4.3 g/dL 3.4-4.8 [facility] Serum or plasma albumin/glob ulin mass ratioOrdered By: Cullen Reina on 10-31-2024 Albumin/Globulin [Mass ratio] 1.2 {ratio} 0.9-2.4 [facility] Serum or plasma alkaline lesly sphatase measurementOrdered By: Cullen Reina on 10-31-2024 ALP [Catalytic activity/Vol] 103 U/L 35-104 [facility] Serum or plasma calcium odette urement (mass/volume)Ordered By: Cullen Reina on 10-31-2024 Calcium [Mass/Vol] 9.5 mg/dL 7.6-11.0 [facility] Serum or plasma cholesterol in HDL measurement (mass/volume)Ordered By: Cullen Reina on 10-31-2024 Cholesterol in HDL [Mass/Vol] 57 mg/dL >40 [facility] Comment on above: National Cholesterol Education Program (NCEP) guidelines:<40 mg/dL: Low HDL-cholesterol (major risk factor for CHD)>= 60 mg/dL: High HDL-cholesterol (negative risk factor for CHD)HDL-cholesterol is affected by a number of factors, e.g. smoking, exercise, hormones, sex and age. Serum or plasma cholesterol measurement (mass/volume)Ordered By: Cullen Reina on 10-31-2024 Cholesterol [Mass/Vol] 176 mg/dL <201 [facility] Comment on above: Cholesterol level, D esirable <200 mg/dLBorderline high cholesterol 200-239 mg/dLHigh cholesterol >=240 mg/dLRecommendations of the NCEP Adult Treatment Panel for the following risk-cutoff thresholds for the [place] population. Serum or plasma ferritin bebe surement (mass/volume)Ordered By: Cullen Reina on 10-31-2024 Ferritin [Mass/Vol] 26 ng/mL 22-378 [facility] Serum or plasma urea nitroge n measurement (mass/volume)Ordered By: Cullen Reina on 10-31-2024 Urea nitrogen [Mass/Vol] 21 mg/dL High 4-19 [facility] Sodium levelOrdered By: Cullen Reina on 10-31-2024 Sodium [Moles/Vol] 140 mmol/L 133-145 [facility] Total proteinOrdered By: Jonas Reina on 10-31-2024 Protein [Mass/Vol] 7.8 g/dL 5.9-8.4 [facility] Triglycerides measurementOrd ered By: Cullen Reina on 10-31-2024 Triglyceride [Mass/Vol] 117 mg/dL <199 [facility] Comment on above: The drugs N-Acetylcy steine and Metamizole may falsely depress this assay. Normal range: <150 mg/dLBorderline High: 150-199 mg/dLHigh: 200-499 mg/dLVery High: >500 mg/dL White blood cell (WBC) count Ordered By: Cullen Reina on 10-31-2024 WBC (Bld) [#/Vol] 5.6 10*3/uL 4.4-11.0 [facility] L/S Spine Comp/w Bending Vie wson 08-28-2024 L/S Spine Comp/w Bending Views [facility] Services [address] [place], [place] [address] L/S Spine Comp/w Bending Views MR#: [id number] Acct: [id number] Name: TANYA VILLA Rep #: [id number] : 1950 F 73 From: Joey Cabrera MD PCP: Dr. Cullen Reina MD Status: DEP AMB Study: L/S Spine Comp/w Bending Views Date of Exam: 0 08/28/24 Exam# [id number] Ordering Dr: Mp Keating MD EXAM: XR [...] change during flexion or extension. Reading Location: [facility] CC: Dr. Mp Keating MD; Dr. Cullen Reina MD Chimney Builder: Signed Normal [facility] Thoracic Spine Min 4 Viewson 08-28-2024 Thoracic Spine Min 4 Views [facility] Imaging Services [address], [place] [phone] (460) Thoracic Spine Min 4 Views MR#: [id number] Acct: [id number] Name: TANYA VILLA Rep #: [id number] : 1950 73 From: Joey Cabrera MD PCP: Dr. Cullen Reina MD Status: DEP AMB Study: Thoracic Spine Min 4 Views Date of Exam: 08/28 Exam# [id number] Ordering Dr: Mp Keating MD EXAM: XR [...] evaluation with MRI is recommended. Reading Location: [facility] CC: Dr. Mp Keating MD; Dr. Cullen Reina MD Chimney Builder: Signed Normal [facility] SCRN MAMM (CAD)W/ANNITA BILATo n 01-04-2024 SCRN MAMM (CAD)W/ANNITA BILAT [facility] Imaging Services [address], [place] [id number] SCRN MAMM (CAD)W/ANNITA BILAT MR#: [id number] Acct: [id number] Name: TANYA VILLA Rep #: [id number] : 1950 F 73 From: Teofilo rios MD PCP: Dr. Cullen Reina MD Status: REG CLI Study: SCRN MAMM (CAD)W/ANNITA BILAT Date of Exam: 03/28 Exam# [id number] Ordering Dr: Cullen Reina MD [id number] MAMMOGRAPHY - BILATERAL SCREENING REASON FOR EXAM: [...] delay biopsy of a clinically suspicious abnormality. [id number] Electronically Signed: Teofilo Giles MD at 15:24 EDT , CC: Dr. Cullen Reina MD Chimney Builder: Signed Normal [facility] CPK Total, Creatine Kinaseon 12-05-2023 CPK TOTAL 65 U/L Normal 26-192 [facility] Comment on above: Order Comment: Order Date: 12/05/23 Order Info: 0786-1 - CMP Order Info: 2157-6 - CPK Order Info: [id number] - MG Order Info: 3016-3 - TSH Order Info: 2275-4 - HUY Performed By: #### L 500.4050, L501.3620, L501.5200, L503.6550, L501.9520 #### [facility] [address] [place], [address] Comprehensive Metabolic Prof ilon 12-05-2023 Albumin [Mass/Vol] 3.8 g/dL Normal 3.2-5.0 [facility] Comment on above: Order Comment: Order Date: 12/05/23 Order Info: 785-1 - CMP Order Info: 2157-6 - CPK Order Info: [id number] - MG Order Info: 3016-3 - TSH Order Info: 4 - HUY Performed By: #### L 500.4050, L501.3620, L501.5200, L503.6550, L501.9520 #### [facility] [address] [place], [address] Albumin/Globulin [Mass ratio] 0.9 {ratio} Normal 0.9-2.4 [facility] Comment on above: Order Comment: Order Date: 12/05/23 Order Info: 0786-1 - CMP Order Info: 2157-6 - CPK Order Info: 00631-5 - MG Order Info: 3016-3 - TSH Order Info: 2276-4 - HUY Performed By: #### L 500.4050, L501.3620, L501.5200, L503.6550, L501.9520 #### [facility] [address] [place], [address] ALK P 105 U/L Normal 45-117 [facility] Comment on above: Order Comment: Order Date: 12/05/23 Order Info: 86-1 - CMP Order Info: 2157-6 - CPK Order Info: [id number] - MG Order Info: 3 - TSH Order Info: 4 - HUY Performed By: #### L 500.4050, L501.3620, L501.5200, L503.6550, L501.9520 #### [facility] [address] [place], [address] ALT [Catalytic activity/Vol] 39 U/L Normal 13-56 [facility] Comment on above: Order Comment: Order Date: 12/05/23 Order Info: 86-1 - CMP Order Info: 2157-6 - CPK Order Info: 96559-1 - MG Order Info: 3 - TSH Order Info: 4 - HUY Performed By: #### L 500.4050, L501.3620, L501.5200, L503.6550, L501.9520 #### [facility] [address] [place], [address] AST [Catalytic activity/Vol] 26 U/L Normal 15-37 [facility] Comment on above: Order Comment: Order Date: 12/05/23 Order Info: 86-1 - CMP Order Info: 2157-6 - CPK Order Info: [id number] - MG Order Info: 3 - TSH Order Info: 2275-06 - HUY Performed By: #### L 500.4050, L501.3620, L501.5200, L503.6550, L501.9520 #### [facility] [address] [place], [address] Bilirubin [Mass/Vol] 0.30 mg/dL Normal 0.20-1.00 [facility] Comment on above: Order Comment: Order Date: 12/05/23 Order Info: 86-1 - CMP Order Info: 2157-6 - CPK Order Info: 92590-7 - MG Order Info: 3 - TSH Order Info: 4 - HUY Result Comment: For patients on eltrombopag therapy, use of Dimension [place] TBIL is not recommended. Performed By: #### L 500.4050, L501.3620, L501.5200, L503.6550, L501.9520 #### [facility] [address] [place], [address] BUN/CRE 16.0 RATIO Normal 10-20 [facility] Comment on above: Order Comment: Order Date: 12/05/23 Order Info: 0786-1 - CMP Order Info: 2157-6 - CPK Order Info: [id number] - MG Order Info: 3016-3 - TSH Order Info: 227-4 - HUY Performed By: #### L 500.4050, L501.3620, L501.5200, L503.6550, L501.9520 #### [facility] [address] [place], [place], [id number] CA,Total 9.2 mg/dL Normal 8.5-10.1 [facility] Comment on above: Order Comment: Order Date: 12/05/23 Order Info: 86-1 - CMP Order Info: 2157-6 - CPK Order Info: 96943-1 - MG Order Info: 3016-3 - TSH Order Info: 2275-4 - HUY Performed By: #### L 500.4050, L501.3620, L501.5200, L503.6550, L501.9520 #### [facility] [address] [place], [address] Chloride [Moles/Vol] 108 mmol/L High 98-107 [facility] Comment on above: Order Comment: Order Date: 12/05/23 Order Info: 0786-1 - CMP Order Info: 2157-6 - CPK Order Info: [id number] - MG Order Info: 3016-3 - TSH Order Info: 2276-4 - HUY Performed By: #### L 500.4050, L501.3620, L501.5200, L503.6550, L501.9520 #### [facility] [address] [place], [address] CO2 [Moles/Vol] 26.0 mmol/L Normal 21.0-32.0 [facility] Comment on above: Order Comment: Order Date: 12/05/23 Order Info: 86-1 - CMP Order Info: 2157-6 - CPK Order Info: 24677-9 - MG Order Info: 3016-3 - TSH Order Info: 2275-06 - HUY Performed By: #### L 500.4050, L501.3620, L501.5200, L503.6550, L501.9520 #### [facility] [address] [place], [address] Creatinine [Mass/Vol] 0.94 mg/dL Normal 0.55-1.[address] [facility] Comment on above: Order Comment: Order Date: 12/05/23 Order Info: 785-03 - CMP Order Info: 2157-6 - CPK Order Info: 94307-2 - MG Order Info: 3 - TSH Order Info: 2275-06 - HUY Result Comment: The validity of the calculated GFR GFRAA in patients over 70 years has not been determined. Clinical correlation is essential. Performed By: #### L 500.4050, L501.3620, L501.5200, L503.6550, L501.9520 #### [facility] [address] [place], [address] EST GFR - AA 76 mL/min Normal >60 [facility] Comment on above: Order Comment: Order Date: 12/05/23 Order Info: 785-1 - CMP Order Info: 2157-6 - CPK Order Info: [id number] - MG Order Info: 3 - TSH Order Info: 4 - HUY Result Comment: Afri can [place] GFR Calc Performed By: #### L 500.4050, L501.3620, L501.5200, L503.6550, L501.9520 #### [facility] [address] [place], [address] GAP 6 Normal 5-15 [facility] Comment on above: Order Comment: Order Date: 12/05/23 Order Info: 86-1 - CMP Order Info: 2157-6 - CPK Order Info: 17991-9 - MG Order Info: 301-3 - TSH Order Info: 2275-4 - HUY Performed By: #### L 500.4050, L501.3620, L501.5200, L503.6550, L501.9520 #### [facility] [address] [place], [address] GFR/1.73 sq M.predicted among non-blacks MDRD (S/P/Bld) [Vol rate/Area] 63 mL/min/{1.73_m2} Normal >60 [facility] Comment on above: Order Comment: Order Date: 12/05/23 Order Info: 785-1 - CMP Order Info: 2157-6 - CPK Order Info: 54883-5 - MG Order Info: 3 - TSH Order Info: 2275-4 - HUY Result Comment: Non- GFR Calc Performed By: #### L 500.4050, L501.3620, L501.5200, L503.6550, L501.9520 #### [facility] [address] [place], [address] Globulin (S) [Mass/Vol] 4.4 g/dL High 2.2-4.2 [facility] Comment on above: Order Comment: Order Date: 12/05/23 Order Info: 785-1 - CMP Order Info: 2157-6 - CPK Order Info: [id number] - MG Order Info: 3016-3 - TSH Order Info: 227-4 - HUY Performed By: #### L 500.4050, L501.3620, L501.5200, L503.6550, L501.9520 #### [facility] [address] [place], [address] Glucose [Mass/Vol] 130 mg/dL High 74-106 [facility] Comment on above: Order Comment: Order Date: 12/05/23 Order Info: 785-1 - CMP Order Info: 7-6 - CPK Order Info: 72675-2 - MG Order Info: 3015-3 - TSH Order Info: 4 - HUY Result Comment: Fast ing Glucose result greater than or equal to 126 mg/dL suggests DIABETES MELLITUS per A.D.A. criteria. Performed By: #### L 500.4050, L501.3620, L501.5200, L503.6550, L501.9520 #### [facility] [address] [place], [address] Potassium [Moles/Vol] 4.0 mmol/L Normal 3.5-5.[address] [facility] Comment on above: Order Comment: Order Date: 12/05/23 Order Info: 785-03 - CMP Order Info: 7-6 - CPK Order Info: 93410-7 - MG Order Info: 3 - TSH Order Info: 2275-06 - HUY Performed By: #### L 500.4050, L501.3620, L501.5200, L503.6550, L501.9520 #### [facility] [address] [place], [address] Sodium [Moles/Vol] 140 mmol/L Normal 136-145 [facility] Comment on above: Order Comment: Order Date: 12/05/23 Order Info: 07-1 - CMP Order Info: 7-6 - CPK Order Info: 90964-6 - MG Order Info: 3 - TSH Order Info: 4 - HUY Performed By: #### L 500.4050, L501.3620, L501.5200, L503.6550, L501.9520 #### [facility] [address] [place], [address] T PROT 8.2 g/dL Normal 6.4-8.2 [facility] Comment on above: Order Comment: Order Date: 12/05/23 Order Info: 785-1 - CMP Order Info: 7-6 - CPK Order Info: 92061-7 - MG Order Info: 3015-05 - TSH Order Info: 2275-06 - HUY Performed By: #### L 500.4050, L501.3620, L501.5200, L503.6550, L501.9520 #### [facility] [address] [place], [address] Urea nitrogen [Mass/Vol] 15 mg/dL Normal 7-18 [facility] Comment on above: Order Comment: Order Date: 12/05/23 Order Info: 785-1 - CMP Order Info: 7-6 - CPK Order Info: 54194-9 - MG Order Info: 3015-05 - TSH Order Info: 2275-06 - HUY Performed By: #### L 500.4050, L501.3620, L501.5200, L503.6550, L501.9520 #### [facility] [address] [place], [address] Ferritinon 12-05-2023 Ferritin [Mass/Vol] 21 ng/mL Normal 8-252 [facility] Comment on above: Order Comment: Order Date: 12/05/23 Order Info: 785-1 - CMP Order Info: 7-6 - CPK Order Info: [id number] - MG Order Info: 3015-05 - TSH Order Info: 2275-06 - HUY Performed By: #### L 500.4050, L501.3620, L501.5200, L503.6550, L501.9520 #### [facility] [address] [place], [address] Magnesiumon 12-05-2023 Magnesium [Mass/Vol] 2.2 mg/dL Normal 1.6-2.6 [facility] Comment on above: Order Comment: Order Date: 12/05/23 Order Info: 785-1 - CMP Order Info: 2157-6 - CPK Order Info: 64545-0 - MG Order Info: 3016-3 - TSH Order Info: 2275-06 - HUY Performed By: #### L 500.4050, L501.3620, L501.5200, L503.6550, L501.9520 #### [facility] [address] [place], [place], [address] Thyroid Stim Hormone (TSH)on 12-05-2023 TSH 1.990 uIU/mL Normal 0.358-3.740 [facility] Comment on above: Order Comment: Order Date: 12/05/23 Order Info: 0786-1 - CMP Order Info: 2157-6 - CPK Order Info: [id number] - MG Order Info: 3016-3 - TSH Order Info: 2275-06 - HUY Performed By: #### L 500.4050, L501.3620, L501.5200, L503.6550, L501.9520 #### [facility] [address] [place], [place], [id number] Absolute lymphocyte countOrd ered By: Cullen Reina on 02-06-2023 Lymphocytes Auto (Unsp spec) [#/Vol] 0.43 10*3/uL 0.83-4.51 [facility] Basophil percentageOrdered B y: Cullen Reina on 02-06-2023 Basophils/100 WBC (Bld) 0.6 % 0-1 [facility] Bilirubin [Mass/Vol] 0.50 mg/dL 0.20-1.00 [facility] Comment on above: For patients on eltr ombopag therapy, use of Dimension [place] TBIL is not recommended. Chloride [Moles/Vol] 107 mmol/L 98-107 [facility] Cholesterol [Mass/Vol] 136 mg/dL <200 [facility] Comment on above: <200 mg/dL Desirable 200-240 mg/dL Borderline >240 mg/dL High Risk Eosinophils/100 WBC (Bld) 0.5 % 0-5 [facility] Glucose [Mass/Vol] 140 mg/dL 74-106 [facility] Comment on above: Fasting Glucose resu lt greater than or equal to 126 mg/dL suggests DIABETES MELLITUS per A.D.A. criteria. Neutrophils (Bld) [#/Vol] 7.2 10*3/uL 2.0-7.7 [facility] Neutrophils/100 WBC (Bld) 86.7 % 47-70 [facility] Potassium [Moles/Vol] 4.1 mmol/L 3.5-5.[address] [facility] Protein [Mass/Vol] 7.8 g/dL 6.4-8.2 [facility] Sodium [Moles/Vol] 137 mmol/L 136-145 [facility] Triglyceride [Mass/Vol] 117 mg/dL <199 [facility] Comment on above: The drugs N-Acetylcy steine and Metamizole may falsely depress this assay.Serum Triglycerides Reference Interval Normal <150 mg/dL Borderline high 150 - 199 mg/dL High 200 - 499 mg/dL Very High > or = 500 mg/dL WBC (Bld) [#/Vol] 8.4 10*3/uL 4.4-11.0 [facility] Blood erythrocytes count (nu mber/volume)Ordered By: Cullen Reina on 02-06-2023 RBC (Bld) [#/Vol] 4.28 10*6/uL 4.2-5.4 [facility] Blood hemoglobin measurement (mass/volume)Ordered By: Cullen Reina on 02-06-2023 Hemoglobin (Bld) [Mass/Vol] 11.9 g/dL 12.0-15.0 [facility] Blood lymphocytes/100 leukoc ytesOrdered By: Cullen Reina on 02-06-2023 Lymphocytes/100 WBC (Bld) 5.1 % 19-41 [facility] Blood monocytes/100 leukocyt esOrdered By: Cullen Reina on 02-06-2023 Monocytes/100 WBC (Bld) 6.5 % 0-10 [facility] Blood platelet mean volumeOr dered By: Cullen Reina on 02-06-2023 Platelet mean volume (Bld) [Entitic vol] 9.5 fL 6.2-12.0 [facility] Determination of erythrocyte mean corpuscular volume (MCV)Ordered By: Cullen Reina on 02-06-2023 MCV (RBC) [Entitic vol] 89.5 fL 81-99 [facility] Hematocrit Auto (Bld) [Volum e fraction]Ordered By: Cullen Reina on 02-06-2023 Hematocrit (Bld) [Volume fraction] 38.3 % 37-47 [facility] Iron measurement (mass/mass) Ordered By: Cullen Reina on 02-06-2023 Iron (Unsp spec) [Mass/Mass] 20 ug/dL 50-170 [facility] Laboratory - Chemistry and C hemistry - challengeOrdered By: Cullen Reina on 02-06-2023 ALP [Catalytic activity/Vol] 98 U/L 45-117 [facility] ALT [Catalytic activity/Vol] 41 U/L 13-56 [facility] CO2 [Moles/Vol] 25.0 mmol/L 21.0-32.0 [facility] Cobalamin (Vitamin B12) [Mass/Vol] 736 pg/mL 211-911 [facility] Globulin (S) [Mass/Vol] 4.2 g/dL 2.2-4.2 [facility] Magnesium [Mass/Vol] 2.2 mg/dL 1.6-2.6 [facility] Urea nitrogen/Creatinine [Mass ratio] 12.6 mg/mg 10-20 [facility] Laboratory - Hematology and Cell countsOrdered By: Cullen Reina on 02-06-2023 Erythrocyte distribution width (RBC) [Entitic vol] 50.4 fL 35.1-43.9 [facility] Erythrocyte distribution width (RBC) [Ratio] 15.6 % 11.6-14.6 [facility] Immature granulocytes/100 WBC (Bld) 0.600 % 0.0-0.9 [facility] Comment on above: IG% - Immature Granu locytes (promyelocytes, myelocytes and metamyelocytes) > 1% indicates that a LEFT SHIFT is Present. MCH (RBC) [Entitic mass] 27.8 pg 27.0-32.0 [facility] Nucleated RBC/100 WBC (Bld) [Ratio] 0 % 0-5 [facility] MCHC Auto (RBC) [Mass/Vol]Or dered By: Cullen Reina on 02-06-2023 MCHC (RBC) [Mass/Vol] 31.1 g/dL 32-[address] [facility] No Panel InformationOrdered By: Cullen Reina on 02-06-2023 Estimated GFR (MDRD) Amer 74 mL/min >60 [facility] Comment on above: GFR Calc Estimated GFR (MDRD) Non-Af Amer 61 mL/min >60 [facility] Comment on above: Non- GFR Calc Thyroid Stimulating Hormone (TSH) 1.03 uIU/mL 0.358-3.74 [facility] Total Iron Binding Capacity 352 ug/dL 250-450 [facility] Vitamin D 25-Hydroxy 55.4 ng/mL [facility] Comment on above: Vitamin D 25(OH) Sta tus Range Deficiency <20 ng/mL (50nmol/L) Insufficiency 20 - 30 ng/mL (50 - 75 nmol/L) Sufficiency 30 - 100 ng/mL (75 - 250 nmol/L) Toxicity >100 ng/mL (>250 nmol/L) Platelets bldOrdered By: Jonas Reina on 02-06-2023 Platelets (Bld) [#/Vol] 236 10*3/uL 150-450 [facility] Serum or plasma albumin odette urement (mass/volume)Ordered By: Cullen Reina on 02-06-2023 Albumin [Mass/Vol] 3.6 g/dL 3.2-5.0 [facility] Serum or plasma albumin/glob ulin mass ratioOrdered By: Cullen Reina on 02-06-2023 Albumin/Globulin [Mass ratio] 0.9 {ratio} 0.9-2.4 [facility] Serum or plasma calcium odette urement (mass/volume)Ordered By: Cullen Reina on 02-06-2023 Calcium [Mass/Vol] 9.1 mg/dL 8.5-10.1 [facility] Serum or plasma cholesterol in HDL measurement (mass/volume)Ordered By: Cullen Reina on 02-06-2023 Cholesterol in HDL [Mass/Vol] 44 mg/dL >40 [facility] Comment on above: The drugs N-Acetylcy steine and Metamizole may falsely depress this assay. Reference Range HDL <40 mg/dL Low HDL Cholesterol HDL >or= 60 mg/dL High HDL Cholesterol Serum or plasma cholesterol in VLDL measurement (mass/volume)Ordered By: Cullen Reina on 02-06-2023 Cholesterol in VLDL [Mass/Vol] 23 mg/dL 5-40 [facility] Serum or plasma creatinine m easurement (mass/volume)Ordered By: Cullen Reina on 02-06-2023 Creatinine [Mass/Vol] 0.96 mg/dL 0.55-1.[address] [facility] Comment on above: The validity of the calculated GFR & GFRAA in patients over 70 years has not been determined. Clinical correlation is essential. Serum or plasma ferritin bebe surement (mass/volume)Ordered By: Cullen Reina on 02-06-2023 Ferritin [Mass/Vol] 55 ng/mL 8-252 [facility] Serum or plasma folate measu rement (mass/volume)Ordered By: Cullen Reina on 02-06-2023 Folate [Mass/Vol] 17.50 ng/mL 3.1-55.4 [facility] Comment on above: Slight Hemolysis, Re sult may be falsely increased. Serum or plasma low density lipoprotein (LDL) cholesterol measurement (mass/volume)Ordered By: Cullen Reina on 02-06-2023 Cholesterol in LDL [Mass/Vol] 69 mg/dL 0-130 [facility] Serum or plasma urea nitroge n measurement (mass/volume)Ordered By: Cullen Reina on 02-06-2023 Urea nitrogen [Mass/Vol] 12 mg/dL 7-18 [facility] Thin prep Papanicolaou smear with manual screeningOrdered By: Cullen Reina on 02-06-2023 Thin prep Papanicolaou smear with manual screening 22 U/L 15-37 [facility] Thin prep Papanicolaou smear with manual screening 5 5-15 [facility] .Auto Diffon 12-24-2022 Basophil, Absolute 0.0 10 3/mcL Normal 0.0-0.2 [facility] ([place]) Comment on above: Performed By: #### T JENNIFER BLEVINS, CBC, GFR, ANEU, ADIFF, BMP #### [address] [place] [id number] [place], [place] [address] Basophils/100 WBC (Bld) 0.8 % Normal 0.0-2.5 [facility] ([place]) Comment on above: Performed By: #### T JENNIFER BLEIVNS, CBC, GFR, ANEU, ADIFF, BMP #### [address] [address] Eosinophil, Absolute 0.1 10 3/mcL Normal 0.0-0.4 [facility] ([place]) Comment on above: Performed By: #### T JENNIFER BLEVINS, CBC, GFR, ANEU, ADIFF, BMP #### [address] [address] Eosinophils/100 WBC (Bld) 2.2 % Normal 0.0-7.0 [facility] ([place]) Comment on above: Performed By: #### T JENNIFER BLEVINS, CBC, GFR, ANEU, ADIFF, BMP #### [address] [address] Lymphocyte, Absolute 1.3 10 3/mcL Normal 0.8-3.9 [facility] ([place]) Comment on above: Performed By: #### JENNIFER MONACO, CBC, GFR, ANEU, ADIFF, BMP #### [address] [address] Lymphocytes/100 WBC (Bld) 27.4 % Normal 10.0-50.0 [facility] ([place]) Comment on above: Performed By: #### JENNIFER MONACO, CBC, GFR, ANEU, ADIFF, BMP #### [address] [address] Monocyte, Absolute 0.4 10 3/mcL Normal 0.2-1.0 [facility] ([place]) Comment on above: Performed By: #### JENNIFER MONACO, CBC, GFR, ANEU, ADIFF, BMP #### [address] [address] Monocytes/100 WBC (Bld) 9.4 % Normal 1.7-13.0 [facility] ([place]) Comment on above: Performed By: #### JENNIFER MONACO, CBC, GFR, ANEU, ADIFF, BMP #### [address] [address] Neutrophils/100 WBC (Bld) 60.2 % Normal 37.0-80.0 [facility] ([place]) Comment on above: Performed By: #### T JENNIFER BLEVINS, CBC, GFR, ANEU, ADIFF, BMP #### Lidia [address] [address] .GFRon 12-24-2022 GFR Non- 57 ml/min/1.73sqm Normal [facility] ([place]) Comment on above: Result Comment: GFR Population [...] LIDYA, GFR, ANEU, ADIFF, BMP #### [address] [address] GFR 69 ml/min/1.73sqm Normal [facility] ([place]) Comment on above: Result Comment: GFR Population [...] CBC, GFR, ANEU, ADIFF, BMP #### [address] [address] .MDWon 12-24-2022 Monocyte Distribution Width 18.04 Normal 0.00-20.00 [facility] ([place]) Comment on above: Result Comment: For ED adult patients suspected of sepsis, MDW<=20.0 does not rule out sepsis or risk of sepsis Performed By: #### T JENNIFER BLEVINS, CBC, GFR, ANEU, ADIFF, BMP #### [address] [place], [place] [address] .NEUABSon 12-24-2022 Neutrophil, Absolute 2.9 10 3/mcL Normal 2.9-6.2 [facility] ([place]) Comment on above: Performed By: #### T JENNIFER BLEVINS, CBC, GFR, ANEU, ADIFF, BMP #### [address] [place], [place] [address] .Urinalysis Microscopic (AO) on 12-24-2022 UA RBC 0-5 Abnormal None Seen [facility] ([place]) Comment on above: Performed By: #### Sergio AMICAO, UA ####[id number] [place], [place] [address] UA Squam Epithelial 0-5 Abnormal None Seen [facility] ([place]) Comment on above: Performed By: #### U AMICAO, UA ####[address] [place], [place] [address] UA WBC 0-5 Abnormal None Seen [facility] ([place]) Comment on above: Performed By: #### U AMICAO, UA ####[id number] [place], [place] [address] BMPon 12-24-2022 BUN/Creatinine Ratio 18 ratio Normal 7-27 [facility] ([place]) Comment on above: Performed By: #### T JENNIFER BLEVINS, CBC, GFR, ANEU, ADIFF, BMP #### [address] [place], [place] [address] Calcium [Mass/Vol] 8.8 mg/dL Normal 8.4-10.2 [facility] ([place]) Comment on above: Performed By: #### T JENNIFER BLEVINS, CBC, GFR, ANEU, ADIFF, BMP #### [address] [address] Chloride [Moles/Vol] 106 mmol/L Normal 98-107 [facility] ([place]) Comment on above: Performed By: #### T JENNIFER BLEVINS, CBC, GFR, ANEU, ADIFF, BMP #### [address] [address] CO2 [Moles/Vol] 26 mmol/L Normal 23-31 [facility] ([place]) Comment on above: Performed By: #### T JENNIFER BLEVINS, CBC, GFR, ANEU, ADIFF, BMP #### [address] [address] Creatinine [Mass/Vol] 0.97 mg/dL Normal 0.55-1.02 [facility] ([place]) Comment on above: Performed By: #### JENNIFER MONACO, CBC, GFR, ANEU, ADIFF, BMP #### [address] [address] Electrolyte Balance 10.0 mEq/L Normal 4.0-15.0 [facility] ([place]) Comment on above: Performed By: #### JENNIFER MONACO, CBC, GFR, ANEU, ADIFF, BMP #### [address] [address] Glucose [Mass/Vol] 117 mg/dL High 83-110 [facility] ([place]) Comment on above: Performed By: #### JENNIFER MONACO, CBC, GFR, ANEU, ADIFF, BMP #### [address] [address] Potassium [Moles/Vol] 4.0 mmol/L Normal 3.5-5.1 [facility] ([place]) Comment on above: Performed By: #### JENNIFER MONACO, CBC, GFR, ANEU, ADIFF, BMP #### [address] [address] Sodium [Moles/Vol] 142 mmol/L Normal 136-145 [facility] ([place]) Comment on above: Performed By: #### T JENNIFER BLEVINS, CBC, GFR, ANEU, ADIFF, BMP #### [place] [address] Urea nitrogen [Mass/Vol] 17 mg/dL Normal 7-18 [facility] ([place]) Comment on above: Performed By: #### T JENNIFER BLEVINS, CBC, GFR, ANEU, ADIFF, BMP #### [place] [address] CBCon 12-24-2022 Erythrocyte distribution width (RBC) [Ratio] 14.9 % High 11.5-14.5 [facility] ([place]) Comment on above: Performed By: #### T JENNIFER BLEVINS, CBC, GFR, ANEU, ADIFF, BMP #### [place] [address] Hematocrit (Bld) [Volume fraction] 35.6 % Low 37.0-47.0 [facility] ([place]) Comment on above: Performed By: #### JENNIFER MONACO, CBC, GFR, ANEU, ADIFF, BMP #### [place] [address] Hgb 11.8 G/dL Low 12.0-16.0 [facility] ([place]) Comment on above: Performed By: #### JENNIFER MONACO, CBC, GFR, ANEU, ADIFF, BMP #### [place] [address] MCH (RBC) [Entitic mass] 28.4 pg Normal 27.0-31.2 [facility] ([place]) Comment on above: Performed By: #### JENNIFER MONACO, CBC, GFR, ANEU, ADIFF, BMP #### [place] [address] MCHC 33.2 G/dL Normal 33.0-37.0 [facility] ([place]) Comment on above: Performed By: #### T JENNIFER BLEVINS, CBC, GFR, ANEU, ADIFF, BMP #### [address] [address] MCV (RBC) [Entitic vol] 85.5 fL Normal 80.0-94.0 A [facility] ([place]) Comment on above: Performed By: #### T JENNIFER BLEVINS, CBC, GFR, ANEU, ADIFF, BMP #### [address] [address] Platelet 196 10 3/mcL Normal 130-400 [facility] ([place]) Comment on above: Performed By: #### T JENNIFER BLEVINS, CBC, GFR, ANEU, ADIFF, BMP #### [address] [address] Platelet mean volume (Bld) [Entitic vol] 7.7 fL Normal 7.4-10.4 [facility] ([place]) Comment on above: Performed By: #### T JENNIFER BLEVINS, CBC, GFR, ANEU, ADIFF, BMP #### [address] [address] RBC 4.16 10 6/mcL Low 4.20-5.40 [facility] ([place]) Comment on above: Performed By: #### T JENNIFER BLEVINS, CBC, GFR, ANEU, ADIFF, BMP #### [address] [address] WBC 4.8 10 3/mcL Normal 4.6-10.8 [facility] ([place]) Comment on above: Performed By: #### T JENNIFER BLEVINS, CBC, GFR, ANEU, ADIFF, BMP #### [address] [address] LABORATORYOrdered By: Avis Whitley on 12-24-2022 Appearance [...] I High Sensitivity 4.7 ng/L Normal 0.0-51.4 [facility] ([place]) Comment on above: Performed By: #### T JENNIFER BLEVINS, CBC, GFR, ANEU, ADIFF, BMP #### [address] [address] UAon 12-24-2022 Color (U) Yellow Normal [facility] ([place]) Comment on above: Performed By: #### U AMICAO, UA #### [address] [address] Glucose (U) [Mass/Vol] Negative Normal Negative [facility] ([place]) Comment on above: Performed By: #### U AMICAO, UA #### [address] [address] Ketones Ql (U) Negative Normal Negative [facility] ([place]) Comment on above: Performed By: #### U AMICAO, UA #### [address] [address] UA Appear Clear Normal Clear [facility] ([place]) Comment on above: Performed By: #### U AMICAO, UA #### [address] [address] UA Blood Trace Abnormal Negative [facility] ([place]) Comment on above: Performed By: #### U AMICAO, UA #### [address] [address] UA Leuk Est Trace Abnormal Negative [facility] ([place]) Comment on above: Performed By: #### U AMICAO, UA #### [address] [address] UA Nitrite Negative Normal Negative [facility] ([place]) Comment on above: Performed By: #### U AMICAO, UA #### [address] [address] UA pH 6.0 Normal 5.0 - 8.0 [facility] ([place]) Comment on above: Performed By: #### U AMICAO, UA #### [address] [address] UA Protein Negative Normal Negative [facility] ([place]) Comment on above: Performed By: #### U AMICAO, UA #### [place] [address] UA Spec Grav 1.025 Normal 1.015-1.025 [facility] ([place]) Comment on above: Performed By: #### U AMICAO, UA #### [place] [address] UA Specimen Type Clean Catch Normal [facility] ([place]) Comment on above: Performed By: #### U AMICAO, UA #### [address] [address] UA Urobilinogen 0.2 E.U./dL Normal 0.2-1.0 [facility] ([place]) Comment on above: Performed By: #### U AMICAO, UA #### [place] [id number] Urobilinogen (U) [Mass/Vol] Negative Normal Negative [facility] ([place]) Comment on above: Performed By: #### U AMICAO, UA #### [address] [address] XR CHEST 1 VIEWon 12-24-2022 XR CHEST [...] 12/24/2022 4:35:29 PM Ordering Provider: FABI MARIN [facility]) XR SPINE THORACIC 2 VIEWSon 12-24-2022 XR [...] 12/24/2022 4:52:47 PM Ordering Provider: FABI MARIN [facility] ([place]) Nicole 05-09-2022 [facility] Telephone (uParts) TANYA VILLA ([id number]) 1950 F Date Time Provider Department 05/09/22 [...] Status:Closed by LISSETT ORELLANA on 05/15/22 Normal [facility] SURGICAL PATHOLOGYon 023 Case Report Surgical Pathology Report Case: [id number] Authorizing Provider: Trudy Simon MD Collected: 05/02/2022 11:15 AM Ordering Location: Ambulatory Surgery Received: 05/02/2022 02:59 PM Pathologist: Alexander Arias MD Specimen: TRANSVERSE COLON POLYP, Distal Transverse colon polyp [facility] FINAL DIAGNOSIS Colon, transverse, polypectomy: -Polypoid colonic mucosa with prominent lymphoid aggregate, negative for dysplasia -Multiple deeper sections examined [facility] Gross Description A. TRANSVERSE COLON POLYP Received in formalin is one piece of bustillos, soft tissue measuring 0.3 x 0.2 x 0.2 cm. Totally submitted in one cassette. KK May 03, 2022 2:52 AM Gross examination performed at [facility], [address] Performing Lab Diagnostic interpretation performed at [facility], [address] [address] CLIA# [id number] Returned Telephone Equipment Appraiser: Abram Feliciano M.D. [facility] COLONOSCOPY SCREENINGon 04-06 [facility] Colonoscopyon 05-02-2022 Colonoscopy [place] [facility] Gastrointestinal Endoscopy Patient Name: Tanya Villa Procedure [...] the patient. Procedure Code(s): --- Professional --- 81464, Colonoscopy, flexible; with biopsy, single or multiple G0500, Moderate sedation services provided by the same physician or other qualified health career law clerk performing a gastrointestinal endoscopic service that sedation supports, requiring the presence of an independent trained observer to assist in the monitoring of the patient's level of consciousness and physiological status; initial 15 minutes of intra-service time; patient age 5 years or older (additional time may be reported with [address]29, as appropriate) CPT copyright 202 [employer]. All rights reserved. The codes documented in this report are preliminary and upon order entry review may be revised to meet current compliance requirements. Attending Participa (more content not included)... Normal [facility] HISTORY PHYSICALon 3 HISTORY PHYSICAL HNO ID: [id number] Author: Trudy Simon MD Service: General Surgery [...] entered by the nurse and reviewed by nh Nursing Notes: Kita Ross RN 04/04/2022 9:27 [...] NOTES gall (more content not included)... Normal [facility] SURGICAL PATHOLOGYon 023 CASE REPORT Normal [facility] Comment on above: Order Comment: Zach lara Type: TISSUE SPECIMEN Ordering Facility: [facility] Address: [address] [place] [address] Result Comment: Surg ical Pathology Report Case: [id number] Authorizing Provider: Trudy Simon MD Collected: 05/02/2022 11:15 AM Ordering Location: Ambulatory Surgery Received: 05/02/2022 02:59 PM Pathologist: Alexander Arias MD Specimen: TRANSVERSE COLON POLYP, Distal Transverse colon polyp Performed By: #### S #### [facility] CLIA [id number] [address] [place] [address] [place] FINAL DIAGNOSIS Normal [facility] Comment on above: Order Comment: Zach lara Type: TISSUE SPECIMEN Ordering Facility: [facility] Address: [address] [place] [address] Result Comment: Linn n, transverse, polypectomy: -Polypoid colonic mucosa with prominent lymphoid aggregate, negative for dysplasia -Multiple deeper sections examined Performed By: #### S #### [facility] CLIA [id number] [address] [place] [address] [place] FINAL PERFORMING LAB Normal [facility] Comment on above: Order Comment: Zach lara Type: TISSUE SPECIMEN Ordering Facility: [facility] Address: [address] [place] [address] Result Comment: Diag nostic interpretation performed at [facility], [address] [place] [address] CLIA# [id number] Returned Telephone Equipment Appraiser: Abram Feliciano M.D. Performed By: #### S #### [facility] CLIA [id number] [address] [place] [address] [place] GROSS DESCRIPTION Normal [facility] Comment on above: Order Comment: Speci men Type: TISSUE SPECIMEN Ordering Facility: [facility] Address: [address] [place] [address] Result Comment: Flakito DORMAN COLON POLYP Received in formalin is one piece of bustillos, soft tissue measuring 0.3 x 0.2 x 0.2 cm. Totally submitted in one cassette. KK May 03, 2022 2:52 AM Gross examination performed at [facility], [facility], [place] [address] Performed By: #### S #### [facility] CLIA [id number] [address] [place] [address] [id number] OF [facility] CNOVon 04-04-2022 CNOV Office Visit (ALEXANDRO) TANYA VILLA ([id number]) 1950 F Date Time Provider Department 04/04/22 [...] amLODIPine (NORVAS (more content not included)... Normal [facility] Absolute lymphocyte countOrd ered By: Dr. Reina on 03-24-2022 Lymphocytes Auto (Unsp spec) [#/Vol] 1.15 10*3/uL 0.83-4.51 [facility] Basophil percentageOrdered B y: Dr. Reina on 03-24-2022 Basophil percentage 0-5 SEEN /hpf 0-5 Wo [facility] Basophils/100 WBC (Bld) 0.8 % 0-1 [facility] Bilirubin [Mass/Vol] 0.40 mg/dL 0.20-1.00 [facility] Comment on above: For patients on eltr ombopag therapy, use of Dimension [place] TBIL is not recommended. Chloride [Moles/Vol] 108 mmol/L 98-107 [facility] Cholesterol [Mass/Vol] 172 mg/dL <200 [facility] Comment on above: <200 mg/dL Desirable 200-240 mg/dL Borderline >240 mg/dL High Risk Eosinophils/100 WBC (Bld) 2.2 % 0-5 [facility] Glucose [Mass/Vol] 93 mg/dL 74-106 [facility] Neutrophils (Bld) [#/Vol] 3.0 10*3/uL 2.0-7.7 [facility] Neutrophils/100 WBC (Bld) 62.3 % 47-70 [facility] Potassium [Moles/Vol] 4.4 mmol/L 3.5-5.[address] [facility] Protein [Mass/Vol] 7.3 g/dL 6.4-8.2 [facility] Sodium [Moles/Vol] 141 mmol/L 136-145 [facility] Triglyceride [Mass/Vol] 100 mg/dL <199 [facility] Comment on above: The drugs N-Acetylcy steine and Metamizole may falsely depress this assay.Serum Triglycerides Reference Interval Normal <150 mg/dL Borderline high 150 - 199 mg/dL High 200 - 499 mg/dL Very High > or = 500 mg/dL WBC (Bld) [#/Vol] 4.9 10*3/uL 4.4-11.0 [facility] Bilirubin Test strip Ql (U)O rdered By: Dr. Reina on 03-24-2022 Bilirubin Ql (U) Negative Negative [facility] Blood erythrocytes count (nu mber/volume)Ordered By: Dr. Reina on 03-24-2022 RBC (Bld) [#/Vol] 4.16 10*6/uL 4.2-5.4 [facility] Blood hemoglobin measurement (mass/volume)Ordered By: Dr. Reina on 03-24-2022 Hemoglobin (Bld) [Mass/Vol] 11.7 g/dL 12.0-15.0 [facility] Blood lymphocytes/100 leukoc ytesOrdered By: Dr. Renia on 03-24-2022 Lymphocytes/100 WBC (Bld) 23.5 % 19-41 [facility] Blood monocytes/100 leukocyt esOrdered By: Dr. Reina on 03-24-2022 Monocytes/100 WBC (Bld) 10.6 % 0-10 [facility] Blood platelet mean volumeOr dered By: Dr. Reina on 03-24-2022 Platelet mean volume (Bld) [Entitic vol] 10.5 fL 6.2-12.0 [facility] Determination of erythrocyte mean corpuscular volume (MCV)Ordered By: Dr. Reina on 03-24-2022 MCV (RBC) [Entitic vol] 90.9 fL 81-99 [facility] Hematocrit Auto (Bld) [Volum e fraction]Ordered By: Dr. Reina on 03-24-2022 Hematocrit (Bld) [Volume fraction] 37.8 % 37-47 [facility] Iron measurement (mass/mass) Ordered By: Dr. Reina on 03-24-2022 Iron (Unsp spec) [Mass/Mass] 45 ug/dL 50-170 [facility] Ketones Test strip Ql (U)Ord ered By: Dr. Reina on 03-24-2022 Ketones Ql (U) 15 mg/dl Negative [facility] Laboratory - Chemistry and C hemistry - challengeOrdered By: Dr. Reina on 03-24-2022 ALP [Catalytic activity/Vol] 107 U/L 45-117 [facility] ALT [Catalytic activity/Vol] 37 U/L 13-56 [facility] CO2 [Moles/Vol] 27.0 mmol/L 21.0-32.0 [facility] Cobalamin (Vitamin B12) [Mass/Vol] 1571 pg/mL 211-911 [facility] Globulin (S) [Mass/Vol] 3.6 g/dL 2.2-4.2 [facility] Urea nitrogen/Creatinine [Mass ratio] 18.0 mg/mg 10-20 [facility] Laboratory - Hematology and Cell countsOrdered By: Dr. Reina on 03-24-2022 Erythrocyte distribution width (RBC) [Entitic vol] 49.1 fL 35.1-43.9 [facility] Erythrocyte distribution width (RBC) [Ratio] 14.7 % 11.6-14.6 [facility] Immature granulocytes/100 WBC (Bld) 0.600 % 0.0-0.9 [facility] Comment on above: IG% - Immature Granu locytes (promyelocytes, myelocytes and metamyelocytes) > 1% indicates that a LEFT SHIFT is Present. MCH (RBC) [Entitic mass] 28.1 pg 27.0-32.0 [facility] Nucleated RBC/100 WBC (Bld) [Ratio] 0.4 % 0-5 [facility] MCHC Auto (RBC) [Mass/Vol]Or dered By: Dr. Reina on 03-24-2022 MCHC (RBC) [Mass/Vol] 31.0 g/dL 32-[address] [facility] Mucus LM Ql (Urine sed)Order ed By: Dr. Reina on 03-24-2022 Mucus Ql (Urine sed) RARE /hpf [facility] Nitrite Test strip Ql (U)Ord ered By: Dr. Reina on 03-24-2022 Nitrite Ql (U) Negative Negative [facility] No Panel InformationOrdered By: Dr. Reina on 03-24-2022 Estimated GFR (MDRD) Amer 71 mL/min >60 [facility] Comment on above: GFR Calc Estimated GFR (MDRD) Non-Af Amer 58 mL/min >60 [facility] Comment on above: Non- GFR Calc Thyroid Stimulating Hormone (TSH) 1.47 uIU/mL 0.358-3.74 [facility] Total Iron Binding Capacity 360 ug/dL 250-450 [facility] Platelets bldOrdered By: Dr. Reina on 03-24-2022 Platelets (Bld) [#/Vol] 203 10*3/uL 150-450 [facility] Protein Test strip Ql (U)Ord ered By: Dr. Reina on 03-24-2022 Protein Ql (U) 15 mg/dl Negative [facility] Serum or plasma albumin odette urement (mass/volume)Ordered By: Dr. Reina on 03-24-2022 Albumin [Mass/Vol] 3.7 g/dL 3.2-5.0 [facility] Serum or plasma albumin/glob ulin mass ratioOrdered By: Dr. Reina on 03-24-2022 Albumin/Globulin [Mass ratio] 1.0 {ratio} 0.9-2.4 [facility] Serum or plasma calcium odette urement (mass/volume)Ordered By: Dr. Reina on 03-24-2022 Calcium [Mass/Vol] 8.9 mg/dL 8.5-10.1 [facility] Serum or plasma cholesterol in HDL measurement (mass/volume)Ordered By: Dr. Reina on 03-24-2022 Cholesterol in HDL [Mass/Vol] 86 mg/dL >40 [facility] Comment on above: The drugs N-Acetylcy steine and Metamizole may falsely depress this assay. Reference Range HDL <40 mg/dL Low HDL Cholesterol HDL >or= 60 mg/dL High HDL Cholesterol Serum or plasma cholesterol in VLDL measurement (mass/volume)Ordered By: Dr. Reina on 03-24-2022 Cholesterol in VLDL [Mass/Vol] 20 mg/dL 5-40 [facility] Serum or plasma creatinine m easurement (mass/volume)Ordered By: Dr. Reina on 03-24-2022 Creatinine [Mass/Vol] 1.00 mg/dL 0.55-1.[address] [facility] Comment on above: The validity of the calculated GFR & GFRAA in patients over 70 years has not been determined. Clinical correlation is essential. Serum or plasma ferritin bebe surement (mass/volume)Ordered By: Dr. Reina on 03-24-2022 Ferritin [Mass/Vol] 25 ng/mL 8-252 [facility] Serum or plasma folate measu rement (mass/volume)Ordered By: Dr. Reina on 03-24-2022 Folate [Mass/Vol] 19.90 ng/mL 3.1-55.4 [facility] Serum or plasma iron saturat ion measurement (mass fraction)Ordered By: Dr. Reina on 03-24-2022 Iron saturation [Mass fraction] 12.5 % 15.0-55.0 [facility] Serum or plasma low density lipoprotein (LDL) cholesterol measurement (mass/volume)Ordered By: Dr. Reina on 03-24-2022 Cholesterol in LDL [Mass/Vol] 66 mg/dL 0-130 [facility] Serum or plasma urea nitroge n measurement (mass/volume)Ordered By: Dr. Reina on 03-24-2022 Urea nitrogen [Mass/Vol] 18 mg/dL 7-18 [facility] Squamous epithelial cells de tection in urine sediment by light microscopyOrdered By: Dr. Reina on 03-24-2022 Epithelial cells.squamous LM Ql (Urine sed) 0-5 SEEN /hpf 5-10 [facility] Thin prep Papanicolaou smear with manual screeningOrdered By: Dr. Reina on 03-24-2022 Thin prep Papanicolaou smear with manual screening 18 U/L 15-37 [facility] Thin prep Papanicolaou smear with manual screening 6 5-15 [facility] Urine blood detectionOrdered By: Dr. Reina on 03-24-2022 RBC Ql (U) 10 /ul Negative [facility] RBC Ql (U) 0 SEEN /hpf 0-5 [facility] Urine clarityOrdered By: Dr. Reina on 03-24-2022 Clarity (U) Clear Clear [facility] Urine color determinationOrd ered By: Dr. Reina on 03-24-2022 Color (U) Yellow Yellow [facility] Urine glucose detectionOrder ed By: Dr. Reina on 03-24-2022 Glucose Ql (U) Normal mg/dl Normal [facility] Urine leukocyte esterase det ection by dipstickOrdered By: Dr. Reina on 03-24-2022 Leukocyte esterase Test strip Ql (U) 25 /ul Negative [facility] Urine pHOrdered By: Dr. Ilda perez on 03-24-2022 pH (U) 7.0 [pH] 5.0 - 8.0 [facility] Urine sediment bacteria coun t by microscopy (number/high power field)Ordered By: Dr. Reina on 03-24-2022 Bacteria LM.HPF (Urine sed) [#/Area] RARE /hpf None Seen [facility] Urine specific gravity measu rementOrdered By: Dr. Reina on 03-24-2022 Specific gravity (U) [Rel density] 1.010 1.002-1.030 [facility] Urobilinogen Auto test strip Ql (U)Ordered By: Dr. Reina on 03-24-2022 Urobilinogen Ql (U) 1 mg/dl Normal [facility] Absolute lymphocyte counton 09-12-2021 Lymphocytes Auto (Unsp spec) [#/Vol] 1.42 10*3/uL 0.83-4.51 [facility] Work Phone: [phone] Basophil percentageon 2021 Basophil percentage 0-5 SEEN /hpf 0-5 [facility] Work Phone: [phone] Basophils/100 WBC (Bld) 0.8 % 0-1 [facility] Work Phone: [phone] Bilirubin [Mass/Vol] 0.40 mg/dL 0.20-1.00 [facility] Work Phone: [phone] Comment on above: For patients on eltr ombopag therapy, use of Dimension [place] TBIL is not recommended. Chloride [Moles/Vol] 107 mmol/L 98-107 [facility] Work Phone: Cholesterol [Mass/Vol] 178 mg/dL <200 [facility] Work Phone: [phone] Comment on above: <200 mg/dL Desirable 200-240 mg/dL Borderline >240 mg/dL High Risk Eosinophils/100 WBC (Bld) 2.6 % 0-5 [facility] Work Phone: Glucose [Mass/Vol] 92 mg/dL 74-106 [facility] Work Phone: Neutrophils (Bld) [#/Vol] 3.0 10*3/uL 2.0-7.7 [facility] Work Phone: Neutrophils/100 WBC (Bld) 58.1 % 47-70 [facility] Work Phone: [phone] Potassium [Moles/Vol] 4.0 mmol/L 3.5-5.[address] [facility] Work Phone: [phone] Protein [Mass/Vol] 7.2 g/dL 6.4-8.2 [facility] Work Phone: Sodium [Moles/Vol] 142 mmol/L 136-145 [facility] Work Phone: Triglyceride [Mass/Vol] 116 mg/dL <199 [facility] Work Phone: Comment on above: The drugs N-Acetylcy steine and Metamizole may falsely depress this assay.Serum Triglycerides Reference Interval Normal <150 mg/dL Borderline high 150 - 199 mg/dL High 200 - 499 mg/dL Very High > or = 500 mg/dL WBC (Bld) [#/Vol] 5.1 10*3/uL 4.4-11.0 [facility] Work Phone: Bilirubin Test strip Ql (U)o n 09-12-2021 Bilirubin Ql (U) Negative Negative [facility] Work Phone: Blood erythrocytes count (nu mber/volume)on 09-12-2021 RBC (Bld) [#/Vol] 4.29 10*6/uL 4.2-5.4 [facility] Work Phone: Blood hemoglobin measurement (mass/volume)on 09-12-2021 Hemoglobin (Bld) [Mass/Vol] 12.3 g/dL 12.0-15.0 [facility] Work Phone: Blood lymphocytes/100 leukoc yteson 09-12-2021 Lymphocytes/100 WBC (Bld) 27.9 % 19-41 [facility] Work Phone: Blood monocytes/100 leukocyt eson 09-12-2021 Monocytes/100 WBC (Bld) 10.2 % 0-10 [facility] Work Phone: Blood platelet mean volumeon 09-12-2021 Platelet mean volume (Bld) [Entitic vol] 10.2 fL 6.2-12.0 [facility] Work Phone: Determination of erythrocyte mean corpuscular volume (MCV)on 09-12-2021 MCV (RBC) [Entitic vol] 91.4 fL 81-99 [facility] Work Phone: Hematocrit Auto (Bld) [Volum e fraction]on 09-12-2021 Hematocrit (Bld) [Volume fraction] 39.2 % 37-47 [facility] Work Phone: Ketones Test strip Ql (U)on 09-12-2021 Ketones Ql (U) 5 mg/dl Negative [facility] Work Phone: Laboratory - Chemistry and C hemistry - challengeon 09-12-2021 ALP [Catalytic activity/Vol] 101 U/L 45-117 [facility] Work Phone: ALT [Catalytic activity/Vol] 56 U/L 13-56 [facility] Work Phone: [phone] CK [Catalytic activity/Vol] 66 U/L 26-192 [facility] Work Phone: [phone] CO2 [Moles/Vol] 26.0 mmol/L 21.0-32.0 [facility] Work Phone: [phone] Cobalamin (Vitamin B12) [Mass/Vol] 570 pg/mL 211-911 [facility] Work Phone: [phone] Globulin (S) [Mass/Vol] 3.4 g/dL 2.2-4.2 [facility] Work Phone: [phone] Magnesium [Mass/Vol] 2.5 mg/dL 1.6-2.6 [facility] Work Phone: Urea nitrogen/Creatinine [Mass ratio] 17.3 mg/mg 10-20 [facility] Work Phone: [phone] Laboratory - Hematology and Cell countson 09-12-2021 Erythrocyte distribution width (RBC) [Entitic vol] 47.7 fL 35.1-43.9 [facility] Work Phone: [phone] Erythrocyte distribution width (RBC) [Ratio] 14.1 % 11.6-14.6 [facility] Work Phone: [phone] Immature granulocytes/100 WBC (Bld) 0.400 % 0.0-0.9 [facility] Work Phone: [phone] Comment on above: IG% - Immature Granu locytes (promyelocytes, myelocytes and metamyelocytes) > 1% indicates that a LEFT SHIFT is Present. MCH (RBC) [Entitic mass] 28.7 pg 27.0-32.0 [facility] Work Phone: Nucleated RBC/100 WBC (Bld) [Ratio] 0 % 0-5 [facility] Work Phone: MCHC Auto (RBC) [Mass/Vol]on 09-12-2021 MCHC (RBC) [Mass/Vol] 31.4 g/dL 32-[address] [facility] Work Phone: Mucus LM Ql (Urine sed)on Mucus Ql (Urine sed) 0 SEEN /hpf [facility] Work Phone: Nitrite Test strip Ql (U)on 09-12-2021 Nitrite Ql (U) Negative Negative [facility] Work Phone: No Panel Informationon 09-12 Estimated GFR (MDRD) Amer 83 mL/min >60 [facility] Work Phone: Comment on above: GFR Calc Estimated GFR (MDRD) Non-Af Amer 69 mL/min >60 [facility] Work Phone: Comment on above: Non- GFR Calc Thyroid Stimulating Hormone (TSH) 2.16 uIU/mL 0.358-3.74 [facility] Work Phone: Platelets bldon 09-12-2021 Platelets (Bld) [#/Vol] 180 10*3/uL 150-450 [facility] Work Phone: Protein Test strip Ql (U)on 09-12-2021 Protein Ql (U) Negative Negative [facility] Work Phone: Serum or plasma albumin odette urement (mass/volume)on 09-12-2021 Albumin [Mass/Vol] 3.8 g/dL 3.2-5.0 [facility] Work Phone: Serum or plasma albumin/glob ulin mass ratioon 09-12-2021 Albumin/Globulin [Mass ratio] 1.1 {ratio} 0.9-2.4 [facility] Work Phone: Serum or plasma calcium odette urement (mass/volume)on 09-12-2021 Calcium [Mass/Vol] 9.0 mg/dL 8.5-10.1 [facility] Work Phone: Serum or plasma cholesterol in HDL measurement (mass/volume)on 09-12-2021 Cholesterol in HDL [Mass/Vol] 54 mg/dL >40 [facility] Work Phone: Comment on above: The drugs N-Acetylcy steine and Metamizole may falsely depress this assay. Reference Range HDL <40 mg/dL Low HDL Cholesterol HDL >or= 60 mg/dL High HDL Cholesterol Serum or plasma cholesterol in VLDL measurement (mass/volume)on 09-12-2021 Cholesterol in VLDL [Mass/Vol] 23 mg/dL 5-40 [facility] Work Phone: Serum or plasma creatinine m easurement (mass/volume)on 09-12-2021 Creatinine [Mass/Vol] 0.87 mg/dL 0.55-1.[address] [facility] Work Phone: Comment on above: The validity of the calculated GFR & GFRAA in patients over 70 years has not been determined. Clinical correlation is essential. Serum or plasma ferritin bebe surement (mass/volume)on 09-12-2021 Ferritin [Mass/Vol] 21 ng/mL 8-252 [facility] Work Phone: Serum or plasma low density lipoprotein (LDL) cholesterol measurement (mass/volume)on 09-12-2021 Cholesterol in LDL [Mass/Vol] 101 mg/dL 0-130 [facility] Work Phone: Serum or plasma urea nitroge n measurement (mass/volume)on 09-12-2021 Urea nitrogen [Mass/Vol] 15 mg/dL 7-18 [facility] Work Phone: Squamous epithelial cells de tection in urine sediment by light microscopyon 09-12-2021 Epithelial cells.squamous LM Ql (Urine sed) 0-5 SEEN /hpf 5-10 [facility] Work Phone: Thin prep Papanicolaou smear with manual screeningon 09-12-2021 Thin prep Papanicolaou smear with manual screening 31 U/L 15-37 [facility] Work Phone: Thin prep Papanicolaou smear with manual screening 9 5-15 [facility] Work Phone: Urine blood detectionon 09-02 RBC Ql (U) Negative Negative [facility] Work Phone: RBC Ql (U) 0 SEEN /hpf 0-5 [facility] Work Phone: Urine clarityon 09-12-2021 Clarity (U) Sl. Cloudy Clear [facility] Work Phone: Urine color determinationon 09-12-2021 Color (U) Yellow Yellow [facility] Work Phone: Urine glucose detectionon Glucose Ql (U) Normal mg/dl Normal [facility] Work Phone: Urine leukocyte esterase det ection by dipstickon 09-12-2021 Leukocyte esterase Test strip Ql (U) 25 /ul Negative [facility] Work Phone: Urine pHon 09-12-2021 pH (U) 8.0 [pH] 5.0 - 8.0 [facility] Work Phone: Urine sediment bacteria coun t by microscopy (number/high power field)on 09-12-2021 Bacteria LM.HPF (Urine sed) [#/Area] 0 /[HPF] None Seen [facility] Work Phone: Urine specific gravity measu rementon 09-12-2021 Specific gravity (U) [Rel density] 1.015 1.002-1.030 [facility] Work Phone: Urobilinogen Auto test strip Ql (U)on 09-12-2021 Urobilinogen Ql (U) Normal mg/dl Normal [facility] Work Phone: Basophil percentageon 2021 Creatinine [Mass/Vol] 0.8 mg/dL 0.55-1.[address] [facility] Work Phone: No Panel Informationon 06-02 Bedside Estimated GFR (eGFR) > 60.0000 mL/min >60 [facility] Work Phone: Vital Signs Date Time Vital Sign Value Performing Clinician Facility 02-07-2024 04:44-0500 Diastolic Blood Pressure Non-Invasive 71 mm[Hg] PRERNA VARGAS MD [facility] 02-07-2024 04:44-0500 Heart rate 71 /min PRERNA VARGAS MD [facility] 02-07-2024 04:44-0500 Systolic Blood Pressure Non-Invasive 134 mm[Hg] PRERNA VARGAS MD [facility] 02-07-2024 03:13-0500 Body height 155 cm PRERNA VARGAS MD [facility] 02-07-2024 03:13-0500 Body temperature 97.7 [degF] PRERNA VARGAS MD [facility] 02-07-2024 03:13-0500 Body weight 59.1 kg PRERNA VARGAS MD [facility] 02-07-2024 03:13-0500 Diastolic Blood Pressure Non-Invasive 79 mm[Hg] PRERNA VARGAS MD [facility] 02-07-2024 03:13-0500 Heart rate 77 /min PRERNA VARGAS MD [facility] 02-07-2024 03:13-0500 Reason For Taking VItal Signs PRERNA VARGAS MD [facility] 02-07-2024 03:13-0500 Respiratory rate 22 /min PRERNA VARGAS MD [facility] 02-07-2024 03:13-0500 Systolic Blood Pressure Non-Invasive 131 mm[Hg] PRENRA VARGAS MD [facility] 04-22-2023 15:19-0500 Diastolic blood pressure 77 mm[Hg] CASSI UNGER MD [facility] 04-22-2023 15:19-0500 Heart rate 68 /min CASSI UNGER MD [facility] 04-22-2023 15:19-0500 Respiratory rate 16 /min CASSI UNGER MD [facility] 04-22-2023 15:19-0500 Systolic blood pressure 124 mm[Hg] CASSI UNGER MD [facility] 04-22-2023 13:31-0500 Body height 155 cm CASSI UNGER MD [facility] 04-22-2023 13:31-0500 Body temperature 96.26 [degF] CASSI UNGER MD [facility] 04-22-2023 13:31-0500 Body weight 56.8 kg CASSI UNGER MD [facility] 04-22-2023 13:31-0500 Diastolic Blood Pressure Non-Invasive 87 mm[Hg] CASSI UNGER MD [facility] 04-22-2023 13:31-0500 Heart rate 78 /min CASSI UNGER MD [facility] 04-22-2023 13:31-0500 Respiratory rate 16 /min CASSI UNGER MD [facility] 04-22-2023 13:31-0500 Systolic Blood Pressure Non-Invasive 145 mm[Hg] CASSI UNGER MD [facility] 12-24-2022 17:28-0400 Diastolic Blood Pressure Non-Invasive 82 1 AVIS GARCIA MD [facility] 12-24-2022 17:28-0400 Heart rate 67 /min AVIS GARCIA MD [facility] 12-24-2022 17:28-0400 Reason For Taking VItal Signs AVIS GARCIA MD [facility] 12-24-2022 17:28-0400 Respiratory rate 16 /min AVIS GARCIA MD [facility] 12-24-2022 17:28-0400 Systolic Blood Pressure Non-Invasive 161 1 AVIS GARCIA MD [facility] 12-24-2022 14:56-0400 Blood Pressure Cuff Size AVIS GARCIA MD [facility] 12-24-2022 14:56-0400 Blood Pressure Location AVIS GARCIA MD [facility] 12-24-2022 14:56-0400 Blood Pressure Method AVIS GARCIA MD [facility] 12-24-2022 14:56-0400 Body temperature 98.24 [degF] AVIS GARCIA MD [facility] 12-24-2022 14:56-0400 Diastolic Blood Pressure Non-Invasive 80 1 AVIS GARCIA MD [facility] 12-24-2022 14:56-0400 Heart rate 77 /min AVIS GARCIA MD [facility] 12-24-2022 14:56-0400 Respiratory rate 18 /min AVIS GARCIA MD [facility] 12-24-2022 14:56-0400 Systolic Blood Pressure Non-Invasive 137 1 AVIS GARCIA MD [facility] 12-24-2022 06:13-0400 Blood Pressure Cuff Size CASSI UNGER MD [facility] 12-24-2022 06:13-0400 Blood Pressure Location CASSI UNGER MD [facility] 12-24-2022 06:13-0400 Blood Pressure Method CASSI UNGER MD [facility] 12-24-2022 06:13-0400 Body height 155 cm CASSI UNGER MD [facility] 12-24-2022 06:13-0400 Body temperature 97.16 [degF] CASSI UNGER MD [facility] 12-24-2022 06:13-0400 Body weight 59.1 kg CASSI UNGER MD [facility] 12-24-2022 06:13-0400 Diastolic Blood Pressure Non-Invasive 88 1 CASSI UNGER MD [facility] 12-24-2022 06:13-0400 Heart rate 84 /min CASSI UNGER MD [facility] 12-24-2022 06:13-0400 Reason For Taking VItal Signs CASSI UNGER MD [facility] 12-24-2022 06:13-0400 Respiratory rate 18 /min CASSI UNGER MD [facility] 12-24-2022 06:13-0400 Systolic Blood Pressure Non-Invasive 170 1 CASSI UNGER MD [facility] 05-02-2022 12:05-0500 Heart rate 64 /min Trudy Simon MD Work Phone: [facility] 05-02-2022 12:05-0500 SaO2% (BldA) [Mass fraction] 99 % Trudy Simon MD Work Phone: [facility] 05-02-2022 11:55-0500 Diastolic blood pressure 72 mm[Hg] Trudy Simon MD Work Phone: [facility] 05-02-2022 11:55-0500 Respiratory rate 16 /min Trudy Simon MD Work Phone: [facility] 05-02-2022 11:55-0500 Systolic blood pressure 134 mm[Hg] Trudy Simon MD Work Phone: [facility] 05-02-2022 09:33-0500 Body temperature 97.39 [degF] Trudy Simon MD Work Phone: [facility] 04-04-2022 09:27-0500 Body height 154.9 cm Sri Castalia PA-C Work Phone: [facility] 04-04-2022 09:27-0500 Body temperature 97.11 [degF] Sri Castalia PA-C Work Phone: [facility] 04-04-2022 09:27-0500 Body weight 58.97 kg Sri Castalia PA-C Work Phone: [facility] 04-04-2022 09:27-0500 Diastolic blood pressure 92 mm[Hg] Sri Vahid PA-C Work Phone: [facility] 04-04-2022 09:27-0500 Heart rate 144 /min Sri Vahid PA-C Work Phone: [facility] 04-04-2022 09:27-0500 SaO2% (BldA) [Mass fraction] 95 % Sri Redding PA-C Work Phone: [facility] 04-04-2022 09:27-0500 Systolic blood pressure 138 mm[Hg] Sri Redding PA-C Work Phone: [facility] Encounters Encounter Date Encounter Type Care Provider Facility Start: 11-06-2024 End: 11-06-[address] 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 Cullen Reina MD Work Phone: -[facility] Start: 10-31-2024 End: 10-31-[address] Cullen Reina MD -[facility] Work Phone: Start: 10-31-2024 End: 10-31-2024 ambulatory Cullen Reina Facility:[facility] Start: 08-28-2024 End: 08-28-[address] Israel Ruvalcaba MD -[facility] Start: 08-28-2024 End: 08-28-[address] Cullen Reina MD Work Phone: [facility] Work Phone: Start: 08-22-2024 End: 08-22-2024 Emergency department patient visit AVIS GARCIA MD [facility] Start: 08-17-2024 End: 08-17-2024 Emergency department patient visit PRERNA VARGAS MD [facility] Start: 02-07-2024 End: 02-07-2024 Emergency department patient visit PRERNA VARGAS MD [facility] Start: 01-04-2024 End: 01-04-[facility] Start: 12-05-2023 End: 12-05-20[facility] Start: 04-22-2023 End: 04-22-2023 Emergency department patient visit CASSI UNGER MD Facility:[facility] Start: 04-22-2023 End: 04-22-2023 Emergency department patient visit CASSI UNGER MD [facility] Start: 02-06-2023 End: 02-06-2023 ambulatory [facility] Work Phone: Start: 02-06-2023 End: 02-06-2023 Patient encounter procedure [facility] Work Phone: Start: 12-24-2022 End: 12-24-2022 Emergency department patient visit AVIS GARCIA MD Facility:[facility] Start: 12-24-2022 End: 12-24-2022 Emergency department patient visit AVIS GARCIA MD [facility] Start: 12-24-2022 End: 12-24-2022 Emergency department patient visit CULLEN ELIAS DO Facility:[facility] Start: 12-24-2022 End: 12-24-2022 Emergency department patient visit CASSI UNGER MD [facility] Start: 10-17-2022 End: 10-17-2022 ambulatory [facility] Work Phone: Start: 10-17-2022 End: 10-17-2022 Patient encounter procedure [facility] Work Phone: Start: 05-09-2022 Telephone encounter Trudy Simon MD Work Phone: General Surgery Comment on above: Results (colonoscopy ) Start: 05-02-2022 End: 05-02-2022 ambulatory CULLEN REINA Facility:[facility] Start: 05-02-2022 End: 05-02-2022 Subsequent hospital visit by physician Trudy Simon MD Work Phone: Ambulatory Surgery Comment on above: Family history of co aspen cancer [Z80.0] Start: 04-04-2022 End: 04-04-2022 ambulatory IVETH ERAZO Facility:[facility] Start: 04-04-2022 End: 04-04-2022 Patient encounter procedure Sri Graf GRAY Work Phone: General Surgery Comment on above: Encounter for screen ing for malignant neoplasm of colon (Primary Dx); Family history of colon cancer Start: 03-24-2022 End: 03-24-2022 ambulatory [facility] Work Phone: Start: 03-24-2022 End: 03-24-2022 Patient encounter procedure [facility] Start: 09-12-2021 End: 09-12-2021 Patient encounter procedure [facility] Start: 06-09-2021 End: 06-09-2021 Patient encounter procedure [facility]-Ultrasound, [facility] Start: 06-02-2021 End: 06-02-2021 Patient encounter procedure [facility]-Cat Scan, [facility] Procedures Date Procedure Procedure Detail Performing Clinician [...] Activity Detail Author Start: 05-02-2027 Colonoscopy COLONOSCOPY [facility] Start: 05-02-2027 COLORECTAL CANCER SCREENING COLORECTAL CANCER SCREENING [facility] Start: 08-28-2024 X-ray of thoracic spine, four or more views Thoracic Spine Min 4 Views [facility] Start: 08-28-2024 Complete x-ray series of lumbosacral spine including bending views L/S Spine Comp/w Bending Views [facility] Start: 11-03-2022 Covid-19 Vaccine () Covid-19 Vaccine () [facility] Start: 11-03-2022 Influenza vaccination Influenza Vaccine (#1) [facility] Start: 03-05-2022 ADVANCE DIRECTIVE DISCUSSION ADVANCE DIRECTIVE DISCUSSION [facility] Start: 03-05-2022 DEPRESSION ASSESSMENT DEPRESSION ASSESSMENT [facility] Start: 11-03-2021 Influenza vaccination INFLUENZA (#1) [facility] Start: 10-14-2021 Mammography [facility] Start: 05-23-2021 Colonoscopy COLONOSCOPY [facility] Start: 05-23-2021 COLORECTAL CANCER SCREENING COLORECTAL CANCER SCREENING [facility] Start: 03-15-2021 COVID-19 VACCINE (4 - Booster for Moderna series) COVID-19 VACCINE (4 - Booster for Moderna series) [facility] Start: 2017 BONE DENSITY BONE DENSITY [facility] Start: 2017 Bone Density Screening Bone Density Screening [facility] Start: 2017 Pneumococcal Vaccine: 65+ (1 - PCV) Pneumococcal Vaccine: 65+ (1 - PCV) [facility] Start: 2017 PNEUMOCOCCAL: 65+ (1 - PCV) PNEUMOCOCCAL: 65+ (1 - PCV) [facility] Start: 2012 RSV Vaccine (1 - 1-dose 60+ series) RSV Vaccine (1 - 1-dose 60+ series) [facility] Start: 09-02-2010 Lipid 1996 panel - Serum or Plasma Lipid Screening [facility] Start: 09-02-2010 LIPID SCREEN LIPID SCREEN [facility] Start: 09-02-2008 DIABETES SCREEN DIABETES SCREEN [facility] Start: 09-02-2008 Diabetes Screening Diabetes Screening [facility] Start: 2002 SHINGRIX VACCINE (1 of 2) SHINGRIX VACCINE (1 of 2) [facility] Start: 1997 COLOGUARD (FIT-DNA) COLOGUARD (FIT-DNA) [facility] Start: [address] COLONOGRAPHY [facility] Start: 1997 FECAL OCCULT BLOOD FECAL OCCULT BLOOD [facility] Start: 1997 SIGMOIDOSCOPY SIGMOIDOSCOPY [facility] Start: 12-23-1971 Urine microalbumin profile [facility] Start: 1970 HEPATITIS C SCREENING HEPATITIS C SCREENING [facility] Immunizations Immunization Date Immunization Notes Care Provider Lazaro rader 06-01-2020 COVID-19 original vaccine, full dose, monovalent (MODERNA) Sri Redding PA-C Work Phone: [facility] Work Phone: 05-04-2020 COVID-19 original vaccine, full dose, monovalent (MODERNA) Sri Redding PA-C Work Phone: [facility] Work Phone: 12-11-2019 influenza virus vaccine, unspecified formulation Trudy Simon MD Work Phone: [facility] Payers Date Payer Category Payer Self-pay [id number] 2020 Private Health Insurance [id number] 2020 Unknown [id number] 2020 Unknown PRIMETIME PRIMET VINCENT HMO POS [id number] 2020-Present [phone] [address] [place] [address] HMO [id number] 1952 Unknown [id number] 27 1952 Unknown [id number] 27 1952 Unknown [id number] [id number] 27 1952 Unknown [id number] [id number] 27 1952 Unknown [id number] [id number] 27 1952 Unknown [id number] [id number] 27 Unknown [id number] Unknown [id number] 62 Unknown [id number] [id number] 62 Unknown [id number] [id number] 62 Unknown [id number] 62 Unknown [id number] 62 Social History Date Type Detail Facility Tobacco smoking status NHIS Unknown if ever smoked [facility] Work Phone: Start: 1950 Sex Assigned At Female W [facility] Start: 03-28-2011 End: 08-17-2024 Tobacco smoking status NHIS Never smoked tobacco [facility] Work Phone: Start: 03-28-2011 Tobacco use and exposure Smokeless tobacco non-user [facility] Work Phone: Start: 04-04-2022 Alcohol intake Current non-dr mirror installer of alcohol (finding) [facility] Start: 1950 Sex Assigned At Not on file C [facility] Start: 05-02-2022 End: 05-09-2022 Alcohol intake Current drinker of alcohol (finding) [facility] Start: 05-02-2022 [facility]igned At [facility] Start: 04-04-2022 End: 05-02-2022 History of Social function [facility] Start: 04-04-2022 End: 05-02-2022 Tobacco use panel [facility] National Score (1-100), lower number is lower risk 64 [facility] Start: 06-02-2016 Sex Female (finding) [facility] Tobacco smoking status NHIS Unknown if ever smoked [facility] Work Phone: Functional Status Date Assessment Result Facility 02-07-2024 Functional Status Assistive Device Wheelc hair [facility] 02-07-2024 Functional Status Repositions self [facility] 04-22-2023 Functional Status Independent [facility] spital [facility] 02-18-2024 Functional Status Standard Safet y ID band on, Call device within reach, Bed in low position, Wheels locked, Visitor at bedside [facility] 12-24-2022 Functional Status Visitor at bedside [facility] 12-24-2022 Functional Status Ambulation in Tello [facility] 12-24-2022 Functional Status Awake, Resting [facility] Mental Status Date Assessment Result Facility 02-07-2024 Mental Status Orientation Oriented x 4 [facility] 02-07-2024 Mental Status [facility] 04-22-2023 Mental Status Orientation Oriented x 4 [facility] 04-22-2023 Mental Status [facility] 12-24-2022 Mental Status Orientation Oriented x 4 [facility] 12-24-2022 Mental Status [facility] 12-24-2022 Mental Status Oriented x 4 [facility] Clinical Notes 04-04-2022 to 08-22-2024 Telephone Encounter [...] are taking other medicines. You may use bmae-wke-syzvjmh medicines such as acetaminophen, ibuprofen, or naprosyn [...] Chills Burning or pain when passing urine [phone] [employer]. [address] [place] [address]. All rights reserved. This information is not intended as a substitute for professional medical care. Always follow your healthcare professional's instructions. Follow Up Care 08/22/2024 18:28:58 With:CULLEN REINA Address: [address] [address] [phone] [facility] (1) When:2-4 days Comments:Schedule appointment for close follow-up if symptoms are not improving.Position of comfort, limit activity as tolerated.Use warm, moist heat to the painful area.Use Tylenol or Advil for pain as needed.Continue muscle relaxer as previously prescribed as needed.Start prednisone as prescribed by your doctor tomorrow.Return to the ED if symptoms worsen. [facility] 08-22-2024 Emergency department Discharge summary Discharge Instructions Thank you for allowing [facility] to assist you with your healthcare needs. [...] 2-4 days Where:[address] [place] [id number] [phone] [facility] (1) Additional Information: Schedule appointment [...] are taking other medicines. You may use mfcg-ome-nzvpqcj medicines such as acetaminophen, ibuprofen, or naprosyn [...] Chills Burning or pain when passing urine [phone] [employer]. [address] [place] [address]. All rights reserved. This information is not intended as a substitute for professional medical care. Always follow your healthcare professional's instructions. Additional Information VACCINATE! IT SAVES LIVES! Members of the community who have not yet received the COVID-19 vaccine and would like to receive it can visit one of [facility] vaccine clinics. There are many vaccine clinic locations within the [facility]. For locations and available times, please visit [email or web address] It is important to note that some COVID mobile vaccine clinics are held outdoors and may be canceled in rainy or stormy conditions. To learn more about pediatric vaccinations (ages 5-11), we invite you to visit the [facility] webpage. https://www.[facility].org/p ages/4522-Slybr-Xcpdwnxndio-Freq alhpbz-Rodgi-Fcicaqzpe.html To learn more about the COVID-19 vaccine, we invite you to visit the CDC website for a list of frequently asked questions. https://www.cdc.gov/coronavirus/ 2019-ncov/vaccines/faq.html [facility] Patient Portal Access Instructions: Stay connected with your healthcare team and access your personal medical information anytime with the [facility] Patient Portal. If you would like a full copy of your medical records please contact the [facility] Medical Records Department Sunday through Sunday between 8a.m. and 4:30p.m. Please follow the directions below to access the portal: 1.Access the email account you provided upon registration to the [facility].2.Look for an invitation email from [facility].3.Open the email and access the invitation link: Accept Invitation to [facility]4.Fill in the required alonzo to create your account. Sign into [email or web address] with your username and password that you [...] you will allow to register on the [facility] Patient Portal for access to your information. You can also access the [facility] Patient Portal on the ReferralCandy. Simply click on Health Records under Health Data and then click on the [employer] logo. HOW TO SAFELY DISPOSE OF PRESCRIPTION [...] Call your local pharmacy or go to http://bit.ly/0Z7Mz8q to find one close to you.3.Make use of household items: Use cat litter or old coffee grounds to dispose medications if other options are not available. Mix your drugs with these household products, seal them in an airtight container and throw it into the garbage. Call [facility]: [phone] to be sure your drugs can be [...] aware that I should contact my doctor. Patient/Scourer Signature: Date/Time: Relationship to Patient: Witness Name/Signature: Date/Time: [facility] 08-17-2024 Hospital Discharg e instructions Patient Education [...] and toes connected by a vertical line. [phone] [employer] [place] [address]. All rights reserved. This information is not intended as a substitute for professional medical care. Always follow your healthcare professional's instructions. Follow Up Care 08/17/2024 13:09:37 With:CULLEN REINA MD Address: [address] [phone] When:2-4 days [facility] 08-17-2024 Note Discharge Instructions Thank you for allowing [facility] to assist you with your healthcare needs. [...] 2-4 days Where:[address] [place] [address] [phone] Allergies NKA Medications Please ask your primary [...] and toes connected by a vertical line. [phone] [employer]. [address] [place] [address], [place] [address]. All rights reserved. This information is not intended as a substitute for professional medical care. Always follow your healthcare professional's instructions. Additional Information VACCINATE! IT SAVES LIVES! Members of the community who have not yet received the COVID-19 vaccine and would like to receive it can visit one of [facility] vaccine clinics. There are many vaccine clinic locations within the [facility]. For locations and available times, please visit [email or web address] [email or web address] It is important to note that some COVID mobile vaccine clinics are held outdoors and may be canceled in rainy or stormy conditions. To learn more about pediatric vaccinations (ages 5-11), we invite you to visit the [facility] webpage. https://www.[facility].org/p ages/2668-Pekhr-Rhkjpxvzvaw-Freq tlcrdk-Iuwfp-Snfalwhny.html To learn more about the COVID-19 vaccine, we invite you to visit the CDC website for a list of frequently asked questions. https://www.cdc.gov/coronavirus/ 2019-ncov/vaccines/faq.html [facility] Patient Portal Access Instructions: Stay connected with your healthcare team and access your personal medical information anytime with the [facility] Patient Portal. If you would like a full copy of your medical records please contact the [facility] Medical Records Department Sunday through Sunday between 8a.m. and 4:30p.m. Please follow the directions below to access the portal: 1.Access the email account you provided upon registration to the [facility].2.Look for an invitation email from [facility].3.Open the email and access the invitation link: Accept Invitation to [facility]4.Fill in the required alonzo to [...] you will allow to register on the [facility] Patient Portal for access to your information. You can also access the [facility] Patient Portal on the ReferralCandy. Simply click on Health Records under Health Data and then click on the [facility] logo. HOW TO SAFELY DISPOSE OF PRESCRIPTION [...] Call your local pharmacy or go to http://lifeaction games.[employer]/7M4Rs9w to find one close to you.3.Make use of household items: Use cat litter or old coffee grounds to dispose medications if other options are not available. Mix your drugs with these household products, seal them in an airtight container and throw it into the garbage. Call [facility]: [phone] to be sure your drugs can be [...] aware that I should contact my doctor. Patient/Scourer Signature: Date/Time: Relationship to Patient: Witness Name/Signature: Date/Time: [facility] 02-07-2024 Hospital Discharg e instructions Patient Education [...] are taking other medicines. You may use duri-sri-ajotjdm medicines such as acetaminophen, ibuprofen, or naprosyn [...] Chills Burning or pain when passing urine [phone] [employer]. [address] [place] [address]. All rights reserved. This information is not intended as a substitute for professional medical care. Always follow your healthcare professional's instructions. Follow Up Care 02/07/2024 03:06:50 With:CULLEN REINA MD Address: [facility] [place] . [address] [address] [phone] When:2-4 days [facility] 02-07-2024 Note Discharge Instructions Thank you for allowing [facility] to assist you with your healthcare needs. The following is important discharge information regarding your hospital visit. What to Do Next Instructions from Your Care Team No qualifying data available. Post Acute Orders No qualifying data available. You Need to Schedule the Following Appointments Follow Up with CULLEN REINA MD When:Within 2-4 days Where:[address] [place] [address] [phone] Allergies NKA Medications Please ask your primary [...] are taking other medicines. You may use spfw-ves-dntpayc medicines such as acetaminophen, ibuprofen, or naprosyn [...] Chills Burning or pain when passing urine [phone] [employer]. [address] [place] [address]. All rights reserved. This information is not intended as a substitute for professional medical care. Always follow your healthcare professional's instructions. Additional Information VACCINATE! IT SAVES LIVES! Members of the community who have not yet received the COVID-19 vaccine and would like to receive it can visit one of [facility] vaccine clinics. There are many vaccine clinic locations within the [facility]. For locations and available times, please visit [email or web address] gov/. It is important to note that some COVID mobile vaccine clinics are held outdoors and may be canceled in rainy or stormy conditions. To learn more about pediatric vaccinations (ages 5-11), we invite you to visit the [facility] webpage. https://www.[facility].org/p ages/1407-Fkfui-Yotzziaxiju-Freq zopsrt-Pauug-Krlyspecw.html To learn more about the COVID-19 vaccine, we invite you to visit the CDC website for a list of frequently asked questions. https://www.cdc.gov/coronavirus/ 2019-ncov/vaccines/faq.html [facility] Patient Portal Access Instructions: Stay connected with your healthcare team and access your personal medical information anytime with the [facility] Patient Portal. If you would like a full copy of your medical records please contact the [facility] Medical Records Department Sunday through Sunday between 8a.m. and 4:30p.m. Please follow the directions below to access the portal: 1.Access the email account you provided upon registration to the [facility].2.Look for an invitation email from [facility].3.Open the email and access the invitation link: Accept Invitation to [facility]4.Fill in the required alonzo to create your account. Sign into [email or web address] with your username and password that you [...] you will allow to register on the [facility] Patient Portal for access to your information. You can also access the [facility] Patient Portal on the ReferralCandy. Simply click on Health Records under Health Data and then click on the [employer] logo. HOW TO SAFELY DISPOSE OF PRESCRIPTION [...] Call your local pharmacy or go to http://lifeaction games.[employer]/3O3Lg5y to find one close to you.3.Make use of household items: Use cat litter or old coffee grounds to dispose medications if other options are not available. Mix your drugs with these household products, seal them in an airtight container and throw it into the garbage. Call [facility]: [phone] to be sure your drugs can be [...] aware that I should contact my doctor. Patient/Scourer Signature: Date/Time: Relationship to Patient: Witness Name/Signature: Date/Time: [facility] 04-22-2023 Hospital Discharg e instructions Patient Education [...] are taking other medicines. You may use mwcf-qoa-jkudezq medicine as directed on the bottle to [...] Numbness in the groin or genital area [phone] [employer]. [address] [place] [address], [place] [address]. All rights reserved. This information is not [...] are taking other medicines. You may use uyko-nsb-comuqvs medicines such as acetaminophen, ibuprofen, or naprosyn [...] Chills Burning or pain when passing urine [phone] [employer]. [address] [place] [address]. All rights reserved. This information is not [...] that stimulate the heart. This includes many lauz-xeu-ktqjfyt cold and sinus decongestant pills and sprays, as well as diet pills. Check the warnings about high blood pressure on the label. Before buying any wugz-sow-zhjlbpj medicines or supplements, always ask the pharmacist [...] one of these at most pharmacies. The [place] [employer] recommends the following guidelines for [...] face You have problems speaking or seeing 3505-[address] [employer] [place] [address]. All rights reserved. This information is not intended as a substitute for professional medical care. Always follow your healthcare professional's instructions. Follow Up Care 04/22/2023 13:19:00 With:CULLEN REINA Address: [address] [address] [phone] Business (1) When:2-4 days Comments:Schedule appointment as soon as possibleReturn to ED if symptoms worsenLimit activityMay use Naprosyn and Tylenol in addition to your muscle relaxantsCan use Lidoderm patchesFollow-up for blood pressure recheck [facility] 04-22-2023 Note Discharge Instructions Thank you for allowing [place] to assist you with your healthcare needs. [...] blood pressure recheck Where: [address] [address] [phone] Business (1) Allergies NKA Medications Please ask [...] may report side effects to FDA at 6-280-HVW-7171. What other drugs will affect naproxen? Ask [...] drugs may affect naproxen, including prescription and owot-rrf-mnkstni medicines, vitamins, and herbal products. Not all [...] to ensure that the information provided by [employer]. ('[employer]') is accurate, up-to-date, and complete, but no guarantee is made to that effect. Drug information contained herein may be time sensitive. EDAN information has been compiled for use by healthcare practitioners and consumers in the [place] and therefore EDAN does not warrant that uses outside of the [place] are appropriate, unless specifically indicated otherwise. [employer]AN's drug information does not endorse drugs, diagnose patients or recommend therapy. [employer] drug information is an informational resource designed [...] effective or appropriate for any given patient. [employer] does not assume any responsibility for any aspect of healthcare administered with the aid of information [employer] provides. The information contained herein is not intended to cover all possible uses, directions, precautions, warnings, drug interactions, allergic reactions, or adverse effects. If you have questions about the drugs you are taking, check with your doctor, nurse or pharmacist. Copyright 8861-5086 [employer]. Version: 22.. Revision Date: 10/05/2022. lidocaine topical (LYE griffiths workman TOP i enoc) AneCream, Bactine, Glydo, Lidoderm, LidoRx, Medi-Quik [place], RadiaGuard, RectiCare, Regenecare SANCHEZ [place], Solarcaine Cool Aloe What is the most [...] may report side effects to FDA at 4-283-BAI-2577. What other drugs will affect lidocaine topical? Medicine used on the skin is not likely to be affected by other drugs you use. But many drugs can interact with each other. Tell each of your health care providers about all medicines you use, including prescription and inqe-dxa-zfpeeil medicines, vitamins, and herbal products. Where can I get more information? Your pharmacist can provide more information about lidocaine topical. Remember, keep this and all other medicines out of the reach of children, never share your medicines with others, and use this medication only for the indication prescribed. Every effort has been made to ensure that the information provided by [employer]. ('[employer]') is accurate, up-to-date, and complete, but no guarantee is made to that effect. Drug information contained herein may be time sensitive. [employer] information has been compiled for use by healthcare practitioners and consumers in the [place] and therefore [employer] does not warrant that uses outside of the [place] are appropriate, unless specifically indicated otherwise. [employer]'s drug information does not endorse drugs, diagnose patients or recommend therapy. [employer] drug information is an informational resource designed [...] effective or appropriate for any given patient. [facility] does not assume any responsibility for any aspect of healthcare administered with the aid of information [facility] provides. The information contained herein is not intended to cover all possible uses, directions, precautions, warnings, drug interactions, allergic reactions, or adverse effects. If you have questions about the drugs you are taking, check with your doctor, nurse or pharmacist. Copyright 3673-3658 [facility]. Version: 01.03. Revision Date: 11/22/2022. Education [...] are taking other medicines. You may use clyi-see-xqlivls medicine as directed on the bottle to [...] Numbness in the groin or genital area 5300-2261 The [employer]. [address] [place] [address]. All rights reserved. This information is not [...] are taking other medicines. You may use ugls-xuv-qwrunsk medicines such as acetaminophen, ibuprofen, or naprosyn [...] Chills Burning or pain when passing urine 1188-7395 [employer]. [address] [place] [address], [place] [address]. All rights reserved. This information is not [...] that stimulate the heart. This includes many hckx-mzm-vbechzh cold and sinus decongestant pills and sprays, as well as diet pills. Check the warnings about high blood pressure on the label. Before buying any vuap-uwl-bzqajbk medicines or supplements, always ask the pharmacist [...] one of these at most pharmacies. The [place] [employer] recommends the following guidelines for [...] face You have problems speaking or seeing 3366-2679 [employer]. [address] [place] [address], [place] [address]. All rights reserved. This information is not intended as a substitute for professional medical care. Always follow your healthcare professional's instructions. Additional Information VACCINATE! IT SAVES LIVES! Members of the community who have not yet received the COVID-19 vaccine and would like to receive it can visit one of [facility] vaccine clinics. There are many vaccine clinic locations within the State. For locations and available times, please visit www.[email or web address] gov/. It is important to note that some COVID mobile vaccine clinics are held outdoors and may be canceled in rainy or stormy conditions. To learn more about pediatric vaccinations (ages 5-11), we invite you to visit the [facility] webpage. https://www.[facility].org/p ages/8851-Ryzqu-Ydbtaophhma-Freq pjrkzm-Aykcd-Qkweozbgk.html To learn more about the COVID-19 vaccine, we invite you to visit the CDC website for a list of frequently asked questions. https://www.cdc.gov/coronavirus/ 2019-ncov/vaccines/faq.html [facility] Patient Portal Access Instructions: Stay connected with your healthcare team and access your personal medical information anytime with the [facility] Patient Portal. If you would like a full copy of your medical records please contact the [facility] Medical Records Department Sunday through Sunday between 8a.m. and 4:30p.m. Please follow the directions below to access the portal: 1.Access the email account you provided upon registration to the hospital.2.Look for an invitation email from [facility].3.Open the email and access the invitation link: Accept Invitation to [facility]4.Fill in the required alonzo to create your account. Sign into [email or web address] with your username and password that you [...] you will allow to register on the [facility] Patient Portal for access to your information. You can also access the [facility] Patient Portal on the [employer] tosin. Simply click on Health Records under [...] Call your local pharmacy or go to [email or web address] to find one close to you.3.Make use of household items: Use cat litter or old coffee grounds to dispose medications if other options are not available. Mix your drugs with these household products, seal them in an airtight container and throw it into the garbage. Call [facility]: [phone] to be sure your drugs can be [...] aware that I should contact my doctor. Patient/Scourer Signature: Date/Time: Relationship to Patient: Witness Name/Signature: Date/Time: [facility] 12-24-2022 Hospital Discharg e instructions Patient Education [...] muscles to keep your back from arching. 9404-[address] [employer] [place] [address]. All rights reserved. This information is not [...] are taking other medicines. You may use bhgx-cod-rtcwajn medicines such as acetaminophen, ibuprofen, or naprosyn [...] Chills Burning or pain when passing urine 6590-9400 [employer]. [address] [place] [address]. All rights reserved. This information is not intended as a substitute for professional medical care. Always follow your healthcare professional's instructions. Follow Up Care 12/24/2022 14:48:47 With:Go to emergency room if symptoms worsen Address:Unknown When:2-4 days With:Follow up with primary care provider Address:Unknown When:2-4 days [facility] 12-24-2022 Note Discharge Instructions Thank you for allowing [facility] to assist you with your healthcare needs. [...] When Why Instructions Last Dose Unchanged acetaminophen-hydrocodone (Hudson 325- 5 mg oral tablet) 1 tab(s) by mouth Every 4 hours as needed for as needed for pain Unchanged acetaminophen-hydrocodone (Hudson 325- 5 mg oral tablet) 1 tab(s) [...] muscles to keep your back from arching. 7271-3019 The [employer]. [address] [place] [address]. All rights reserved. This information is not [...] are taking other medicines. You may use jyxj-mom-eugnjhy medicines such as acetaminophen, ibuprofen, or naprosyn [...] Chills Burning or pain when passing urine 9294-1734 [employer]. [address] [place] [address], [place] [address]. All rights reserved. This information is not intended as a substitute for professional medical care. Always follow your healthcare professional's instructions. Additional Information VACCINATE! IT SAVES LIVES! Members of the community who have not yet received the COVID-19 vaccine and would like to receive it can visit one of [facility] vaccine clinics. There are many vaccine clinic locations within the [facility]. For locations and available times, please visit www.[email or web address].[email or web address] gov/. It is important to note that some COVID mobile vaccine clinics are held outdoors and may be canceled in rainy or stormy conditions. To learn more about pediatric vaccinations (ages 5-11), we invite you to visit the [facility] webpage. https://www.[facility].org/p ages/1082-Fmzmf-Yhpuhhkrvnh-Freq qwzprz-Twwhx-Clfgboyct.html To learn more about the COVID-19 vaccine, we invite you to visit the CDC website for a list of frequently asked questions. https://www.cdc.gov/coronavirus/ 2019-ncov/vaccines/faq.html [facility] Patient Portal Access Instructions: Stay connected with your healthcare team and access your personal medical information anytime with the [facility] Patient Portal. If you would like a full copy of your medical records please contact the [facility] Medical Records Department Sunday through Sunday between 8a.m. and 4:30p.m. Please follow the directions below to access the portal: 1.Access the email account you provided upon registration to the hospital.2.Look for an invitation email from [facility].3.Open the email and access the invitation link: Accept Invitation to [facility]4.Fill in the required alonzo to create your account. Sign into [email or web address] with your username and password that you [...] you will allow to register on the [facility] Patient Portal for access to your information. You can also access the [facility] Patient Portal on the [employer] tosin. Simply click on Health Records under Health Data and then click on the [employer] logo. HOW TO SAFELY DISPOSE OF PRESCRIPTION [...] Call your local pharmacy or go to [email or web address]://[email or web address] to find one close to you.3.Make use of household items: Use cat litter or old coffee grounds to dispose medications if other options are not available. Mix your drugs with these household products, seal them in an airtight container and throw it into the garbage. Call [facility]: [phone] to be sure your drugs can be [...] aware that I should contact my doctor. Patient/Scourer Signature: Date/Time: Relationship to Patient: Witness Name/Signature: Date/Time: [facility] 12-24-2022 Note ORIGINAL EXAMINATION: TWO XRAY VIEWS [...] 12/24/2022 4:52:47 PM Ordering Provider: FABI MARIN [facility] 12-24-2022 Note ORIGINAL EXAMINATION: ONE XRAY VIEW [...] 12/24/2022 4:35:29 PM Ordering Provider: FABI MARIN [facility] 12-24-2022 Note Sinus rhythm Borderline T wave abnormalities Electronic Signature: AVIS GARCIA MD 12/24/2022 16:13:44 [facility] 12-24-2022 Hospital Discharg e instructions Patient Education [...] are taking other medicines. You may use przt-pfd-wcexjgf medicines such as acetaminophen, ibuprofen, or naprosyn [...] Chills Burning or pain when passing urine 6546-8725 The [employer]. [address] [place] [address], [place] [address]. All rights reserved. This information is not [...] that stimulate the heart. This includes many eatc-yce-btjjivm cold and sinus decongestant pills and sprays, as well as diet pills. Check the warnings about high blood pressure on the label. Before buying any flko-zvx-clikzpu medicines or supplements, always ask the pharmacist [...] one of these at most pharmacies. The [place] [employer] recommends the following guidelines for [...] face You have problems speaking or seeing 9411-1299 The [employer]. [address] [place] [address], [place] [address]. All rights reserved. This information is not intended as a substitute for professional medical care. Always follow your healthcare professional's instructions. Follow Up Care 12/24/2022 06:09:38 With:CULLEN ELIAS Address: [address] [place] [phone] [phone] Business (1) When:2-4 days Comments:Schedule appointment as soon as possibleReturn to ED if symptoms worsenCall your doctor in the a.m. for follow-up and for blood pressure recheck [facility] 12-24-2022 Note Discharge Instructions [...] Where: [address] [place] [address]- [phone] Business (1) Allergies NKA Medications Please ask your primary doctor or pharmacist before taking any other medication not listed, including over the counter drugs, herbal medications, vitamins and or supplements as they may interact with your home medications. What How Much When Why Instructions Last Dose Unchanged acetaminophen-hydrocodone (Hudson 325- 5 mg oral tablet) 1 tab(s) by mouth Every 4 hours as needed for as needed for pain Unchanged acetaminophen-hydrocodone (Hudson 325- 5 mg oral tablet) 1 tab(s) [...] are taking other medicines. You may use lvrz-cmq-ybdjrod medicines such as acetaminophen, ibuprofen, or naprosyn [...] Chills Burning or pain when passing urine 3546-8280 The [employer] group. [address] [place] [address], [place] [address]. All rights reserved. This information is not [...] that stimulate the heart. This includes many qgaf-yjn-spsdigf cold and sinus decongestant pills and sprays, as well as diet pills. Check the warnings about high blood pressure on the label. Before buying any krhh-ygv-zjgcrnc medicines or supplements, always ask the pharmacist [...] one of these at most pharmacies. The [place] [employer] recommends the following guidelines for [...] face You have problems speaking or seeing 4383-6877 The [employer]. [address] [place] [address]. All rights reserved. This information is not intended as a substitute for professional medical care. Always follow your healthcare professional's instructions. Additional Information VACCINATE! IT SAVES LIVES! Members of the community who have not yet received the COVID-19 vaccine and would like to receive it can visit one of [facility] vaccine clinics. There are many vaccine clinic locations within the [facility]. For locations and available times, please visit www.[email or web address].[email or web address] gov/. It is important to note that some COVID mobile vaccine clinics are held outdoors and may be canceled in rainy or stormy conditions. To learn more about pediatric vaccinations (ages 5-11), we invite you to visit the [facility] webpage. https://www.[facility].org/p ages/3883-Vfxiu-Qmwktgstmqz-Freq lfurqv-Kzaox-Ykojpdnly.html To learn more about the COVID-19 vaccine, we invite you to visit the CDC website for a list of frequently asked questions. https://www.cdc.gov/coronavirus/ 2019-ncov/vaccines/faq.html [facility] Patient Portal Access Instructions: Stay connected with your healthcare team and access your personal medical information anytime with the [facility] Patient Portal. If you would like a full copy of your medical records please contact the [facility] Medical Records Department Sunday through Sunday between 8a.m. and 4:30p.m. Please follow the directions below to access the portal: 1.Access the email account you provided upon registration to the [facility].2.Look for an invitation email from [facility].3.Open the email and access the invitation link: Accept Invitation to [facility]4.Fill in the required alonzo to create your [...] you will allow to register on the [facility] Patient Portal for access to your information. You can also access the [facility] Patient Portal on the [employer] tosin. Simply click on Health Records under [...] Call your local pharmacy or go to [email or web address]://[email or web address] [email or web address] to find one close to you.3.Make use of household items: Use cat litter or old coffee grounds to dispose medications if other options are not available. Mix your drugs with these household products, seal them in an airtight container and throw it into the garbage. Call [facility]: [phone] to be sure your drugs can be [...] aware that I should contact my doctor. Patient/Scourer Signature: Date/Time: Relationship to Patient: Witness Name/Signature: Date/Time: [facility] 05-15-2022 Miscellaneous Notes Spoke to patient, verified [...] advise. Thank you. documented in this encounter [facility] 05-02-2022 Note HNO ID: [id number] Author: Nohemi Rivera RN Service: ? Author Type: Registered Nurse Type: Nursing Progress Note Filed: 05/02/2022 11:56 AM Note Text: Abdomen soft non-distended. Will continue to monitor. [facility] 05-02-2022 Nurse Note Abdomen soft non-distended. Will continue to monitor. documented in this encounter [facility] 05-02-2022 History and physical note UPDATED PROCEDURAL [...] entered by the nurse and reviewed by nh Nursing Notes: Kita Ross RN 04/04/2022 9:27 [...] patient was offered a surgery/procedure at a [facility] facility. I have counseled the patient regarding [...] entered by the nurse and reviewed by nh Nursing Notes: Kita Ross RN 04/04/2022 9:27 [...] patient was offered a surgery/procedure at a [facility] facility. I have counseled the patient regarding [...] Sri Redding PA-C documented in this encounter [facility] 04-04-2022 Note HNO ID: [id number] Author: Sri Redding PA-C Service: ? Author Type: Physician Knurling Machine Tender Type: Progress Notes Filed: 04/04/2022 9:49 AM [...] entered by the nurse and reviewed by nh Nursing Notes: Kita Ross RN 04/04/2022 9:27 [...] from rectum, rasheeda (more content not included)... [facility] 04-04-2022 History of Presen t illness Narrative [...] entered by the nurse and reviewed by nh Nursing Notes: Kita Ross RN 04/04/2022 9:27 [...] patient was offered a surgery/procedure at a [facility] facility. I have counseled the patient regarding [...] Sri Redding PA-C documented in this encounter [facility] 04-04-2022 Nurse Note REVIEW OF SYSTEMS: General: [...] Kita Ross RN documented in this encounter [facility] Evaluation + Plan note No data available for this section [facility] Evaluation note No assessment inform ation available [facility] Work Phone: Evaluation note Diagnosis Encounter for screening for malignant neoplasm of colon- Primary Special screening for malignant neoplasms, colon Family history of colon cancer Family history of malignant neoplasm of gastrointestinal tract [facility] Diagnosis Family history of colon cancer requiring screening colonoscopy- Primary Family history of malignant neoplasm of gastrointestinal tract Family history of colon cancer Family history of malignant neoplasm of gastrointestinal tract Special screening for malignant neoplasms, colon [facility]ative)* Outpatient Procedure (Routine) - Closed Specialty Diagnoses / Procedures Referred By James jeff Referred To Contact [facility] Diagnoses Family history of colon cancer Special screening for malignant neoplasms, colon Procedures COLONOSCOPY SCREENING COLONOSCOPY FLX DX W/COLLJ SPEC WHEN Sri Bryant PA-C [address] [place] [address] [facility] [place] [address] [place] [address] Referral ID Status Reason Start Date Expiration Date V isits Requested Visits Authorized [id number] Closed Auto-Generate d Referral 04/04/2022 04/04/2023 1 1 [facility] (narrative)No reason for referral information availableLucile [facility] Work Phone: Reason for visit Narrative* Outpatient Procedure (Routine) - Closed Specialty Diagnoses / Procedures Referred By James jeff Referred To Contact [facility] Diagnoses Family history of colon cancer Special screening for malignant neoplasms, colon Procedures COLONOSCOPY SCREENING COLONOSCOPY FLX DX W/COLLJ SPEC WHEN Sri Bryant PA-C [address] [place] [address] [facility] [place] [address] [place] [address] Referral ID Status Reason Start Date Expiration Date V isits Requested Visits Authorized [id number] Closed Auto-Generate d Referral 04/04/2022 04/04/2023 1 1 [facility] Chief Complaint and Reason for Visit Chief [...] 11:01 AM EST 25 mcg Given by [facility] 05/02/2022 10:59 AM EST 50 [...] Pr ovider, Attending Provider, Referring Provider Active Tire Recapping 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 Operator Relationship Specialty Start Date End Date Cullen Reina [address] [facility] [address] [place] [address] PCP - General Family Medicine 03/24/22 Tire Recapping Machine Operator Relationship Specialty Start Date End Date Cullen Reina [address] [facility] [address] [place] [address] PCP - General Family Medicine 03/24/22 Tire Recapping Machine Operator Relationship Specialty Start Date End Date Cullen Reina MD [address] [facility] [address] [place] [address] PCP - General Family Medicine 03/24/22 Team [...] 2024 End: November 06, 2024 Timothy Clifton FLIGHT ATTENDANT/INFLIGHT SUPERVISOR, FLIGHT ATTENDANT/INFLIGHT SUPERVISOR-C Attending physician Active Start: November 06, 2024 End: November 06, 2024 Timothy Clifton FLIGHT ATTENDANT/INFLIGHT SUPERVISOR, FLIGHT ATTENDANT/INFLIGHT SUPERVISOR-C Referring Provider Active Start: November 06, 2024 End: November 06, 2024 Source Comments (unrecognize d section and content) In the event this informatio n is protected by the Federal Confidentiality of Alcohol and Drug Abuse Patient Records regulations: The Federal rules restrict any use of the information to criminally investigate or prosecute any alcohol or drug abuse patient.[facility] the event this information is protected by the Federal Confidentiality of Alcohol and Drug Abuse Patient Records regulations: The Federal rules restrict any use of the information to criminally investigate or prosecute any alcohol or drug abuse patient.[facility] Center[facility] the event this information is protected by the Federal Confidentiality of Alcohol and Drug Abuse Patient Records regulations: The Federal rules restrict any use of the information to criminally investigate or prosecute any alcohol or drug abuse patient.[facility] Reason for Visit (unrecogniz ed section and content) Reason Comments Consult Colonoscopy Reason Comments Results colonoscopy INFORMATION SOURCE (unrecogn ized section and content) DATE CREATED AUTHOR 05/16/2022 [facility] DATE CREATED AUTHOR AUTHOR'S ORGANIZ ATION 05/02/2023 [facility] DATE CREATED AUTHOR AUTHOR'S ORGANIZ ATION 08/29/2024 [facility] DATE CREATED AUTHOR AUTHOR'S ORGANIZ ATION 11/22/2024 [facility] FOR RECORDS PERTAINING TO PATIENTS WHO [...] BE BASED ON THE PRIMARY CLINICAL RECORDS. [facility]. provides no warranty or guarantee of the accuracy or completeness of information in this document.
--- NOTE | 2025-01-28 07:13 | PCM.HP.STD ---
HPI - General HPI Narrative PAUL VILLA, is a 74 F who presents for right 4th and 5th metacarpals open reduction internal fixation. No changes to history and physical exam. Patient wished to proceed right hand marked risks alternatives benefits postoperative instructions and narcotic counseling given. The patient understands no further questions or concerns. MR#: [id number] Acct: [id number] Name: PAUL VILLA Rep #: [id number] : 1950 Provider: Dr. Alfa Busch MD Age/Sex: 74/F [place] [facility] [place] [facility] [place] Status: Signed Intake Vital Signs 01/20/2510:30 Height 5 ft 1 in Weight: 128 lb BMI 24.1 Intake Visit Reasons: RIGHT HAND Chief Complaint: Right hand pain Accompanied by: Self Is patient in pain?: Yes Pain scale (1-10): 3 Allergies No Known Allergies Allergy (Unverified 01/20/25 10:33) Medications ?Medication ?Instructions ?Recorded ?Confirmed ?Type fluticasone propionate 50 2 spray intranasal QDAY 01/20/25 01/20/25 History mcg/actuation nasal spray,suspension gabapentin 100 mg capsule 200 mg PO QHS 01/20/25 01/20/25 History metoprolol tartrate 25 mg tablet 25 mg PO BID 01/20/25 01/20/25 History ropinirole 1 mg tablet mg PO 01/20/25 01/20/25 History trazodone 50 mg tablet 50 mg PO QHS 01/20/25 01/20/25 History Have you fallen in the past year?: Yes [facility] Medical History (Updated 01/20/25 @ 10:52 by Alfa Busch MD) Right patella fracture Gallbladder abscess Fracture of fourth metacarpal bone of right hand Fracture of fifth metacarpal bone of right hand Surgical History History of tonsillectomy Social History Smoking Status: Never smoker alcohol intake: never HPI RIGHT HAND Details: This documentation accurately reflects the service provided and the decisions made by me, Dr. Alfa Busch MD 01/20/25 0842. Part of today?s visit was documented by [ ], acting as scribe. PAUL VILLA is a 74 year old F here today for R hand 4th and 5th MC fracture. Patient fell 6 days ago onto an outstretched hand. They were traveling in [place]. Tripped going into the apartment [id number] was given a splint also fell on the right knee. Given a brace for that still able to ambulate weightbearing as tolerated a little bit of pain in deep flexion of the right knee. Some pain and swelling and bruising to the mid and ulnar aspect of the right hand. Patient retired and . Supplemental Info [facility] [address] [place], [place] [address] Knee 4 or More Views MR#: [id number] Acct: [id number] Name: PAUL VILLA Rep #: [id number] : 1950 F 74 From: Yvette Sue DO PCP: Dr. Maximiliano Charles MD Status: REG CLI Study: Knee 4 or More Views Date of Exam: 01/16/25 Exam# [id number] Ordering Dr: Timothy Clifton VICE PRESIDENT OF COMPLIANCE VICE PRESIDENT OF COMPLIANCE-C PROCEDURE: KNEE 4 OR MORE VIEWS 01/16/2025 REASON FOR EXAM: INJURY TECHNIQUE: Procedure Code: RADKN Modality: DX Procedure: KNEE 4 OR MORE VIEWS Laterality: Right COMPARISON: None FINDINGS: Bones: There are no fractures or dislocations. Joints: Joint spaces are well preserved. Effusion: There does appear to be a small suprapatellar bursa effusion. Soft tissues: Soft tissue swelling of the knee is noted RAD/Knee 4 or More Views IMPRESSION: There does appear to be a small suprapatellar bursa effusion and soft tissue swelling of the knee. Osseous structures appear grossly unremarkable. Reading Location: [place] Possibly a small avulsion fracture at the inferior aspect of the patella. [facility] [address] [place] [address] Hand Min 3 Views MR#: [id number] Acct: [id number] Name: PAUL VILLA Rep #: [id number] : 1950 F 74 From: Eliot Amor MD PCP: Dr. Maximiliano Charles MD Status: REG CLI Study: Hand Min 3 Views Date of Exam: 01/16/25 Exam# [id number] Ordering Dr: Timothy Clifton NP VICE PRESIDENT OF COMPLIANCE-C PROCEDURE: HAND MIN 3 VIEWS 01/16/2025 REASON FOR EXAM: INJURY TECHNIQUE: Procedure Code: EMMA Modality: DX Procedure: HAND MIN 3 VIEWS Laterality: Right COMPARISON: None FINDINGS: Oblique fracture through the midshaft of the 4th metacarpal, displaced. Nondisplaced fracture through the 5th metacarpal. No additional fracture seen throughout the remainder of the hand. Narrowing of the distal interphalangeal joints of the 2nd through 5th digits are present. Soft tissue edema present. RAD/Hand Min 3 Views IMPRESSION: Acute displaced oblique fracture through the midshaft of the 4th metacarpal. Nondisplaced fracture through the 5th metacarpal. Reading Location: [facility] I independently reviewed the imaging. Concur with radiologist report. 4th and 5th MC fractures. Coding Level of Care Code Off vis,new,level 4 Diagnoses Fracture of fifth metacarpal bone of right hand S62.306A Fracture of fourth metacarpal bone of right hand S62.304A Right patella fracture S82.001A Additional Codes Intake - Is patient in pain?: Yes (1125F) Assessment and Plan Assessment and Plan (1) Fracture of fifth metacarpal bone of right hand: Status: Acute Plan: PAUL VILLA is a 74 year old F here today for R hand 4th and 5th MC fracture. Patient has multiple metacarpal fractures which is a relative indication for surgery as well as shortening of 4 mm and displacement up to 50% of the fourth metacarpal fracture. Overall recommendation would be more toward surgical management of this although conservative management is the other option here with immobilization and gentle range of motion of the fingers. The patient would like to proceed with surgery this to be in the form of right 4th and 5th metacarpals open reduction internal fixation. I typically perform this through a mini open approach clamp the fracture and then performing intramedullary screw fixation of both the 4th and 5th metacarpal fractures with early range of motion. The patient understands and wishes to go ahead with the surgery. Try to get this on for next week. Pros and cons risks and benefits were discussed with the patient including but not limited to infection, pain, stiffness, bleeding, damage to surrounding structures, neurovascular injury, recurrence or retear, failure or wear of hardware or fixation, instability, fracture, deep vein thrombosis and pulmonary embolism, anesthetic risks, , patient dissatisfaction, need for further surgery and other risks. Patient understood and wished to proceed with surgery, and signed the informed consent documentation. (2) Fracture of fourth metacarpal bone of right hand: Status: Acute (3) Right patella fracture: Status: Acute Plan: 74-year-old female with injury to the right knee. No obvious signs of meniscus or ligamentous instability could have potentially small avulsion injury at the inferior pole of the patella but good straight leg raise and strong with there with minimal pain and nondisplaced nature of the fracture recommend nonsurgical management weightbearing as tolerated mostly in full extension and then repeat radiographs in about 2 weeks to confirm the stable nature of the fracture. Clinical Quality Measures Falls Risk Screening/Assistive Devices Have you fallen in the past year?: Yes Ortho Exam General General: Yes no acute distress Neurologic: Yes alert and Yes oriented x3 Psychologic: Yes reasonable and appropriate Right Wrist/Hand Skin/Wound: Yes CDI, Yes Swelling, Yes Ecchymosis, Yes nail intact and Yes capillary refill normal Right Wrist: Yes ROM-Extension 0-60, ROM-Flexion 0-80, ROM-Pronation 0-80, ROM-Supination 0-90 and TTP Fracture site; No Tender to palpate triangular fibrocartilage complex or Distal radioulnar joint Motor: EPL: 5, FDP-2: 5, 1st Dorsal Interosseous: 5 and APB: 5 Sensation: Radial: I, Ulnar: I and Median: I WRIST: Closed injury no obvious malrotation of the digits. Left Wrist/Hand Skin/Wound: Yes Swelling and Yes Ecchymosis Right Knee Skin/Wound: Yes CDI, No erythema, No ecchymosis and Yes swelling (anterior, small abraision) Knee ROM: Yes ROM-Flexion 0-140 Examination: No Med jt line tenderness, No Lat jt line tenderness, No TTP inf pole patella, No Crepitus, Yes Pain with flexion, No Carolina's Test, Yes TTP Patellar tendon, No TTP Tibial tubercle, No TTP Pes Anserine and No Illiotibial band tenderness Quad Atrophy: No Stability: NML: Anterior Drawer, NML: Adenike, NML: Posterior Drawer, NML: Valgus 0, NML: Valgus 30, NML: Varus 0 and NML: Varus 30 Patella Translation: 2 Apprehension with Lateral Translation: No Patellar Tilt Normal: Yes Patella Grind: No KNEE: NVI, normal gait, normal alignment, able to SLR and strong Left Knee Patella Translation: 2 PFSH Medical History Wears glasses Restless legs History of steroid therapy Non-smoker Hypertension Right patella fracture Gallbladder abscess Fracture of fourth metacarpal bone of right hand Fracture of fifth metacarpal bone of right hand Home Medications ?Medication ?Instructions ?Recorded ?Last Taken ?Type fluticasone propionate 50 2 spray intranasal QDAY 01/20/25 Unknown History mcg/actuation nasal spray,suspension gabapentin 100 mg capsule 200 mg PO QHS 01/20/25 Unknown History metoprolol tartrate 25 mg tablet 25 mg PO BID 01/20/25 01/28/25 06:30 History ropinirole 1 mg tablet 3 mg PO BID 01/20/25 Unknown History trazodone 50 mg tablet 50 mg PO QHS 01/20/25 Unknown History acetaminophen 650 mg 650 mg PO Q12H PRN pain 01/27/25 Unknown History tablet,extended release (8 Hour Pain Reliever) Allergy/AdvReac Type Severity Reaction Status Date / Time No Known Allergies Allergy Verified 01/28/25 07:12 Surgical History (Updated 01/27/25 @ 10:27 by Cosmo Hamilton) Hx of cholecystectomy History of tonsillectomy Social History Smoking Status: Never smoker alcohol intake: never
[2025-01-28] MEDS: Lactated Ringers 1,000 ML 15 ML IV (07:19)
--- NOTE | 2025-01-28 07:30 | RAD_ITS ---
PROCEDURE: HAND MIN 3 VIEWS 01/28/2025 REASON FOR EXAM: ORIF RT 4TH AND 5TH METACARPAL TECHNIQUE: Procedure Code: EMMA Modality: DX Procedure: HAND MIN 3 VIEWS Laterality: COMPARISON: Right. FINDINGS: Bones: There are 2 screws traversing the 4th and 5th metacarpals. Anatomical alignment of the fracture lines Joints: No dislocations. Soft tissues: No soft tissue abnormalities. RAD/Hand Min 3 Views IMPRESSION: Postsurgical changes for traversing screws along the 4th and 5th metacarpals wi th normal anatomical alignment. Reading Location: [id number]
--- NOTE | 2025-01-28 07:35 | PRE.ANES_ITS ---
ASA Classification* ASA Classification ASA Classification: 2 Assessment & Plan Anesthesia* Anesthesia Assessment Anesthesia Assessment: Discussed sedation and/or anesthesia options, risks, benefits, and alternatives with patient/parents/legal guardian/POA. Questions invited. The patient/parents/legal guardian/POA seems to understand and agrees to proceed with anesthesia plan. Reviewed the physical assessment, medical history, allergy history and patient home medications list prior to surgery/procedure/anesthetic and documented any changes. Performed airway and anesthesia risk assessments. Anesthesia Type Anesthesia Type: General History Source History Obtained from:: Patient and Chart Anesthesia Focused Assessment* Temperature: 97 F Pulse Rate: 84 Blood Pressure: 153/65 Respiratory Rate: 16 Pulse Ox: 100 Oxygen Delivery Method: Room Air Airway Assessment Mouth opens: >3 cm Mallampati Score: II Neck Range of motion (ROM): Full ROM Labs Anesthesia Preop lab: CBC WBC, (4.4-11.0) 5.6 K/mm3 10/31/24, 10:36 RBC, (4.2-5.4) 4.08 M/mm3 L 10/31/24, 10:36 Hgb, (12.0-15.0) 11.6 g/dL L 10/31/24, 10:36 Hct, (37-47) 36.0 % L 10/31/24, 10:36 Plt Count, (150-450) 206 K/mm3 10/31/24, 10:36 CHEMISTRY Potassium, (3.3-5.1) 4.4 mmol/L 10/31/24, 10:36 Sodium, (133-145) 140 mmol/L 10/31/24, 10:36 Magnesium, (1.5-2.2) 2.3 mg/dL H 10/31/24, 10:36 BUN, (4-19) 21 mg/dL H 10/31/24, 10:36 Creatinine, (0.70-1.20) 0.94 mg/dL 10/31/24, 10:36 Glucose, (70-99) 80 mg/dL 10/31/24, 10:36 TSH, (0.300-4.200) 1.590 uIU/mL 11/06/24, 13:46 COAG Pre-Assessment Diagnosis/Proposed Procedure Planned Operative Procedure(s): RIGHT FOURTH AND FIFTH METACARPAL , OPEN REDUCTION INTERNAL FIXATION Anesthesia History Anesthesia History - search 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 When Was Last Pacemaker Check QUESTION #4 FULL TEXT: You/Your Family Experience fever (hyperthermia) with Anesthesia Last Oral Intake Last Oral intake: Last Oral Intake NPO since 21:00 01/28/25 07:13 Meds taken in AM with sips of Yes 01/28/25 07:13 water? Meds patient instructed to see med list 01/28/25 07:13 take am of surgery PONV PONV - search engine optimization strategist: PONV - search engine optimization strategist Female Yes 01/27/25 10:20 HX of Motion Sickness Yes 01/27/25 10:20 HX of N/V After Surgery No 01/27/25 10:20 Non-Smoker Yes 01/27/25 10:20 Duration of Surgery greater Yes 01/27/25 10:20 than 60 minutes Number of Risk Factors 4 01/27/25 10:20 PONV Score Severe Risk 01/27/25 10:20 Height & Weight Height & Weight: Anesthesia: Height & Weight Height 5 ft 1 in 01/28/25 07:13 Weight: 58 kg 01/28/25 07:13 Body Mass Index (BMI) 24.1 01/28/25 07:13 Respiratory Assessment Respiratory Assessment - search engine optimization strategist: Respiratory Tract Infection Hx - search engine optimization strategist Hx Respiratory Tract Infection No 01/27/25 10:20 STOP Sleep Apnea STOP Sleep Apnea - search engine optimization strategist: STOP Sleep Apnea - search engine optimization strategist Hx Hypertension Yes: CONTROLLED WITH MEDS 01/27/25 10:20 Hx Sleep Apnea No 01/27/25 10:20 CPAP BIPAP Do you snore loudly (louder No 01/27/25 10:20 than talking or can be heard Do you often feel tired/ No 01/27/25 10:20 fatigued/ sleepy during daytime? Has anyone observed you stop No 01/27/25 10:20 breathing during sleep? STOP Results Negative 01/27/25 10:20 QUESTION #5 FULL TEXT : Do you snore loudly (louder than talking or can be heard through closed doors)? Tobacco Use History Tobacco Use History - search engine optimization strategist: Tobacco Use History - search engine optimization strategist Tobacco Use Smoking Status Never smoker 01/27/25 10:20 Hx Tobacco Use No 01/27/25 10:20 Years Smoking Packs Smoked per Day Smoking Cessation Date was within the last 15 years Hx Smoking Cessation Date Hx Smoking Cessation Counseling Hematologic Medial History Hematologic Hx - search engine optimization strategist: Hematologic Medical Hx - mold filler Hx of Blood Transfusion No 01/27/25 10:20 Hx of Transfusion in last 3 No 01/27/25 10:20 Months Date of Last Transfusion (if within last 3 months) Ever experience any problems No 01/27/25 10:20 with transfusion(s)? Specify any problems Hx of Preganancy in last 3 No 01/27/25 10:20 Months Nurse Filling Out Transfusion [id number] 01/27/25 10:20 & Questions: Date: 01/27/25 01/27/25 10:20 Time: 10:23 01/27/25 10:20 Patient unable to answer at this time (ie. confused, unrespo /Reproduction History /Reproductive History - search engine optimization strategist: /Reproductive Hx- search engine optimization strategist Hx Now Gestational Age (in weeks): EDC: Hx Hx Para Hx Section SAB Does the father of the baby or his family experience fever w Father of the baby Malignant Hypertension history comment Active Medications Active Medications: Current Medications Generic Name Dose Route Start Last Admin Trade Name Freq PRN Reason Stop Dose Admin Lactated Ringer's 1,000 mls @ 15 mls/hr 01/28/25 07:15 01/28/25 07:19 IV 15 mls/hr .Q48H HUMBERTO Administration PFSH Medical History Wears glasses Restless legs History of steroid therapy Non-smoker Hypertension Right patella fracture Gallbladder abscess Fracture of fourth metacarpal bone of right hand Fracture of fifth metacarpal bone of right hand Home Medications ?Medication ?Instructions ?Recorded ?Last Taken ?Type fluticasone propionate 50 2 spray intranasal QDAY 01/03 10/27 Unknown History mcg/actuation nasal spray,suspension gabapentin 100 mg capsule 200 mg PO QHS 01/20/25 Unkno wn History metoprolol tartrate 25 mg tablet 25 mg PO BID 01/20/25 01/28/25 06:30 History ropinirole 1 mg tablet 3 mg PO BID 01/20/25 Unknown History trazodone 50 mg tablet 50 mg PO QHS 01/20/25 Unknow n History acetaminophen 650 mg 650 mg PO Q12H PRN pain 01/04 07/27 Unknown History tablet,extended release (8 Hour Pain Reliever) Allergy/AdvReac Type Severity Reaction Status Date / Time No Known Allergies Allergy Verified 01/28/25 07:12 Surgical History (Updated 01/27/25 @ 10:27 by Cosmo Hamilton) Hx of cholecystectomy History of tonsillectomy Social History Smoking Status: Never smoker alcohol intake: never Review of Systems (Anesthesia) ROS Narrative System reviewed and no additional complaints, except as documented. Physical Exam Const alert, oriented x3 and average body habitus Resp normal respiratory effort, normal air movement and clear to auscultation bilaterally Cardio regular rate, regular rhythm and no murmurs; Negative for diaphoretic
[2025-01-28] MEDS: Cefazolin 1 GM/5 ML Vial 2 GM IV (07:37)
[2025-01-28] MEDS: Lidocaine 1% (5 ml sdv) 5 ML Vial IV (07:42)
[2025-01-28] MEDS: fentaNYL 100 MCG/2 ML Ampul 150 MCG IV (08:03)
--- NOTE | 2025-01-28 08:40 | EX.PCM.DISCH ---
Discharge Instructions Diet Discharge Diet: No restrictions Activity Ice area for (Minutes): 10 Lifting Restrictions: ok to move fingers and elbow Keep extremity elevated above heart level: Operative Extremity Additional Activity Instructions:: splint until follow up, leave in place, no pushing or pulling Dressing / Incision Call your doctor if your incision/area has: Continuous Slow Oozing, Sudden Increased Bleeding, Increased Pain/ Swelling, Increased Redness, Foul Smelling Discharge and Swelling at the incision site Call your doctor if you observe: Fever of 101 or Higher, Coldness, Increased Pain and Numbness or Tingling Remove Dressing in: leave in place till F/U Cleanse incision/area with: Do not get Incision Wet Follow Up Care Please Follow Up With: Alfa Busch MD When: within 2 weeks Test Results: Test results from this visit will be discussed in further detail at your follow-up appointment, if applicable. Discharge Plan Admission Attending Provider: Alfa Busch Primary Care Provider: Maximiliano Charles Instructions Print Language: Solomon Islander Discharge Orders/Prescriptions Prescriptions: New oxycodone-acetaminophen [Percocet] 5-325 mg tablet 1 tab PO Q6H MDD 6 PRN (Reason: pain) 3 Days Qty: 14 0RF No Action ropinirole 1 mg tablet 3 mg PO BID Patient Comments: 1 AFTERNOON, 2 HS trazodone 50 mg tablet 50 mg PO QHS gabapentin 100 mg capsule 200 mg PO QHS fluticasone propionate 50 mcg/actuation spray,suspension 2 spray intranasal QDAY metoprolol tartrate 25 mg tablet 25 mg PO BID acetaminophen [8 Hour Pain Reliever] 650 mg tablet extended release 650 mg PO Q12H PRN (Reason: pain) Referrals / Follow Up: Maximiliano Charles MD [Primary Care Provider, Family Practice] Alfa Busch MD [Med Staff - Active Staff, Orthopedics] Disposition Disposition (needs filled in before D/C Order can be placed): Home, Self Care
--- NOTE | 2025-01-28 08:43 | PCM.OPRPT ---
Procedures Musculoskeletal [id number]-29xxx: Other Procedure See Report Operative Report (Standard) Operative Information Date of Procedure: 01/28/25 Pre-Operative Diagnosis: Right 4th and 5th metacarpal fractures Post-Operative Diagnosis: Same Surgery/Procedure Performed: Open reduction internal fixation right 4th and 5th metacarpals curing supervisor: Yes Client Service And Consulting Manager: sarah Tasks completed by airplane first officer: Retracting Additional first assistant?: No Type of Anesthesia: General and Local RN Documented Start/Stop Times: Operation Date: 01/28/25 08:30 Case Time Into Pre-Op 01/28/25 07:00 Anesthesia Start 01/28/25 07:37 Into Room 01/28/25 07:37 Out of Pre-Op 01/28/25 07:37 Procedure Start 01/28/25 07:52 Procedure End 01/28/25 08:39 Procedure Start Time: 07:52 Procedure Stop Time: 08:39 Select all DRAINS/GRAFTS/IMPLANTS that apply: Implanted device Implanted device details: Arthrex headless compression screws 2.5 mm 40 mm long and 36 mm long Estimated Blood Loss: 10 Specimen collected: No Description of surgery: Patient brought to the operating room theater. Placed supine on the table. General anesthesia induced. 2 g IV Ancef administered prior to the start of the procedure. All bony prominences padded. SCDs on the legs. Arm table to the patient's right side. Yellow tourniquet applied to the upper extremity appropriately padded. Bed turned 90 degrees. Prepped and draped in the usual sterile fashion with chlorhexidine-based prep solution allowing over 3 minutes drying time prior to draping. Preoperative timeout performed to confirm the site patient and surgery. Began by elevating the limb inflating the tourniquet to 250 mmHg. Made a small dorsal incision between the heads of the 4th and 5th metacarpals. Dissection down through skin and subcutaneous tissue achieved meticulous hemostasis. Used a longitudinal traction and direct manipulation of the fourth metacarpal fracture to try to achieve reduction. Incised the capsule protected the extensor tendons made a small incision dorsally over the tendons retracted those protected the extensor tendons. I passed the guidewire center of the metacarpal head just a bit dorsal on the lateral radiograph. Tried a passes across the fracture site was not possible to achieve this by closed means I did try clamping across the fracture percutaneously, but again this was not possible to appropriately reduce so I extended the proximal end of the incision to the fracture site mobilized the fracture there is already some early callus there preventing an appropriate reduction. I achieved a good reduction using direct visualization. I then passed the guidewire through and past the fracture site and into the proximal segment with a good reduction on both AP lateral and oblique radiographs. I measured this to be a 40 mm long screw. I used the reamer on power over top of this and then removed the reamer passed the screw over top of the guidewire to an appropriate depth with burying the head of the screw both with direct visualization as well as on the radiographs. This achieved a good reduction of the fracture and good length alignment and rotation. The guidewire was removed. I then did the same procedure at the fifth metacarpal this was slightly shorter screw a 36 mm long with the same diameter 2.5 mm. Final radiographs were taken and saved in the system. Tourniquet let down meticulous hemostasis achieved wound thoroughly irrigated. The skin was closed with 3-0 Ethilon in a horizontal mattress fashion followed by 3 cc of quarter percent bupivacaine for local anesthesia. Skin cleaned with wet dry dressing followed application of Adaptic 4 x 4 gauze sterile cast padding and a volar fiberglass prefabricated splint overwrapped gently and loosely with Jose wrap. This was allowed to dry with the hand and wrist in neutral with the fingers and thumb free. Patient woken up from the general anesthetic transferred off the operating table taken to postanesthetic care unit in stable condition. All sponge needle and instrument counts were correct no complications plan to the patient discharged home according to day surgery criteria follow-up in the office within 2 weeks time. cpt 61591 x 2 Surgical Findings: As above Complications Complications: No Admit VTE Documentation VTE Present on Admission: No VTE Mechan Device Prophylaxis: SCD's VTE Pharm Prophylaxis ordered?: No Reason prophylaxis not ordered: Treatment Not Indicated
--- NOTE | 2025-01-28 08:53 | PCM.POST.ANE ---
Anesthesia: Postop Eval I Current Vital Signs Temperature: 97.2 F Pulse Rate: 89 Blood Pressure: 175/92 Respiratory Rate: 14 Pulse Ox: 99 Oxygen Delivery Method: Room Air Assessment Airway patent: Yes Spontaneous unlabored respirations: Yes Mental status: Awake and Calm nausea: No Vomiting: No Anesthesia Complication: No Fluid Hydration Crystalloid volume administer (ml): 600 Total IV fluid infused: 600 Progress Note Anesthesia document: Postop Eval 1 completed: Yes
--- NOTE | 2025-01-28 11:32 | POSTOPAN2_ITS ---
Anesthesia Postop Eval I Sum Postop Eval Completion status Anesthesia document: Postop Eval 1 completed: Yes Anesthesia Postop Eval I Summary Anesthesia Postop Eval I Summary: Anesthesia Postop Eval I: Assessment Summary Airway patent Yes 01/28/25 08:53 [employer]IR[employer] OPERATOR.MDOT Spontaneous unlabored Yes 01/28/25 08:53 [employer]IRLEY OPERATOR.MDOT respirations Mental status Awake,Calm 01/28/25 08:53 WHIRLEY OPERATOR.MDOT nausea No 01/28/25 08:53 WHIRLEY OPERATOR.MDOT Vomiting No 01/28/25 08:53 WHIRLEY OPERATOR.MDOT Anesthesia Postop Eval I: Fluid Summary Crystalloid volume administer 600 01/28/25 08:53 WHIRLEY OPERATOR.MDOT (ml) Colloids volume administered ( ml) Blood Product volume administered (ml) Total IV fluid infused 600 01/28/25 08:53 WHIRLEY OPERATOR.MDOT Anesthesia Postop Eval I: Summary Notes Anesthesia Complication No 01/28/25 08:53 WHIRLEY OPERATOR.MDOT Anesthesia Complication Comment: Post-operative progress note Anesthesia: Postop Eval II Evaluation Mental status: Awake Pain Level: 0 nausea: No Vomiting: No Complications Anesthesia Complication: No
--- NOTE | 2025-01-28 11:32 | PCM.POSTANE2 ---
Anesthesia Postop Eval I Sum Postop Eval Completion status Anesthesia document: Postop Eval 1 completed: Yes Anesthesia Postop Eval I Summary Anesthesia Postop Eval I Summary: Anesthesia Postop Eval I: Assessment Summary Airway patent Yes 01/28/25 08:53 [employer]ER.MDOT Spontaneous unlabored Yes 01/28/25 08:53 [employer].MDOT respirations Mental status Awake,Calm 01/28/25 08:53 [employer].MDOT nausea No 01/28/25 08:53 [employer].MDOT Vomiting No 01/28/25 08:53 [employer].MDOT Anesthesia Postop Eval I: Fluid Summary Crystalloid volume administer 600 01/28/25 08:53 [employer].MDOT (ml) Colloids volume administered ( ml) Blood Product volume administered (ml) Total IV fluid infused 600 01/28/25 08:53 [employer].MDOT Anesthesia Postop Eval I: Summary Notes Anesthesia Complication No 01/28/25 08:53 [employer].MDOT Anesthesia Complication Comment: Post-operative progress note Anesthesia: Postop Eval II Evaluation Mental status: Awake Pain Level: 0 nausea: No Vomiting: No Complications Anesthesia Complication: No
== END 2025-01-28 13:41 | disposition home or self-care (01) ==
LOC: SDC 06:59 → AC 07:02
PROVIDERS: PCP Family Medicine; Referring Provider Orthopaedic Surgery Sports Medicine; Visit Provider Orthopaedic Surgery Sports Medicine
PROC: (CPT 26615; principal; 2025-01-28 08:15)
DX: S62.306A Unspecified fracture of fifth metacarpal bone, right hand, initial encounter for closed fracture (principal); I10 Essential (primary) hypertension; Z79.899 Other long term (current) drug therapy; S62.324A Displaced fracture of shaft of fourth metacarpal bone, right hand, initial encounter for closed fracture; X58.XXXA Exposure to other specified factors, initial encounter
CPT/HCPCS: 26615 ×2; 01830; 73130; 76000; C1713; J2405